=== PATIENT | female | born 1930 | race Caucasian/White ===

== ENCOUNTER → 2016-03-15 | Outpatient (CLI) | payer OTHER, MEDICARE ==
--- NOTE | 2016-03-15 18:06 | DX ---
Abdomen single view 1508 hours Indication: History of right hydronephrosis. Comparison: CT abdomen and pelvis dated September 17, 2015 and fluoroscopy for stent placement dated mb2015 Findings: An internalized double-J right ureteral stent has upstream and downstream pigtails overlyin g the right renal pelvis and urinary bladder respectively. A 1 x 57 mm linear radiodense foreign body overlies the right renal pelvis (new since the CT of the abdomen pelvis and fluoroscopy procedure). Gaseous bowel pattern with mild constipation. No evidence of bowel obstruction. Severe multilevel deg enerative disk and facet arthropathy. Impression: 1. Right ureteral stent remains well positioned. 2. Linear indeterminant foreign body overlies the right renal pelvis and may be within the collecting system. 3. Constipation.
--- NOTE | 2016-03-15 18:38 | DX ---
PA and Lateral Chest March 15, 2016 Indication: Follow up right lower lobe consolidation. Comparison: Two-view chest dated February 12, 2016 and portable chest dated November 16, 2015. Findings: Patchy bibasilar consolidation, worse right than left. The airspace consolidation at the right base has minimally improved since January 2016. Diffuse moderate peribronchial thickening, ky phosis, and demineralization are unchanged. No acute compression fracture. Blunting of bilateral co stophrenic angles posteriorly is unchanged and may represent pleuroparenchymal scarring versus tiny b ilateral pleural effusions. Impression: 1. Chronic bibasilar consolidation has minimally improved at the right base since January 2016. Op acities may represent manifestation of recurrent aspiration, chronic basilar scarring/atelectasis, or less likely manifestation of chronic airspace disease such as cryptogenic organizing pneumonia. 2. Kyphosis and demineralization, unchanged. No new compression fracture.
== END ==
LOC: FIMAGING 14:53
PROVIDERS: ATTEND Internal Medicine Hematology & Oncology
DX: N28.9 Disorder of kidney and ureter, unspecified (principal); J84.10 Pulmonary fibrosis, unspecified

== ENCOUNTER → 2016-03-16 | Outpatient (CLI) | payer OTHER, MEDICARE ==
--- NOTE | 2016-03-16 13:46 | US ---
Renal sonogram History: Pain, stent right side in September, history of lung cancer Comparison: Ultrasound September 03, 2015 Findings: The right kidney is no longer severely hydronephrotic. There is some mild caliectasis of th e lower pole calyces only. I do not identify this stent on this exam. There is no perinephric fluid. The right kidney measures 10 cm in length. The left kidney measures 7.3 cm in length and there is no hydronephrosis or perinephric fluid. The urinary bladder is empty. Impression: 1. Marked improvement since August 2015. I do not identify a ureteral stent on this exam, b ut was clearly present and in good position on a KUB yesterday. 3. A possible right upper quadrant metallic foreign body is not identified on this exam. Consider rep eat KUB to determine if this is inside or outside the patient. It was not present on the ear specialist view o f a CT September 23, 2015 or November 15, 2015.
== END ==
LOC: BRMIMAGING 13:01
PROVIDERS: ATTEND Urology
DX: N28.89 Other specified disorders of kidney and ureter (principal); Z85.118 Personal history of other malignant neoplasm of bronchus and lung
CPT/HCPCS: 76770-PO

== ENCOUNTER → 2016-03-24 | Outpatient (CLI) | payer OTHER, MEDICARE ==
--- NOTE | 2016-03-24 13:49 | CT ---
CT Scan of the Urinary Tract (Abdomen and Pelvis Without Contrast) Indication: Right flank pain. Technique: Multidetector helical CT imaging was performed from the kidneys to the urinary bladder wi thout contrast. Dose reduction techniques were utilized. Comparison: Radiograph of the abdomen dated March 15, 2016, CT angiogram of the chest dated November 15, 2015, CT of the abdomen and pelvis dated September 23, 2015, and CT of the chest dated June 14, 2015 . Findings: A 5-cm in length radiodense foreign body, likely wire, is vertically oriented in the right renal pelvis adjacent to the upstream and of the right ureteral stent. The upper urinary tract is dec ompressed. No evidence of obstruction or ureteral stent dysfunction. Urinary bladder is empty. The do wnstream end of the pigtail is well situated within the bladder lumen. No nephrolithiasis or left-michelle ed hydronephrosis. No intra-abdominal mass, lymphadenopathy, free fluid or mesenteric edema. Constipation and numerous diverticula throughout the colon are unchanged. No acute diverticulitis or bowel obstruction. The noncontrast liver, spleen, pancreas, gallbladder, and right adrenal gland are normal. The 2.4 x 1 .6 cm low attenuation well-circumscribed left adrenal gland nodule, likely adenoma, is unchanged. The abdominal aorta is normal caliber and tortuous with moderate calcified plaque. Right lower lobe airspace consolidation and infiltrative soft tissue along the bronchovascular bundle s have gradually increased since May 2015. Minimal mixed groundglass and central acinar micronodule s in the right lower lobe, right middle lobe, and left lower lobe have developed since November 2015. Right middle lobe atelectasis has significantly improved since November 2015. No pleural effusion. No acute lumbar spine fracture or low rib fracture. Old mild compression fracture L4, bilateral L5 pa rs defect, and severe multilevel degenerative disk disease are unchanged. Impression: 1. Retained foreign body, likely wire, in the right renal pelvis. No evidence of upper urinary tract perforation or urinary leak. 2. Decompressed upper urinary tract with well-positioned right ureteral stent. 3. No acute intra-abdominal process. 4. Diverticulosis and constipation are unchanged. 5. Progressive/chronic right lower lobe airspace consolidation raises the possibility underlying hitesh gnancy, such as lymphoproliferative disorder. Recommend pulmonary consultation. Comment: The case was discussed with Dr. Bear Corona shortly after study completion on February 8, 20 17. Attention: This CT examination is specifically designed to evaluate patients who are clinically susp ected of having acute obstructive uropathy. This examination does not use radiographic contrast, and as such, provides only a limited evaluation of the abdomen, pelvis and retroperitoneum. If there i s further clinical suspicion for pathological conditions other than obstructive uropathy, a complete CT evaluation of the abdomen and pelvis utilizing intravenous, oral, and rectal contrast should be co nsidered.
== END ==
LOC: FIMAGING 11:10
PROVIDERS: ATTEND Urology
DX: Z18.10 Retained metal fragments, unspecified (principal); R10.9 Unspecified abdominal pain
CPT/HCPCS: 74176-PO

== ENCOUNTER 2016-04-02 13:36 | Inpatient (IN) | payer OTHER, MEDICARE ==
--- NOTE | 2016-04-02 14:10 | EDPHY ---
HPI/HX/ROS/PE/MDM Narrative: CHIEF COMPLAINT: Right flank pain HPI: The patient is an 85 y/o female complaining of progressively worsening right lower back pain for the past 3 weeks with low-grade fever last night. She has an extensive medical history that includes lymphocytic leukemia, chronic hypoxemia, atrial fibrillation, and chronic kidney disease. Her daughter, who is her primary childcare administrator, reports the patient had similar pain in September 2015 and ultimately had a uretal stent placed and then revised in January for uretal stricture. She began to develop worsening right flank pain 3 weeks ago and last week was evaluated by Dr. Corona, her urologist. CT imaging at that time showed a small surgical retained foreign body and normal stent, however Dr. Corona did not believe the foreign body was the cause of her pain. Her daughter brought her to the ED today because the patient's pain has not been controllable with home pain medication and she developed a fever with worsening chronic shortness of breath last night. Her pain is aggravated by movement and palpation. She denies any recent fall or other trauma. REVIEW OF SYSTEMS: Aside from elements discussed in the HPI, a comprehensive 10-point review of systems was reviewed and is negative. PMH: atrial fibrillation, subdural hematoma, CVA post DC cardioversion and received tPA, hypertension, hyperlipidemia, lymphocytic leukemia, chronic hypoxemia and respiratory failure, chronic kidney disease, chronic anemia, laminotomy 2012, right uretal stent September and January 2016 Currently on chemotherapy: Leukeran every 30 days at the beginning of the month. Reported 10 admissions over the last 2 years. DNR status SOCIAL HISTORY: Medical power of county attorney is daughter, Lia, who provides majority of patient's history and cares for her at home. Comb Winder: Dr. Dio Martines Oncologist: Dr. Calle Prior medical records reviewed including admission 11/14/15 for acute encephalopathy and abdominal CT from 03/24/16. PHYSICAL EXAM: General:Patient is alert, in no acute distress, appears uncomfortable. ENT:Eyes are normal to inspection. ENT inspection normal. Neck: Normal inspection. Full range of motion. Respiratory: Chronic hypoxemia on 3LPM, SpO2 currently 88%. Mild wheezing bilaterally. Cardiovascular: Regular rate and rhythm. Strong peripheral pulses. Normal cap refill. Abdomen:The abdomen is nontender to palpation. There are no peritoneal signs. There are normal bowel sounds. Back: Normal to inspection. Right flank tenderness to palpation with lidocaine patch present. No midline tenderness. Skin: Normal color. No rash. Warm and dry. Extremities: Normal appearance. Full range of motion. Neuro: Oriented x3. Normal motor function. Normal sensory function. ED Course: IV established. Labs drawn including CBC, CHEM, lipase, and LFTs. UA ordered. Plan for abdominal x-rays and admission for pain management. 4mg IV morphine administered. 1425: Dr. Jessica, hospitalist, accepts admission. Study: Abdominal x-ray Indication: Pain Results: Abdominal x-ray was obtained. The results of the study are 1. Bilateral pneumonia (new since January 2015). 2. Chronic constipation. 3. Right ureteral stent and other metallic object remain in place. The study was read by the radiologist, Dr. La. I viewed the images myself on the PACS system. 1525: Dr. Wright reports patient's chronic right lower lobe infiltrate is worse than previous. UA indicates UTI. 2gm IV Rocephin administered and urine sent for culture. 1652: Spoke with patient's daughter to update evaristo patient's condition. Answered all her questions. MDM: This patient has a complicated past medical history. Her primary complaint is R CVA pain but the etiology is somewhat unclear. Her UA is positive, and this likely represents pyelonephritis given tenderness on exam, but she has previously had a positive urinalysis that was felt to be due to colonization. She also has worsening of chronic RLL consolidation on CXR which could also be contributing to or the etiology of her symptoms. In discussion with the admitting hospitalist, we will start her on ceftriaxone at this time. Her vital signs are baseline - I see no evidence of severe sepsis or septic shock as of 1540pm. - Data Points Laboratory Results: Laboratory Results 04/02/16 14:20 04/02/16 14:20 04/02/16 04/02/16 14:20 14:20 WBC 11.47 10^3/uL H 10^3/uL (3.80-9.50) RBC 2.78 10^6/uL L 10^6/uL (4.18-5.33) Hgb 10.2 g/dL L g/dL (12.6-16.3) Hct 31.4 % L % (38.0-47.0) MCV 112.9 fL H fL (81.5-99.8) MCH 36.7 pg H pg (27.9-34.1) MCHC 32.5 g/dL g/dL (32.4-36.7) RDW 14.8 % % (11.5-15.2) Plt Count 239 10^3/uL 10^3/uL (150-400) MPV 9.9 fL fL (8.7-11.7) Neut % (Auto) Not Reported Lymph % (Auto) Not Reported [place] % (Auto) Not Reported Eos % (Auto) Not Reported Baso % (Auto) Not Reported Nucleat RBC Rel Count 0.0 % % (0.0-0.2) Absolute Neuts (auto) Not Reported Absolute Lymphs (auto) Not Reported Absolute Monos (auto) Not Reported Absolute Eos (auto) Not Reported Absolute Basos (auto) Not Reported Absolute Nucleated RBC 0.00 10^3/uL 10^3/uL (0-0.01) Immature Gran % Not Reported Seg Neutrophils % 59 % % Band Neutrophils % 14 % % Lymphocytes % 2 % % Monocytes % 16 % % Eosinophils % 2 % % Basophils % 1 % % Metamyelocytes % 5 % % Myelocytes % 1 % % Immature Gran # Not Reported Absolute Seg Neuts 6.77 10^/uL H 10^/uL (1.70-6.50) Absolute Band Neuts 1.61 10^3/uL H 10^3/uL (0.00-0.70) Absolute Lymphocytes 0.23 10^3/uL L 10^3/uL (1.00-3.00) Absolute Monocytes 1.84 10^3/uL H 10^3/uL (0.30-0.80) Absolute Eosinophils 0.23 10^3/uL 10^3/uL (0.03-0.40) Absolute Basophils 0.11 10^3/uL H 10^3/uL (0.02-0.10) Absolute Metamyelocyte 0.57 10^3/mL H 10^3/mL (0.00-0.00) Absolute Myelocytes 0.11 10^3/mL H 10^3/mL (0.00-0.00) RBC/WBC/PLT Morphology NORMAL (NORMAL) Platelet Estimate ADEQUATE (ADEQ) Smear Review By Liya REEDER MD Sodium 134 mEq/L mEq/L (134-144) Potassium 4.7 mEq/L mEq/L (3.5-5.2) Chloride 99 mEq/L mEq/L (97-110) Carbon Dioxide 24 mEq/l mEq/l (22-31) Anion Gap 11 mEq/L mEq/L (8-16) BUN 25 mg/dL H mg/dL (7-23) Creatinine 1.2 mg/dL H mg/dL (0.6-1.0) Estimated GFR 42 Glucose 119 mg/dL H mg/dL (70-100) Calcium 9.9 mg/dL mg/dL (8.5-10.4) Total Bilirubin 0.4 mg/dL mg/dL (0.1-1.4) Conjugated Bilirubin 0.2 mg/dL mg/dL (0.0-0.5) Unconjugated Bilirubin 0.2 mg/dL mg/dL (0.0-1.1) AST 23 IU/L IU/L (14-46) ALT 34 IU/L IU/L (9-52) Alkaline Phosphatase 66 IU/L IU/L (38-126) Total Protein 6.0 g/dL L g/dL (6.3-8.2) Albumin 3.5 g/dL g/dL (3.5-5.0) Lipase 52.0 IU/L IU/L (23-300) Medications Given: Discontinued Medications Ceftriaxone Sodium 2 gm/ (Dextrose) 50 mls @ 100 mls/hr IV EDNOW ONE PRN Reason: Protocol Stop: 04/02/16 16:08 Last Admin: 04/02/16 15:59 Dose: 50 mls Morphine Sulfate (Morphine) 4 mg IVP EDNOW ONE Stop: 04/02/16 14:33 Last Admin: 04/02/16 14:37 Dose: 4 mg General Time Seen by Provider: 04/02/16 13:40 Initial Vital Signs: Initial Vital Signs Temperature (C) 36.9 C 04/02/16 13:37 Heart Rate 73 04/02/16 13:37 Respiratory Rate 17 04/02/16 13:37 Blood Pressure 128/67 H 04/02/16 13:37 O2 Sat (%) 88 L 04/02/16 13:37 O2 Delivery Mode Nasal Cannula O2 (L/minute) 3 Allergies/Adverse Reactions: epinephrine Allergy (Severe, Verified 09/17/15 18:01) SEIZURES, SHAKING Home Medications: Medication Instructions Recorded Acetaminophen [Tylenol ES 500 mg 1,000 mg PO BID PRN 04/02/16 (*)] Acyclovir [Zovirax 400 mg (*)] 400 mg PO BID 04/02/16 Albuterol [Proventil Inhaler HFA 2 puffs IH Q4H 04/02/16 (*)] Allopurinol [Allopurinol 300 MG 300 mg PO DAILY 04/02/16 (RX)] Aspirin EC [Aspirin EC 81 mg (*)] 81 mg PO HS 04/02/16 Benzonatate [Tessalon Pearles (RX)] 100 mg PO TID PRN 04/02/16 Budesonide [Budesonide 0.5MG/2Ml 0.5 mg IH BID 04/02/16 Neb (*)] Chlorambucil [Leukeran (RX)] 24 mg PO AD 04/02/16 Cholecalciferol Vit D3 [Vitamin D3 2,000 units PO DAILY 04/02/16 (*)] FLUoxetine [Prozac 20 MG (*)] 20 mg PO DAILY 04/02/16 Guaifenesin/Codeine Phos [Codeine 5 ml PO Q4H PRN 04/02/16 10 mg-Guai 300 mg Liq] Herbals/Supplements -Info Only 1 ea PO DAILY 04/02/16 Ipratropium/Albuterol [Duoneb (*)] 3 ml IH Q6H PRN 04/02/16 Metoprolol Tartrate [Lopressor 25 25 mg PO BID 04/02/16 mg (*)] Multivitamins [Multivitamin (*)] 1 each PO DAILY 04/02/16 Obinutuzumab [Gazyva] 1,000 mg IV Q28D 04/02/16 Omeprazole 20 mg PO DAILY 04/02/16 Sulfamethox/Tmp 800/160 mg 1 tab PO SUSA 04/02/16 [Bactrim Ds] guaiFENesin [Mucinex 600 MG (*)] 1,200 mg PO Q12H 04/02/16 levOFLOXACIN [levAQUIN (*)] 500 mg PO DAILY 04/02/16 oxyCODONE IR [Oxycodone Ir (*)] 10 mg PO Q8H PRN 04/02/16 Departure - Departure Disposition: [facility] Inpatient Acute Clinical Impression: CLL (chronic lymphocytic leukemia), Pyelonephritis Pneumonia Qualifiers: Pneumonia type: due to unspecified organism Laterality: right Lung location: lower lobe of lung Qualified Code(s): J18.1 - Lobar pneumonia, unspecified organism UTI (urinary tract infection) Qualifiers: Urinary tract infection type: site unspecified Hematuria presence: without hematuria Qualified Code(s): N39.0 - Urinary tract infection, site not specified Condition: Fair Report Scribed for: Carlos Plasencia Report Scribed by: Shanda Talbot Date of Report: 04/02/16 Time of Report: 13:42 Physician Review and Approval Statement: Portions of this note were transcribed by an ED scribe. I personally performed the history, physical exam, and medical decision making; and confirm the accuracy of the information in the transcribed note.
[2016-04-02 14:29] LABS: ADD DIFF? YES; ADD MORPH? NO; ADD SCAN? YES; ATYPICAL LYMPHOCYTE FLAG 10 (0-99); FRAGMENT RBC FLAG 0 (0-99); HEMATOCRIT 31.4 % (38.0-47.0); HEMOGLOBIN 10.2 g/dL (12.6-16.3); LIPEMIA HEMOLYSIS FLAG 80 (0-99); MEAN CELL HEMOGLOBIN 36.7 pg (27.9-34.1); MEAN CELL HEMOGLOBIN CONCENTR. 32.5 g/dL (32.4-36.7); MEAN CELL VOLUME 112.9 fL (81.5-99.8); MEAN PLATELET VOLUME 9.9 fL (8.7-11.7); PLATELET CLUMPS FLAG 0 (0-99); PLATELET COUNT 239 10^3/uL (150-400); RED BLOOD CELL COUNT 2.78 10^6/uL (4.18-5.33); RED CELL DISTRIBUTION WIDTH 14.8 % (11.5-15.2)
[2016-04-02 14:30] LABS: LEFT SHIFT FLG 120 (0-99)
[2016-04-02 14:51] LABS: ALANINE AMINOTRANSFERASE 34 IU/L (9-52); ALBUMIN 3.5 g/dL (3.5-5.0); ALKALINE PHOSPHATASE 66 IU/L (38-126); ANION GAP 11 mEq/L (8-16); ASPARTATE AMINOTRANSFERASE 23 IU/L (14-46); BILIRUBIN,TOTAL 0.4 mg/dL (0.1-1.4); BILIRUBIN-CONJUGATED 0.2 mg/dL (0.0-0.5); BILIRUBIN-UNCONJUGATED 0.2 mg/dL (0.0-1.1); CALCIUM 9.9 mg/dL (8.5-10.4); CARBON DIOXIDE 24 mEq/l (22-31); CHLORIDE 99 mEq/L (97-110); CREATININE 1.2 mg/dL (0.6-1.0); GLOMERULAR FILTRATION RATE 42; GLUCOSE 119 mg/dL (70-100); POTASSIUM 4.7 mEq/L (3.5-5.2); SODIUM 134 mEq/L (134-144)
[2016-04-02 14:56] LABS: SCAN NEGATIVE
[2016-04-02 15:16] LABS: PLATELET ESTIMATE ADEQUATE (ADEQ)
[2016-04-02 15:22] LABS: COLOR YELLOW; LEUKOCYTE ESTERASE,URINE 3+ (NEGATIVE); NITRITE,URINE NEGATIVE (NEGATIVE)
[2016-04-02 15:31] LABS: BACTERIA 1+ /hpf (NONE SEEN); MUCUS 1+ /lpf (NONE-1+); RBC,URINE 50-182 /hpf (0-3); WBC,URINE 50-182 /hpf (0-3)
[2016-04-02] MEDS ORDERED: cefTRIAXone 2 GM in D5W 50 ML IV ONE (15:39)
[2016-04-02] MEDS ORDERED: CEFTRIAXONE 1 GM/DEXTROSE/50 ML BAG IV ONE (15:52)
[2016-04-02] MEDS ORDERED: ONDANSETRON 4 MG/2 ML VIAL IVP PRN (18:50)
[2016-04-02] MEDS ORDERED: ONDANSETRON DISINTEGRATING 4 MG TAB PO PRN (18:50)
[2016-04-02] MEDS ORDERED: IPRATROPIUM/ALBUTEROL 3 ML DEYVIAL IH PRN (18:53)
[2016-04-02] MEDS ORDERED: LORazepam 2 MG/ML INJ IVP ONE (19:03)
[2016-04-02] MEDS: BUDESONIDE 0.5 MG/2 ML AMPUL.NEB IH SCH (20:39)
[2016-04-02] MEDS: ALBUTEROL 60 PUFFS/8 GM MDI IH SCH ×2 (20:39→23:57)
[2016-04-02] MEDS: ASPIRIN EC 81 MG TAB PO SCH (20:42)
[2016-04-02] MEDS: ACYCLOVIR 400 MG TAB PO SCH (20:42)
[2016-04-02] MEDS: guaiFENesin 600 MG TAB.ER PO SCH (20:42)
[2016-04-02] MEDS: METOPROLOL TARTRATE 25 MG TAB PO SCH (20:43)
--- NOTE | 2016-04-02 21:58 | GHP ---
[f rep st] HISTORY AND PHYSICAL DATE OF ADMISSION: 04/02/2016 CHIEF COMPLAINT: Right-sided back pain. HISTORY OF PRESENT ILLNESS: This is an 85-year-old female with a complicated past medical history. She has a history of CLL which seems to be progressing, and she also has a chronic right lower lobe infiltrate that is due to the CLL. She has multiple other medical problems which are listed below. The other pertinent problem is that she has had a right ureteral stricture with right hydronephros is. She had an initial stent placed last summer and then change of that stent was done in January of last year. She said has not had any problems with the stent but, within the last 3 weeks, has be en developing increasing right flank pain. She has gone to see who did a CAT scan wh ich showed retained foreign body, likely a wire in the right renal pelvis but without any evidence o f perforation. Urology feels that is not the cause of her pain. The pain has been getting more sev ere. She does report low-grade fevers. She denies any dysuria. During the past several hospitaliz ations, she has had pyuria with positive urine cultures of Pseudomonas and a very resistant Enteroba cter. The most recent culture was not treated as she was not having any symptoms. She is not havin g any lower extremity weakness. The pain is worse with any type of moving, especially with being in the car. REVIEW OF SYSTEMS: 10-point review of systems was obtained and negative. PAST MEDICAL HISTORY: 1. CLL with CLL-induced pneumonitis. She is seeing Dr. Calle. She is currently on a chemotherapy regimen that appears to be working, although it is quite immunosuppressant. 2. History of atrial fibrillation. She was anticoagulated briefly but then developed a subdural he matoma. 3. History of CVA. 4. 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 5. Chronic kidney disease. 6. History of radiation diaz. 7. Hypertension. 8. Hyperlipidemia. MEDICATIONS: Reviewed. SOCIAL HISTORY: No smoking or alcohol. Lives with a daughter. FAMILY HISTORY: Reviewed and noncontributory. PHYSICAL EXAMINATION: VITAL SIGNS: Afebrile. Blood pressure is 116/63, heart rate 65, oxygen satur ation is 95% on room air. GENERAL: The patient is well developed. No apparent distress. HEENT: N onicteric sclerae. Extraocular movements intact. Moist mucous membranes. NECK: Supple. No thyro megaly. LUNGS: Good effort. Clear to auscultation bilaterally. CARDIOVASCULAR: Regular rate and rhythm. No murmurs or gallops. ABDOMEN: Positive bowel sounds. Soft. Nontender. BACK: Some m ild CVA tenderness. No midline tenderness. EXTREMITIES: No clubbing, cyanosis, or edema. SKIN: Without rash. Warm, dry and intact. NEUROLOGIC: Alert and oriented x3. Moving all 4 extremities. PSYCH: Normal mood and affect. LABORATORY DATA: White blood cell count 11, hemoglobin 10, platelets are 239. Sodium 134, potassiu m 4.7, creatinine 1.2. Abdominal x-ray shows no fractures. There is bilateral lung infiltrate, mor e on the right, and the right ureteral stent and additional metallic object. ASSESSMENT AND PLAN: An 85-year-old female with a complicated past medical history including right ureteral stent, presenting with right flank pain. 1. Right flank pain. At this point, the cause is uncertain. I it were to be the retained guidewir e, I am not sure why her pain would start a month and a half after she got the stent placed. I supp ose it could have migrated. She does have significant pyuria which is unchanged from before but she could have a pyelonephritis. Other possibilities would include some type of spinal disorder. Plan will be to treat with IV antibiotics and try to get an MRI done in the morning. 2. Possible urinary tract infection. We will treat with IV ceftriaxone, although I am aware that s he has had cultures in the past with Pseudomonas. It has been sometime since those last cultures an d I am not completely sure that is the cause of her pain. We will await cultures as well. 3. History of CLL. Patient is seeing Dr. Calle and gets chemotherapy, as well as IVIG. 4. History of atrial fibrillation. 5. Chronic kidney disease. Patient is at baseline. 6. Bilateral infiltrates. The patient has known CLL infiltrate on the right. She may have somethin g on the left and is coughing. I believe the ceftriaxone should cover pneumonia, although not mal alexily covering atypicals. We will continue to watch. May consider CT scanning. /[id number]/MODL
[2016-04-02] MEDS: guaiFENesin/CODEINE PHOS 10 ML UDCUP PO PRN (23:35)
[2016-04-03] MEDS: ALBUTEROL 60 PUFFS/8 GM MDI IH SCH ×6 (03:29→21:38)
[2016-04-03] MEDS: guaiFENesin/CODEINE PHOS 10 ML UDCUP PO PRN ×4 (05:12→20:39)
[2016-04-03] MEDS: guaiFENesin 600 MG TAB.ER PO SCH ×2 (05:12→18:38)
[2016-04-03] MEDS: oxyCODONE IR 5 MG TAB PO PRN ×3 (05:21→20:40)
[2016-04-03 06:10] LABS: ADD DIFF? YES; ADD MORPH? NO; ADD SCAN? NO; ATYPICAL LYMPHOCYTE FLAG 0 (0-99); FRAGMENT RBC FLAG 0 (0-99); HEMATOCRIT 32.1 % (38.0-47.0); HEMOGLOBIN 10.1 g/dL (12.6-16.3); LEFT SHIFT FLG 80 (0-99); LIPEMIA HEMOLYSIS FLAG 80 (0-99); MEAN CELL HEMOGLOBIN 35.4 pg (27.9-34.1); MEAN CELL HEMOGLOBIN CONCENTR. 31.5 g/dL (32.4-36.7); MEAN CELL VOLUME 112.6 fL (81.5-99.8); MEAN PLATELET VOLUME 9.8 fL (8.7-11.7); PLATELET CLUMPS FLAG 20 (0-99); PLATELET COUNT 243 10^3/uL (150-400); RED BLOOD CELL COUNT 2.85 10^6/uL (4.18-5.33); RED CELL DISTRIBUTION WIDTH 14.7 % (11.5-15.2)
[2016-04-03 06:13] LABS: ANION GAP 10 mEq/L (8-16); CALCIUM 9.9 mg/dL (8.5-10.4); CARBON DIOXIDE 20 mEq/l (22-31); CHLORIDE 105 mEq/L (97-110); CREATININE 1.2 mg/dL (0.6-1.0); GLOMERULAR FILTRATION RATE 42; GLUCOSE 84 mg/dL (70-100); POTASSIUM 4.6 mEq/L (3.5-5.2); SODIUM 135 mEq/L (134-144)
[2016-04-03 06:45] LABS: PLATELET ESTIMATE ADEQUATE (ADEQ)
[2016-04-03] MEDS: BUDESONIDE 0.5 MG/2 ML AMPUL.NEB IH SCH ×2 (08:59→21:32)
[2016-04-03] MEDS: FLUoxetine 20 MG CAP PO SCH (09:16)
[2016-04-03] MEDS: ALLOPURINOL 300 MG TAB PO SCH (09:16)
[2016-04-03] MEDS: ACYCLOVIR 400 MG TAB PO SCH ×2 (09:17→20:41)
[2016-04-03] MEDS: PANTOPRAZOLE SODIUM 40 MG TAB PO SCH (09:17)
[2016-04-03] MEDS: METOPROLOL TARTRATE 25 MG TAB PO SCH ×2 (09:17→20:44)
[2016-04-03] MEDS: ENOXAPARIN 40 MG/0.4 ML SYR SC SCH (09:21)
[2016-04-03] MEDS: BENZONATATE 100 MG CAP PO PRN ×3 (10:38→20:41)
--- NOTE | 2016-04-03 11:19 | HOSPPROG ---
Hospitalist Progress Note Assessment/Plan: #Progressive right flank: retained guide wire vs pyleonephritis] -I spoke with Dr. Corona with Urology and he does not feel pain is due to retained wire. If stent was issue, then she should have reflux pain with urination. Unable to perform MRI since unclear of foreign body -CT today stable from prior. Culture shows >100K gram neg rods. Change to Cefepime based on review or prior micro sensitivities (personally reviewed) #CLL: on chemo per Dr. Calle #h/o subdural hematoma: no further anticoagulation #Atrial fibrillation: rate-controlled on BB, no anticoagulation with SDH #Skin cancer: recent right forearm excision #Benign HTN: home meds #HLD: statin #Diet: regular #DVT px: SCD #Disp: await culture sensitivities, warrants IV abx and opioids for pain control Subjective: no pain while just sitting in bed Objective: Vital Signs Temp Pulse Resp BP Pulse Ox 36.6 C 67 18 120/68 97 04/03/16 08:25 04/03/16 08:25 04/03/16 08:25 04/03/16 08:25 04/03/16 08:25 Laboratory Results 04/03/16 05:40 04/03/16 05:40 04/02/16 04/03/16 04/04/16 05:59 05:59 05:59 Intake Total 300 Output Total 300 Balance 0 - Physical Exam Constitutional: no apparent distress Eyes: PERRL Ears, Nose, Mouth, Throat: moist mucous membranes, hearing normal Cardiovascular: regular rate and rhythym, no murmur, rub, or gallop Respiratory: no respiratory distress, no rales or rhonchi Gastrointestinal: normoactive bowel sounds, soft, non-tender abdomen Genitourinary: no bladder fullness, other (significant right CVA TTP) Musculoskeletal: full muscle strength, other (right forearm surgical incision dressed, C/D/I ) Neurologic: AAOx3 Psychiatric: interacting appropriately ICD10 Worksheet Patient Problems: Problems Problem Status Onset CLL (chronic lymphocytic leukemia) Acute Pneumonia Acute Pyelonephritis Acute UTI (urinary tract infection) Acute Acute ischemic stroke Acute Bronchitis Acute Chronic Disease Mgmt/Transitional Care Acute Cough Acute Diarrhea Acute Fatigue Acute Hydronephrosis Acute MRSA (methicillin resistant Staphylococcus aureus) Acute 04/22/15 NSTEMI (non-ST elevated myocardial infarction) Acute Pneumonia Acute Pneumonia due to infectious organism Acute Somnolence Acute Subdural bleeding Acute UTI (urinary tract infection) Acute Urinary obstruction Acute Weakness Acute
[2016-04-03] MEDS ORDERED: MAGNESIUM HYDROXIDE 30 ML UDCUP PO PRN (11:23)
[2016-04-03] MEDS ORDERED: BISACODYL 10 MG SUPP PR PRN (11:23)
[2016-04-03] MEDS ORDERED: LACTULOSE 20 GM/30 ML UDCUP PO PRN (11:23)
[2016-04-03] MEDS ORDERED: POLYETHYLENE GLYCOL 3350 17 GM PKT PO PRN (11:23)
[2016-04-03] MEDS: CEFEPIME HCL 1 GM in D5W 50 ML IV SCH ×2 (13:38→20:39)
[2016-04-03] MEDS: ACETAMINOPHEN 325 MG TAB PO PRN (13:38)
[2016-04-03] MEDS: SULFAMETHOX/TMP 800/160 MG 1 TAB PO SCH (18:38)
[2016-04-03] MEDS: SENNOSIDES/DOCUSATE SODIUM TAB PO SCH (20:40)
[2016-04-03] MEDS: ASPIRIN EC 81 MG TAB PO SCH (20:41)
[2016-04-04] MEDS: BENZONATATE 100 MG CAP PO PRN ×2 (06:15→17:39)
[2016-04-04] MEDS: guaiFENesin 600 MG TAB.ER PO SCH ×2 (06:15→18:46)
[2016-04-04 06:21] LABS: ANION GAP 8 mEq/L (8-16); CALCIUM 9.8 mg/dL (8.5-10.4); CARBON DIOXIDE 25 mEq/l (22-31); CHLORIDE 101 mEq/L (97-110); CREATININE 1.2 mg/dL (0.6-1.0); GLOMERULAR FILTRATION RATE 42; GLUCOSE 88 mg/dL (70-100); POTASSIUM 4.5 mEq/L (3.5-5.2); SODIUM 134 mEq/L (134-144)
[2016-04-04] MEDS: ALBUTEROL 60 PUFFS/8 GM MDI IH SCH ×5 (06:33→21:55)
--- NOTE | 2016-04-04 08:36 | HOSPPROG ---
Hospitalist Progress Note Assessment/Plan: #Progressive right flank: retained guide wire vs pyleonephritis. Pain improved. CT stable -culture with Enterobacter. Change to Meropenem based on culture data. Micro re- running sensitivities for ESBL #Pyleonephritis: Culture shows Enterobacter cloacae. Changed to Meropenem. Likely needs prolonged IV abx, d/w ID in morning. PICC tomorrow #Leukocytosis: resolved with abx #Pneumonia: seen by Dio Martines 04/01 and started on LQ for 2 wk course. h/o Pseudomonas with some resistance to both LQ and Meropenem. I reviewed cultures with Dr. Fernandez and he agrees on Meropenem as single agent for both urinary and pulmonary sources #Chronic hypoxemic resp failure: thought due to PNA. Cont abx, budesonide and Duonebs #CLL: on chemo per Dr. Calle #h/o subdural hematoma: no further anticoagulation #Atrial fibrillation: rate-controlled on BB, no anticoagulation with SDH #Skin cancer: recent right forearm excision #Benign HTN: home meds #HLD: statin #Diet: regular #DVT px: SCD #Disp: await culture sensitivities, warrants IV abx and opioids for pain control Subjective: less pain today. Still coughing Objective: Vital Signs Temp Pulse Resp BP Pulse Ox 36.6 C 61 92 H 134/51 H 91 L 04/04/16 08:32 04/04/16 08:32 04/04/16 08:32 04/04/16 08:32 04/04/16 08:32 Laboratory Results 04/03/16 05:40 04/04/16 05:38 04/03/16 04/04/16 04/05/16 05:59 05:59 05:59 Intake Total 300 2175 Output Total 300 550 Balance 0 1625 - Physical Exam Constitutional: no apparent distress Eyes: PERRL Ears, Nose, Mouth, Throat: moist mucous membranes Cardiovascular: regular rate and rhythym Respiratory: no respiratory distress, rhonchi Gastrointestinal: normoactive bowel sounds, soft, non-tender abdomen Genitourinary: other (less right TTP today) Skin: other (right forearm incison dressed, C/D/I) Musculoskeletal: full muscle strength Neurologic: AAOx3 Psychiatric: interacting appropriately ICD10 Worksheet Patient Problems: Problems Problem Status Onset CLL (chronic lymphocytic leukemia) Acute Pneumonia Acute Pyelonephritis Acute UTI (urinary tract infection) Acute Acute ischemic stroke Acute Bronchitis Acute Chronic Disease Mgmt/Transitional Care Acute Cough Acute Diarrhea Acute Fatigue Acute Hydronephrosis Acute MRSA (methicillin resistant Staphylococcus aureus) Acute 04/22/15 NSTEMI (non-ST elevated myocardial infarction) Acute Pneumonia Acute Pneumonia due to infectious organism Acute Somnolence Acute Subdural bleeding Acute UTI (urinary tract infection) Acute Urinary obstruction Acute Weakness Acute
[2016-04-04] MEDS: BUDESONIDE 0.5 MG/2 ML AMPUL.NEB IH SCH ×2 (08:56→20:05)
[2016-04-04] MEDS: SENNOSIDES/DOCUSATE SODIUM TAB PO SCH ×2 (09:06→21:04)
[2016-04-04] MEDS: ACETAMINOPHEN 325 MG TAB PO PRN (09:06)
[2016-04-04] MEDS: FLUoxetine 20 MG CAP PO SCH (09:06)
[2016-04-04] MEDS: oxyCODONE IR 5 MG TAB PO PRN (09:06)
[2016-04-04] MEDS: ACYCLOVIR 400 MG TAB PO SCH ×2 (09:06→20:29)
[2016-04-04] MEDS: ALLOPURINOL 300 MG TAB PO SCH (09:07)
[2016-04-04] MEDS: METOPROLOL TARTRATE 25 MG TAB PO SCH ×2 (09:07→20:29)
[2016-04-04] MEDS: PANTOPRAZOLE SODIUM 40 MG TAB PO SCH (09:07)
[2016-04-04] MEDS: CEFEPIME HCL 1 GM in D5W 50 ML IV SCH (09:08)
[2016-04-04] MEDS: ENOXAPARIN 40 MG/0.4 ML SYR SC SCH (09:08)
[2016-04-04] MEDS: guaiFENesin/CODEINE PHOS 10 ML UDCUP PO PRN ×2 (09:34→17:38)
[2016-04-04] MEDS: MEROPENEM 1 GM in NS 100 ML IV SCH ×2 (10:27→20:30)
[2016-04-04] MEDS: SULFAMETHOX/TMP 800/160 MG 1 TAB PO SCH (18:46)
[2016-04-04] MEDS: ASPIRIN EC 81 MG TAB PO SCH (20:28)
[2016-04-05] MEDS: guaiFENesin/CODEINE PHOS 10 ML UDCUP PO PRN ×2 (01:56→16:47)
[2016-04-05] MEDS: BENZONATATE 100 MG CAP PO PRN ×2 (02:03→16:46)
[2016-04-05] MEDS: oxyCODONE IR 5 MG TAB PO PRN ×2 (02:03→16:46)
[2016-04-05 05:57] LABS: HEMATOCRIT 28.5 % (38.0-47.0); HEMOGLOBIN 9.1 g/dL (12.6-16.3); MEAN CELL HEMOGLOBIN 35.8 pg (27.9-34.1); MEAN CELL HEMOGLOBIN CONCENTR. 31.9 g/dL (32.4-36.7); MEAN CELL VOLUME 112.2 fL (81.5-99.8); RED BLOOD CELL COUNT 2.54 10^6/uL (4.18-5.33); RED CELL DISTRIBUTION WIDTH 14.6 % (11.5-15.2)
[2016-04-05 06:17] LABS: ANION GAP 6 mEq/L (8-16); CARBON DIOXIDE 24 mEq/l (22-31); CHLORIDE 104 mEq/L (97-110); CREATININE 1.2 mg/dL (0.6-1.0); GLOMERULAR FILTRATION RATE 42; GLUCOSE 89 mg/dL (70-100); POTASSIUM 4.2 mEq/L (3.5-5.2); SODIUM 134 mEq/L (134-144)
[2016-04-05] MEDS: ALBUTEROL 60 PUFFS/8 GM MDI IH SCH ×4 (09:05→19:37)
[2016-04-05] MEDS: BUDESONIDE 0.5 MG/2 ML AMPUL.NEB IH SCH ×2 (09:05→19:38)
[2016-04-05] MEDS: MEROPENEM 1 GM in NS 100 ML IV SCH ×2 (09:29→20:21)
[2016-04-05] MEDS: PANTOPRAZOLE SODIUM 40 MG TAB PO SCH (09:30)
[2016-04-05] MEDS: guaiFENesin 600 MG TAB.ER PO SCH ×2 (09:30→20:20)
[2016-04-05] MEDS: METOPROLOL TARTRATE 25 MG TAB PO SCH ×2 (09:30→20:19)
[2016-04-05] MEDS: SENNOSIDES/DOCUSATE SODIUM TAB PO SCH ×2 (09:30→20:19)
[2016-04-05] MEDS: ACYCLOVIR 400 MG TAB PO SCH ×2 (09:30→20:21)
[2016-04-05] MEDS: ENOXAPARIN 40 MG/0.4 ML SYR SC SCH (09:31)
[2016-04-05] MEDS: ALLOPURINOL 300 MG TAB PO SCH (09:31)
[2016-04-05] MEDS: FLUoxetine 20 MG CAP PO SCH (09:31)
[2016-04-05] MEDS ORDERED: ALTEPLASE 2 MG VIAL IVP PRN (09:55)
--- NOTE | 2016-04-05 14:22 | HOSPPROG ---
Hospitalist Progress Note Assessment/Plan: #Progressive right flank: retained guide wire vs pyleonephritis. Pain improved. CT stable from prior. Cont opioids -culture with Enterobacter. #Pyleonephritis: Culture shows Enterobacter cloacae, resistant to all, but Meropenem. Plan for 10 days (Day 210) PICC done. #Leukocytosis: resolved with abx #Pneumonia: seen by Dio Martines 04/01 and started on LQ for 2 wk course. h/o Pseudomonas with some resistance to both LQ and Meropenem. I reviewed cultures with Dr. Fernandez and he agrees on Meropenem as single agent for both urinary and pulmonary sources #Chronic hypoxemic resp failure: thought due to PNA. Cont abx, budesonide and Duonebs #CLL: on chemo per Dr. Calle #h/o subdural hematoma: no further anticoagulation #Atrial fibrillation: rate-controlled on BB, no anticoagulation with SDH #Skin cancer: recent right forearm excision by Dr. Fulton with positive margins. Likely needs further surgery #Benign HTN: home meds #HLD: statin #Diet: regular #DVT px: SCD #Disp: warrant inpt admission with resistant pyleo warrant IV abx. Awaiting home services approval for home abx, cont pain control Subjective: still coughing Objective: Vital Signs Temp Pulse Resp BP Pulse Ox 36.6 C 80 18 120/58 L 88 L 04/05/16 09:17 04/05/16 11:20 04/05/16 11:20 04/05/16 09:30 04/05/16 09:17 Laboratory Results 04/05/16 05:30 04/05/16 05:30 04/04/16 04/05/16 04/06/16 05:59 05:59 05:59 Intake Total 2175 950 Output Total 550 300 Balance 1625 650 - Physical Exam Constitutional: no apparent distress Eyes: PERRL Ears, Nose, Mouth, Throat: moist mucous membranes, hearing normal Cardiovascular: regular rate and rhythym Respiratory: no respiratory distress, rhonchi (right ML and LLL) Gastrointestinal: normoactive bowel sounds, soft, non-tender abdomen Genitourinary: other (less right flank TTP) Skin: warm, normal color, other (exicision site right arm dressed, C/D/I) Musculoskeletal: full muscle strength Neurologic: sensation intact bilaterally Psychiatric: interacting appropriately ICD10 Worksheet Patient Problems: Problems Problem Status Onset CLL (chronic lymphocytic leukemia) Acute Pneumonia Acute Pyelonephritis Acute UTI (urinary tract infection) Acute Acute ischemic stroke Acute Bronchitis Acute Chronic Disease Mgmt/Transitional Care Acute Cough Acute Diarrhea Acute Fatigue Acute Hydronephrosis Acute MRSA (methicillin resistant Staphylococcus aureus) Acute 04/22/15 NSTEMI (non-ST elevated myocardial infarction) Acute Pneumonia Acute Pneumonia due to infectious organism Acute Somnolence Acute Subdural bleeding Acute UTI (urinary tract infection) Acute Urinary obstruction Acute Weakness Acute
[2016-04-05] MEDS: ACETAMINOPHEN 325 MG TAB PO PRN (16:46)
[2016-04-05] MEDS: ASPIRIN EC 81 MG TAB PO SCH (20:19)
[2016-04-06] MEDS: ALBUTEROL 60 PUFFS/8 GM MDI IH SCH ×8 (00:27→20:25)
[2016-04-06] MEDS: guaiFENesin/CODEINE PHOS 10 ML UDCUP PO PRN ×2 (08:25→12:38)
[2016-04-06] MEDS: BENZONATATE 100 MG CAP PO PRN (08:26)
[2016-04-06] MEDS: MEROPENEM 1 GM in NS 100 ML IV SCH ×2 (08:54→21:44)
[2016-04-06] MEDS: METOPROLOL TARTRATE 25 MG TAB PO SCH ×2 (08:54→21:44)
[2016-04-06] MEDS: ACETAMINOPHEN 325 MG TAB PO PRN (08:59)
[2016-04-06] MEDS: PANTOPRAZOLE SODIUM 40 MG TAB PO SCH (08:59)
[2016-04-06] MEDS: guaiFENesin 600 MG TAB.ER PO SCH ×2 (09:00→21:43)
[2016-04-06] MEDS: FLUoxetine 20 MG CAP PO SCH (09:00)
[2016-04-06] MEDS: ALLOPURINOL 300 MG TAB PO SCH (09:01)
[2016-04-06] MEDS: ACYCLOVIR 400 MG TAB PO SCH ×2 (09:01→21:44)
[2016-04-06] MEDS: SENNOSIDES/DOCUSATE SODIUM TAB PO SCH ×2 (09:02→22:01)
[2016-04-06] MEDS: BUDESONIDE 0.5 MG/2 ML AMPUL.NEB IH SCH ×2 (09:19→20:07)
[2016-04-06] MEDS: ENOXAPARIN 40 MG/0.4 ML SYR SC SCH (09:39)
--- NOTE | 2016-04-06 12:44 | SOAPPROG ---
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 Margins positive Will defer further treatment recommendations to Dr. Calle. Discussed with Gina and her daughter Lia. Seen with Dr. Linder Dressed with hydrofera blue O: laying in bed, Lia at bedside Incision dehisced in central portion. Several sutures removed. Otherwise CDI. No evidence of infection Placed hydrofera blue and secondary dressing Objective: Vital Signs Temp Pulse Resp BP Pulse Ox 36.6 C 62 20 130/65 H 98 04/06/16 08:00 04/06/16 08:54 04/06/16 08:00 04/06/16 08:54 04/06/16 08:00 Laboratory Results 04/05/16 05:30 04/05/16 05:30 04/05/16 04/06/16 04/07/16 05:59 05:59 05:59 Intake Total 950 1250 Output Total 300 Balance 650 1250 ICD10 Worksheet Patient Problems: Problems Problem Status Onset CLL (chronic lymphocytic leukemia) Acute Multiple drug resistant organism (MDRO) culture positive Acute ~04/02/16 Pneumonia Acute Pyelonephritis Acute UTI (urinary tract infection) Acute Acute ischemic stroke Acute Bronchitis Acute Chronic Disease Mgmt/Transitional Care Acute Cough Acute Diarrhea Acute Fatigue Acute Hydronephrosis Acute MRSA (methicillin resistant Staphylococcus aureus) Acute 04/22/15 NSTEMI (non-ST elevated myocardial infarction) Acute Pneumonia Acute Pneumonia due to infectious organism Acute Somnolence Acute Subdural bleeding Acute UTI (urinary tract infection) Acute Urinary obstruction Acute Weakness Acute
--- NOTE | 2016-04-06 14:20 | HOSPPROG ---
Hospitalist Progress Note Assessment/Plan: Progressive right flank: retained guide wire vs pyleonephritis. Pain improved. CT stable from prior. Cont opioids culture with Enterobacter, multidrug resistance this is presumably he cuase of her flank pain Pyleonephritis: Culture shows Enterobacter cloacae, resistant to all, but Meropenem. Plan for 10 days (Day 310) PICC done. Leukocytosis: resolved with abx Pneumonia: seen by Dio Martines 04/01 and started on LQ for 2 wk course. h/o Pseudomonas with some resistance to both LQ and Meropenem. I reviewed cultures with Dr. Fernandez and he agrees on Meropenem as single agent for both urinary and pulmonary sources Chronic hypoxemic resp failure: thought due to PNA. Cont abx, budesonide and Duonebs CLL: on chemo per Dr. Calle h/o subdural hematoma: no further anticoagulation hold lovenox Atrial fibrillation: rate-controlled on BB, no anticoagulation with SDH Skin cancer: recent right forearm excision by Dr. Fulton with positive margins. Likely needs further surgery Benign HTN: home meds HLD: statin Diet: regular DVT px: SCD Disp: warrant inpt admission with resistant pyleo warrant IV abx. Awaiting home services approval for home abx, cont pain control Subjective: daughter very anxious about discharge Objective: Vital Signs Temp Pulse Resp BP Pulse Ox 36.6 C 62 20 130/65 H 98 04/06/16 08:00 04/06/16 08:54 04/06/16 08:00 04/06/16 08:54 04/06/16 08:00 Laboratory Results 04/05/16 05:30 04/05/16 05:30 04/05/16 04/06/16 04/07/16 05:59 05:59 05:59 Intake Total 950 1250 Output Total 300 Balance 650 1250 - Physical Exam Constitutional: no apparent distress, appears nourished Eyes: PERRL, anicteric sclera Ears, Nose, Mouth, Throat: moist mucous membranes, hearing normal Cardiovascular: regular rate and rhythym, no murmur, rub, or gallop Respiratory: no respiratory distress, no rales or rhonchi Gastrointestinal: normoactive bowel sounds, soft, non-tender abdomen Genitourinary: no bladder fullness Skin: warm, normal color Musculoskeletal: full muscle strength, no muscle tenderness Neurologic: AAOx3, sensation intact bilaterally Psychiatric: interacting appropriately, not anxious Lymph, Heme, Immunologic: no cervical LAD, no supraclavicular LAD ICD10 Worksheet Patient Problems: Problems Problem Status Onset CLL (chronic lymphocytic leukemia) Acute Multiple drug resistant organism (MDRO) culture positive Acute ~04/02/16 Pneumonia Acute Pyelonephritis Acute UTI (urinary tract infection) Acute Acute ischemic stroke Acute Bronchitis Acute Chronic Disease Mgmt/Transitional Care Acute Cough Acute Diarrhea Acute Fatigue Acute Hydronephrosis Acute MRSA (methicillin resistant Staphylococcus aureus) Acute 04/22/15 NSTEMI (non-ST elevated myocardial infarction) Acute Pneumonia Acute Pneumonia due to infectious organism Acute Somnolence Acute Subdural bleeding Acute UTI (urinary tract infection) Acute Urinary obstruction Acute Weakness Acute
[2016-04-06] MEDS: ASPIRIN EC 81 MG TAB PO SCH (21:44)
[2016-04-07] MEDS: ALBUTEROL 60 PUFFS/8 GM MDI IH SCH ×2 (05:26→08:30)
[2016-04-07 07:51] VITALS: BP 123/71; TEMP 97.8
[2016-04-07] MEDS: ACETAMINOPHEN 325 MG TAB PO PRN (08:15)
[2016-04-07] MEDS: guaiFENesin 600 MG TAB.ER PO SCH (08:15)
[2016-04-07] MEDS: BUDESONIDE 0.5 MG/2 ML AMPUL.NEB IH SCH (08:29)
[2016-04-07 08:40] VITALS: PULSE 77; RESP 18; O2SAT 93
[2016-04-07] MEDS: MEROPENEM 1 GM in NS 100 ML IV SCH (08:44)
[2016-04-07] MEDS: SENNOSIDES/DOCUSATE SODIUM TAB PO SCH (08:45)
[2016-04-07] MEDS: PANTOPRAZOLE SODIUM 40 MG TAB PO SCH (08:46)
[2016-04-07] MEDS: ACYCLOVIR 400 MG TAB PO SCH (08:47)
[2016-04-07] MEDS: METOPROLOL TARTRATE 25 MG TAB PO SCH (08:48)
[2016-04-07] MEDS: ALLOPURINOL 300 MG TAB PO SCH (08:48)
[2016-04-07] MEDS: FLUoxetine 20 MG CAP PO SCH (08:48)
[2016-04-07] MEDS: guaiFENesin/CODEINE PHOS 10 ML UDCUP PO PRN (10:56)
--- NOTE | 2016-04-07 11:15 | PDIAF ---
- Diagnosis Diagnosis: pyelonephritis Code Status: Do Not Resuscitate - Medication Management Discharge Medications: Medications to Continue on Transfer Acetaminophen [Tylenol ES 500 mg (*)] 1,000 mg PO BID PRN 04/02/16 [Last Taken 04/02/16 12:00] Acyclovir [Zovirax 400 mg (*)] 400 mg PO BID 04/02/16 [Last Taken 04/02/16 11:00 ] Albuterol [Proventil Inhaler HFA (*)] 2 puffs IH Q4H 04/02/16 [Last Taken 11:00] Allopurinol [Allopurinol 300 MG (RX)] 300 mg PO DAILY 04/02/16 [Last Taken 04/02 11:00] Aspirin EC [Aspirin EC 81 mg (*)] 81 mg PO HS 04/02/16 [Last Taken 04/01/16 22: 00] Benzonatate [Tessalon Pearles] 100 mg PO TID PRN 04/02/16 [Last Taken 04/02/16 07:00] Budesonide [Budesonide 0.5MG/2Ml Neb (*)] 0.5 mg IH BID 04/02/16 [Last Taken Unknown] Chlorambucil [Leukeran] 24 mg PO AD 04/02/16 [Last Taken 04/02/16 12:00] Cholecalciferol Vit D3 [Vitamin D3 (*)] 2,000 units PO DAILY 04/02/16 [Last Taken Unknown] FLUoxetine [Prozac 20 MG (*)] 20 mg PO DAILY 04/02/16 [Last Taken 04/02/16 11:00 ] Guaifenesin/Codeine Phos [Codeine 10 mg-Guai 300 mg Liq] 5 ml PO Q4H PRN [Last Taken 04/02/16 12:45] Herbals/Supplements -Info Only 1 ea PO DAILY 04/02/16 [Last Taken Unknown] Ipratropium/Albuterol [Duoneb (*)] 3 ml IH Q6H PRN 04/02/16 [Last Taken Unknown] Metoprolol Tartrate [Lopressor 25 mg (*)] 25 mg PO BID 04/02/16 [Last Taken 11:00] Multivitamins [Multivitamin (*)] 1 each PO DAILY 04/02/16 [Last Taken Unknown] Obinutuzumab [Gazyva] 1,000 mg IV Q28D 04/02/16 [Last Taken 03/18/16] Omeprazole 20 mg PO DAILY 04/02/16 [Last Taken 04/02/16 11:00] Sulfamethox/Tmp 800/160 mg [Bactrim DS] 1 tab PO SUSA 04/02/16 [Last Taken 03/27] guaiFENesin [Mucinex 600 MG (*)] 1,200 mg PO Q12H 04/02/16 [Last Taken 04/02/16 11:00] oxyCODONE IR [Oxycodone Ir (*)] 10 mg PO Q8H PRN 04/02/16 [Last Taken 04/02/16 11:30] Meropenem [Merrem Inj 1 gm (*)] 1 gm IV Q12 #0 vial 04/07/16 [Last Taken Unknown ] Packaging Line Attendant Antibiotics: cefepime Packaging Line Attendant Antibiotic Stop Date: 04/13/26 Discharge Medications: Refer to the Discharge Home Medication list for PRN reason. - Orders Services needed: Home Care, Registered Nurse Home Care Face to Face: I certify that this patient was under my care and that I had the required [id number] encounter meeting the encounter requirements on the discharge day. My findings support the fact that the patient is homebound as defined in CMS Chapter 7 Medicare Benefits Manual 30.1.1, The condition of the patient is such that there exists a normal inability to leave home and consequently, leaving home would require a considerable and taxing effort. - Follow Up Care Current Providers and Referrals: Patient,NotPresent [Unknown] - As per Instructions
--- NOTE | 2016-04-07 11:18 | HOSPPROG ---
Hospitalist Progress Note Assessment/Plan: Progressive right flank: retained guide wire vs pyleonephritis. Pain improved. CT stable from prior. Cont opioids culture with Enterobacter, multidrug resistance this is presumably he cuase of her flank pain Pyleonephritis: Culture shows Enterobacter cloacae, resistant to all, but Meropenem. Plan for 10 days (Day 310) PICC done. Leukocytosis: resolved with abx Pneumonia: seen by Dio Martines 04/01 and started on LQ for 2 wk course. h/o Pseudomonas with some resistance to both LQ and Meropenem. I reviewed cultures with Dr. Fernandez and he agrees on Meropenem as single agent for both urinary and pulmonary sources Chronic hypoxemic resp failure: thought due to PNA. Cont abx, budesonide and Duonebs CLL: on chemo per Dr. Calle h/o subdural hematoma: no further anticoagulation hold lovenox Atrial fibrillation: rate-controlled on BB, no anticoagulation with SDH Skin cancer: recent right forearm excision by Dr. Fulton with positive margins. Likely needs further surgery Benign HTN: home meds HLD: statin Diet: regular DVT px: SCD Disp: home today > 30 minutes Subjective: ready for dc Objective: Vital Signs Temp Pulse Resp BP Pulse Ox 36.6 C 77 18 123/71 H 93 04/07/16 07:46 04/07/16 08:32 04/07/16 08:32 04/07/16 07:46 04/07/16 08:32 Laboratory Results 04/05/16 05:30 04/05/16 05:30 04/06/16 04/07/16 04/08/16 05:59 05:59 05:59 Intake Total 1250 300 Balance 1250 300 - Physical Exam Constitutional: no apparent distress, appears nourished Eyes: PERRL, anicteric sclera Ears, Nose, Mouth, Throat: moist mucous membranes, hearing normal Cardiovascular: regular rate and rhythym, no murmur, rub, or gallop Respiratory: no respiratory distress, no rales or rhonchi Gastrointestinal: normoactive bowel sounds, soft, non-tender abdomen Genitourinary: No chi in urethra Skin: warm, normal color Musculoskeletal: full muscle strength, no muscle tenderness Neurologic: AAOx3, sensation intact bilaterally Psychiatric: interacting appropriately, not anxious Lymph, Heme, Immunologic: no cervical LAD ICD10 Worksheet Patient Problems: Problems Problem Status Onset CLL (chronic lymphocytic leukemia) Acute Multiple drug resistant organism (MDRO) culture positive Acute ~04/02/16 Pneumonia Acute Pyelonephritis Acute UTI (urinary tract infection) Acute Acute ischemic stroke Acute Bronchitis Acute Chronic Disease Mgmt/Transitional Care Acute Cough Acute Diarrhea Acute Fatigue Acute Hydronephrosis Acute MRSA (methicillin resistant Staphylococcus aureus) Acute 04/22/15 NSTEMI (non-ST elevated myocardial infarction) Acute Pneumonia Acute Pneumonia due to infectious organism Acute Somnolence Acute Subdural bleeding Acute UTI (urinary tract infection) Acute Urinary obstruction Acute Weakness Acute
--- NOTE | 2016-04-07 13:55 | PDIAF ---
- Diagnosis Diagnosis: pyelonephritis Code Status: Do Not Resuscitate - Medication Management Discharge Medications: Medications to Continue on Transfer Acetaminophen [Tylenol ES 500 mg (*)] 1,000 mg PO BID PRN 04/02/16 [Last Taken 04/02/16 12:00] Acyclovir [Zovirax 400 mg (*)] 400 mg PO BID 04/02/16 [Last Taken 04/02/16 11:00 ] Albuterol [Proventil Inhaler HFA (*)] 2 puffs IH Q4H 04/02/16 [Last Taken 11:00] Allopurinol [Allopurinol 300 MG (RX)] 300 mg PO DAILY 04/02/16 [Last Taken 04/02 11:00] Aspirin EC [Aspirin EC 81 mg (*)] 81 mg PO HS 04/02/16 [Last Taken 04/01/16 22: 00] Benzonatate [Tessalon Pearles] 100 mg PO TID PRN 04/02/16 [Last Taken 04/02/16 07:00] Budesonide [Budesonide 0.5MG/2Ml Neb (*)] 0.5 mg IH BID 04/02/16 [Last Taken Unknown] Chlorambucil [Leukeran] 24 mg PO AD 04/02/16 [Last Taken 04/02/16 12:00] Cholecalciferol Vit D3 [Vitamin D3 (*)] 2,000 units PO DAILY 04/02/16 [Last Taken Unknown] FLUoxetine [Prozac 20 MG (*)] 20 mg PO DAILY 04/02/16 [Last Taken 04/02/16 11:00 ] Guaifenesin/Codeine Phos [Codeine 10 mg-Guai 300 mg Liq] 5 ml PO Q4H PRN [Last Taken 04/02/16 12:45] Herbals/Supplements -Info Only 1 ea PO DAILY 04/02/16 [Last Taken Unknown] Ipratropium/Albuterol [Duoneb (*)] 3 ml IH Q6H PRN 04/02/16 [Last Taken Unknown] Metoprolol Tartrate [Lopressor 25 mg (*)] 25 mg PO BID 04/02/16 [Last Taken 11:00] Multivitamins [Multivitamin (*)] 1 each PO DAILY 04/02/16 [Last Taken Unknown] Obinutuzumab [Gazyva] 1,000 mg IV Q28D 04/02/16 [Last Taken 03/18/16] Omeprazole 20 mg PO DAILY 04/02/16 [Last Taken 04/02/16 11:00] Sulfamethox/Tmp 800/160 mg [Bactrim DS] 1 tab PO SUSA 04/02/16 [Last Taken 03/27] guaiFENesin [Mucinex 600 MG (*)] 1,200 mg PO Q12H 04/02/16 [Last Taken 04/02/16 11:00] oxyCODONE IR [Oxycodone Ir (*)] 10 mg PO Q8H PRN 04/02/16 [Last Taken 04/02/16 11:30] Meropenem [Merrem Inj 1 gm (*)] 1 gm IV Q12 #0 vial 04/07/16 [Last Taken Unknown ] Retail Coordinator Antibiotics: meropenem Detention Antibiotic Stop Date: 04/13/26 Discharge Medications: Refer to the Discharge Home Medication list for PRN reason. - Orders Services needed: Home Care, Registered Nurse Home Care Face to Face: I certify that this patient was under my care and that I had the required [id number] encounter meeting the encounter requirements on the discharge day. My findings support the fact that the patient is homebound as defined in CMS Chapter 7 Medicare Benefits Manual 30.1.1, The condition of the patient is such that there exists a normal inability to leave home and consequently, leaving home would require a considerable and taxing effort. - Follow Up Care Current Providers and Referrals: Patient,NotPresent [Unknown] - As per Instructions
--- NOTE | 2016-04-07 17:58 | GDS ---
DISCHARGE DIAGNOSES: 1. Left flank pain, thought possibly secondary to pyelonephritis. 2. CLL with CLL-induced pneumonitis. 3. Possible healthcare-associated pneumonia. 4. History of atrial fibrillation, now on metoprolol. 5. History of cerebrovascular accident. 6. Subdural hematoma. 7. History of radiation diaz. Please see admission history and physical by Dr. Anabelle Jessica. The patient presented with flank pain. She had a urinalysis that was positive. She has an positive urinalysis given indwellin g ureteral stent. She had a CT showing a foreign body in the renal pelvis, and this was known previ ously. She was treated with meropenem for multidrug resistant Enterobacter in her urine. She was a febrile here. She did not have sepsis. /[id number]/MODL
[2016-04-15] MEDS ORDERED: CHLORAMBUCIL 2 MG PO SCH (09:00)
== END 2016-04-07 14:49 | disposition home health service (06) | DRG 689 ==
LOC: F1N 17:12 → OBSVTOIN 18:51 → F1N 04-05 21:53
PROVIDERS: ADMIT Internal Medicine; ATTEND Internal Medicine
PROC: 02HV33Z Insertion of Infusion Device into Superior Vena Cava, Percutaneous Approach (ICD-10-PCS; principal; 2016-04-05)
DX: N10 Acute pyelonephritis (principal); B96.89 Other specified bacterial agents as the cause of diseases classified elsewhere; J18.9 Pneumonia, unspecified organism; C91.10 Chronic lymphocytic leukemia of B-cell type not having achieved remission; J96.11 Chronic respiratory failure with hypoxia; I48.91 Unspecified atrial fibrillation; I12.9 Hypertensive chronic kidney disease with stage 1 through stage 4 chronic kidney disease, or unspecified chronic kidney disease; N18.9 Chronic kidney disease, unspecified; E78.5 Hyperlipidemia, unspecified; Z86.73 Personal history of transient ischemic attack (TIA), and cerebral infarction without residual deficits
CPT/HCPCS: 96365; 97116-GP; 97161-GP; 97165-GO; 97530-GO; 97530-GP; C1751; G8978-GP-CI; G8979-GP-CI; G8980-GP-CI; G8984-GO-CJ; G8985-GO-CI; J0692; J0696; J1650; J2185; J7626

== ENCOUNTER 2016-04-16 12:48 | Inpatient (IN) | payer OTHER, MEDICARE ==
--- NOTE | 2016-04-16 13:08 | EDPHY ---
H & P Time Seen by Provider: 04/16/16 13:06 - Personal History Tetanus Vaccine Date: 2003 - Medical/Surgical History Hx Asthma: No Hx Chronic Respiratory Disease: No Hx Diabetes: No Hx Cardiac Disease: Yes Hx Renal Disease: Yes Hx Cirrhosis: No Hx Alcoholism: No Hx HIV/AIDS: No Hx Splenectomy or Spleen Trauma: No Other PMH: HTN, High cholesterol, R rotator cuff tear, skin ca being treated with radiation (10/29); skin diaz from radiation, Chronic lymphocytic leukemia, osteoarthritis, a fib dx 07/2015, - Social History Smoking Status: Former smoker Constitutional: Initial Vital Signs O2 Sat (%) 97 04/16/16 13:00 O2 Delivery Mode Room Air O2 (L/minute) 4 Allergies/Adverse Reactions: epinephrine Allergy (Severe, Verified 04/16/16 13:02) SEIZURES, SHAKING Home Medications: Medication Instructions Recorded Acetaminophen [Tylenol ES 500 mg 1,000 mg PO BID PRN 04/02/16 (*)] Acyclovir [Zovirax 400 mg (*)] 400 mg PO BID 04/02/16 Albuterol [Proventil Inhaler HFA 2 puffs IH Q4H 04/02/16 (*)] Allopurinol [Allopurinol 300 MG 300 mg PO DAILY 04/02/16 (RX)] Aspirin EC [Aspirin EC 81 mg (*)] 81 mg PO HS 04/02/16 Benzonatate [Tessalon Pearles] 100 mg PO TID PRN 04/02/16 Budesonide [Budesonide 0.5MG/2Ml 0.5 mg IH BID 04/02/16 Neb (*)] Chlorambucil [Leukeran] 24 mg PO AD 04/02/16 Cholecalciferol Vit D3 [Vitamin D3 2,000 units PO DAILY 04/02/16 (*)] FLUoxetine [Prozac 20 MG (*)] 20 mg PO DAILY 04/02/16 Guaifenesin/Codeine Phos [Codeine 5 ml PO Q4H PRN 04/02/16 10 mg-Guai 300 mg Liq] Herbals/Supplements -Info Only 1 ea PO DAILY 04/02/16 Ipratropium/Albuterol [Duoneb (*)] 3 ml IH Q6H PRN 04/02/16 Metoprolol Tartrate [Lopressor 25 25 mg PO BID 04/02/16 mg (*)] Multivitamins [Multivitamin (*)] 1 each PO DAILY 04/02/16 Obinutuzumab [Gazyva] 1,000 mg IV Q28D 04/02/16 Omeprazole 20 mg PO DAILY 04/02/16 Sulfamethox/Tmp 800/160 mg 1 tab PO SUSA 04/02/16 [Bactrim DS] guaiFENesin [Mucinex 600 MG (*)] 1,200 mg PO Q12H 04/02/16 oxyCODONE IR [Oxycodone Ir (*)] 10 mg PO Q8H PRN 04/02/16 Meropenem [Merrem Inj 1 gm (*)] 1 gm IV Q12 #0 vial 04/07/16 Medical Decision Making ED Course/Re-evaluation: CHIEF COMPLAINT: Progressing weakness, CLL history HISTORY OF PRESENT ILLNESS: The patient is an 85 y/o female arriving with her daughter, who is her primary recruiter account manager, complaining of progressing weakness over the last week. She has a history of CLL with lung infiltrate, chronic kidney disease, and atrial fibrillation. She was admitted on 04/02/16 with weakness and flank pain and discharged 04/07/16, 11 days ago, after treatment with meropenem for pyelonephritis. Per her daughter, who provides all of the patient's history, the patient has become progressively weaker in the last week. Her cough has improved over the last 3 days, but is causing frequent discomfort. Dr. Calle, patient's oncologist, evaluated her yesterday and noted her calcium was high. This morning the patient complained of chronic back pain and new arm aching. Her oxycodone is not alleviating her pain. REVIEW OF SYSTEMS: A 10 point review of systems was performed and is negative with the exception of the elements mentioned in the history of present illness. PHYSICAL EXAM: HR, BP, O2 Sat, RR. Temp noted General Appearance: Alert, dehydrated, appropriate, and chronically ill- appearing. Head: Atraumatic without scalp tenderness or obvious injury Eyes: Pupils equal, round, reactive to light and accommodation, EOMI, no trauma , no injection. Ears: Clear bilaterally, no perforation, normal landmarks Nose: Atraumatic, no rhinorrhea, clear. Throat: There is no erythema or exudates, no lesions, normal tonsils, mucus membranes dry. Neck: Supple, 2+ carotid upstroke, nontender, no lymphadenopathy. Respiratory: No retractions, no distress, no wheezes, and no accessory muscle use. Lungs are have coarse rhonchi throughout. Patient is actively coughing for extended periods. Cardiovascular: Regular rate and rhythm, no murmurs, rubs, or gallops. Good capillary refill all extremities. Gastrointestinal: Abdomen is soft, nontender, non-distended, no masses, no rebound, no guarding, no peritoneal signs. Musculoskeletal: Normal active ROM of all extremities, atraumatic. Neurological: Alert, appropriate, and interactive. Moves all 4 extremities. Too weak to sit up unassisted. Skin: No rashes, good turgor, diffuse skin lesions reported to be cancerous with nothing requiring acute care. Sensitivity to light touch everywhere. Past medical history: Atrial fibrillation not on anticoagulant, torn right rotator cuff, skin cancer, CLL and CLL-induced pneumonitis, CVA following cardioversion, subdural hematoma, radiation diaz, hypertension, hyperlipidemia Past surgical history: Skin cancer lesions removed by Dr. Linder, but without clean margins - followed by wound care clinic Family history: Noncontributory Social history: Daughter at bedside is primary caregiver. Oncologist: Dr. Calle, Asbestos Microscopist: Dr. Holliday DIAGNOSTICS/PROCEDURES/CRITICAL CARE TIME: Study: Chest x-ray Indication: Cough, weakness, CLL Results: Chest x-ray was obtained. The results of the study are possible right infiltrate, may be chronic in absence of infectious symptoms. The study was read by the radiologist, Dr. Fernandez. I viewed the images myself on the PACS system. DIFFERENTIAL DIAGNOSIS: The differential diagnosis for the patient's cough and weakness included but was not limited to progressing CLL, worsening chronic pulmonary infiltrate vs infectious infiltrate, pneumonia, UTI, URI, electrolyte abnormalities and dehydration, and cardiogenic causes. MEDICAL DECISION MAKING: This is a chronically ill 85 y/o female with active progressive CLL presenting today with worsening weakness per her daughter. She was discharged 11 days ago with similar symptoms and discharged on antibiotics for pyelonephritis. She has an active cough that has reportedly improved over the last 3 days, but has diffuse coarse rhonchi on exam. She was evaluated by her oncologist yesterday, who informed the family she was hyperkalemic. She is too weak to sit up and unable to significantly contribute to assessment. 1325: Consulted with Dr. Orozco, oncology. He agrees with plan for admission and reports Dr. Calle's last report indicated an end-of-life/hospice discussion with the daughter was unproductive. They will follow patient during admission. Plan for PICC line as peripheral IV is unobtainable, basic and sepsis labs, IV fluids, and pain management. Chest x-ray ordered. 2 tabs PO Percocet administered. 1435: Spoke with Dr. Chacon, hospitalist. She accepts admission. Chest x-ray shows possible chronic infiltrate vs. infectious infiltrate. Patient is afebrile and has no obvious infectious symptoms. She also has a history of chronic infiltrate on prior films. - Data Points Medications Given: Discontinued Medications Oxycodone/Acetaminophen (Percocet 5/325) 2 tab PO EDNOW ONE Stop: 04/16/16 14:30 Last Admin: 04/16/16 14:29 Dose: 2 tab Departure - Departure Disposition: [facility] Inpatient Acute Clinical Impression: Weakness, Cough, CLL (chronic lymphocytic leukemia), Hyperkalemia Condition: Fair Referrals: Patient,NotPresent [Primary Care Provider] - As per Instructions Report Scribed for: Beau Mccarthy Report Scribed by: Shanda Talbot Date of Report: 04/16/16 Time of Report: 13:11
[2016-04-16] MEDS ORDERED: ALTEPLASE 2 MG VIAL IVP PRN (13:20)
[2016-04-16] MEDS ORDERED: OXYCODONE/APAP 5/325 TAB ONE (14:25)
[2016-04-16] MEDS ORDERED: OXYCODONE/APAP 5/325 TAB PO ONE (14:29)
[2016-04-16] MEDS ORDERED: LORazepam 1 MG TAB ONE (14:35)
[2016-04-16] MEDS ORDERED: LORazepam 1 MG TAB PO ONE (14:58)
--- NOTE | 2016-04-16 16:37 | GHP ---
DATE OF ADMISSION: 04/16/2016 REQUESTING PHYSICIAN: Grace Chacon MD. OUTPATIENT ONCOLOGIST: Allen Calle MD REASON FOR CONSULTATION: Hyperglycemia and pain in a patient with chronic lymphocytic leukemia. HISTORY OF PRESENT ILLNESS: The patient is an 85-year-old woman with a history of chronic lymphocyt ic leukemia. She was treated last summer with ibrutinib but this caused atrial fibrillation and was stopped. She received obinutuzumab starting in November and had a very good response judging by her peripheral lymphocyte count which normalized. She is feeling well but in mid March was admitted to the hospital with some back pain. This was ultimately attributed to the indwelling ureteral ava nt on that side and a urinary tract infection. She was treated and discharged to home. Since that time, she has had a progressive decline, reporting pain that started in her back but now has general ized through her whole body. She has become more tired and lethargic and also confused. Yesterday in clinic she saw Dr. Calle who noted that she has an elevated calcium of 12 which is a new findin g for her. She had some mild renal impairment and an elevated BUN. She was instructed to come to [facility] emergency department for further evaluation and treatment. PAST MEDICAL HISTORY: 1. Chronic lymphocytic leukemia as described above. 2. History of atrial fibrillation. 3. History of CVA. 4. 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 5. Chronic kidney disease. 6. Hypertension. 7. Lipidemia. HOME MEDICATIONS: Include Tessalon Perles, aspirin, allopurinol, acyclovir, fluoxetine, budesonide, Lopressor, Bactrim and oxycodone. ALLERGIES: She is allergic to epinephrine. FAMILY HISTORY: Noncontributory. SOCIAL HISTORY: She is a nonsmoker and nondrinker. Lives with her daughter. REVIEW OF SYSTEMS: Other than pertinent positives noted in HPI, 14-point review of systems is negat bashir. PHYSICAL EXAMINATION: VITAL SIGNS: Temperature is 36.9, blood pressure 112/38, heart rate 66, oxyg en saturation 94% on 2 L. In general, she is a frail elderly appearing woman. She was somnolent an d was confused. Her oropharynx was dry. LUNGS: Clear to auscultation bilaterally. CARDIAC: Regular rate and rhythm. No murmurs, gallops, rubs. ABDOMEN: Normal bowel sounds. Nontender. Nondistended. EXTREMITIES: Without edema. SKIN: She has multiple squamous cell carcinomas covering the entire surface of her body. NEUROLOGICALLY: She was somnolent and confused. LABORATORY DATA: From yesterday white count 3.7, hemoglobin 10.6, platelets of 265. Sodium 137, po tassium 4.4, chloride 102, bicarb 26, BUN 26, creatinine 1.3, calcium 12, ionized calcium 1.55, live r function tests were normal. IMPRESSION: This is an 85-year-old woman with chronic lymphocytic leukemia, now presenting with bon e pain, hypercalcemia and confusion. This is highly suspicious for hypercalcemia related to her und erlying lymphoproliferative disorder. Although her peripheral counts appear normal, it is possible that she has progressive disease in the bone marrow. I am also concerned about the possibility of t ransformed CLL that is behaving much more aggressively, as bone pain and hypercalcemia are rarely se en with run of the mill chronic lymphocytic leukemia. RECOMMENDATIONS: 1. Treat hypercalcemia with copious IV hydration as she is dehydrated. If that fails to correct it we can also give a dose of Zometa. 2. I will check sensory laboratory studies including uric acid, phosphorus and LDH to try to ascert ain whether this may be transformed disease. 3. Explained to her daughter that she may require a bone marrow biopsy to establish the nature of t he underlying problem. Transformed CLL is very difficult to treat and her age and other comorbiditi es may preclude that. I am concerned that she has these progressive symptoms, really only a month a fter receiving her last dose of the Gazyva, which suggests that the disease is getting worse despite that therapy. 4. She is a DNR/DNI and I reviewed the MOLST form that she had already completed, with the patient. We will continue to follow the patient with you closely while she is in the hospital. Thank you for this consultation. /[id number]/MODL
[2016-04-16] MEDS: NS 1,000 ML IV SCH ×2 (17:30→23:05)
[2016-04-16 17:43] LABS: ADD DIFF? YES; ADD MORPH? NO; ADD SCAN? NO; ATYPICAL LYMPHOCYTE FLAG 0 (0-99); FRAGMENT RBC FLAG 0 (0-99); HEMATOCRIT 27.3 % (38.0-47.0); LEFT SHIFT FLG 70 (0-99); LIPEMIA HEMOLYSIS FLAG 80 (0-99); MEAN CELL HEMOGLOBIN 35.7 pg (27.9-34.1); MEAN CELL VOLUME 108.3 fL (81.5-99.8); MEAN PLATELET VOLUME 9.6 fL (8.7-11.7); PLATELET CLUMPS FLAG 10 (0-99); PLATELET COUNT 198 10^3/uL (150-400); RED BLOOD CELL COUNT 2.52 10^6/uL (4.18-5.33); RED CELL DISTRIBUTION WIDTH 14.1 % (11.5-15.2)
[2016-04-16 17:50] LABS: INR 1.04 (0.83-1.16); PROTIME(PATIENT) 13.5 SEC (12.0-15.0)
[2016-04-16 18:00] LABS: ANION GAP 6 mEq/L (8-16); BILIRUBIN,TOTAL 0.5 mg/dL (0.1-1.4); CALCIUM 10.8 mg/dL (8.5-10.4); CARBON DIOXIDE 27 mEq/l (22-31); CHLORIDE 100 mEq/L (97-110); CREATININE 1.2 mg/dL (0.6-1.0); GLOMERULAR FILTRATION RATE 42; GLUCOSE 88 mg/dL (70-100); POTASSIUM 4.6 mEq/L (3.5-5.2); SODIUM 133 mEq/L (134-144)
[2016-04-16 18:13] LABS: PTH INTACT NO MINERALS < 3.4 pg/ml (10.8-79.4)
[2016-04-16 18:22] LABS: MACROCYTES 1+; PLATELET ESTIMATE ADEQUATE (ADEQ)
[2016-04-16] MEDS ORDERED: IPRATROPIUM/ALBUTEROL 3 ML DEYVIAL IH PRN (18:23)
[2016-04-16] MEDS ORDERED: [UNRECOGNIZED DRUG - OTHER] IV SCH (18:30)
[2016-04-16] MEDS ORDERED: ONDANSETRON 4 MG/2 ML VIAL IVP PRN (19:17)
[2016-04-16] MEDS: ALBUTEROL 60 PUFFS/8 GM MDI IH SCH ×2 (19:46→23:05)
[2016-04-16] MEDS: BUDESONIDE 0.5 MG/2 ML AMPUL.NEB IH SCH (19:46)
--- NOTE | 2016-04-16 20:15 | GHP ---
DATE OF ADMISSION: 04/16/2016 CHIEF COMPLAINT: Diffuse pain and weakness. HISTORY OF PRESENT ILLNESS: The patient is an 85-year-old female who has had increased weakness for 5 days. She just left the hospital 11 days ago on IV meropenem for possible pyelonephritis. She c ompleted the meropenem a few days ago. She saw Dr. Calle in followup yesterday. Laboratory studi es revealed a rising calcium. Dr. Calle approached the subject of hospice with them for her advan cing CLL and daughter was not receptive. Dr. Calle gave a gammaglobulin infusion for her hypogamm aglobulinemia. She woke up this morning and was far more confused. She was screaming with whole perry dy pain. She was very confused. She has had decreased p.o. intake. This morning, however, she was very thirsty and drank massive amounts of water. PAST MEDICAL HISTORY: 1. CLL with CLL-induced pneumonitis. 2. Atrial fibrillation. 3. Stroke postcardioversion. 4. Subdural hematoma secondary to anticoagulation. 5. Radiation diaz with now healed wounds. 6. Chronic kidney disease. 7. Chronic hydronephrosis status post stent. 8. Squamous cell skin cancer status post right upper extremity removal, now with a chronic wound. 9. Hypertension. 10. 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 MEDICATIONS: Please see computer record for full detailed list. ALLERGIES: Epinephrine. SOCIAL HISTORY: No smoking. No alcohol. Lives with her daughter. REVIEW OF SYSTEMS: A complete review of systems obtained. Review of systems is negative regarding constitutional, HEENT, GI, pulmonary, cardiovascular, , hematology, skin, musculoskeletal, endocri ne, psychiatric, except for positives and negatives as in HPI. FAMILY HISTORY: Reviewed, noncontributory to presenting complaint. PHYSICAL EXAMINATION: GENERAL: A well-developed, well-nourished female, in no acute distress. VIT AL SIGNS: Temperature 37.4, pulse 78, blood pressure 148/75, saturating 97% on room. EYES: Normal conjunctivae, pupils equal, round, reactive to light. ENT: Normal ears and nose. Hearing intact. Normal teeth. Oropharynx moist. NECK: Trachea midline. No thyromegaly. CHEST: Normal respira tory effort. LUNGS: Bilateral rales. CARDIOVASCULAR SYSTEM: Regular rhythm. No murmur. No lowe r extremity edema. ABDOMEN: Soft, nontender. No hepatosplenomegaly. SKIN: She has diffuse, punc mejia, erythematous papules which daughter states are her diffuse skin infiltration with leukemia. S he has a right upper extremity wound which is dressed, but leaking outside of the dressing somewhat. MUSCULOSKELETAL: No cyanosis or clubbing. Strength 5/5 upper and lower extremities. NEUROLOGIC: Cranial nerves intact. Normal sensation to light touch. PSYCHIATRIC: She is awake and alert. S he is following commands. She does not realize she is in the hospital, however. She is confused. Poor judgment and insight. Poor memory. Daughter is at bedside and offers most of the information. Patient is slow to respond and spacey. LABORATORIES: White count 3.07, hematocrit 32.2, platelets 265. Sodium 137, potassium 4.4, chloride 107, bicarb 26, BUN 26, creatinine 1.3, glucose 100. Calcium is 12, ionized calcium is 1.55, calcium today is little better at 10.8, PTH is less than 3.4 , lactate 0.6. Chest x-ray reviewed by me: My personal interpretation is possible increasing right infiltrate. The case was discussed with Dr. Mccarthy, emergency room physician. He consulted Dr. Orozco. [facility] have been reviewed. She has had extensive multiple hospitalizations for multiple differ ent complications. She just left us 11 days ago on IV meropenem. ASSESSMENT AND PLAN: 1. Hypercalcemia. Oncology suspects chronic lymphocytic leukemia now invading into the bone marrow with diffuse bone pain. We will hydrate with IV fluid and can consider Zometa. They are consideri ng a bone marrow biopsy to rule out transformation of her chronic lymphocytic leukemia. Overall, he r prognosis is likely poor. Will ask for Palliative Care to assist with family discussions. 2. Confusion. Suspect this is secondary to her hypercalcemia. This is resulting in metabolic ence phalopathy. 3. Chronic lymphocytic leukemia with chronic lymphocytic leukemia pneumonitis. I doubt she has an infectious pneumonia at this point, so hold off on any antibiotics. She recently completed a course of IV meropenem. She does not have any new or worsening symptoms to suggest that these current inf iltrates are infectious in nature. 4. Right upper extremity wound. Will consult Wound Care. 5. Hypogammaglobulinemia. Just received a gammaglobulin infusion yesterday with Dr. Calle. CODE STATUS: DNR. ADMISSION STATUS: Will admit to inpatient as she is medically complex. Anticipate greater than 2 m idnights required for stabilization. DVT PROPHYLAXIS: She is high risk. She will be placed on subcu Lovenox. /[id number]/MODL
[2016-04-16 21:09] LABS: LACTATE DEHYDROGENASE 410 IU/L (313-618); MAGNESIUM 1.7 mg/dL (1.6-2.3); URIC ACID 3.3 mg/dL (2.5-6.8)
[2016-04-16] MEDS: ASPIRIN EC 81 MG TAB PO SCH (21:11)
[2016-04-16] MEDS: METOPROLOL TARTRATE 25 MG TAB PO SCH (21:11)
[2016-04-16] MEDS: ACYCLOVIR 400 MG TAB PO SCH (21:11)
[2016-04-16] MEDS: guaiFENesin 600 MG TAB.ER PO SCH (21:11)
[2016-04-16] MEDS: guaiFENesin/CODEINE PHOS 10 ML UDCUP PO PRN (23:04)
[2016-04-16] MEDS: ACETAMINOPHEN 500 MG TAB PO PRN (23:04)
[2016-04-17] MEDS: ALBUTEROL 60 PUFFS/8 GM MDI IH SCH ×6 (04:32→21:28)
[2016-04-17] MEDS: guaiFENesin 600 MG TAB.ER PO SCH ×2 (08:56→21:19)
[2016-04-17] MEDS: ACYCLOVIR 400 MG TAB PO SCH ×2 (08:56→21:19)
[2016-04-17] MEDS: ALLOPURINOL 300 MG TAB PO SCH (08:57)
[2016-04-17] MEDS: PANTOPRAZOLE SODIUM 40 MG TAB PO SCH (08:57)
[2016-04-17] MEDS: FLUoxetine 20 MG CAP PO SCH (08:57)
[2016-04-17] MEDS: METOPROLOL TARTRATE 25 MG TAB PO SCH ×2 (08:59→21:20)
[2016-04-17] MEDS: ENOXAPARIN 40 MG/0.4 ML SYR SC SCH (09:00)
[2016-04-17] MEDS: BUDESONIDE 0.5 MG/2 ML AMPUL.NEB IH SCH ×2 (09:48→21:28)
[2016-04-17 09:59] LABS: IONIZED CALCIUM 1.34 MMOL/L (1.12-1.30)
[2016-04-17 10:00] LABS: ADD DIFF? YES; ADD MORPH? NO; ADD SCAN? NO; ATYPICAL LYMPHOCYTE FLAG 30 (0-99); FRAGMENT RBC FLAG 0 (0-99); HEMATOCRIT 27.1 % (38.0-47.0); HEMOGLOBIN 8.7 g/dL (12.6-16.3); LEFT SHIFT FLG 60 (0-99); LIPEMIA HEMOLYSIS FLAG 80 (0-99); MEAN CELL HEMOGLOBIN 35.8 pg (27.9-34.1); MEAN CELL HEMOGLOBIN CONCENTR. 32.1 g/dL (32.4-36.7); MEAN CELL VOLUME 111.5 fL (81.5-99.8); MEAN PLATELET VOLUME 9.7 fL (8.7-11.7); PLATELET CLUMPS FLAG 0 (0-99); PLATELET COUNT 185 10^3/uL (150-400); RED BLOOD CELL COUNT 2.43 10^6/uL (4.18-5.33)
[2016-04-17 10:36] LABS: ALANINE AMINOTRANSFERASE 29 IU/L (9-52); ALBUMIN 2.6 g/dL (3.5-5.0); ALKALINE PHOSPHATASE 51 IU/L (38-126); ANION GAP 5 mEq/L (8-16); ASPARTATE AMINOTRANSFERASE 16 IU/L (14-46); BILIRUBIN,TOTAL 0.6 mg/dL (0.1-1.4); CALCIUM 9.8 mg/dL (8.5-10.4); CARBON DIOXIDE 25 mEq/l (22-31); CHLORIDE 105 mEq/L (97-110); GLOMERULAR FILTRATION RATE 52; GLUCOSE 97 mg/dL (70-100); POTASSIUM 3.8 mEq/L (3.5-5.2); SODIUM 135 mEq/L (134-144); TOTAL PROTEIN 5.2 g/dL (6.3-8.2)
[2016-04-17 11:29] LABS: PLATELET ESTIMATE ADEQUATE (ADEQ); POLYCHROMASIA 1+
[2016-04-17] MEDS ORDERED: ZOLEDRONIC ACID 3 MG in D5W 100 ML IV ONE (14:42)
--- NOTE | 2016-04-17 14:49 | SOAPPROG ---
SOAP Progress Note Assessment/Plan: E&M CLL * Hypercalcemia: etiology unclear; recommend bringing it down to normal with zometa since she is getting fluid overloaded. Will send multiple labs to try to get better idea of etiology. Cannot r/o malignancy especially with chronic right lung lesion. * CLL: seems under control with obinituzumab + chlorambucil; normal LDH makes transformation less likely * Hypogammaglobulinemia: on IVIg replacement and last was 04/15 * Right lower lob consolidation: bronch 11/29 unremarkable; may need to reassess with CT Subjective: Still very weak although a little better today than yesterday. Daughter with patient and wants wound care for arm lesion (SqCell CA removed). Has chronic flank pain unchanged. Objective: Vital Signs Temp Pulse Resp BP Pulse Ox 36.8 C 71 20 123/55 H 86 L 04/17/16 11:00 04/17/16 11:00 04/17/16 11:00 04/17/16 11:00 04/17/16 14:05 Laboratory Results 04/17/16 09:45 04/17/16 09:45 04/16/16 04/17/16 04/18/16 05:59 05:59 05:59 Intake Total 1800 Balance 1800 PT 13.5 SEC (12.0-15.0) 04/16/16 17:20 INR 1.04 (0.83-1.16) 04/16/16 17:20 Laboratory Tests 04/16/16 04/16/16 04/16/16 17:20 17:20 17:20 WBC 3.13 L Hgb 9.0 L Plt Count 198 Absolute Seg Neuts 1.41 L Calcium Phosphorus 3.4 Lactate Dehydrogenase 410 Albumin PTH Intact < 3.4 L 04/17/16 04/17/16 09:45 09:45 WBC 2.30 L Hgb 8.7 L Plt Count 185 Absolute Seg Neuts 1.24 L Calcium 9.8 Phosphorus Lactate Dehydrogenase Albumin 2.6 L PTH Intact - Time Spent With Patient Time Spent With Patient: >35 min Physical Exam - Physical Exam General Appearance: no apparent distress EENT: No pharynx normal (dry) Respiratory: decreased breath sounds (right base) Cardiac/Chest: regular rate, rhythm Abdomen: non-tender, soft Neuro/Psych: motor weakness (generalized) ICD10 Worksheet Patient Problems: Problems Problem Status Onset Weakness Acute Cough Acute Hyperkalemia Acute Multiple drug resistant organism (MDRO) culture positive Acute ~04/02/16 Fatigue Acute MRSA (methicillin resistant Staphylococcus aureus) Acute 04/22/15 Pneumonia Acute Chronic Disease Mgmt/Transitional Care Acute Diarrhea Acute CLL (chronic lymphocytic leukemia) Acute Cough Acute Weakness Acute Bronchitis Acute Acute ischemic stroke Acute Subdural bleeding Acute Hydronephrosis Acute Pneumonia due to infectious organism Acute Urinary obstruction Acute UTI (urinary tract infection) Acute NSTEMI (non-ST elevated myocardial infarction) Acute Somnolence Acute Pneumonia Acute Pyelonephritis Acute UTI (urinary tract infection) Acute
--- NOTE | 2016-04-17 15:04 | HOSPPROG ---
Hospitalist Progress Note Assessment/Plan: Hypercalcemia - improving with IVF's, started Zometa today per onc. Decrease IVF's, getting volume overloaded. Acute encephalopathy - improving, likely secondary to above CLL - Oncology following, evaluating for transformed disease. Chronic hypoxemic respiratory failure - on 3 LPM at baseline, 4 LPM here. Reviewed prior imaging, including CTA from 11/2015, at which time she had a RLL opacity, and this has progressed. Unclear if this is infectious or related to neoplasm vs atelectatic in origin. -repeat CT chest A fib - Rate controlled on metoprolol, had subdural hematoma with anti- coagulation in the past. Cont ASA for stroke prevention. Hypogammaglobulinemia - receives monthly IVIG Pancytopenia - stable, follow. CKD - Cr normal today after IVF's (1.2 to 1.0) Hypertension - fair control DVT PPLX - Lovenox DNR/DNI Dispo - cont inpt Subjective: Pt feels achey all over. No fevers/chills. Breathing about at baseline, but some coughing. Denies CP. She is quite weak. Objective: Vital Signs Temp Pulse Resp BP Pulse Ox 36.8 C 94 16 123/55 H 94 04/17/16 11:00 04/17/16 14:48 04/17/16 14:48 04/17/16 11:00 04/17/16 14:48 Laboratory Results 04/17/16 09:45 04/17/16 09:45 04/16/16 04/17/16 04/18/16 05:59 05:59 05:59 Intake Total 1800 Balance 1800 PT 13.5 SEC (12.0-15.0) 04/16/16 17:20 INR 1.04 (0.83-1.16) 04/16/16 17:20 - Physical Exam Constitutional: no apparent distress Eyes: PERRL Ears, Nose, Mouth, Throat: moist mucous membranes Cardiovascular: regular rate and rhythym Respiratory: no respiratory distress, inspiratory crackles Gastrointestinal: normoactive bowel sounds, soft, non-tender abdomen Skin: warm Neurologic: AAOx3 Psychiatric: interacting appropriately ICD10 Worksheet Patient Problems: Problems Problem Status Onset CLL (chronic lymphocytic leukemia) Acute Cough Acute Hyperkalemia Acute Weakness Acute Acute ischemic stroke Acute Bronchitis Acute Chronic Disease Mgmt/Transitional Care Acute Cough Acute Diarrhea Acute Fatigue Acute Hydronephrosis Acute MRSA (methicillin resistant Staphylococcus aureus) Acute 04/22/15 Multiple drug resistant organism (MDRO) culture positive Acute ~04/02/16 NSTEMI (non-ST elevated myocardial infarction) Acute Pneumonia Acute Pneumonia Acute Pneumonia due to infectious organism Acute Pyelonephritis Acute Somnolence Acute Subdural bleeding Acute UTI (urinary tract infection) Acute UTI (urinary tract infection) Acute Urinary obstruction Acute Weakness Acute
[2016-04-17 17:37] LABS: COLOR YELLOW; LEUKOCYTE ESTERASE,URINE 2+ (NEGATIVE); NITRITE,URINE NEGATIVE (NEGATIVE)
[2016-04-17 17:43] LABS: BACTERIA 2+ /hpf (NONE SEEN); RBC,URINE 50-182 /hpf (0-3); WBC,URINE 50-182 /hpf (0-3)
[2016-04-17] MEDS ORDERED: IOPAMIDOL (ISOVUE-300) 100 ML BTL IV ONE (18:48)
[2016-04-17] MEDS: NS 1,000 ML IV SCH (21:14)
[2016-04-17] MEDS: ASPIRIN EC 81 MG TAB PO SCH (21:19)
[2016-04-17] MEDS: SULFAMETHOX/TMP 800/160 MG 1 TAB PO SCH (21:23)
[2016-04-18] MEDS: ALBUTEROL 60 PUFFS/8 GM MDI IH SCH ×3 (01:59→10:05)
[2016-04-18 05:35] LABS: IONIZED CALCIUM 1.38 MMOL/L (1.12-1.30)
[2016-04-18 05:44] LABS: ADD DIFF? YES; ADD SCAN? NO; ATYPICAL LYMPHOCYTE FLAG 0 (0-99); FRAGMENT RBC FLAG 0 (0-99); LEFT SHIFT FLG 40 (0-99); LIPEMIA HEMOLYSIS FLAG 80 (0-99); MEAN CELL HEMOGLOBIN 36.5 pg (27.9-34.1); MEAN CELL HEMOGLOBIN CONCENTR. 32.5 g/dL (32.4-36.7); MEAN CELL VOLUME 112.4 fL (81.5-99.8); MEAN PLATELET VOLUME 9.6 fL (8.7-11.7); PLATELET CLUMPS FLAG 0 (0-99); PLATELET COUNT 250 10^3/uL (150-400); RED BLOOD CELL COUNT 1.78 10^6/uL (4.18-5.33)
[2016-04-18 06:01] LABS: ADD MORPH? NO; HEMOGLOBIN 6.5 g/dL (12.6-16.3)
[2016-04-18 07:41] LABS: MACROCYTES 1+; PLATELET ESTIMATE ADEQUATE (ADEQ)
[2016-04-18 07:42] LABS: POLYCHROMASIA 1+
[2016-04-18] MEDS: ENOXAPARIN 40 MG/0.4 ML SYR SC SCH (09:50)
[2016-04-18] MEDS: guaiFENesin 600 MG TAB.ER PO SCH ×2 (09:51→20:09)
[2016-04-18] MEDS: ALLOPURINOL 300 MG TAB PO SCH (09:51)
[2016-04-18] MEDS: ACYCLOVIR 400 MG TAB PO SCH ×2 (09:51→20:10)
[2016-04-18] MEDS: PANTOPRAZOLE SODIUM 40 MG TAB PO SCH (09:51)
[2016-04-18] MEDS: oxyCODONE IR 5 MG TAB PO PRN ×2 (09:51→16:51)
[2016-04-18] MEDS: FLUoxetine 20 MG CAP PO SCH (09:51)
[2016-04-18] MEDS: METOPROLOL TARTRATE 25 MG TAB PO SCH ×2 (09:51→20:09)
[2016-04-18] MEDS: BUDESONIDE 0.5 MG/2 ML AMPUL.NEB IH SCH ×2 (10:05→21:34)
--- NOTE | 2016-04-18 12:15 | WOCRNPDOC ---
WOCRN Advanced Assessment Note - Skin Integrity Problem, Advanced Assess Right Lower Arm Dressing Type: Allevyn Life, Hydrofera Blue Ready, Non-Bordered Foam Dressing Description: Clean/Dry, Intact Exudate Amount: Minimal Exudate Color: Reddish/Yellow Exudate Characteristic(s): Serosanguinous Integumentary Issue Intervention: Visualized Under Dressing Nathalie Wound Tissue: Scaly, Thin, Xerotic Nathalie Wound Swelling: None Wound Bed Color: Red, Yellow Wound Bed Constitution: Granulation Tissue (50%), Adhered Slough (50%) Wound Edges: Well Defined Site Odor: None Site Measurement - Head-to-Toe Length X Width X Depth (cm): 2cmx1.5cmx0.3cm Skin Integrity Problem Comment: Visualized wound under existing dressing on LFA. Patient reports this wound is the result of removal of a skin cancer. She is currently being [facility] Presently, this wound is 50% granulation tissue, 50% slough, w/ well- defined, attached margins. Nathalie-wound skin is thin, dry, and fragile w/ no associated swelling or erythema. Existing Hydrofera Blue Ready dressing has not turned white (the indicator that it requires changing), so I placed it back into wound bed and recovered wound w/ existing foam and Allevyn. Orders written to change dressing tomorrow and every 3 days after that for duration of patient' s stay.
[2016-04-18] MEDS ORDERED: diphenhydrAMINE 25 MG CAP PO ONE (12:46)
--- NOTE | 2016-04-18 13:09 | SOAPPROG ---
SOAP Progress Note Assessment/Plan: E&M CLL * Hypercalcemia: etiology unclear; zometa given and will monitor. Cannot r/o malignancy especially with chronic right lung lesion. 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 is worse and may need to consider another bronch. She is not a candidate for open lung biopsy and daughter not in favor of this anyway. * Right Hydronephrosis: worse since ct 04/02. Stent probably not functioning properly. Recommend having Dr. Corona evaluate. * Anemia, multifactorial including chronic disease, chemo, ckd: agree with transfusion Subjective: Sitting up in chair. Daughter with patient and I spoke at length with her. Pt still has pain in right flank. Having trouble with dry cough. Objective: Vital Signs Temp Pulse Resp BP Pulse Ox 36.3 C 66 17 124/63 H 93 04/18/16 11:37 04/18/16 11:37 04/18/16 11:37 04/18/16 11:37 04/18/16 11:37 Laboratory Results 04/18/16 05:00 04/17/16 09:45 04/17/16 04/18/16 04/19/16 05:59 05:59 05:59 Intake Total 3514 Output Total 300 150 Balance 3214 -150 PT 13.5 SEC (12.0-15.0) 04/16/16 17:20 INR 1.04 (0.83-1.16) 04/16/16 17:20 Laboratory Tests 04/17/16 04/17/16 04/18/16 09:45 21:25 05:00 Uric Acid 3.1 Ionized Calcium 1.34 H 25-OH Vitamin D Total 25.0 L TSH 2.670 Free T4 1.56 04/18/16 05:00 Uric Acid Ionized Calcium 1.38 H 25-OH Vitamin D Total TSH Free T4 CT Chest W IV Contrast ___ Contrast-Enhanced CT Scan of the Chest Impression: 1. Chronic atelectasis and increasing right lower lobe consolidation raises the possibility of an endobronchial stricture, chronic mucous plug, or neoplasm. Bronchoscopy could be considered for further evaluation, as clinically directed. 2. Right middle lobe and left lower lobe atelectasis and/or infiltrates. 3. Mild groundglass attenuation infiltrates in the upper lobes bilaterally. 4. Suboptimal positioning of the PICC line, which terminates in the azygos vein. 5. Interim development of severe right hydronephrosis since a previous CT scan of April 03, 2016. 6. Stable left adrenal gland nodule. Dictated By: Brian Lara MD Physical Exam - Physical Exam Respiratory: decreased breath sounds (right) Cardiac/Chest: regular rate, rhythm ICD10 Worksheet Patient Problems: Problems Problem Status Onset CLL (chronic lymphocytic leukemia) Acute Cough Acute Hyperkalemia Acute Weakness Acute Acute ischemic stroke Acute Bronchitis Acute Chronic Disease Mgmt/Transitional Care Acute Cough Acute Diarrhea Acute Fatigue Acute Hydronephrosis Acute MRSA (methicillin resistant Staphylococcus aureus) Acute 04/22/15 Multiple drug resistant organism (MDRO) culture positive Acute ~04/02/16 NSTEMI (non-ST elevated myocardial infarction) Acute Pneumonia Acute Pneumonia Acute Pneumonia due to infectious organism Acute Pyelonephritis Acute Somnolence Acute Subdural bleeding Acute UTI (urinary tract infection) Acute UTI (urinary tract infection) Acute Urinary obstruction Acute Weakness Acute
[2016-04-18] MEDS ORDERED: IPRATROPIUM/ALBUTEROL 3 ML DEYVIAL NEB SCH (13:30)
[2016-04-18] MEDS: IPRATROPIUM/ALBUTEROL 3 ML DEYVIAL NEB SCH ×2 (16:40→21:34)
[2016-04-18] MEDS: ACETAMINOPHEN 500 MG TAB PO PRN (16:51)
[2016-04-18] MEDS ORDERED: HALOPERIDOL 0.5 MG TAB PO PRN (17:54)
[2016-04-18] MEDS: SULFAMETHOX/TMP 800/160 MG 1 TAB PO SCH (18:45)
--- NOTE | 2016-04-18 19:23 | HOSPPROG ---
Hospitalist Progress Note Assessment/Plan: Hypercalcemia - improving, cont IVF's at lower rate, zometa. Acute encephalopathy - improving, likely secondary to above CLL - Oncology following, less concerned about transformation. Chronic hypoxemic respiratory failure - on 3 LPM at baseline, 4-5 LPM here. Reviewed prior imaging, including CTA from 11/2015, at which time she had a RLL opacity. Repeat chest CT suggests enlarging RLL consolidation. Prior bronch confirmed CLL related infiltrate. -consider pulmonary consult tomorrow regarding possible repeat bronch ?UTI - UCx growing Enterococcus. Just finished tx for Enterobacter UTI with Meropenem. No fevers here, but c/o right flank pain. Has stent in place. Will discuss with ID, await sensitivities. Will need Urology f/u at some point. A fib - Rate controlled on metoprolol, had subdural hematoma with anti- coagulation in the past. Cont ASA for stroke prevention. Hypogammaglobulinemia - receives monthly IVIG, last dose 04/15. Pancytopenia - likely secondary to chemo, stable, follow. CKD - Cr normal today after IVF's (1.2 to 1.0) Hypertension - fair control Weakness / deconditioning - likely needs SNF, but daughter feels it would kill her to go to SNF and really wants to bring her home. DVT PPLX - Lovenox DNR/DNI Dispo - cont inpt. Palliative care consult planned for tomorrow. She is likely a candidate for hospice. Subjective: Weak, tired, achey all over, right flank pain. No fevers/chills. She is reportedly combative/agitated at night. Objective: Vital Signs Temp Pulse Resp BP Pulse Ox 37.1 C 73 22 H 127/65 H 94 04/18/16 15:48 04/18/16 16:40 04/18/16 16:40 04/18/16 15:48 04/18/16 16:40 Laboratory Results 04/18/16 05:00 04/17/16 09:45 04/17/16 04/18/16 04/19/16 05:59 05:59 05:59 Intake Total 3514 200 Output Total 300 250 Balance 3214 -50 PT 13.5 SEC (12.0-15.0) 04/16/16 17:20 INR 1.04 (0.83-1.16) 04/16/16 17:20 - Physical Exam Constitutional: no apparent distress Eyes: PERRL Ears, Nose, Mouth, Throat: moist mucous membranes Cardiovascular: regular rate and rhythym Respiratory: no respiratory distress, inspiratory crackles Gastrointestinal: normoactive bowel sounds, soft, non-tender abdomen Skin: warm Neurologic: other (non-focal) Psychiatric: poor insight ICD10 Worksheet Patient Problems: Problems Problem Status Onset CLL (chronic lymphocytic leukemia) Acute Cough Acute Hyperkalemia Acute Weakness Acute Acute ischemic stroke Acute Bronchitis Acute Chronic Disease Mgmt/Transitional Care Acute Cough Acute Diarrhea Acute Fatigue Acute Hydronephrosis Acute MRSA (methicillin resistant Staphylococcus aureus) Acute 04/22/15 Multiple drug resistant organism (MDRO) culture positive Acute ~04/02/16 NSTEMI (non-ST elevated myocardial infarction) Acute Pneumonia Acute Pneumonia Acute Pneumonia due to infectious organism Acute Pyelonephritis Acute Somnolence Acute Subdural bleeding Acute UTI (urinary tract infection) Acute UTI (urinary tract infection) Acute Urinary obstruction Acute Weakness Acute
[2016-04-18] MEDS: ASPIRIN EC 81 MG TAB PO SCH (20:09)
[2016-04-19 05:16] LABS: ADD DIFF? YES; ADD MORPH? NO; ADD SCAN? NO; ATYPICAL LYMPHOCYTE FLAG 20 (0-99); FRAGMENT RBC FLAG 0 (0-99); HEMATOCRIT 30.6 % (38.0-47.0); HEMOGLOBIN 10.2 g/dL (12.6-16.3); LEFT SHIFT FLG 20 (0-99); LIPEMIA HEMOLYSIS FLAG 80 (0-99); MEAN CELL HEMOGLOBIN 35.8 pg (27.9-34.1); MEAN CELL HEMOGLOBIN CONCENTR. 33.3 g/dL (32.4-36.7); MEAN CELL VOLUME 107.4 fL (81.5-99.8); MEAN PLATELET VOLUME 9.6 fL (8.7-11.7); PLATELET CLUMPS FLAG 0 (0-99); PLATELET COUNT 179 10^3/uL (150-400); RED BLOOD CELL COUNT 2.85 10^6/uL (4.18-5.33); RED CELL DISTRIBUTION WIDTH 16.4 % (11.5-15.2)
[2016-04-19 05:28] LABS: ANION GAP 6 mEq/L (8-16); CALCIUM 9.6 mg/dL (8.5-10.4); CARBON DIOXIDE 26 mEq/l (22-31); CHLORIDE 104 mEq/L (97-110); CREATININE 1.1 mg/dL (0.6-1.0); GLOMERULAR FILTRATION RATE 47; GLUCOSE 76 mg/dL (70-100); POTASSIUM 4.5 mEq/L (3.5-5.2); SODIUM 136 mEq/L (134-144); URIC ACID 3.3 mg/dL (2.5-6.8)
[2016-04-19] MEDS: IPRATROPIUM/ALBUTEROL 3 ML DEYVIAL NEB SCH ×4 (05:34→21:04)
[2016-04-19 05:54] LABS: PLATELET ESTIMATE ADEQUATE (ADEQ)
[2016-04-19] MEDS: oxyCODONE IR 5 MG TAB PO PRN ×2 (06:06→20:51)
[2016-04-19] MEDS: BUDESONIDE 0.5 MG/2 ML AMPUL.NEB IH SCH ×2 (08:19→21:04)
[2016-04-19] MEDS: FLUoxetine 20 MG CAP PO SCH (09:03)
[2016-04-19] MEDS: ENOXAPARIN 40 MG/0.4 ML SYR SC SCH (09:03)
[2016-04-19] MEDS: METOPROLOL TARTRATE 25 MG TAB PO SCH ×2 (09:03→20:51)
[2016-04-19] MEDS: PANTOPRAZOLE SODIUM 40 MG TAB PO SCH (09:03)
[2016-04-19] MEDS: ACYCLOVIR 400 MG TAB PO SCH ×2 (09:03→20:51)
[2016-04-19] MEDS: guaiFENesin 600 MG TAB.ER PO SCH ×2 (09:03→20:53)
[2016-04-19] MEDS: ALLOPURINOL 300 MG TAB PO SCH (09:03)
[2016-04-19] MEDS: ACETAMINOPHEN 500 MG TAB PO PRN (11:01)
--- NOTE | 2016-04-19 13:49 | HOSPPROG ---
Hospitalist Progress Note Assessment/Plan: Hypercalcemia - improving, cont IVF's at lower rate, zometa. Acute encephalopathy - improving, likely secondary to above, possibly hastened by infection CLL - Oncology following, less concerned about transformation. Chronic hypoxemic respiratory failure - h/o COPD on 3 LPM at baseline, 4-5 LPM here. Reviewed prior imaging, including CTA from 11/2015, at which time she had a RLL opacity. Repeat chest CT suggests enlarging RLL consolidation. Prior bronch confirmed CLL related infiltrate. -pulmonary consult today UTI with prior stent and worsening hydro suggesting obstruction - UCx growing Enterococcus, sensitive to Ampicillin. Just finished tx for Enterobacter UTI with Meropenem. No fevers here, but c/o right flank pain. CT showed worsening hydro, stent in place, followed by Dr. Corona. Discussed case with him. He can do stent exchange, but she certainly has anesthesia risk. Pt's daughter absolutely against perc nephrostomy tube. -start IV Ampicillin -ID consult to review options regarding UTI duration of therapy and approach to relieving obstruction A fib - Rate controlled on metoprolol, had subdural hematoma with anti- coagulation in the past. Cont ASA for stroke prevention. Hypogammaglobulinemia - receives monthly IVIG, last dose 04/15. Pancytopenia - likely secondary to chemo, stable, follow. CKD - Cr normal today after IVF's (1.2 to 1.0) Hypertension - fair control Weakness / deconditioning - likely needs SNF, but daughter feels it would kill her to go to SNF and really wants to bring her home. DVT PPLX - Lovenox DNR/DNI Dispo - cont inpt. Palliative care following. She is likely a candidate for hospice. Subjective: Pt up with PT. She had a fall a couple nights ago and c/o right knee pain. Also has ongoing right flank pain. No changes in respiratory status , denies CP or SOB. Cough is chronic. No fevers. No other urinary symptoms. Objective: Vital Signs Temp Pulse Resp BP Pulse Ox 36.8 C 69 22 H 109/53 L 95 04/19/16 08:13 04/19/16 11:38 04/19/16 11:38 04/19/16 08:13 04/19/16 11:38 Microbiology 04/17/16 17:40 Urine Culture - Final Urine,Clean Catch Enterococcus Faecalis Laboratory Results 04/19/16 05:00 04/19/16 05:00 04/18/16 04/19/16 04/20/16 05:59 05:59 05:59 Intake Total 3514 1000 Output Total 300 250 Balance 3214 750 PT 13.5 SEC (12.0-15.0) 04/16/16 17:20 INR 1.04 (0.83-1.16) 04/16/16 17:20 - Physical Exam Constitutional: no apparent distress Eyes: PERRL Ears, Nose, Mouth, Throat: moist mucous membranes Cardiovascular: regular rate and rhythym Respiratory: no respiratory distress, other (diminished left base with faint crackles) Skin: warm Musculoskeletal: generalized weakness Psychiatric: interacting appropriately, poor insight ICD10 Worksheet Patient Problems: Problems Problem Status Onset CLL (chronic lymphocytic leukemia) Acute Cough Acute Hyperkalemia Acute Palliative care encounter Acute Weakness Acute Acute ischemic stroke Acute Bronchitis Acute Chronic Disease Mgmt/Transitional Care Acute Cough Acute Diarrhea Acute Fatigue Acute Hydronephrosis Acute MRSA (methicillin resistant Staphylococcus aureus) Acute 04/22/15 Multiple drug resistant organism (MDRO) culture positive Acute ~04/02/16 NSTEMI (non-ST elevated myocardial infarction) Acute Pneumonia Acute Pneumonia Acute Pneumonia due to infectious organism Acute Pyelonephritis Acute Somnolence Acute Subdural bleeding Acute UTI (urinary tract infection) Acute UTI (urinary tract infection) Acute Urinary obstruction Acute Weakness Acute
[2016-04-19] MEDS: AMPICILLIN SODIUM 1 GM in NS 100 ML IV SCH ×2 (16:02→20:51)
--- NOTE | 2016-04-19 16:22 | PCMIDPN ---
Assessment/Plan: Assessment/Plan: * Enterococcus faecalis UTI with obstructive uropathy: CT scan shows new onset hydronephrosis versus CT scan in March suggestive of probable stent dysfunction. Relief of obstruction will be critical for resolution. Limited symptoms referable to urinary system but based on obstructive uropathy do think this should be treated with antibiotics. Plan IV ampicillin pending Urology assessment/stent change possibly with ultimate plans to complete therapy with oral antibiotics if obstruction successfully relieved. * Recent UTI due to multidrug resistant enterobacter: Continue contact precautions. Findings and plan reviewed with patient and daughter. 04/19/16 16:18 Subjective: Patient known to me from prior episodic infectious disease care. Asked to evaluate by Dr. Hernandez for growth of enterococcus faecalis with urinary obstruction present after recent treatment for multidrug resistant Enterobacter UTI with meropenem. Patient was admitted on this hospitalization for confusion and bone pain related to hypercalcemia. Chest CT revealed the presence of severe right-sided hydronephrosis which is new versus CT scan of March. Urinalysis showed pyuria and urine cultures growing greater than 100,000 enterococcus faecalis which is susceptible to ampicillin. Patient is without abdominal or flank pain currently. Denies painful urination. Patient and daughter are post to percutaneous nephrostomy for relief of obstruction. Last ureteral stent change was in January. Stent in place for ureteral stricture. Objective: Vital Signs Temp Pulse Resp BP Pulse Ox 36.3 C 70 18 110/57 L 91 L 04/19/16 15:51 04/19/16 15:51 04/19/16 15:51 04/19/16 15:51 04/19/16 15:51 Microbiology 04/17/16 17:40 Urine Culture - Final Urine,Clean Catch Enterococcus Faecalis Laboratory Results 04/19/16 05:00 04/19/16 05:00 04/18/16 04/19/16 04/20/16 05:59 05:59 05:59 Intake Total 3514 1000 Output Total 300 250 Balance 3214 750 Urinalysis with 50-182 white blood cells Urine culture with greater than 100,[address] showing new severe right-sided hydronephrosis when compared to CT scan in mid March - Physical Exam General Appearance: alert, no apparent distress Abdomen: non-tender, No distended Back: No CVA tenderness ICD10 Worksheet Patient Problems: Problems Problem Status Onset CLL (chronic lymphocytic leukemia) Acute Cough Acute Hyperkalemia Acute Weakness Acute Acute ischemic stroke Acute Bronchitis Acute Chronic Disease Mgmt/Transitional Care Acute Cough Acute Diarrhea Acute Fatigue Acute Hydronephrosis Acute MRSA (methicillin resistant Staphylococcus aureus) Acute 04/22/15 Multiple drug resistant organism (MDRO) culture positive Acute ~04/02/16 NSTEMI (non-ST elevated myocardial infarction) Acute Pneumonia Acute Pneumonia Acute Pneumonia due to infectious organism Acute Pyelonephritis Acute Somnolence Acute Subdural bleeding Acute UTI (urinary tract infection) Acute UTI (urinary tract infection) Acute Urinary obstruction Acute Weakness Acute
--- NOTE | 2016-04-19 17:21 | SOAPPROG ---
SOAP Progress Note Assessment/Plan: Assessment: * Hypercalcemia: etiology unclear. Suppressed PTH. Has corrected with IVF and Zometa (04/17). * CLL: seems under control with obinituzumab + chlorambucil; normal LDH makes transformation less likely. Lymphocyte count remains controlled. * Hypogammaglobulinemia: monthly IVIG (04/15/16). * Right lower lob consolidation: bronch 11/29 unremarkable; biopsy 04/[address] with worsening RLL consolidation. Unclear that another bronch would be helpful. They do not want to pursue open lung bx. Dr. Martines will see. * Hydronephrosis and complicated UTI: hospitalist has discussed with urology. She needs stent change if she can tolerate anesthesia. Abx. * Advanced care planning: DNR. Palliative care consult tomorrow. Given all of her issues, palliative care with hospice would be appropriate. Depending on reversibility of the above issues, will need to make decisions regarding how aggressive they want to be. 04/19/16 17:15 Subjective: S: Longstanding flank pain unchanged. Memory improving but not back to baseline per patient and daughter. O: VS reviewed. Gen: elderly, chronically ill appearing, NAD. Lungs: reduced BS bilat, R>L. Abd: nontender. Selected Entries 04/19/16 15:51 Heart Rate 70 Respiratory 18 Rate O2 Sat (%) 91 L Temperature (C) 36.3 C Blood Pressure 110/57 L O2 (L/minute) 5 Laboratory Tests 04/16/16 04/17/16 04/17/16 17:20 09:45 09:45 WBC Hgb Plt Count Lymphocytes % Absolute Seg Neuts Absolute Lymphocytes Sodium Potassium Chloride Carbon Dioxide Anion Gap BUN Creatinine Estimated GFR Glucose Uric Acid Calcium 9.8 Ionized Calcium 1.34 H Lactate Dehydrogenase 410 04/18/16 04/18/16 04/19/16 05:00 05:00 05:00 WBC 3.44 L Hgb 10.2 L Plt Count 179 D Lymphocytes % 12 Absolute Seg Neuts 1.96 Absolute Lymphocytes 0.41 L Sodium Potassium Chloride Carbon Dioxide Anion Gap BUN Creatinine Estimated GFR Glucose Uric Acid 3.1 Calcium Ionized Calcium 1.38 H Lactate Dehydrogenase 04/19/16 05:00 WBC Hgb Plt Count Lymphocytes % Absolute Seg Neuts Absolute Lymphocytes Sodium 136 Potassium 4.5 Chloride 104 Carbon Dioxide 26 Anion Gap 6 L BUN 15 Creatinine 1.1 H Estimated GFR 47 Glucose 76 Uric Acid 3.3 Calcium 9.6 Ionized Calcium Lactate Dehydrogenase Objective: Vital Signs Temp Pulse Resp BP Pulse Ox 36.3 C 70 18 110/57 L 91 L 04/19/16 15:51 04/19/16 15:51 04/19/16 15:51 04/19/16 15:51 04/19/16 15:51 Microbiology 04/17/16 17:40 Urine Culture - Final Urine,Clean Catch Enterococcus Faecalis Laboratory Results 04/19/16 05:00 04/19/16 05:00 04/18/16 04/19/16 04/20/16 05:59 05:59 05:59 Intake Total 3514 1000 Output Total 300 250 Balance 3214 750 PT 13.5 SEC (12.0-15.0) 04/16/16 17:20 INR 1.04 (0.83-1.16) 04/16/16 17:20 ICD10 Worksheet Patient Problems: Problems Problem Status Onset CLL (chronic lymphocytic leukemia) Acute Cough Acute Hyperkalemia Acute Weakness Acute Acute ischemic stroke Acute Bronchitis Acute Chronic Disease Mgmt/Transitional Care Acute Cough Acute Diarrhea Acute Fatigue Acute Hydronephrosis Acute MRSA (methicillin resistant Staphylococcus aureus) Acute 04/22/15 Multiple drug resistant organism (MDRO) culture positive Acute ~04/02/16 NSTEMI (non-ST elevated myocardial infarction) Acute Pneumonia Acute Pneumonia Acute Pneumonia due to infectious organism Acute Pyelonephritis Acute Somnolence Acute Subdural bleeding Acute UTI (urinary tract infection) Acute UTI (urinary tract infection) Acute Urinary obstruction Acute Weakness Acute
--- NOTE | 2016-04-19 18:11 | PDPCPN ---
Palliative Care Progress Note Assessment/Plan: Referring provider: Dr Hernandez Reason for consult: Complex medical decision making Symptom control HPI: Ronna Warren (Babs) is a 85 yo female with PMH CLL, UTI, A fib, CVA, SCC of skin, HTN, and CKD admitted to the hospital for hypercalcemia, weakness, and JENNIFER. Recent discharge from the hospital after being treated for pyelonephritis with IV antibiotics continued at home. ON admission with confusion given IV fluids and zometa with decrease in calcium. Continues to be weaker than baseline thought possibly due to clinical progression of CLL in RLL vs another process. Palliative care consulted for complex medical decision making. Met with daughter and friend at the bedside today. Daughter shared that she understands there is a lot more going on medically then she has had in the past and is worried about her continued weakness. She spoke about rehab as being "devastating" if Gina had to go there because it would be too depressing for her. She hopes to take her home with care but is unsure what care she will need. She stated she feels she is much weaker now with still some confusion. She is hoping she will be able to get back to where she was prior to hospitalization. We discussed options including hospice vs HHC vs rehab. Gina stated she doesn't feel much has changed with her medically but has not really thought about her wishes if she did not improve. Her daughter stated understanding Gina could be nearing end of life but also hoped she could improve from current functional status. She had many questions about the medical conditions which were discussed with Dr Hernandez. Assessment: Physical: - Pain: right knee pain - ice to knee - tylenol PRN - try lidocaine patch or voltaren gel if needed - Dyspnea: - oxygen as needed - Weakness - PT/OT for support - nursing assistance Emotional/psychological: some confusion still but improving Advanced Care Planning: Is patient decisional?: Yes with help Code Status: DNR POA: Daughter Lia is MDPOA. Plan: will continue goals of care discussions as well as discharging planning with case management Subjective: I'm still weak Objective: Social History: . Lives with daughter at home. Medication list reviewed ROS: General: fatigue, weakness ENT: negative Resp: dyspnea GI: poor appetite : negative MS: right knee pain Skin: painful skin lesions Neuro: negative Psych: confusion Functional assessment: PPS: 40% Functional status: dependent on ADLs, IADLs Vital Signs Temp Pulse Resp BP Pulse Ox 36.3 C 68 22 H 110/57 L 95 04/19/16 15:51 04/19/16 17:28 04/19/16 17:28 04/19/16 15:51 04/19/16 17:28 Microbiology 04/17/16 17:40 Urine Culture - Final Urine,Clean Catch Enterococcus Faecalis Laboratory Results 04/19/16 05:00 04/19/16 05:00 04/18/16 04/19/16 04/20/16 05:59 05:59 05:59 Intake Total 3514 1000 Output Total 300 250 Balance 3214 750 PT 13.5 SEC (12.0-15.0) 04/16/16 17:20 INR 1.04 (0.83-1.16) 04/16/16 17:20 Physical Exam - Physical Exam General Appearance: alert, no apparent distress Respiratory: No respiratory distress, No accessory muscle use Skin: normal color, warm/dry Extremities: No pedal edema Neuro/Psych: alert, oriented x 3 ICD10 Worksheet Patient Problems: Problems Problem Status Onset CLL (chronic lymphocytic leukemia) Acute Cough Acute Hyperkalemia Acute Palliative care encounter Acute Weakness Acute Acute ischemic stroke Acute Bronchitis Acute Chronic Disease Mgmt/Transitional Care Acute Cough Acute Diarrhea Acute Fatigue Acute Hydronephrosis Acute MRSA (methicillin resistant Staphylococcus aureus) Acute 04/22/15 Multiple drug resistant organism (MDRO) culture positive Acute ~04/02/16 NSTEMI (non-ST elevated myocardial infarction) Acute Pneumonia Acute Pneumonia Acute Pneumonia due to infectious organism Acute Pyelonephritis Acute Somnolence Acute Subdural bleeding Acute UTI (urinary tract infection) Acute UTI (urinary tract infection) Acute Urinary obstruction Acute Weakness Acute - ICD10 Problem Qualifiers (1) Palliative care encounter
--- NOTE | 2016-04-19 19:32 | GCON ---
PULMONARY CONSULTATION DATE OF CONSULTATION: 04/19/2016 REASON FOR CONSULTATION: Pulmonary infiltrates, CLL, cough. HISTORY: The patient is a very pleasant, 85-year-old, whom I have followed intermittently for pulmo nary issues since 2013. She presented at that time with chronic cough. She was found to have signi ficant presbyesophagus and some of her cough was felt to be related to reflux and aspiration at [facility]. Treatment for this and habitual issues essentially resolved her cough for a time. She presented back with increased cough and was found to have right lower lobe infiltrate. 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 Since then, she has had gradually progre ssive disease in her lower right lung. She also has had waxing and waning right middle lobe atelect asis secondary to presumed mucus and mucus plugging. She was seen in the office several weeks ago a nd was placed on a nebulizer which significantly increased her cough. She is using oxygen now throu ghout the day, most recently at 2-3 L. She was admitted on 04/16 with increasing weakness, confusio n, and hypercalcemia. She has subsequently been found to have an obstructed ureteral stent with pro gressive hydronephrosis of the right kidney over the last 2 weeks. She is being treated for Enteroc occus in the obstructed kidney. She is being seen by Urology and by Infectious Disease, as well as Oncology. She does have persistent intermittent cough, which is better than when I saw her several days ago. The nebulized treatments seem to be of benefit. The patient continues to be cared for by her very devoted daughter. PAST MEDICAL HISTORY: Remarkable for a number of issues including the CLL with pulmonary involvemen t, history of paroxysmal atrial fibrillation, anticoagulation, skin cancer, chronic renal disease wi th obstruction in previous stenting, systemic hypertension, hypogammaglobulinemia requiring intermit tent replacement, history of subdural hematoma, etc. MEDICATIONS: Medications on admission were numerous and included guaifenesin, oxycodone, and obinut uzumab monthly, prophylactic Bactrim, omeprazole, metoprolol, nebulized budesonide, nebulized DuoNeb which had not been started, chlorambucil, Prozac, Zovirax, p.r.n. albuterol by metered-dose inhaler , allopurinol, aspirin, p.r.n. Tessalon Perles and Tylenol. SOCIAL HISTORY: The patient is a previous smoker. Significant alcohol is denied. She lives and is cared for by her daughter. She has been gradually going downhill for the last year or so, but when doing well is quite alert and vibrant. FAMILY HISTORY: Noncontributory. REVIEW OF SYSTEMS: Negative except as mentioned above. PHYSICAL EXAMINATION: GENERAL: Reveals an elderly woman who is in no acute distress. She has inte rmittent cough. VITAL SIGNS: Blood pressure is 110/57, heart rate 70, and regular. She is current ly on 5 L, saturations are 95%. Respiratory rate is 20. She is afebrile. HEENT: Unremarkable for lymphadenopathy or thyromegaly. Mucous membranes are moist. There is no obvious jugular venous di stention. CHEST: Reveals decreased breath sounds at the bases with a few rales. There are some br onchial changes at the right base. There are no rhonchi. There is minimal central congestion with cough. HEART: Regular in rate and rhythm. A systolic murmur is present. ABDOMEN: Soft, nontende r. Bowel sounds are present. There is no obvious CVA tenderness. EXTREMITIES: Remarkable for tra ce edema. NEUROLOGIC: Nonfocal. Cognition is intact. DATABASE: CT scans are as outlined above. LABORATORY DATA: White blood cell count is 3400, hematocrit 30, platelets 179,000. PT and PTT were normal on admission, as well as serum lactate. Basic metabolic panel is within normal limits. Ion ized calcium is 1.38, still elevated. Urinalysis showed red cells and white cells. UA and cultures have grown enterococcus. ASSESSMENT: 1. Pulmonary disease. The patient has multiple issues. She has underlying chronic obstructive pul monary disease secondary to previous tobacco abuse. In addition, she has chronic cough in part rela mati to esophageal dysmotility, reflux and aspiration. This has been an ongoing and varying problem. Various therapies in the past have improved it with temporary resolution, then re-occurrence. 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 This is likely also playing a role in her cough. There is no evidence of active pneumonia but s he does have increased secretions related to chronic intermittent aspiration, waxing and waning atel ectasis, etc. Over time she has required increased oxygen. I think it is very unlikely that she singh s a secondary lung cancer or other issues. I do not feel repeat bronchoscopy with biopsies is indic ated; however, I would be happy to do this if others feel strongly that samples need to be re-obtain ed. 2. Obstructive uropathy with enterococcus. Replacement of ureteral stent is being considered. The re are no absolute pulmonary contraindications to this. I think that she would tolerate general ane sthesia well as she has in the past. 3. Chronic lymphocytic leukemia. 4. History of other medical problems including skin cancer, hypertension, subdural hematoma, etc. PLAN/RECOMMENDATIONS: I will plan on following the patient with you. DuoNeb and budesonide should be continued by nebulizer. Oxygen should be continued to keep saturations at 88% or above. Current medications will be continued. Precautions regarding esophageal reflux need to be maintained. Ant ibiotic should be continued per Infectious Disease. She is currently on ampicillin. Replacement of her obstructed ureteral stent is being discussed but alleviation of her obstruction by some procedu re needs to be done. All the above was discussed with the patient and her daughter, Oncology, and the hospitalist. /[id number]/MODL
[2016-04-19] MEDS: ASPIRIN EC 81 MG TAB PO SCH (20:51)
[2016-04-20] MEDS: AMPICILLIN SODIUM 1 GM in NS 100 ML IV SCH ×4 (03:25→22:09)
[2016-04-20 03:54] LABS: ADD DIFF? YES; ADD MORPH? NO; ADD SCAN? NO; ATYPICAL LYMPHOCYTE FLAG 0 (0-99); FRAGMENT RBC FLAG 0 (0-99); HEMATOCRIT 27.7 % (38.0-47.0); LEFT SHIFT FLG 40 (0-99); LIPEMIA HEMOLYSIS FLAG 80 (0-99); MEAN CELL HEMOGLOBIN 34.9 pg (27.9-34.1); MEAN CELL HEMOGLOBIN CONCENTR. 32.5 g/dL (32.4-36.7); MEAN CELL VOLUME 107.4 fL (81.5-99.8); MEAN PLATELET VOLUME 9.6 fL (8.7-11.7); PLATELET CLUMPS FLAG 0 (0-99); PLATELET COUNT 159 10^3/uL (150-400); RED BLOOD CELL COUNT 2.58 10^6/uL (4.18-5.33); RED CELL DISTRIBUTION WIDTH 16.4 % (11.5-15.2)
[2016-04-20 04:24] LABS: PLATELET ESTIMATE ADEQUATE (ADEQ)
[2016-04-20 04:26] LABS: HYPOCHROMIA 1+
[2016-04-20 04:27] LABS: MACROCYTES 1+
[2016-04-20] MEDS: IPRATROPIUM/ALBUTEROL 3 ML DEYVIAL NEB SCH ×4 (06:09→20:12)
[2016-04-20] MEDS: guaiFENesin/CODEINE PHOS 10 ML UDCUP PO PRN ×3 (09:38→23:29)
[2016-04-20] MEDS: METOPROLOL TARTRATE 25 MG TAB PO SCH ×2 (09:38→22:09)
[2016-04-20] MEDS: BENZONATATE 100 MG CAP PO PRN ×3 (09:38→23:29)
[2016-04-20] MEDS: PANTOPRAZOLE SODIUM 40 MG TAB PO SCH (09:38)
[2016-04-20] MEDS: ALLOPURINOL 300 MG TAB PO SCH (09:38)
[2016-04-20] MEDS: FLUoxetine 20 MG CAP PO SCH (09:38)
[2016-04-20] MEDS: ACYCLOVIR 400 MG TAB PO SCH ×2 (09:38→22:10)
[2016-04-20] MEDS: guaiFENesin 600 MG TAB.ER PO SCH ×2 (09:38→22:09)
[2016-04-20] MEDS: ENOXAPARIN 40 MG/0.4 ML SYR SC SCH (09:51)
[2016-04-20] MEDS: BUDESONIDE 0.5 MG/2 ML AMPUL.NEB IH SCH ×2 (10:08→20:11)
--- NOTE | 2016-04-20 10:27 | HOSPPROG ---
Hospitalist Progress Note Assessment/Plan: Hypercalcemia - admitting diagnosis. improved with IVF's, possibly related to malignancy, s/p zometa. Acute encephalopathy - improved. likely secondary to above and possibly hastened by infection CLL - Oncology following, initially concerned about transformation, but this seems less likely now. Chronic hypoxemic respiratory failure - h/o COPD on 3 LPM at baseline, 4-5 LPM here. Reviewed prior imaging, including CTA from 11/2015, at which time she had a RLL opacity. Repeat chest CT suggests enlarging RLL consolidation. Prior bronch confirmed CLL related infiltrate. -appreciate pulm consult -cont current therapies UTI with prior stent and worsening hydro suggesting obstructive uropathy - UCx growing Enterococcus, sensitive to Ampicillin. Just finished tx for Enterobacter UTI with Meropenem. No fevers here, but c/o right flank pain. CT showed worsening hydro, stent in place, followed by Dr. Corona. -cont IV ampicillin -stent exchange planned for tomorrow per Dr. Corona -NPO after midnight -per ID, will give one dose of Meropenem prior to stent exchange in AM given h/o MDR Enterobacter Fall in setting of agitation during the night - xray neg for fracture, prn haldol for agitation. A fib - Rate controlled on metoprolol, had subdural hematoma with anti- coagulation in the past. Cont ASA for stroke prevention. Hypogammaglobulinemia - receives monthly IVIG, last dose 3/. Pancytopenia - likely secondary to chemo, stable, follow. CKD - Cr normal today after IVF's (1.2 to 1.0) Hypertension - fair control Weakness / deconditioning - likely needs SNF, but daughter feels it would kill her to go to SNF and really wants to bring her home. DVT PPLX - Lovenox DNR/DNI Dispo - cont inpt. Palliative care following. She is likely a candidate for hospice. CM involved with dispo planning. Subjective: Pt doing a bit better today, ambulated further in the room. Still coughing, at baseline. No fevers. +right flank pain. No N/V. No CP or SOB at rest. Objective: Vital Signs Temp Pulse Resp BP Pulse Ox 36.6 C 68 20 145/75 H 88 L 04/20/16 09:19 04/20/16 09:19 04/20/16 09:19 04/20/16 09:19 04/20/16 09:19 Microbiology 04/17/16 17:40 Urine Culture - Final Urine,Clean Catch Enterococcus Faecalis Laboratory Results 04/20/16 03:15 04/19/16 05:00 04/19/16 04/20/16 04/21/16 05:59 05:59 05:59 Intake Total 1000 783 Output Total 250 600 150 Balance 750 183 -150 PT 13.5 SEC (12.0-15.0) 04/16/16 17:20 INR 1.04 (0.83-1.16) 04/16/16 17:20 - Physical Exam Constitutional: no apparent distress Eyes: PERRL Ears, Nose, Mouth, Throat: moist mucous membranes Cardiovascular: regular rate and rhythym Respiratory: no respiratory distress, clear to auscultation Gastrointestinal: normoactive bowel sounds, soft, non-tender abdomen Skin: warm Musculoskeletal: generalized weakness Neurologic: AAOx3 Psychiatric: poor judgement ICD10 Worksheet Patient Problems: Problems Problem Status Onset CLL (chronic lymphocytic leukemia) Acute Cough Acute Hyperkalemia Acute Palliative care encounter Acute Weakness Acute Acute ischemic stroke Acute Bronchitis Acute Chronic Disease Mgmt/Transitional Care Acute Cough Acute Diarrhea Acute Fatigue Acute Hydronephrosis Acute MRSA (methicillin resistant Staphylococcus aureus) Acute 04/22/15 Multiple drug resistant organism (MDRO) culture positive Acute ~04/02/16 NSTEMI (non-ST elevated myocardial infarction) Acute Pneumonia Acute Pneumonia Acute Pneumonia due to infectious organism Acute Pyelonephritis Acute Somnolence Acute Subdural bleeding Acute UTI (urinary tract infection) Acute UTI (urinary tract infection) Acute Urinary obstruction Acute Weakness Acute
[2016-04-20] MEDS: ACETAMINOPHEN 500 MG TAB PO PRN ×2 (11:25→18:00)
[2016-04-20] MEDS: FLUTICASONE NASAL 120 SPRAYS/16 GM MDI EACHNARE SCH (16:41)
[2016-04-20] MEDS: SODIUM CL NASAL 45 ML BTL EACHNARE PRN (16:41)
--- NOTE | 2016-04-20 21:35 | SOAPPROG ---
SOAP Progress Note Assessment/Plan: Assessment: CLL with pulmonary involvement. Cough, chronic. In part related to 1., in part secondary to intermittent aspiration Hypoxemia. Oxygen needs have gradually increased. Secondary to progressive CLL in her lungs, chronic bronchitis and congestion secondary to aspiration, and possibly other factors. Urinary tract infection with obstructed ureteral stent. To be replaced tomorrow. Hypercalcemia. Likely related to malignancy, possibly volume status. Plan: Continue present care. Await ureteral replacement stent. Continue nebulized therapies and antibiotics, O2. I will continued to discuss her issues with Oncology and her daughter. I can consider repeat bronchoscopy with biopsies however the patient is not in favor of this and likely we will not have an alternative diagnosis. Subjective: Doing okay. Intermittent cough persists. Awaiting decisions regarding her ureteral stent Objective: Vital Signs Temp Pulse Resp BP Pulse Ox 36.6 C 72 16 145/75 H 92 04/20/16 09:19 04/20/16 15:56 04/20/16 20:12 04/20/16 09:19 04/20/16 20:12 Laboratory Results 04/20/16 03:15 04/19/16 05:00 04/19/16 04/20/16 04/21/16 05:59 05:59 05:59 Intake Total 2215 234 5882 Output Total 250 600 250 Balance 723 322 8656 PT 13.5 SEC (12.0-15.0) 04/16/16 17:20 INR 1.04 (0.83-1.16) 04/16/16 17:20 Physical Exam - Physical Exam General Appearance: alert, no apparent distress, other (Up in chair. Reading the paper.) EENT: PERRL/EOMI, other (Nasal cannula at 6 L) Neck: normal inspection (No JVD) Respiratory: decreased breath sounds, rales (Scattered at bases), rhonchi (Some central rhonchi/congestion with cough) Cardiac/Chest: regular rate, rhythm Abdomen: normal bowel sounds, non-tender, soft Skin: warm/dry, pallor Extremities: pedal edema Neuro/Psych: no motor/sensory deficits (Moves all extremities equally), No cognition abnormalities ICD10 Worksheet Patient Problems: Problems Problem Status Onset Weakness Acute Cough Acute Hyperkalemia Acute Palliative care encounter Acute Multiple drug resistant organism (MDRO) culture positive Acute ~04/02/16 Fatigue Acute MRSA (methicillin resistant Staphylococcus aureus) Acute 04/22/15 Pneumonia Acute Chronic Disease Mgmt/Transitional Care Acute Diarrhea Acute CLL (chronic lymphocytic leukemia) Acute Cough Acute Weakness Acute Bronchitis Acute Acute ischemic stroke Acute Subdural bleeding Acute Hydronephrosis Acute Pneumonia due to infectious organism Acute Urinary obstruction Acute UTI (urinary tract infection) Acute NSTEMI (non-ST elevated myocardial infarction) Acute Somnolence Acute Pneumonia Acute Pyelonephritis Acute UTI (urinary tract infection) Acute
[2016-04-20] MEDS: ASPIRIN EC 81 MG TAB PO SCH (22:09)
[2016-04-21] MEDS: NS 1,000 ML IV SCH (00:55)
[2016-04-21] MEDS: AMPICILLIN SODIUM 1 GM in NS 100 ML IV SCH ×5 (03:40→21:22)
[2016-04-21] MEDS: ACETAMINOPHEN 500 MG TAB PO PRN (03:49)
[2016-04-21] MEDS: guaiFENesin/CODEINE PHOS 10 ML UDCUP PO PRN (04:08)
[2016-04-21 04:31] LABS: ADD DIFF? YES; ADD MORPH? NO; ADD SCAN? NO; ATYPICAL LYMPHOCYTE FLAG 0 (0-99); FRAGMENT RBC FLAG 0 (0-99); HEMATOCRIT 31.8 % (38.0-47.0); HEMOGLOBIN 10.4 g/dL (12.6-16.3); LEFT SHIFT FLG 30 (0-99); LIPEMIA HEMOLYSIS FLAG 80 (0-99); MEAN CELL HEMOGLOBIN 35.3 pg (27.9-34.1); MEAN CELL HEMOGLOBIN CONCENTR. 32.7 g/dL (32.4-36.7); MEAN CELL VOLUME 107.8 fL (81.5-99.8); MEAN PLATELET VOLUME 9.8 fL (8.7-11.7); PLATELET CLUMPS FLAG 0 (0-99); PLATELET COUNT 170 10^3/uL (150-400); RED BLOOD CELL COUNT 2.95 10^6/uL (4.18-5.33); RED CELL DISTRIBUTION WIDTH 15.9 % (11.5-15.2)
[2016-04-21 04:48] LABS: ANION GAP 6 mEq/L (8-16); CALCIUM 9.6 mg/dL (8.5-10.4); CARBON DIOXIDE 24 mEq/l (22-31); CHLORIDE 108 mEq/L (97-110); CREATININE 1.2 mg/dL (0.6-1.0); GLOMERULAR FILTRATION RATE 42; GLUCOSE 82 mg/dL (70-100); POTASSIUM 4.6 mEq/L (3.5-5.2); SODIUM 138 mEq/L (134-144); URIC ACID 3.1 mg/dL (2.5-6.8)
[2016-04-21 05:20] LABS: MACROCYTES 1+; PLATELET ESTIMATE ADEQUATE (ADEQ)
[2016-04-21] MEDS: IPRATROPIUM/ALBUTEROL 3 ML DEYVIAL NEB SCH ×4 (06:07→20:48)
[2016-04-21] MEDS ORDERED: IOPAMIDOL (ISOVUE-300) 200 ML BTL IV ONE (06:50)
[2016-04-21] MEDS: METOPROLOL TARTRATE 25 MG TAB PO SCH ×2 (08:43→21:26)
[2016-04-21] MEDS: FLUTICASONE NASAL 120 SPRAYS/16 GM MDI EACHNARE SCH (08:47)
[2016-04-21] MEDS: SODIUM CL NASAL 45 ML BTL EACHNARE PRN (08:47)
[2016-04-21] MEDS ORDERED: MEROPENEM 1 GM in NS 100 ML IV ONE (09:00)
[2016-04-21] MEDS: BUDESONIDE 0.5 MG/2 ML AMPUL.NEB IH SCH ×2 (10:03→20:47)
--- NOTE | 2016-04-21 10:19 | PCMIDPN ---
Assessment/Plan: Assessment: complicated enterococcus faecalis UTI in setting of stent obstruction and retained fragment of guidewire in the renal pelvis. Patient is tolerating ampicillin and looking clinically well. Will await the procedure this afternoon with stent exchange and wire fragment removal. Infection treatment success likely predicated upon successful stent exchange. Plan: 1) Conitnue IV ampicillin. 2) Follow up on today's urology procedure. Subjective: Patient is resting in her hospital bed. No significant overnight events. Tolerating ampicillin without rash or diarrhea. Able to ambulate to the bathroom. Objective: ampicillin #2 Vital Signs Temp Pulse Resp BP Pulse Ox 36.6 C 69 12 153/80 H 93 04/21/16 08:10 04/21/16 08:10 04/21/16 08:10 04/21/16 08:10 04/21/16 08:10 Laboratory Results 04/21/16 04:20 04/21/16 04:20 04/20/16 04/21/16 04/22/16 05:59 05:59 05:59 Intake Total 783 1895 Output Total 600 700 Balance 183 1195 - Physical Exam General Appearance: WD/WN, alert, no apparent distress, non-toxic Respiratory: lungs clear, normal breath sounds, No respiratory distress Cardiac/Chest: regular rate, rhythm, No tachycardia Skin: normal color, warm/dry, No rash Neuro/Psych: alert, normal mood/affect, oriented x 3 ICD10 Worksheet Patient Problems: Problems Problem Status Onset CLL (chronic lymphocytic leukemia) Acute Cough Acute Hyperkalemia Acute Palliative care encounter Acute Weakness Acute Acute ischemic stroke Acute Bronchitis Acute Chronic Disease Mgmt/Transitional Care Acute Cough Acute Diarrhea Acute Fatigue Acute Hydronephrosis Acute MRSA (methicillin resistant Staphylococcus aureus) Acute 04/22/15 Multiple drug resistant organism (MDRO) culture positive Acute ~04/02/16 NSTEMI (non-ST elevated myocardial infarction) Acute Pneumonia Acute Pneumonia Acute Pneumonia due to infectious organism Acute Pyelonephritis Acute Somnolence Acute Subdural bleeding Acute UTI (urinary tract infection) Acute UTI (urinary tract infection) Acute Urinary obstruction Acute Weakness Acute
[2016-04-21] MEDS ORDERED: ONDANSETRON 4 MG/2 ML VIAL ONE (10:49)
[2016-04-21] MEDS ORDERED: PROPOFOL/EMULSION 500 MG/50 ML BOTTLE IV ONE (10:49)
[2016-04-21] MEDS ORDERED: LIDOCAINE 2% 5 ML SDV ONE (10:49)
[2016-04-21] MEDS ORDERED: fentaNYL 100 MCG/2 ML INJ ONE ×3 (10:49→12:54)
[2016-04-21] MEDS ORDERED: MIDAZOLAM 2 MG/2 ML VIAL ONE ×2 (10:49→10:50)
--- NOTE | 2016-04-21 12:41 | HOSPPROG ---
Hospitalist Progress Note Assessment/Plan: Hypercalcemia - admitting diagnosis. improved with IVF's, possibly related to malignancy, s/p zometa. Acute encephalopathy - improved. likely secondary to above and possibly hastened by infection CLL - Oncology following, initially concerned about transformation, but this seems less likely now. Chronic hypoxemic respiratory failure - h/o COPD on 3 LPM at baseline, 4-5 LPM here. Reviewed prior imaging, including CTA from 11/2015, at which time she had a RLL opacity. Repeat chest CT suggests enlarging RLL consolidation. Prior bronch confirmed CLL related infiltrate. -appreciate pulm consult -cont current therapies UTI with prior stent and worsening hydro suggesting obstructive uropathy - UCx growing Enterococcus, sensitive to Ampicillin. Just finished tx for Enterobacter UTI with Meropenem. No fevers here, but c/o right flank pain. CT showed worsening hydro, stent in place, followed by Dr. Corona. -cont IV ampicillin -stent exchange planned for today per Dr. Corona Fall in setting of agitation during the night - xray neg for fracture, prn haldol for agitation. A fib - Rate controlled on metoprolol, had subdural hematoma with anti- coagulation in the past. Cont ASA for stroke prevention. Hypogammaglobulinemia - receives monthly IVIG, last dose /. Pancytopenia - likely secondary to chemo, stable, follow. CKD - Cr normal today after IVF's (1.2 to 1.0) Hypertension - fair control Weakness / deconditioning - likely needs SNF, but daughter feels it would kill her to go to SNF and really wants to bring her home. DVT PPLX - Lovenox DNR/DNI Dispo - cont inpt. Palliative care following.CM involved with dispo planning. Subjective: patient seen prior to going to the operating room for stent placement. she denies any fevers or chills. overall she tells me she is feeling better today without any worsening shortness of breath Objective: Vital Signs Temp Pulse Resp BP Pulse Ox 36.6 C 69 12 153/80 H 86 L 04/21/16 08:10 04/21/16 08:10 04/21/16 08:10 04/21/16 08:10 04/21/16 09:37 Laboratory Results 04/21/16 04:20 04/21/16 04:20 04/20/16 04/21/16 04/22/16 05:59 05:59 05:59 Intake Total 783 1895 Output Total 600 700 Balance 183 1195 PT 13.5 SEC (12.0-15.0) 04/16/16 17:20 INR 1.04 (0.83-1.16) 04/16/16 17:20 - Physical Exam Constitutional: no apparent distress, appears nourished, not in pain Cardiovascular: regular rate and rhythym, no murmur, rub, or gallop Respiratory: no respiratory distress, no rales or rhonchi, clear to auscultation Gastrointestinal: normoactive bowel sounds, soft, non-tender abdomen, no palpable masses ICD10 Worksheet Patient Problems: Problems Problem Status Onset Weakness Acute Cough Acute Hyperkalemia Acute Palliative care encounter Acute Multiple drug resistant organism (MDRO) culture positive Acute ~04/02/16 Fatigue Acute MRSA (methicillin resistant Staphylococcus aureus) Acute 04/22/15 Pneumonia Acute Chronic Disease Mgmt/Transitional Care Acute Diarrhea Acute CLL (chronic lymphocytic leukemia) Acute Cough Acute Weakness Acute Bronchitis Acute Acute ischemic stroke Acute Subdural bleeding Acute Hydronephrosis Acute Pneumonia due to infectious organism Acute Urinary obstruction Acute UTI (urinary tract infection) Acute NSTEMI (non-ST elevated myocardial infarction) Acute Somnolence Acute Pneumonia Acute Pyelonephritis Acute UTI (urinary tract infection) Acute
[2016-04-21] MEDS ORDERED: HYDROmorphONE/DILAUDID 1 MG/ML SYR ONE (12:54)
--- NOTE | 2016-04-21 14:05 | SOAPPROG ---
SOAP Progress Note Assessment/Plan: Assessment: * Hypercalcemia: etiology unclear. Suppressed PTH. Has corrected with IVF and Zometa (04/17). Discussed weekly labs with home care to be sent to Dr. Calle. * CLL: seems under control with obinituzumab + chlorambucil; normal LDH makes transformation less likely. Lymphocyte count remains controlled. * Hypogammaglobulinemia: monthly IVIG (04/15/16). * Right lower lob consolidation: bronch 11/29 unremarkable; biopsy 04/[address] with worsening RLL consolidation. Unclear that another bronch would be helpful. They do not want to pursue open lung bx. Symptomatic mgmt. * Hydronephrosis and complicated UTI: stent change today. Abx. * Advanced care planning: DNR. Given all of her issues, palliative care with hospice would be appropriate. They are intent on her remaining at home. 04/21/16 14:03 Subjective: Patient off floor for stent change. Discussed with daughter. Improving, walking around unit. VS: AF. Objective: Vital Signs Temp Pulse Resp BP Pulse Ox 36.6 C 60 15 148/67 H 90 L 04/21/16 08:10 04/21/16 12:59 04/21/16 13:30 04/21/16 13:37 04/21/16 13:40 Laboratory Results 04/21/16 04:20 04/21/16 04:20 04/20/16 04/21/16 04/22/16 05:59 05:59 05:59 Intake Total 783 1895 300 Output Total 600 700 10 Balance 183 1195 290 PT 13.5 SEC (12.0-15.0) 04/16/16 17:20 INR 1.04 (0.83-1.16) 04/16/16 17:20 ICD10 Worksheet Patient Problems: Problems Problem Status Onset CLL (chronic lymphocytic leukemia) Acute Cough Acute Hyperkalemia Acute Palliative care encounter Acute Weakness Acute Acute ischemic stroke Acute Bronchitis Acute Chronic Disease Mgmt/Transitional Care Acute Cough Acute Diarrhea Acute Fatigue Acute Hydronephrosis Acute MRSA (methicillin resistant Staphylococcus aureus) Acute 04/22/15 Multiple drug resistant organism (MDRO) culture positive Acute ~04/02/16 NSTEMI (non-ST elevated myocardial infarction) Acute Pneumonia Acute Pneumonia Acute Pneumonia due to infectious organism Acute Pyelonephritis Acute Somnolence Acute Subdural bleeding Acute UTI (urinary tract infection) Acute UTI (urinary tract infection) Acute Urinary obstruction Acute Weakness Acute
[2016-04-21] MEDS: oxyCODONE IR 5 MG TAB PO PRN (14:42)
[2016-04-21] MEDS: PANTOPRAZOLE SODIUM 40 MG TAB PO SCH (14:42)
[2016-04-21] MEDS: BENZONATATE 100 MG CAP PO PRN ×2 (14:42→21:59)
[2016-04-21] MEDS: ASPIRIN EC 81 MG TAB PO SCH (14:42)
[2016-04-21] MEDS: ALLOPURINOL 300 MG TAB PO SCH (14:42)
[2016-04-21] MEDS: FLUoxetine 20 MG CAP PO SCH (14:42)
[2016-04-21] MEDS: ACYCLOVIR 400 MG TAB PO SCH ×2 (14:42→21:23)
[2016-04-21] MEDS: guaiFENesin 600 MG TAB.ER PO SCH ×2 (14:43→21:23)
[2016-04-21] MEDS: ENOXAPARIN 40 MG/0.4 ML SYR SC SCH (14:48)
--- NOTE | 2016-04-21 16:30 | GOP ---
[f rep st] OPERATIVE REPORT DATE OF OPERATION: 04/21/2016 SURGEON: Bear Corona MD PREOPERATIVE DIAGNOSIS: Right ureteral obstruction with a retained renal pelvis foreign body. POSTOPERATIVE DIAGNOSIS: Right ureteral obstruction with a retained renal pelvis foreign body. PROCEDURE PERFORMED: Right ureteroscopy with removal of a renal pelvic foreign body and replacement of indwelling right ureteral stent. FINDINGS: INDICATIONS: The patient is an 85-year-old female who has history of lymphoma and right ureteral ob struction. She has been undergoing periodic right ureteral stent changes. She was recently hospita lized and was noted to have significant hydronephrosis, new since 2 weeks earlier. She also has wha t appears to be a retained fragment of guidewire in the right renal pelvis which has been present si nce the original procedure. DESCRIPTION OF PROCEDURE: After informed consent and with general LMA anesthesia, the patient was p laced in the lithotomy position with her genitalia sterilely prepped and draped. Cystoscopy was car ried out. Attempts to pass a guidewire through the existing stent were unsuccessful due to occlusio n. Therefore the stent was removed. A guidewire was then passed into the right renal pelvis, and t he flexible ureteral scope advanced into the pelvis. The guidewire fragment was identified, grasped with a Nitinol basket and removed. A new 7-[place] Multi-Link ureteral stent was then positioned. The patient was awakened and transferred to the recovery room in stable condition. There were no in traoperative complications, specimens or blood loss. /[id number]/MODL
--- NOTE | 2016-04-21 20:22 | SOAPPROG ---
SOAP Progress Note Assessment/Plan: Assessment: CLL with pulmonary involvement. Cough, chronic. In part related to 1., in part secondary to intermittent aspiration, habitual. Hypoxemia. Oxygen needs have gradually increased. Secondary to progressive CLL in her lungs, chronic bronchitis and congestion secondary to aspiration, and possibly other factors. Urinary tract infection. Ureteral stent replaced today. No complications. Hypercalcemia. Likely related to malignancy, possibly volume status. Normalizing. Plan: Continue present care. Will discuss further outpatient follow-up with the patient and her daughter tomorrow prior to anticipated discharge to home. Subjective: Doing well. In good spirits. He status post ureteral stent replacement. Still with intermittent coughing. Wants to go home. Objective: Vital Signs Temp Pulse Resp BP Pulse Ox 36.7 C 65 16 122/54 H 1 L 04/21/16 17:18 04/21/16 17:18 04/21/16 17:18 04/21/16 17:18 04/21/16 17:18 Laboratory Results 04/21/16 04:20 04/21/16 04:20 04/20/16 04/21/16 04/22/16 05:59 05:59 05:59 Intake Total 783 1895 1200 Output Total 600 700 210 Balance 183 1195 990 PT 13.5 SEC (12.0-15.0) 04/16/16 17:20 INR 1.04 (0.83-1.16) 04/16/16 17:20 Physical Exam - Physical Exam General Appearance: alert, no apparent distress EENT: other (Nasal cannula in place at 4 L) Neck: normal inspection (No JVD) Respiratory: decreased breath sounds, rales (At right base), other (Some congestion with cough), No rhonchi Cardiac/Chest: regular rate, rhythm Abdomen: normal bowel sounds, non-tender, soft Skin: warm/dry, pallor, rash Extremities: pedal edema Neuro/Psych: no motor/sensory deficits, No cognition abnormalities ICD10 Worksheet Patient Problems: Problems Problem Status Onset Weakness Acute Cough Acute Hyperkalemia Acute Palliative care encounter Acute Multiple drug resistant organism (MDRO) culture positive Acute ~04/02/16 Fatigue Acute MRSA (methicillin resistant Staphylococcus aureus) Acute 04/22/15 Pneumonia Acute Chronic Disease Mgmt/Transitional Care Acute Diarrhea Acute CLL (chronic lymphocytic leukemia) Acute Cough Acute Weakness Acute Bronchitis Acute Acute ischemic stroke Acute Subdural bleeding Acute Hydronephrosis Acute Pneumonia due to infectious organism Acute Urinary obstruction Acute UTI (urinary tract infection) Acute NSTEMI (non-ST elevated myocardial infarction) Acute Somnolence Acute Pneumonia Acute Pyelonephritis Acute UTI (urinary tract infection) Acute
[2016-04-22] MEDS: AMPICILLIN SODIUM 1 GM in NS 100 ML IV SCH ×4 (03:09→22:48)
[2016-04-22] MEDS: NS 1,000 ML IV SCH (03:09)
[2016-04-22] MEDS: oxyCODONE IR 5 MG TAB PO PRN (03:14)
[2016-04-22] MEDS: IPRATROPIUM/ALBUTEROL 3 ML DEYVIAL NEB SCH ×4 (05:40→20:32)
[2016-04-22 05:53] LABS: ADD DIFF? YES; ADD MORPH? NO; ADD SCAN? NO; ATYPICAL LYMPHOCYTE FLAG 40 (0-99); FRAGMENT RBC FLAG 0 (0-99); HEMATOCRIT 28.8 % (38.0-47.0); LEFT SHIFT FLG 20 (0-99); LIPEMIA HEMOLYSIS FLAG 80 (0-99); MEAN CELL HEMOGLOBIN 34.7 pg (27.9-34.1); MEAN CELL HEMOGLOBIN CONCENTR. 31.3 g/dL (32.4-36.7); MEAN CELL VOLUME 111.2 fL (81.5-99.8); MEAN PLATELET VOLUME 9.7 fL (8.7-11.7); PLATELET CLUMPS FLAG 20 (0-99); PLATELET COUNT 136 10^3/uL (150-400); RED BLOOD CELL COUNT 2.59 10^6/uL (4.18-5.33); RED CELL DISTRIBUTION WIDTH 15.7 % (11.5-15.2)
[2016-04-22 06:38] LABS: PLATELET ESTIMATE ADEQUATE (ADEQ)
[2016-04-22 06:41] LABS: MACROCYTES 1+
[2016-04-22] MEDS: guaiFENesin 600 MG TAB.ER PO SCH ×2 (08:30→21:01)
[2016-04-22] MEDS: ACYCLOVIR 400 MG TAB PO SCH ×2 (08:31→21:01)
[2016-04-22] MEDS: PANTOPRAZOLE SODIUM 40 MG TAB PO SCH (08:31)
[2016-04-22] MEDS: FLUoxetine 20 MG CAP PO SCH (08:31)
[2016-04-22] MEDS: ALLOPURINOL 300 MG TAB PO SCH (08:31)
[2016-04-22] MEDS: METOPROLOL TARTRATE 25 MG TAB PO SCH ×2 (08:38→21:01)
[2016-04-22] MEDS: ENOXAPARIN 30 MG/0.3 ML SYR SC SCH (08:40)
[2016-04-22] MEDS: FLUTICASONE NASAL 120 SPRAYS/16 GM MDI EACHNARE SCH (08:41)
[2016-04-22] MEDS: BUDESONIDE 0.5 MG/2 ML AMPUL.NEB IH SCH ×2 (10:42→20:31)
[2016-04-22] MEDS: guaiFENesin/CODEINE PHOS 10 ML UDCUP PO PRN (10:46)
[2016-04-22] MEDS: BENZONATATE 100 MG CAP PO PRN (10:46)
[2016-04-22 12:50] LABS: PTH-RELATED PEPTIDE 0.5 pmol/L (<2.0)
[2016-04-22] MEDS: ACETAMINOPHEN 500 MG TAB PO PRN (12:56)
--- NOTE | 2016-04-22 15:28 | PDPCPN ---
Palliative Care Progress Note Assessment/Plan: HPI: Ronna Warren (Babs) is a 85 yo female with PMH CLL, UTI, A fib, CVA, SCC of skin, HTN, and CKD admitted to the hospital for hypercalcemia, weakness, and JENNIFER. Recent discharge from the hospital after being treated for pyelonephritis with IV antibiotics continued at home. ON admission with confusion given IV fluids and zometa with decrease in calcium. Continues to be weaker than baseline thought possibly due to clinical progression of CLL in RLL vs another process. Palliative care consulted for complex medical decision making. Gina seen this afternoon with daughter at the bedside. She stated she was walking around a lot yesterday but a little weaker today. Overall feeling better but hopes to get home soon. Her daughter feels the procedure yesterday made her a little weaker today but is encouraged she has improved from earlier in the week and hopes she will continue to improve as her medical issues resolve. Lia stated their goal is for HHC at home mostly PT and RN and they feel like they have everything they need with equipment at home. Assessment: Physical: - Pain: right knee pain - ice to knee - tylenol PRN - try lidocaine patch or voltaren gel if needed - Dyspnea: - oxygen as needed - Weakness - PT/OT for support - nursing assistance Emotional/psychological: some confusion still but improving Advanced Care Planning: Is patient decisional?: Yes Code Status: DNR MD MAYO: Daughter Lia is MDPOA. Plan: Home with HHC (PT, RN and OT). Patient and family are not ready for hospice care, the goal is for improved strength. Subjective: I am feeling ok Objective: Vital Signs Temp Pulse Resp BP Pulse Ox 36.7 C 66 18 135/70 H 92 04/22/16 08:34 04/22/16 14:29 04/22/16 14:29 04/22/16 12:00 04/22/16 14:29 Laboratory Results 04/22/16 05:44 04/21/16 04:20 04/21/16 04/22/16 04/23/16 05:59 05:59 05:59 Intake Total 1895 1958 Output Total 700 310 400 Balance 1195 1648 -400 PT 13.5 SEC (12.0-15.0) 04/16/16 17:20 INR 1.04 (0.83-1.16) 04/16/16 17:20 Physical Exam - Physical Exam General Appearance: alert, no apparent distress Respiratory: No respiratory distress, No accessory muscle use Skin: normal color, warm/dry Extremities: No pedal edema Neuro/Psych: alert, oriented x 3 ICD10 Worksheet Patient Problems: Problems Problem Status Onset CLL (chronic lymphocytic leukemia) Acute Cough Acute Hyperkalemia Acute Palliative care encounter Acute Weakness Acute Acute ischemic stroke Acute Bronchitis Acute Chronic Disease Mgmt/Transitional Care Acute Cough Acute Diarrhea Acute Fatigue Acute Hydronephrosis Acute MRSA (methicillin resistant Staphylococcus aureus) Acute 04/22/15 Multiple drug resistant organism (MDRO) culture positive Acute ~04/02/16 NSTEMI (non-ST elevated myocardial infarction) Acute Pneumonia Acute Pneumonia Acute Pneumonia due to infectious organism Acute Pyelonephritis Acute Somnolence Acute Subdural bleeding Acute UTI (urinary tract infection) Acute UTI (urinary tract infection) Acute Urinary obstruction Acute Weakness Acute - ICD10 Problem Qualifiers (1) Palliative care encounter
--- NOTE | 2016-04-22 16:18 | HOSPPROG ---
Hospitalist Progress Note Assessment/Plan: Hypercalcemia - admitting diagnosis. improved with IVF's, possibly related to malignancy, s/p zometa. Acute encephalopathy - improved. likely secondary to above and possibly hastened by infection CLL - Oncology following, initially concerned about transformation, but this seems less likely now. Chronic hypoxemic respiratory failure - h/o COPD on 3 LPM at baseline, 4-5 LPM here. Reviewed prior imaging, including CTA from 11/2015, at which time she had a RLL opacity. Repeat chest CT suggests enlarging RLL consolidation. Prior bronch confirmed CLL related infiltrate. -appreciate pulm consult -cont current therapies UTI with prior stent and worsening hydro suggesting obstructive uropathy - UCx growing Enterococcus, sensitive to Ampicillin. Just finished tx for Enterobacter s/p stent placement 04/21/16 Fall in setting of agitation during the night - xray neg for fracture, prn haldol for agitation. A fib - Rate controlled on metoprolol, had subdural hematoma with anti- coagulation in the past. Cont ASA for stroke prevention. Hypogammaglobulinemia - receives monthly IVIG, last dose 04/15. Pancytopenia - likely secondary to chemo, stable, follow. CKD - Cr normal today after IVF's (1.2 to 1.0) Hypertension - fair control Weakness / deconditioning - likely needs SNF, but daughter feels it would kill her to go to SNF and really wants to bring her home. DVT PPLX - Lovenox DNR/DNI Dispo -plan to dc 04/23 on oral antibiotics if she continues to improve Subjective: feels weak today after stent change yesterday. no fevers or chills. not feeling ready to go home Objective: Vital Signs Temp Pulse Resp BP Pulse Ox 36.7 C 66 18 135/70 H 92 04/22/16 08:34 04/22/16 14:29 04/22/16 14:29 04/22/16 12:00 04/22/16 14:29 Laboratory Results 04/22/16 05:44 04/21/16 04:20 04/21/16 04/22/16 04/23/16 05:59 05:59 05:59 Intake Total 1895 1958 Output Total 700 310 400 Balance 1195 1648 -400 PT 13.5 SEC (12.0-15.0) 04/16/16 17:20 INR 1.04 (0.83-1.16) 04/16/16 17:20 - Physical Exam Constitutional: no apparent distress, appears nourished, not in pain Ears, Nose, Mouth, Throat: moist mucous membranes, hearing normal, ears appear normal, no oral mucosal ulcers Cardiovascular: regular rate and rhythym, no murmur, rub, or gallop Respiratory: no respiratory distress, no rales or rhonchi, clear to auscultation Gastrointestinal: normoactive bowel sounds, soft, non-tender abdomen, no palpable masses ICD10 Worksheet Patient Problems: Problems Problem Status Onset Weakness Acute Cough Acute Hyperkalemia Acute Palliative care encounter Acute Multiple drug resistant organism (MDRO) culture positive Acute ~04/02/16 Fatigue Acute MRSA (methicillin resistant Staphylococcus aureus) Acute 04/22/15 Pneumonia Acute Chronic Disease Mgmt/Transitional Care Acute Diarrhea Acute CLL (chronic lymphocytic leukemia) Acute Cough Acute Weakness Acute Bronchitis Acute Acute ischemic stroke Acute Subdural bleeding Acute Hydronephrosis Acute Pneumonia due to infectious organism Acute Urinary obstruction Acute UTI (urinary tract infection) Acute NSTEMI (non-ST elevated myocardial infarction) Acute Somnolence Acute Pneumonia Acute Pyelonephritis Acute UTI (urinary tract infection) Acute
--- NOTE | 2016-04-22 17:15 | PCMIDPN ---
Assessment/Plan: Assessment/Plan: * Enterococcus faecalis UTI with obstructive uropathy: Status post stent removal and replacement yesterday. Plan to continue IV ampicillin through today and then additional 7 days of oral ampicillin 500 mg twice daily. * Recent UTI due to multidrug resistant enterobacter: Continue contact precautions. Findings and plan reviewed with patient and daughter. 04/22/16 17:13 Subjective: Stent removal and replacement yesterday as well as removal of wire fragment. Intermittent dysuria but not consistently present. Objective: Vital Signs Temp Pulse Resp BP Pulse Ox 36.6 C 72 18 141/56 H 95 04/22/16 16:11 04/22/16 16:11 04/22/16 16:11 04/22/16 16:11 04/22/16 16:11 Laboratory Results 04/22/16 05:44 04/21/16 04:20 04/21/16 04/22/16 04/23/16 05:59 05:59 05:59 Intake Total 1895 1958 Output Total 700 310 400 Balance 1195 1648 -400 Ampicillin # 3 - Physical Exam General Appearance: alert, no apparent distress EENT: pharynx normal, No thrush Abdomen: other (Mild suprapubic tenderness) Back: No CVA tenderness Skin: other (Mild contact dermatitis lateral to PICC dressing) ICD10 Worksheet Patient Problems: Problems Problem Status Onset CLL (chronic lymphocytic leukemia) Acute Cough Acute Hyperkalemia Acute Palliative care encounter Acute Weakness Acute Acute ischemic stroke Acute Bronchitis Acute Chronic Disease Mgmt/Transitional Care Acute Cough Acute Diarrhea Acute Fatigue Acute Hydronephrosis Acute MRSA (methicillin resistant Staphylococcus aureus) Acute 04/22/15 Multiple drug resistant organism (MDRO) culture positive Acute ~04/02/16 NSTEMI (non-ST elevated myocardial infarction) Acute Pneumonia Acute Pneumonia Acute Pneumonia due to infectious organism Acute Pyelonephritis Acute Somnolence Acute Subdural bleeding Acute UTI (urinary tract infection) Acute UTI (urinary tract infection) Acute Urinary obstruction Acute Weakness Acute
[2016-04-22] MEDS: ASPIRIN EC 81 MG TAB PO SCH (21:01)
[2016-04-22] MEDS: ACETAMINOPHEN 500 MG TAB PO SCH (22:44)
[2016-04-23] MEDS: IPRATROPIUM/ALBUTEROL 3 ML DEYVIAL NEB SCH ×2 (02:16→10:03)
[2016-04-23] MEDS: AMPICILLIN SODIUM 1 GM in NS 100 ML IV SCH ×2 (04:48→08:20)
[2016-04-23 06:07] LABS: ADD DIFF? YES; ADD MORPH? NO; ADD SCAN? NO; ATYPICAL LYMPHOCYTE FLAG 30 (0-99); FRAGMENT RBC FLAG 0 (0-99); HEMATOCRIT 30.6 % (38.0-47.0); LEFT SHIFT FLG 10 (0-99); LIPEMIA HEMOLYSIS FLAG 80 (0-99); MEAN CELL HEMOGLOBIN 35.6 pg (27.9-34.1); MEAN CELL HEMOGLOBIN CONCENTR. 32.7 g/dL (32.4-36.7); MEAN CELL VOLUME 108.9 fL (81.5-99.8); MEAN PLATELET VOLUME 9.8 fL (8.7-11.7); PLATELET CLUMPS FLAG 20 (0-99); PLATELET COUNT 157 10^3/uL (150-400); RED BLOOD CELL COUNT 2.81 10^6/uL (4.18-5.33); RED CELL DISTRIBUTION WIDTH 15.4 % (11.5-15.2)
[2016-04-23 06:43] LABS: MACROCYTES 1+; PLATELET ESTIMATE ADEQUATE (ADEQ)
[2016-04-23] MEDS: ACETAMINOPHEN 500 MG TAB PO SCH (08:19)
[2016-04-23] MEDS: FLUoxetine 20 MG CAP PO SCH (08:20)
[2016-04-23] MEDS: ENOXAPARIN 30 MG/0.3 ML SYR SC SCH (08:20)
[2016-04-23] MEDS: PANTOPRAZOLE SODIUM 40 MG TAB PO SCH (08:20)
[2016-04-23] MEDS: ACYCLOVIR 400 MG TAB PO SCH (08:20)
[2016-04-23] MEDS: guaiFENesin 600 MG TAB.ER PO SCH (08:20)
[2016-04-23] MEDS: ALLOPURINOL 300 MG TAB PO SCH (08:20)
[2016-04-23 08:26] VITALS: BP 129/68; PULSE 71
[2016-04-23] MEDS: METOPROLOL TARTRATE 25 MG TAB PO SCH (08:26)
[2016-04-23 08:29] VITALS: TEMP 97.3
[2016-04-23] MEDS: FLUTICASONE NASAL 120 SPRAYS/16 GM MDI EACHNARE SCH (08:33)
--- NOTE | 2016-04-23 08:41 | WOCRNPDOC ---
WOCRN Advanced Assessment Note - Skin Integrity Problem, Advanced Assess Right Lower Arm Dressing Type: Allevyn Life, Hydrofera Blue Ready Dressing Description: Clean/Dry, Intact Exudate Amount: Scant Exudate Color: Reddish/Yellow Exudate Characteristic(s): Serosanguinous Integumentary Issue Intervention: Visualized Under Dressing Nathalie Wound Tissue: Thin, Xerotic Nathalie Wound Swelling: None Wound Bed Color: Red, Yellow Wound Bed Constitution: Granulation Tissue (90%), Adhered Slough (10%) Wound Edges: Epithelizing Site Odor: None Site Measurement - Head-to-Toe Length X Width X Depth (cm): [id number] Skin Integrity Problem Comment: Wound improved since previous assessment on 04/18 , with smaller dimensions, decreased slough, and well-epithelialized margins. Nathalie-wound skin is very xerotic, but presently intact. Discussed w/ patient her plans to [facility] of this wound. Patient has ample supplies at home to continue w/ wound care until her next appointment. Continue w/ existing orders of Arelis Promogran, Hydrofera Blue Ready, and Allevyn Life.
[2016-04-23] MEDS: BUDESONIDE 0.5 MG/2 ML AMPUL.NEB IH SCH (10:03)
[2016-04-23 10:17] VITALS: RESP 14; O2SAT 94
--- NOTE | 2016-04-23 12:14 | PDIAF ---
- Diagnosis Diagnosis: hypercalcemia Code Status: Do Not Resuscitate - Medication Management Discharge Medications: Medications to Continue on Transfer Acetaminophen [Tylenol ES 500 mg (*)] 1,000 mg PO TID PRN 04/02/16 [Last Taken 04/16/16 08:30] Acyclovir [Zovirax 400 mg (*)] 400 mg PO BID 04/02/16 [Last Taken 04/16/16 11:15 ] Albuterol [Proventil Inhaler HFA (*)] 2 puffs IH Q4H 04/02/16 [Last Taken 08:30] Allopurinol [Allopurinol 300 MG (RX)] 300 mg PO DAILY 04/02/16 [Last Taken 04/16 11:15] Aspirin EC [Aspirin EC 81 mg (*)] 81 mg PO HS 04/02/16 [Last Taken 04/15/16 22: 00] Benzonatate [Tessalon Pearles] 100 mg PO TID PRN 04/02/16 [Last Taken 04/02/16 07:00] Budesonide [Budesonide 0.5MG/2Ml Neb (*)] 0.5 mg IH BID 04/02/16 [Last Taken 04/30 08:30] Chlorambucil [Leukeran] 24 mg PO AD 04/02/16 [Last Taken 04/02/16 12:00] FLUoxetine [Prozac 20 MG (*)] 20 mg PO DAILY 04/02/16 [Last Taken 04/16/16 11:15 ] Guaifenesin/Codeine Phos [Codeine 10 mg-Guai 300 mg Liq] 5 ml PO Q4H PRN [Last Taken 04/16/16 08:30] Herbals/Supplements -Info Only 1 ea PO DAILY 04/02/16 [Last Taken Unknown] Ipratropium/Albuterol [Duoneb (*)] 3 ml IH Q6H PRN 04/02/16 [Last Taken Unknown] Metoprolol Tartrate [Lopressor 25 mg (*)] 25 mg PO BID 04/02/16 [Last Taken 04/30 11:15] Obinutuzumab [Gazyva] 1,000 mg IV Q28D 04/02/16 [Last Taken 03/18/16] Omeprazole 20 mg PO DAILY 04/02/16 [Last Taken 04/16/16 11:15] Sulfamethox/Tmp 800/160 mg [Bactrim DS] 1 tab PO SUSA 04/02/16 [Last Taken 04/11] guaiFENesin [Mucinex 600 MG (*)] 1,200 mg PO BID 04/02/16 [Last Taken 04/15/16 22:00] oxyCODONE IR [Oxycodone Ir (*)] 15 - 20 mg PO Q8H PRN 04/02/16 [Last Taken 04/16 08:30] Ampicillin Trihydrate [Ampicillin 500 mg cap (*)] 500 mg PO BID #14 cap [Last Taken Unknown] Discharge Medications: Refer to the Discharge Home Medication list for PRN reason. - Orders Services needed: Home Care, Registered Nurse, Certified Edge Drummer, Physical Therapy, Occupational Therapy Home Care Face to Face: I certify that this patient was under my care and that I had the required [id number] encounter meeting the encounter requirements on the discharge day. My findings support the fact that the patient is homebound as defined in CMS Chapter 7 Medicare Benefits Manual 30.1.1, The condition of the patient is such that there exists a normal inability to leave home and consequently, leaving home would require a considerable and taxing effort. Diet Texture: Regular Texture Diet, Thin Liquids, Meds Whole in Puree - Follow Up Care Current Providers and Referrals: Patient,NotPresent [Unknown] - As per Instructions
--- NOTE | 2016-04-23 13:07 | PCMIDPN ---
Assessment/Plan: Assessment: complicated enterococcus faecalis UTI in setting of stent obstruction and retained fragment of guidewire in the renal pelvis. Stent exchanged and guidewire fragment removed. Patient is stable clinically. She is going to change from the IV ampicillin to oral ampicillin and complete the outlined course. Plan: 1) discontinue IV ampicillin. Start oral ampicillin 500 mg p.o. twice daily. 2) duration of treatment another 6 days. Subjective: Patient is feeling better. Wants to go home. No complaints. Right-sided pain is significantly improved. Objective: Ampicillin #4 Vital Signs Temp Pulse Resp BP Pulse Ox 36.3 C 71 14 129/68 H 94 04/23/16 08:24 04/23/16 10:07 04/23/16 10:07 04/23/16 08:26 04/23/16 10:07 Laboratory Results 04/23/16 05:51 04/21/16 04:20 04/22/16 04/23/16 04/24/16 05:59 05:59 05:59 Intake Total 1958 1350 300 Output Total 310 500 Balance 1648 850 300 - Physical Exam General Appearance: WD/WN, alert, no apparent distress, non-toxic Respiratory: lungs clear, normal breath sounds, No respiratory distress Cardiac/Chest: regular rate, rhythm, No tachycardia Neuro/Psych: alert, normal mood/affect, oriented x 3 ICD10 Worksheet Patient Problems: Problems Problem Status Onset Acute ischemic stroke Acute Bronchitis Acute CLL (chronic lymphocytic leukemia) Acute Chronic Disease [facility]/Transitional Care Acute Cough Acute Cough Acute Diarrhea Acute Fatigue Acute Hydronephrosis Acute Hyperkalemia Acute MRSA (methicillin resistant Staphylococcus aureus) Acute 04/22/15 Multiple drug resistant organism (MDRO) culture positive Acute ~04/02/16 NSTEMI (non-ST elevated myocardial infarction) Acute Palliative care encounter Acute Pneumonia Acute Pneumonia Acute Pneumonia due to infectious organism Acute Pyelonephritis Acute Somnolence Acute Subdural bleeding Acute UTI (urinary tract infection) Acute UTI (urinary tract infection) Acute Urinary obstruction Acute Weakness Acute Weakness Acute
--- NOTE | 2016-04-23 16:07 | GDS ---
[f rep st] DISCHARGE SUMMARY DISCHARGE DIAGNOSES: 1. Resolved hypercalcemia of unclear etiology. 2. Resolved acute encephalopathy, most likely due to metabolic encephalopathy in the setting of hyp ercalcemia. 3. CLL with chronic hypoxemic respiratory failure due to CLL-related lung involvement. 4. Complicated urinary tract infection with Enterococcus. 5. Rate controlled atrial fibrillation. 6. Hypogammaglobinemia. 7. Pancytopenia. 8. Chronic kidney disease. 9. Hypertension. 10. Weakness and deconditioning. CONSULTANTS: 1. Dr. Bear Corona, urology. 2. [facility]. 3. [facility]. HOSPITAL COURSE AND STAY BY PROBLEM: 1. Hypercalcemia: The patient presented to the hospital, where she was found to be hypercalcemic w ith a calcium of 12. She was given Zometa. Her calcium has since trended down and her mentation singh s improved. She plans to follow up her calcium levels with her oncologist, Dr. Calle. 2. Complicated urinary tract infection: The patient was found to have an Enterococcus faecalis uri nary tract infection. A CT of the chest done on 04/17/2016 showed interim development of severe rig ht hydronephrosis. Dr. Bear Corona from urology was consulted and took the patient to the operating room on 04/21/2016, where she had replacement of an indwelling right ureteral stent as well as karen kimani of a guidewire that was apparently left in her renal pelvis. The patient received IV ampicillin 24 hours after procedure and has since been switched over to oral ampicillin, which she should take for a week. PHYSICAL EXAM: VITAL SIGNS: On the day of discharge, blood pressure 129/68, pulse of 71, respirato ry rate 14, O2 sat 94% on 5 L, temperature afebrile. GENERAL: No acute distress. HEART: S1, S2. LUNGS: Clear with diminished breath sounds in the bases. ABDOMEN: Soft. EXTREMITIES: No edema. PROCEDURES DONE THIS HOSPITAL STAY: Ureteroscopy with replacement of indwelling right ureteral sten t, done by Dr. Corona on 04/21/2016. DISCHARGE MEDICATIONS: Please refer to discharge medication reconciliation in [facility]. DISCHARGE INSTRUCTIONS: The patient will be discharged from the hospital, where she should follow u p with her oncologist next week as scheduled to have her calcium checked. She should also follow up with Dr. Corona as directed. /[id number]/MODL
[2016-04-23] MEDS ORDERED: AMPICILLIN TRIHYDRATE 500 MG CAP PO SCH (21:00)
[2016-05-01] MEDS ORDERED: CHLORAMBUCIL 2 MG PO SCH (09:00)
== END 2016-04-23 14:05 | disposition home health service (06) | DRG 987 ==
LOC: EDUNIT# → F1N 15:33 → OBSVTOIN 15:56
PROVIDERS: ADMIT Internal Medicine; ATTEND Internal Medicine Hematology & Oncology
PROC: 02HV33Z Insertion of Infusion Device into Superior Vena Cava, Percutaneous Approach (ICD-10-PCS; 2016-04-16)
PROC: 30233N1 Transfusion of Nonautologous Red Blood Cells into Peripheral Vein, Percutaneous Approach (ICD-10-PCS; 2016-04-18)
PROC: 0T768DZ Dilation of Right Ureter with Intraluminal Device, Via Natural or Artificial Opening Endoscopic (ICD-10-PCS; principal; 2016-04-21 11:00)
PROC: 0TP Urinary System, Removal (ICD-10-PCS; principal; 2016-04-21 11:00)
DX: E83.52 Hypercalcemia (principal); G93.41 Metabolic encephalopathy; D61.810 Antineoplastic chemotherapy induced pancytopenia; J96.11 Chronic respiratory failure with hypoxia; N39.0 Urinary tract infection, site not specified; N13.6 Pyonephrosis; D80.1 Nonfamilial hypogammaglobulinemia; C91.10 Chronic lymphocytic leukemia of B-cell type not having achieved remission; T81.52 Obstruction due to foreign body accidentally left in body following procedure; I48.91 Unspecified atrial fibrillation; N18.9 Chronic kidney disease, unspecified; B95.2 Enterococcus as the cause of diseases classified elsewhere; I12.9 Hypertensive chronic kidney disease with stage 1 through stage 4 chronic kidney disease, or unspecified chronic kidney disease; J44.9 Chronic obstructive pulmonary disease, unspecified; E78.00 Pure hypercholesterolemia, unspecified; Z85.820 Personal history of malignant melanoma of skin; Z87.891 Personal history of nicotine dependence; Z66 Do not resuscitate
CPT/HCPCS: 82164-90; 82397-90; 82652-90; 82784-90; 84590-90; 86334-90; 92610-GN; 96374; 97110-GP; 97116-GP; 97162-GP; 97166-GO; 97530-GO; 97530-GP; 97535-GO; C1751; C1769; C2625; G8978-GP-CK; G8979-GP-CJ; G8987-GO-CI; G8988-GO-CK; G8996-GN-CH; G8997-GN-CH; G8998-GN-CH; J0290; J1170; J1650; J2185; J2250; J2405; J2704; J3010; J3489; J7626; P9040; Q9967

== ENCOUNTER 2016-05-27 01:58 | Inpatient (IN) | payer OTHER, MEDICARE ==
--- NOTE | 2016-05-27 02:20 | EDPHY ---
H & P Stated Complaint: back pain, abd pain, recent dx with UTI Time Seen by Provider: 05/27/16 02:04 HPI/ROS: Chief Complaint: Cough, back pain HPI: 85-year-old woman with a history of CLL, recent diagnosis of urinary tract infection by her doctor at the [facility] and was started on Levaquin. Patient also has a history of chronic kidney disease and ureteral obstruction with ureteral stent in place. She also has chronic back pain from her CLL. This morning patient was complaining of increasing low back pain and cough. Per EMS the patient did not get significant relief with 10 mg of morphine. Here she denies being in any pain at this time. Denies any fevers or chills. No nausea or vomiting. She does state that she was discussing with her cancer doctor to doctor possibility of discontinue the cancer medications. Currently she is without complaint. She is awake and alert x3 at this time. ROS: 10 point Review of Systems is negative except as noted in the HPI. PMH: CLL, urinary tract infection, atrial fibrillation, pancytopenia, chronic kidney disease, hypertension, hypercalcemia Social History: No smoking, no alcohol, no recreational drug use Family History: non-contributory Physical Exam: Gen: Awake, Alert, No Distress HEENT: Nose: no rhinorrhea Eyes: PERRLA, EOMI Mouth: Dry oral mucosa Neck: Supple, no JVD Chest: nontender, lungs clear to auscultation Heart: S1, S2 normal, no murmur Abd: Soft, mild generalized lower abdominal tenderness without guarding Back: no CVA tenderness, no midline tenderness Ext: no edema, non-tender Neuro: CN II-XII intact, Sensation grossly intact, Strength 5/5 in bilateral upper and lower extremities - Personal History Current Tetanus/Diphtheria Vaccine: Unsure Current Tetanus Diphtheria and Acellular Pertussis (TDAP): Unsure Tetanus Vaccine Date: 2003 - Medical/Surgical History Hx Asthma: No Hx Chronic Respiratory Disease: No Hx Diabetes: No Hx Cardiac Disease: Yes Hx Renal Disease: Yes Hx Cirrhosis: No Hx Alcoholism: No Hx HIV/AIDS: No Hx Splenectomy or Spleen Trauma: No Other PMH: HTN, High cholesterol, R rotator cuff tear, skin ca being treated with radiation (10/29); skin diaz from radiation, Chronic lymphocytic leukemia, osteoarthritis, a fib dx 07/2015, - Social History Smoking Status: Former smoker Constitutional: Initial Vital Signs Temperature (C) 37.5 C 05/27/16 02:08 Heart Rate 94 05/27/16 02:08 Respiratory Rate 20 05/27/16 02:08 Blood Pressure 175/84 H 05/27/16 02:08 O2 Sat (%) 88 L 05/27/16 02:08 O2 Delivery Mode Room Air O2 (L/minute) 2 Allergies/Adverse Reactions: epinephrine Allergy (Severe, Verified 05/27/16 02:12) SEIZURES, SHAKING Home Medications: Medication Instructions Recorded Acetaminophen [Tylenol ES 500 mg 1,000 mg PO TID PRN 04/02/16 (*)] Acyclovir [Zovirax 400 mg (*)] 400 mg PO BID 04/02/16 Albuterol [Proventil Inhaler HFA 2 puffs IH Q4H 04/02/16 (*)] Allopurinol [Allopurinol 300 MG 300 mg PO DAILY 04/02/16 (RX)] Aspirin EC [Aspirin EC 81 mg (*)] 81 mg PO HS 04/02/16 Benzonatate [Tessalon Pearles] 100 mg PO TID PRN 04/02/16 Budesonide [Budesonide 0.5MG/2Ml 0.5 mg IH BID 04/02/16 Neb (*)] Chlorambucil [Leukeran] 24 mg PO AD 04/02/16 FLUoxetine [Prozac 20 MG (*)] 20 mg PO DAILY 04/02/16 Guaifenesin/Codeine Phos [Codeine 5 ml PO Q4H PRN 04/02/16 10 mg-Guai 300 mg Liq] Herbals/Supplements -Info Only 1 ea PO DAILY 04/02/16 Ipratropium/Albuterol [Duoneb (*)] 3 ml IH Q6H PRN 04/02/16 Obinutuzumab [Gazyva] 1,000 mg IV Q28D 04/02/16 Omeprazole 20 mg PO DAILY 04/02/16 Sulfamethox/Tmp 800/160 mg 1 tab PO SUSA 04/02/16 [Bactrim DS] guaiFENesin [Mucinex 600 MG (*)] 1,200 mg PO BID 04/02/16 oxyCODONE IR [Oxycodone Ir (*)] 15 - 20 mg PO Q8H PRN 04/02/16 Ampicillin Trihydrate [Ampicillin 500 mg PO BID #14 cap 04/23/16 500 mg cap (*)] Leukeran 05/27/16 Prozac 20 MG (*) 05/27/16 Medical Decision Making - Diagnostics Imaging: Renal ultrasound shows a right ureteral stent in place with moderate amount of hydro. There is no ureteral jet from the stent suggesting a stent occlusion. This was interpreted by Dr. Lara. ED Course/Re-evaluation: Patient's daughters presented to bedside is able to provide further history. She states the patient has been complaining of worsening back pain for the last several weeks. This is attributed to her spreading cancer by her oncologist who started her on prednisone with great success. She has been off the prednisone the pain has been worsening for the last few days. She is also confused yesterday was seen [facility] have urinalysis which showed UTI she also got IV hydration started on levofloxacin at that time. Patient's daughter states that this morning she awoke complaining of severe pain which prompted her daughter to call 911. She states that the patient was also increasingly confused this morning. She does have a history of ureteral obstruction with her last urinary tract infection and there is some question as to whether this might be contributing to her pain. I have reviewed her blood work from the [facility] center for the last 2 days. Urinalysis is consistent with UTI. Cultures are not back yet. She does have a leukocytosis which is consistent with her CLL so this is difficult to interpret at this time. Her renal function is at its baseline. Patient is mildly confused certainly cannot go home at 2 o'clock in the morning right now. She also needs to be further evaluated for the possibility of ureteral obstruction as contributing to her pain at this time. I have ordered a renal ultrasound. I have discussed with Dr. Jessica hospitalist. Will admit the patient to the hospitalist service for further evaluation and possible consultation with Oncology and perhaps renal and Infectious Disease if warranted. Renal ultrasound results noted and I have informed . He will contact Dr. Corona, urology, later this morning. Departure - Departure Disposition: [facility] Acute Clinical Impression: UTI (urinary tract infection), Back pain, Confusion Condition: Fair
[2016-05-27 07:20] LABS: ADD DIFF? YES; ADD MORPH? NO; ATYPICAL LYMPHOCYTE FLAG 0 (0-99); FRAGMENT RBC FLAG 0 (0-99); HEMOGLOBIN 8.6 g/dL (12.6-16.3); LIPEMIA HEMOLYSIS FLAG 80 (0-99); MEAN CELL HEMOGLOBIN 34.1 pg (27.9-34.1); MEAN CELL HEMOGLOBIN CONCENTR. 31.9 g/dL (32.4-36.7); MEAN CELL VOLUME 107.1 fL (81.5-99.8); MEAN PLATELET VOLUME 9.8 fL (8.7-11.7); PLATELET CLUMPS FLAG 20 (0-99); PLATELET COUNT 199 10^3/uL (150-400); RED BLOOD CELL COUNT 2.52 10^6/uL (4.18-5.33)
[2016-05-27 07:25] LABS: ADD SCAN? NO; LEFT SHIFT FLG 180 (0-99)
[2016-05-27] MEDS ORDERED: HYDROmorphONE/DILAUDID 1 MG/ML SYR IVP PRN (07:41)
[2016-05-27] MEDS ORDERED: oxyCODONE IR 5 MG TAB PO PRN ×2 (07:41→12:31)
[2016-05-27] MEDS ORDERED: ONDANSETRON 4 MG/2 ML VIAL IVP PRN (07:41)
[2016-05-27] MEDS ORDERED: ONDANSETRON DISINTEGRATING 4 MG TAB PO PRN (07:41)
[2016-05-27] MEDS ORDERED: ACETAMINOPHEN 325 MG TAB PO PRN (07:41)
[2016-05-27 08:00] LABS: ALANINE AMINOTRANSFERASE 52 IU/L (9-52); ALBUMIN 2.8 g/dL (3.5-5.0); ALKALINE PHOSPHATASE 90 IU/L (38-126); ANION GAP 6 mEq/L (8-16); ASPARTATE AMINOTRANSFERASE 29 IU/L (14-46); BILIRUBIN,TOTAL 0.6 mg/dL (0.1-1.4); CALCIUM 8.3 mg/dL (8.5-10.4); CARBON DIOXIDE 24 mEq/l (22-31); CHLORIDE 105 mEq/L (97-110); CREATININE 1.1 mg/dL (0.6-1.0); GLOMERULAR FILTRATION RATE 47; GLUCOSE 90 mg/dL (70-100); POTASSIUM 5.2 mEq/L (3.5-5.2); SODIUM 135 mEq/L (134-144); TOTAL PROTEIN 5.1 g/dL (6.3-8.2)
[2016-05-27 08:08] LABS: PLATELET ESTIMATE ADEQUATE (ADEQ)
[2016-05-27 08:14] LABS: ELLIPTOCYTES 1+
--- NOTE | 2016-05-27 08:39 | GHP ---
[f rep st] HISTORY AND PHYSICAL DATE OF ADMISSION: 05/27/2016 CHIEF COMPLAINT: Right flank pain. HISTORY OF PRESENT ILLNESS: This is an 85-year-old female who is well known to us. She has a histo ry of CLL among other multiple medical problems. She was recently admitted to the hospital in the eginning of April and was diagnosed with a ureteral stent obstruction on the right. She underwent r eplacement of that stent. She also had an enterococcus urinary tract infection and had been treated with ampicillin and then amoxicillin on discharge. Apparently she had been doing okay and followin g up with the [facility]. She was diagnosed with a urinary tract infection a few days ago and started on Levaquin. Over the last several days, it appears she has been having increa sing back pain and flank pain similar to her previous presentation. She denies any fevers or chills . She is eating okay. The pain is intermittent and is now completely resolved. REVIEW OF SYSTEMS: A 10-point review of systems was obtained and was otherwise negative. PAST MEDICAL HISTORY: 1. 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 2. Atrial fibrillation status post cardioversion. 3. History of subdural hematoma secondary to anticoagulation. 4. History of radiation diaz. 5. Chronic kidney disease. 6. Chronic hydronephrosis on the right status post stenting. 7. History of squamous cell skin cancer. 8. Hypertension. 9. Hypogammaglobulinemia, on monthly gammaglobulin infusions. MEDICATIONS: Reviewed. SOCIAL HISTORY: No smoking or alcohol. Lives with her daughter. FAMILY HISTORY: Both parents are . PHYSICAL EXAMINATION: VITAL SIGNS: Afebrile, blood pressure is 136/67, heart rate 77, oxygen satur ation 94% on 2 L. GENERAL: The patient is well developed, in no apparent distress. HEENT: Nonict yaritza sclerae. Extraocular movements intact. Moist mucous membranes. NECK: Supple. No thyromegal y. LUNGS: Good effort. Clear to auscultation bilaterally. CARDIOVASCULAR: Regular rate and rhyt hm. No murmurs or gallops. ABDOMEN: Positive bowel sounds. Soft, nontender, nondistended. No he patosplenomegaly. Some mild right lower quadrant tenderness. EXTREMITIES: No clubbing, cyanosis, or edema. SKIN: Without rash, dry, intact. NEUROLOGIC: Alert and oriented x3. Moving all 4 extr emities equally. PSYCH: Normal affect. LABS: White blood cell count 21 and had been in the 4 range at the end of April, hemoglobin is 8, p latelets are 199. Creatinine yesterday was 1.2, with potassium 5.3. Repeat chemistry is pending at this time. UA done yesterday showed 3+ blood, 1+ leukocyte esterase. Abdominal ultrasound does show right hydronephrosis and no ureteral jet consistent with possible ure teral stent obstruction. ASSESSMENT: This is an 85-year-old female with a history of chronic lymphocytic leukemia and other multiple medical problems with recent right ureteral stent obstruction presenting with possibly the same and also possible urinary tract infection. PLAN: 1. Possible ureteral stent obstruction. I have a call out to Dr. Corona, her urologist, and hopeful ly he can evaluate the patient. I am going to keep her n.p.o. for now in case any procedures will b e done. 2. Probable urinary tract infection. The patient did have enterococcus in her urine during last ad mission. Cultures from yesterday are still pending at this time. She definitely does not appear se ptic and her UA shows some mild leukocyte esterase. I think we will initially treat with Zosyn to c over enterococcus as well as other organisms that might be present. This could definitely be tailor ed down once the cultures have been reviewed. 3. History of CLL. Will get Oncology to see the patient. They are thinking about more chemotherap y. 4. History of atrial fibrillation. Patient sounds to be in sinus rhythm. 5. The patient is a DNR. 6. Admission. Patient will be admitted under full admission status. Case discussed with ER peña foreman. Old records reviewed and summarized. /[id number]/MODL
[2016-05-27 10:52] LABS: COLOR YELLOW; LEUKOCYTE ESTERASE,URINE 1+ (NEGATIVE); NITRITE,URINE NEGATIVE (NEGATIVE)
[2016-05-27 11:13] LABS: BACTERIA TRACE /hpf (NONE SEEN); MUCUS TRACE /lpf (NONE-1+); RBC,URINE 50-182 /hpf (0-3); WBC,URINE 25-50 /hpf (0-3); YEAST PRESENT /hpf (NONE SEEN)
[2016-05-27] MEDS: NS 1,000 ML IV SCH ×2 (11:14→20:08)
[2016-05-27] MEDS ORDERED: IPRATROPIUM/ALBUTEROL 3 ML DEYVIAL IH PRN (12:31)
[2016-05-27] MEDS ORDERED: ALBUTEROL 60 PUFFS/8 GM MDI IH PRN (12:45)
[2016-05-27] MEDS: guaiFENesin/CODEINE PHOS 10 ML UDCUP PO PRN (13:32)
[2016-05-27] MEDS: BENZONATATE 100 MG CAP PO PRN (13:32)
[2016-05-27] MEDS: FLUoxetine 20 MG CAP PO SCH (13:34)
[2016-05-27] MEDS: PANTOPRAZOLE SODIUM 40 MG TAB PO SCH (13:35)
[2016-05-27] MEDS: ALLOPURINOL 300 MG TAB PO SCH (13:36)
[2016-05-27] MEDS: MULTIVITAMINS 1 EACH TAB PO SCH (13:37)
[2016-05-27] MEDS: BUDESONIDE 0.5 MG/2 ML AMPUL.NEB IH SCH ×2 (13:45→21:50)
[2016-05-27] MEDS ORDERED: predniSONE 10 MG TAB PO ONE (14:00)
[2016-05-27] MEDS: ACYCLOVIR 400 MG TAB PO SCH ×2 (14:53→20:07)
[2016-05-27] MEDS: guaiFENesin 600 MG TAB.ER PO SCH ×2 (15:00→20:07)
--- NOTE | 2016-05-27 19:06 | GCON ---
[f rep st] CONSULTATION ONCOLOGY INITIAL VISIT PRIMARY ONCOLOGIST: Allen Calle MD REASON FOR REQUEST: Evaluation and management of CLL. HISTORY OF PRESENT ILLNESS: Ronna is an 85-year-old woman who lives with her daughter in [facility]. She has had CLL since 2007. She has had previous treatment with fludarabine, cyclophosphamide, and rituximab, but not tolerated due to pancytopenia. She more recently has been on ibrutinib, but had complications with atrial fibrillation. More recently, she has been on brentuximab plus chloram bucil with good response; although, there is concern that she may be starting to lose some of the re sponse, as she was having some increased cough and abdominal discomfort. Dr. Calle put her on a s teroid course, and she is slowly tapering it. It made the cough and pain go away entirely, but as s he has been tapering down from [address] down to 10 mg, the cough has started up again. She has had problems with recurrent UTIs and is undergoing monthly IV IG; her last was given on May 18. As stated before, she is also on brentuximab and chlorambucil. She was admitted to the hospital this morning. She had been a little more confused yesterday with l ow-grade temperature 99.6. [facility] and had fluids and believe started on anti biotic. In the middle of the night, she had severe right flank pain that radiated around her middle , and she was brought into the emergency room via ambulance. She has right hydronephrosis with sten t placement that is managed by Dr. Corona. In the emergency room, she had an ultrasound that showed a right hydronephrosis, and it appeared that the stent was blocked. Dr. Corona has been consulted, b ut he has not had a chance to see her yet today. Her pain is under better control, and her daughter is with her right now. PAST MEDICAL HISTORY: ALLERGIES: No known drug allergies. HOME MEDICATIONS: Include budesonide, acyclovir, multivitamin, cholecalciferol, allopurinol, acetam inophen, levofloxacin, Celebrex, Bactrim twice weekly, Tessalon Perles, baby aspirin, albuterol inha ler, guaifenesin with codeine, chlorambucil 24 mg day 1 and 15 every month, monthly IV IG, brentuxim ab, herbs, Mucinex, omeprazole, oxycodone, and Prozac. CHRONIC ILLNESSES: Include: 1. CLL as described above. 2. History of atrial fibrillation. 3. History of stroke. 4. Chronic hypoxia probably due to pulmonary infiltrates from CLL. 5. Chronic right-sided hydronephrosis, status post stent and CKD. 6. Hypertension. 7. Dyslipidemia. SOCIAL HISTORY: Nonsmoker, nondrinker. Lives with a daughter. FAMILY HISTORY: Noncontributory. REVIEW OF SYSTEMS: 10-point review of systems performed. Pertinent positives as in HPI; otherwise negative. PHYSICAL EXAMINATION: VITAL SIGNS: Temperature is 36.5, pulse 71, blood pressure 122/60. GENERAL: She is an elderly woman. She is in no distress. Her daughter is with her. HEENT: Unremarkable. LUNGS: Clear. CARDIAC: Regular. ABDOMEN: Soft. She is tender in the right flank. EXTREMITIE S: No edema. SKIN: Unremarkable. NEUROLOGIC: Grossly intact. LABORATORY DATA: White count is 21,900, which is similar to what it was a couple weeks ago but up f rom about the 10,000 to 78966 a month ago and 3000 to 4000 two months ago. Most of the white count, though, is in bands and segs; her lymphocyte count is very low. She does have also monocytes and m etamyelocytes. Hemoglobin is 8.6 (which is down from 11) and platelet count is 199,000. Chemistry panel with BUN and creatinine 35 and 1.6; other chemistries unremarkable except for albumin of 2.8. UA was abnormal. Cultures thus far are not growing anything. Her culture from yesterday from the office had 4 different colony types. About 2 weeks ago, she had an E coli. The E coli was resistan t to ampicillin and Bactrim. She also had Enterococcus faecalis in April that was sensitive to ampi cillin and vancomycin. Ultrasound as per HPI. IMPRESSION: 1. CLL. 2. Hypogammaglobulinemia. 3. Acute urinary tract infection with related right hydronephrosis and obstructed stent. She is going to be seen by Dr. Corona with urology to evaluate the stent and see if it needs to be ex changed. She probably will not clear the infection adequately unless something like that is perform ed. She is currently still on the same antibiotic; cultures are not growing anything specifically, and she is currently afebrile. We will follow up on the cultures. Further disease will be determin ed by Dr. Calle. It does seem like her lymphocyte count is remaining low, so her disease seems li ke it is still under control; although, the last CT scan, I believe, looks like it was at the end of March. We will follow along with you while she is in the hospital. /[id number]/MODL
[2016-05-27] MEDS: ASPIRIN EC 81 MG TAB PO SCH (20:07)
[2016-05-28] MEDS: BENZONATATE 100 MG CAP PO PRN ×3 (04:17→23:05)
[2016-05-28 04:52] LABS: ADD DIFF? YES; ADD MORPH? NO; ATYPICAL LYMPHOCYTE FLAG 0 (0-99); FRAGMENT RBC FLAG 0 (0-99); HEMATOCRIT 26.4 % (38.0-47.0); HEMOGLOBIN 8.4 g/dL (12.6-16.3); LIPEMIA HEMOLYSIS FLAG 80 (0-99); MEAN CELL HEMOGLOBIN 34.3 pg (27.9-34.1); MEAN CELL HEMOGLOBIN CONCENTR. 31.8 g/dL (32.4-36.7); MEAN CELL VOLUME 107.8 fL (81.5-99.8); MEAN PLATELET VOLUME 9.9 fL (8.7-11.7); PLATELET CLUMPS FLAG 10 (0-99); PLATELET COUNT 183 10^3/uL (150-400); RED BLOOD CELL COUNT 2.45 10^6/uL (4.18-5.33); RED CELL DISTRIBUTION WIDTH 15.9 % (11.5-15.2)
[2016-05-28 04:58] LABS: ANION GAP 7 mEq/L (8-16); CARBON DIOXIDE 22 mEq/l (22-31); CHLORIDE 107 mEq/L (97-110); GLOMERULAR FILTRATION RATE 52; GLUCOSE 111 mg/dL (70-100); SODIUM 136 mEq/L (134-144)
[2016-05-28 05:08] LABS: ADD SCAN? NO; LEFT SHIFT FLG 140 (0-99)
[2016-05-28 05:36] LABS: MACROCYTES 1+; PLATELET ESTIMATE ADEQUATE (ADEQ)
[2016-05-28] MEDS ORDERED: IOPAMIDOL (ISOVUE-300) 150 ML BTL IV ONE (07:54)
[2016-05-28] MEDS: PANTOPRAZOLE SODIUM 40 MG TAB PO SCH (09:43)
[2016-05-28] MEDS: predniSONE 5 MG TAB PO SCH (09:43)
[2016-05-28] MEDS: CHOLECALCIFEROL VIT D3 2,000 UNITS TAB/CAP PO SCH (09:43)
[2016-05-28] MEDS: ACYCLOVIR 400 MG TAB PO SCH ×2 (09:44→21:49)
[2016-05-28] MEDS: ALLOPURINOL 300 MG TAB PO SCH (09:45)
[2016-05-28] MEDS: FLUoxetine 20 MG CAP PO SCH (09:45)
[2016-05-28] MEDS: guaiFENesin 600 MG TAB.ER PO SCH ×2 (09:45→21:49)
[2016-05-28] MEDS: BUDESONIDE 0.5 MG/2 ML AMPUL.NEB IH SCH ×2 (10:17→21:54)
--- NOTE | 2016-05-28 12:10 | HOSPPROG ---
Hospitalist Progress Note Assessment/Plan: DIAGNOSES: - RECURRENT URETERAL STENT OBSTRUCTION - SUSPECTED UTI - CLL, ONGOING THERAPY - COPD stable at baseline PLANS: To go to OR today with Dr Corona for revision of stent Will reassess after that, may be stable for DC this evening but has enough issues will need to assess after anesthesia recovery to determine SUBJECTIVE: She has no pain, is hungry and thirsty No fever sxs Not sob OBJECTIVE Vitals reviewed:stable without fever Exam: alert oriented skin warm dry color ok resps not labored lungs clear BSs heart regular abd soft nondistended nontender, bowel sounds present limbs warm, no edema iv site ok Her urine culture from May 26 is showing no specific organism Objective: Vital Signs Temp Pulse Resp BP Pulse Ox 36.6 C 60 18 148/67 H 97 05/28/16 09:15 05/28/16 10:18 05/28/16 10:18 05/28/16 09:15 05/28/16 10:18 Laboratory Results 05/28/16 04:32 05/28/16 04:32 05/27/16 05/28/16 05/29/16 06:59 06:59 06:59 Intake Total 2582 Output Total 1800 Balance 782 ICD10 Worksheet Patient Problems: Problems Problem Status Onset Back pain Acute Confusion Acute UTI (urinary tract infection) Acute Acute ischemic stroke Acute Bronchitis Acute CLL (chronic lymphocytic leukemia) Acute Chronic Disease Mgmt/Transitional Care Acute Cough Acute Cough Acute Diarrhea Acute Fatigue Acute Hydronephrosis Acute Hyperkalemia Acute MRSA (methicillin resistant Staphylococcus aureus) Acute 04/22/15 Multiple drug resistant organism (MDRO) culture positive Acute ~04/02/16 NSTEMI (non-ST elevated myocardial infarction) Acute Palliative care encounter Acute Pneumonia Acute Pneumonia Acute Pneumonia due to infectious organism Acute Pyelonephritis Acute Somnolence Acute Subdural bleeding Acute UTI (urinary tract infection) Acute Urinary obstruction Acute Weakness Acute Weakness Acute
[2016-05-28] MEDS ORDERED: DEXAMETHASONE 4 MG/ML VIAL ONE (13:09)
[2016-05-28] MEDS ORDERED: fentaNYL 100 MCG/2 ML INJ ONE (13:09)
[2016-05-28] MEDS ORDERED: ONDANSETRON 4 MG/2 ML VIAL ONE (13:10)
[2016-05-28] MEDS ORDERED: LIDOCAINE 2% 5 ML SDV ONE (13:15)
[2016-05-28] MEDS ORDERED: PROPOFOL 200 MG/20 ML VIAL ONE (13:15)
[2016-05-28] MEDS ORDERED: PHENYLEPHRINE HCL 100 MCG/ML SYR ONE (13:16)
--- NOTE | 2016-05-28 13:46 | POSTOPPROG ---
Post Op Note Date of Operation: 05/28/16 Surgeon: Bear Corona Anesthesia: LMA Pre-op Diagnosis: right ureteral obstruction Post-op Diagnosis: right ueteral obstruction Indication: right ureteral stent occlusion Procedure: Cystoscopy, right ureteral stent exchange Findings: No obvious obstruction of stent, no significant hydronephrosis Inf/Abcess present in the surg proc area at time of surgery?: No EBL: Minimal Complications: none
--- NOTE | 2016-05-28 14:52 | GOP ---
[f rep st] OPERATIVE REPORT DATE OF OPERATION: 05/28/2016 SURGEON: Bear Corona MD PREOPERATIVE DIAGNOSIS: Right ureteral obstruction. POSTOPERATIVE DIAGNOSIS: Right ureteral obstruction. PROCEDURE PERFORMED: Cystoscopy with removal and replacement of right ureteral stent. FINDINGS: INDICATIONS: This patient is an 85-year-old female who has metastatic cancer with obstruction of th e proximal right ureter. She has undergone periodic stent changes and was admitted with acute right flank pain. Renal ultrasound showed moderate right hydronephrosis consistent with an obstructed st ent. After discussing options, she elected to come in for stent exchange. DESCRIPTION OF PROCEDURE: After informed consent with general LMA anesthesia, the patient was place d in the lithotomy position with her genitalia sterilely prepped and draped. Cystoscopy was carried out, and the indwelling stent was partially withdrawn. A Sensor guidewire was passed through the c atheter into the right renal pelvis. Contrast was injected and showed minimal caliectasis. A 7-Rah nch multilink stent was then placed with no withdrawal string left in place. The patient was intuba mati and transferred to recovery room in stable condition. There were no intraoperative complication s, specimens or blood loss. This into this operative note on sharee Warren. /[id number]/MODL
--- NOTE | 2016-05-28 15:32 | SOAPPROG ---
SOAP Progress Note Assessment/Plan: E&M for CLL * CLL: Under good control with obinutuzumab and chlorambucil; further therapy per Dr. Calle * Hypogammaglobulinemia: Last IVIg 05/18 * Right Hydronephrosis with recurrent UTIs: According to daughter, Dr. Corona recommend prophylactic Bactrim daily. Stent replaced. * Pulmonary infiltrates: thought to be due to CLL; followed by Dr. Martines. Prednisone being tapered and down to 5mg daily. Subjective: Just returned from procedure (stent replacement) and doing well. Less flank pain today and has appetite. Still with cough but about the same. Daughter with her. Objective: Vital Signs Temp Pulse Resp BP Pulse Ox 37.3 C 60 16 134/65 H 93 05/28/16 14:20 05/28/16 10:18 05/28/16 14:46 05/28/16 14:46 05/28/16 14:46 Laboratory Results 05/28/16 04:32 05/28/16 04:32 05/27/16 05/28/16 05/29/16 05:59 05:59 05:59 Intake Total 2582 300 Output Total 1800 Balance 782 300 Physical Exam - Physical Exam General Appearance: no apparent distress Respiratory: lungs clear Cardiac/Chest: regular rate, rhythm Abdomen: other (mildly tender right flank) Skin: other (multiple skin cancers) ICD10 Worksheet Patient Problems: Problems Problem Status Onset Back pain Acute Confusion Acute UTI (urinary tract infection) Acute Acute ischemic stroke Acute Bronchitis Acute CLL (chronic lymphocytic leukemia) Acute Chronic Disease Mgmt/Transitional Care Acute Cough Acute Cough Acute Diarrhea Acute Fatigue Acute Hydronephrosis Acute Hyperkalemia Acute MRSA (methicillin resistant Staphylococcus aureus) Acute 04/22/15 Multiple drug resistant organism (MDRO) culture positive Acute ~04/02/16 NSTEMI (non-ST elevated myocardial infarction) Acute Palliative care encounter Acute Pneumonia Acute Pneumonia Acute Pneumonia due to infectious organism Acute Pyelonephritis Acute Somnolence Acute Subdural bleeding Acute UTI (urinary tract infection) Acute Urinary obstruction Acute Weakness Acute Weakness Acute
[2016-05-28] MEDS: MULTIVITAMINS 1 EACH TAB PO SCH (16:02)
[2016-05-28] MEDS: NS 1,000 ML IV SCH (17:36)
[2016-05-28] MEDS: guaiFENesin/CODEINE PHOS 10 ML UDCUP PO PRN (21:48)
[2016-05-28] MEDS: ASPIRIN EC 81 MG TAB PO SCH (23:06)
[2016-05-29 08:26] VITALS: BP 108/83; RESP 16; TEMP 98.4
[2016-05-29] MEDS: BUDESONIDE 0.5 MG/2 ML AMPUL.NEB IH SCH (08:27)
[2016-05-29 08:39] VITALS: PULSE 68; O2SAT 93
[2016-05-29] MEDS: guaiFENesin 600 MG TAB.ER PO SCH (09:25)
[2016-05-29] MEDS: ACYCLOVIR 400 MG TAB PO SCH (09:25)
[2016-05-29] MEDS: predniSONE 5 MG TAB PO SCH (09:25)
[2016-05-29] MEDS: CHOLECALCIFEROL VIT D3 2,000 UNITS TAB/CAP PO SCH (09:25)
[2016-05-29] MEDS: ALLOPURINOL 300 MG TAB PO SCH (09:25)
[2016-05-29] MEDS: FLUoxetine 20 MG CAP PO SCH (09:25)
[2016-05-29] MEDS: MULTIVITAMINS 1 EACH TAB PO SCH (09:25)
[2016-05-29] MEDS: PANTOPRAZOLE SODIUM 40 MG TAB PO SCH (09:26)
[2016-05-29] MEDS ORDERED: SULFAMETHOX/TMP 800/160 MG 1 TAB PO SCH (12:31)
--- NOTE | 2016-05-29 13:40 | PDDCSUM ---
Discharge Summary Discharge Summary: DISCHARGE DIAGNOSES: - RECURRENT URETERAL STENT OBSTRUCTION - SUSPECTED UTI - CLL, ONGOING THERAPY - COPD stable at baseline CONSULTANTS: Dr. Bear Corona PROCEDURES: Removal of ureteral stent with replacement with a new stent HOSPITAL COURSE SUMMARY: This patient with CLL and chronic bilateral ureteral obstructions comes in with symptoms that she felt were concerning for recurrence of obstruction of her right ureteral stent. She has had the stent replaced 3 times in the recent past. Ultrasound confirmed some hydronephrosis. She was seen by Dr. Corona and taken to the operating room where she had replacement of her stent without complication. There were no fevers and she did not have specific symptoms of infection. Notably the patient had been seen in outpatient clinic 2 days prior to admission with symptoms and was thought to possibly have infection. She was started on some Levaquin at that time however her culture from that visit is at this time growing 5 different organisms and is being red and the laboratory as contaminant terrance. At this time the patient's symptoms have resolved, she is eating well, has no shortness of breath, is ambulating well, is voiding her bladder well. There is no hematuria. She is stable for discharge to home. MEDICATION CHANGES: Her prophylactic Bactrim is increased to daily dosing from 2 times weekly FOLLOW-UP PLAN: With Dr. Ramos in 2 weeks Greater than 35 minutes bedside and care coordination time today
== END 2016-05-29 13:47 | disposition home or self-care (01) | DRG 699 ==
LOC: EDUNIT# → EDBD → F1N 04:19 → OBSVTOIN 07:41
PROVIDERS: ADMIT Internal Medicine; ATTEND Internal Medicine
PROC: 0TP98DZ Removal of Intraluminal Device from Ureter, Via Natural or Artificial Opening Endoscopic (ICD-10-PCS; principal; 2016-05-28 13:00)
PROC: 0T768DZ Dilation of Right Ureter with Intraluminal Device, Via Natural or Artificial Opening Endoscopic (ICD-10-PCS; principal; 2016-05-28 13:00)
DX: T83.192A Other mechanical complication of indwelling ureteral stent, initial encounter (principal); N13.6 Pyonephrosis; C91.10 Chronic lymphocytic leukemia of B-cell type not having achieved remission; D80.1 Nonfamilial hypogammaglobulinemia; J44.9 Chronic obstructive pulmonary disease, unspecified; I12.9 Hypertensive chronic kidney disease with stage 1 through stage 4 chronic kidney disease, or unspecified chronic kidney disease; N18.9 Chronic kidney disease, unspecified; E78.5 Hyperlipidemia, unspecified; Z87.891 Personal history of nicotine dependence; Z85.820 Personal history of malignant melanoma of skin
CPT/HCPCS: 97161-GP; 97166-GO; C1758; C1769; C2625; G8978-GP-CI; G8979-GP-CI; G8980-GP-CI; G8987-GO-CJ; G8988-GO-CI; J1100; J1170; J2370; J2405; J2704; J3010; J7626; Q9967

== ENCOUNTER → 2016-06-14 | Outpatient (CLI) | payer OTHER, MEDICARE | LOC: FIMAGING 16:05 | PROVIDERS: ATTEND Urology | DX: R79.89 Other specified abnormal findings of blood chemistry (principal); R10.9 Unspecified abdominal pain; Z96.0 Presence of urogenital implants; C91.12 Chronic lymphocytic leukemia of B-cell type in relapse | CPT/HCPCS: 82784-90 ==

== ENCOUNTER → 2016-06-15 | Outpatient (CLI) | payer OTHER, MEDICARE | LOC: BMCIMAGING 16:28 | PROVIDERS: ATTEND Urology | DX: R10.9 Unspecified abdominal pain (principal); N13.30 Unspecified hydronephrosis; N28.9 Disorder of kidney and ureter, unspecified ==

== ENCOUNTER 2016-06-18 12:06 | Day surgery (SDC) | payer OTHER, MEDICARE ==
[~2016-06-18 12:06] MED LIST: ceFAZolin 2 GM/DEXTROSE 100 ML IV ONE
[2016-06-18] MEDS ORDERED: IOPAMIDOL (ISOVUE-300) 150 ML BTL IV ONE (12:53)
[2016-06-18] MEDS ORDERED: CEFAZOLIN 2 GM/DEXTROSE/100 ML BAG IV ONE (12:55)
[2016-06-18] MEDS ORDERED: LIDOCAINE 1% 2 ML INJ ONE (12:55)
[2016-06-18] MEDS ORDERED: LIDOCAINE 1% 5 ML SDV ID PRN (13:17)
[2016-06-18] MEDS ORDERED: LR 1,000 ML IV ONE (13:17)
[2016-06-18] MEDS ORDERED: IOPAMIDOL (ISOVUE-M 300) 15 ML VIAL IV ONE (13:36)
[2016-06-18] MEDS ORDERED: fentaNYL 100 MCG/2 ML INJ ONE (13:49)
[2016-06-18] MEDS ORDERED: PROPOFOL 200 MG/20 ML VIAL ONE ×2 (13:56→14:01)
--- NOTE | 2016-06-18 14:44 | GOP ---
[f rep st] OPERATIVE REPORT DATE OF OPERATION: 06/18/2016 SURGEON: Bear Corona MD PREOPERATIVE DIAGNOSIS: Recurrent right ureteral obstruction. POSTOPERATIVE DIAGNOSIS: Recurrent right ureteral obstruction. PROCEDURE PERFORMED: Cystoscopy with removal of right ureteral stent and replacement with 2 right u reteral stents. FINDINGS: INDICATIONS: Patient is an 85-year-old female with right upper ureteral obstruction being managed w ith stent changes. She has been having shorter intervals between the stents becoming obstructed, an d after discussing treatment options, elected to come in for stent replacement. DESCRIPTION OF PROCEDURE: After informed consent, with general LMA anesthesia, the patient was plac ed in the lithotomy position with her genitalia sterilely prepped and draped. Cystoscopy was fred d out. The previously placed stent was partially withdrawn and exchanged over a Sensor guidewire. Two 4.8 multilink ureteral stents were then positioned in the right ureter between the renal pelvis and bladder. Bladder was emptied. The patient was awakened, and transferred to the recovery room in stable condition. There were no intraoperative complications, specimens, or blood loss. /[id number]/MODL
== END 2016-06-18 15:55 | disposition home or self-care (01) ==
LOC: FSGY 12:06
PROVIDERS: ATTEND Urology
DX: N13.1 Hydronephrosis with ureteral stricture, not elsewhere classified (principal); Z66 Do not resuscitate
CPT/HCPCS: 52332; 76001; C1769; C2625; J0690; J2704; J3010; Q9967

== ENCOUNTER 2016-06-18 23:46 | Inpatient (IN) | payer OTHER, MEDICARE ==
--- NOTE | 2016-06-18 23:49 | EDPHY ---
H & P HPI/ROS: HPI CHIEF COMPLAINT: Right-sided flank pain, generalized weakness HISTORY OF PRESENT ILLNESS: This patient very pleasant 85-year-old female significant past medical history for COPD, CLL, urinary tract infection, ureteral stent obstruction and replace multiple times from a ureteral stricture , presents emergency room by EMS ambulance for onset of right-sided back pain flank pain, generalized weakness. However upon arrival to the emergency room she does states she feels much better since being here. Her daughter is at bedside who knows her medical history extensively. It is noted I am very familiar with this patient has a seen her before. She did just have her ureteral stent on the right side removed and replaced today by Dr. Corona. Upon arrival here in emergency room the patient appears well nontoxic no acute distress. She does tell me she feels better. She only tells me she has right- sided flank pain when she moves. No abdominal pain no nausea no vomiting no fever. Past Medical History: CLL, COPD, urinary tract infection, ureteral obstruction ureteral stents Past Surgical History: Ureteral stent exchange, recent ureteral stent placement today Social History: Denies drugs alcohol tobacco products, lives locally, daughter at bedside Family History: Noncontributory ROS REVIEW OF SYSTEMS: A comprehensive 10 point review of systems is otherwise negative aside from elements mentioned in the history of present illness. Exam Constitutional triage nursing summary reviewed, vital signs reviewed, awake/ alert. Eyes normal conjunctivae and sclera, EOMI, PERRLA. HENT normal inspection, atraumatic, dry mucous membranes, no epistaxis, neck supple/ no meningismus, no raccoon eyes. Respiratory clear to auscultation bilaterally, normal breath sounds, no respiratory distress, no wheezing. Cardiovascular rate normal, regular rhythm, no murmur, no edema, distal pulses normal. Gastrointestinal soft, non-tender, no rebound, no guarding, normal bowel sounds, no distension, no pulsatile mass. Genitourinary no CVA tenderness. Musculoskeletal no midline vertebral tenderness, full range of motion, no calf swelling, no tenderness of extremities, no meningismus, good pulses, neurovascularly intact. Skin pink, warm, & dry, no rash, skin atraumatic. Neurologic awake, alert and oriented x 3, AAOx3, moves all 4 extremities equally, motor intact, sensory intact, CN II-XII intact, normal cerebellar, normal vision, normal speech. Psychiatric normal mood/affect. Heme/Lymph/Immune no lymphadenopathy. Differential Diagnosis: Includes but is not limited to in a particular, UTI, dehydration, electrolyte disturbance, ureteral stent obstruction Medical Decision Making: Plan for patient IV establishment, urinalysis, ultrasound of kidneys retroperitoneal, blood work gentle IV hydration. Re- evaluation. Re-evaluation: 0134AM: At this time this patient is resting comfortably here she is stating to me that she would like to go home. I am still pending a urinalysis. She would like to walk to the bathroom with a walker this will be a road test to see if she strong enough to do this. This time she has no complaints. Her ultrasound has been reviewed under stents her patent there is no significant hydronephrosis no evidence of significant obstruction. Blood work has been reviewed and is unremarkable. No evidence of high white count or anemia is chronic electrolytes appropriate kidney function creatinine 1.3. Chest x-ray is also been reviewed does show basilar infiltrate similar to previous x-ray better on the right. After great discussion with the patient and daughter at bedside if the patient ambulated with good strength to the bathroom with a walker and her urine is not significantly infected I feel that she can go home. She has no chest pain or shortness of breath denies nausea or vomiting denies significant flank pain. 0152AM: This patient ambulated well to the bathroom with a walker which she normally uses. She did not get lightheaded did not feel weak. She ambulated well. She went all the way down the [place] to the bathroom gave us a urine sample and then back to her room. Steady gait. 0210: After great discussion with the patient and daughter at bedside patient would like to stay in the hospital due to generalized weakness the daughter would like this as well. I will talk to the hospitalist service for admission for generalized weakness. 0214AM: Urinalysis result shows 3+ leukocyte Estrace indicating UTI. Urine culture sent. 1 g of Rocephin has been ordered. Patient be admitted to Dr. 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); skin diaz from radiation, Chronic lymphocytic leukemia, osteoarthritis, a fib dx 07/2015, - Social History Smoking Status: Former smoker Constitutional: Initial Vital Signs Temperature (C) 36.6 C 06/18/16 23:56 Heart Rate 118 H 06/18/16 23:56 Respiratory Rate 20 06/18/16 23:56 Blood Pressure 181/97 H 06/18/16 23:56 O2 Sat (%) 95 06/18/16 23:56 O2 Delivery Mode Nasal Cannula O2 (L/minute) 4 Allergies/Adverse Reactions: epinephrine Allergy (Severe, Verified 06/17/16 17:13) SEIZURES, SHAKING Home Medications: Medication Instructions Recorded Acetaminophen [Tylenol ES 500 mg 04/02/16 (*)] Acyclovir [Zovirax 400 mg (*)] 04/02/16 Albuterol [Proventil Inhaler HFA 04/02/16 (*)] Allopurinol [Allopurinol 300 MG 04/02/16 (RX)] Aspirin EC [Aspirin EC 81 mg (*)] 04/02/16 Benzonatate [Tessalon Pearles] 04/02/16 Budesonide [Budesonide 0.5MG/2Ml 04/02/16 Neb (*)] Chlorambucil [Leukeran] 04/02/16 Guaifenesin/Codeine Phos [Codeine 04/02/16 10 mg-Guai 300 mg Liq] Herbals/Supplements -Info Only 04/02/16 Ipratropium/Albuterol [Duoneb (*)] 04/02/16 Omeprazole 04/02/16 guaiFENesin [Mucinex 600 MG (*)] 04/02/16 Cholecalciferol Vit D3 [Vitamin D3 05/27/16 2000 units tab (OTC)] FLUoxetine [Prozac 20 MG (*)] 05/27/16 Multivitamins [Multivitamin (*)] 05/27/16 celeCOXIB [Celebrex (*)] 05/27/16 Sulfamethox/Tmp 800/160 mg 06/17/16 [Bactrim DS] Medical Decision Making - Diagnostics Imaging Results: Imaging Impressions Chest X-Ray 06/19/16 00:07 Impression: Bilateral pulmonary consolidation, better on the right and worse on the left compared to April 16, 2016. - Data Points Laboratory Results: Laboratory Results 06/19/16 00:04 06/19/16 00:04 06/19/16 06/19/16 06/19/16 01:53 00:04 00:04 WBC RBC Hgb Hct MCV MCH MCHC RDW Plt Count MPV Neut % (Auto) Lymph % (Auto) [place] % (Auto) Eos % (Auto) Baso % (Auto) Nucleat RBC Rel Count Absolute Neuts (auto) Absolute Lymphs (auto) Absolute Monos (auto) Absolute Eos (auto) Absolute Basos (auto) Absolute Nucleated RBC Immature Gran % Seg Neutrophils % Band Neutrophils % Lymphocytes % Monocytes % Eosinophils % Metamyelocytes % Immature Gran # Absolute Seg Neuts Absolute Band Neuts Absolute Lymphocytes Absolute Monocytes Absolute Eosinophils Absolute Metamyelocyte Platelet Estimate PT 13.5 SEC SEC (12.0-15.0) INR 1.04 (0.83-1.16) APTT 28.6 SEC SEC (23.0-38.0) Sodium 136 mEq/L mEq/L (134-144) Potassium 5.1 mEq/L mEq/L (3.5-5.2) Chloride 104 mEq/L mEq/L (97-110) Carbon Dioxide 19 mEq/l L mEq/l (22-31) Anion Gap 13 mEq/L mEq/L (8-16) BUN 21 mg/dL mg/dL (7-23) Creatinine 1.3 mg/dL H mg/dL (0.6-1.0) Estimated GFR 39 Glucose 101 mg/dL H mg/dL (70-100) Calcium 10.1 mg/dL mg/dL (8.5-10.4) Total Bilirubin 0.6 mg/dL mg/dL (0.1-1.4) Conjugated Bilirubin 0.5 mg/dL mg/dL (0.0-0.5) Unconjugated Bilirubin 0.1 mg/dL mg/dL (0.0-1.1) AST 24 IU/L IU/L (14-46) ALT 25 IU/L IU/L (9-52) Alkaline Phosphatase 79 IU/L IU/L (38-126) Troponin I < 0.012 ng/mL ng/mL (0-0.034) Total Protein 6.1 g/dL L g/dL (6.3-8.2) Albumin 3.6 g/dL g/dL (3.5-5.0) Lipase 102.0 IU/L IU/L (23-300) Urine Color PALE YELLOW Urine Appearance HAZY Urine pH 5.0 (5.0-7.5) Ur Specific [place] 1.005 (1.002-1.030) Urine Protein 2+ H (NEGATIVE) Urine Ketones NEGATIVE (NEGATIVE) Urine Blood 1+ H (NEGATIVE) Urine Nitrate NEGATIVE (NEGATIVE) Urine Bilirubin NEGATIVE (NEGATIVE) Urine Urobilinogen NEGATIVE EU EU (0.2-1.0) Ur Leukocyte Esterase 3+ H (NEGATIVE) Urine RBC 15-25 /hpf H /hpf (0-3) Urine WBC 50-182 /hpf H /hpf (0-3) Ur Epithelial Cells TRACE /lpf /lpf (NONE-1+) Urine Bacteria 1+ /hpf H /hpf (NONE SEEN) Urine Mucus TRACE /lpf /lpf (NONE-1+) Urine Glucose NEGATIVE (NEGATIVE) 06/19/16 00:04 WBC 8.52 10^3/uL 10^3/uL (3.80-9.50) RBC 2.94 10^6/uL L 10^6/uL (4.18-5.33) Hgb 9.9 g/dL L g/dL (12.6-16.3) Hct 31.1 % L % (38.0-47.0) MCV 105.8 fL H fL (81.5-99.8) MCH 33.7 pg pg (27.9-34.1) MCHC 31.8 g/dL L g/dL (32.4-36.7) RDW 16.1 % H % (11.5-15.2) Plt Count 255 10^3/uL 10^3/uL (150-400) MPV 9.4 fL fL (8.7-11.7) Neut % (Auto) Not Reported Lymph % (Auto) Not Reported [place] % (Auto) Not Reported Eos % (Auto) Not Reported Baso % (Auto) Not Reported Nucleat RBC Rel Count 0.0 % % (0.0-0.2) Absolute Neuts (auto) Not Reported Absolute Lymphs (auto) Not Reported Absolute Monos (auto) Not Reported Absolute Eos (auto) Not Reported Absolute Basos (auto) Not Reported Absolute Nucleated RBC 0.00 10^3/uL 10^3/uL (0-0.01) Immature Gran % Not Reported Seg Neutrophils % 57 % % Band Neutrophils % 24 % % Lymphocytes % 5 % % Monocytes % 9 % % Eosinophils % 3 % % Metamyelocytes % 2 % % Immature Gran # Not Reported Absolute Seg Neuts 4.86 10^/uL 10^/uL (1.70-6.50) Absolute Band Neuts 2.04 10^3/uL H 10^3/uL (0.00-0.70) Absolute Lymphocytes 0.43 10^3/uL L 10^3/uL (1.00-3.00) Absolute Monocytes 0.77 10^3/uL 10^3/uL (0.30-0.80) Absolute Eosinophils 0.26 10^3/uL 10^3/uL (0.03-0.40) Absolute Metamyelocyte 0.17 10^3/mL H 10^3/mL (0.00-0.00) Platelet Estimate ADEQUATE (ADEQ) PT INR APTT Sodium Potassium Chloride Carbon Dioxide Anion Gap BUN Creatinine Estimated GFR Glucose Calcium Total Bilirubin Conjugated Bilirubin Unconjugated Bilirubin AST ALT Alkaline Phosphatase Troponin I Total Protein Albumin Lipase Urine Color Urine Appearance Urine pH Ur Specific Reading Urine Protein Urine Ketones Urine Blood Urine Nitrate Urine Bilirubin Urine Urobilinogen Ur Leukocyte Esterase Urine RBC Urine WBC Ur Epithelial Cells Urine Bacteria Urine Mucus Urine Glucose Medications Given: Discontinued Medications Sodium Chloride (Ns) 1,000 mls @ 0 mls/hr IV ONCE ONE PRN Reason: Wide Open Stop: 06/19/16 00:07 Last Admin: 06/19/16 00:09 Dose: 1,000 mls Departure - Departure Disposition: [facility] Inpatient Acute Clinical Impression: Generalized weakness, Cough, Flank pain Condition: Fair Referrals: Patient,NotPresent [Primary Care Provider] - As per Instructions
[2016-06-19] MEDS ORDERED: NS 1,000 ML IV ONE (00:06)
[2016-06-19 00:11] LABS: ADD DIFF? YES; ADD MORPH? NO; ATYPICAL LYMPHOCYTE FLAG 0 (0-99); FRAGMENT RBC FLAG 0 (0-99); HEMATOCRIT 31.1 % (38.0-47.0); HEMOGLOBIN 9.9 g/dL (12.6-16.3); LIPEMIA HEMOLYSIS FLAG 80 (0-99); MEAN CELL HEMOGLOBIN 33.7 pg (27.9-34.1); MEAN CELL HEMOGLOBIN CONCENTR. 31.8 g/dL (32.4-36.7); MEAN CELL VOLUME 105.8 fL (81.5-99.8); MEAN PLATELET VOLUME 9.4 fL (8.7-11.7); PLATELET CLUMPS FLAG 0 (0-99); PLATELET COUNT 255 10^3/uL (150-400); RED BLOOD CELL COUNT 2.94 10^6/uL (4.18-5.33); RED CELL DISTRIBUTION WIDTH 16.1 % (11.5-15.2)
[2016-06-19 00:14] LABS: ADD SCAN? NO; LEFT SHIFT FLG 200 (0-99)
[2016-06-19 00:23] LABS: APTT 28.6 SEC (23.0-38.0); INR 1.04 (0.83-1.16); PROTIME(PATIENT) 13.5 SEC (12.0-15.0)
[2016-06-19 00:44] LABS: ALANINE AMINOTRANSFERASE 25 IU/L (9-52); ALBUMIN 3.6 g/dL (3.5-5.0); ALKALINE PHOSPHATASE 79 IU/L (38-126); ANION GAP 13 mEq/L (8-16); ASPARTATE AMINOTRANSFERASE 24 IU/L (14-46); BILIRUBIN,TOTAL 0.6 mg/dL (0.1-1.4); BILIRUBIN-CONJUGATED 0.5 mg/dL (0.0-0.5); BILIRUBIN-UNCONJUGATED 0.1 mg/dL (0.0-1.1); CALCIUM 10.1 mg/dL (8.5-10.4); CARBON DIOXIDE 19 mEq/l (22-31); CHLORIDE 104 mEq/L (97-110); CREATININE 1.3 mg/dL (0.6-1.0); GLOMERULAR FILTRATION RATE 39; GLUCOSE 101 mg/dL (70-100); POTASSIUM 5.1 mEq/L (3.5-5.2); SODIUM 136 mEq/L (134-144); TOTAL PROTEIN 6.1 g/dL (6.3-8.2)
[2016-06-19 00:56] LABS: TROPONIN I < 0.012 ng/mL (0-0.034)
[2016-06-19 01:08] LABS: PLATELET ESTIMATE ADEQUATE (ADEQ)
[2016-06-19 02:06] LABS: COLOR PALE YELLOW; LEUKOCYTE ESTERASE,URINE 3+ (NEGATIVE); NITRITE,URINE NEGATIVE (NEGATIVE)
[2016-06-19 02:11] LABS: BACTERIA 1+ /hpf (NONE SEEN); MUCUS TRACE /lpf (NONE-1+); RBC,URINE 15-25 /hpf (0-3); WBC,URINE 50-182 /hpf (0-3)
[2016-06-19] MEDS ORDERED: ONDANSETRON DISINTEGRATING 4 MG TAB PO PRN (03:04)
[2016-06-19] MEDS ORDERED: ONDANSETRON 4 MG/2 ML VIAL IVP PRN (03:04)
[2016-06-19] MEDS ORDERED: ACETAMINOPHEN 325 MG TAB PO PRN (03:04)
[2016-06-19] MEDS ORDERED: guaiFENesin/CODEINE PHOS 10 ML UDCUP PO PRN (03:08)
--- NOTE | 2016-06-19 05:43 | PDGENHP ---
History and Physical - Chief Complaint generalized malaise, flank pain - History of Present Illness Patient is an 85-year-old female with history of CLL, complicated by C LL pneumonitis, chronic respiratory failure, atrial fibrillation, hypertension, CKD who presents to the ED with complaint of generalized malaise and fatigue. For the past month, patient has been dealing with in obstructed right ureter, for which she has had multiple stents placed, most recently on the am of 06/18, performed by Dr. Corona. The she reports that following this, over the course of the day, she has been feeling generally fatigued, then also began developing right flank pain. Given the symptoms and recent procedure, her daughter decided to bring her to the ED for further evaluation. She denies any obvious fevers, chills, nausea, vomiting or abdominal pain. She also denies chest pain, palpitations or shortness of breath. Her cough is chronic and persistent, interfering with her ability to sleep, but is largely nonproductive in nature. On arrival to the ED patient was afebrile hemodynamically stable, saturating well on her baseline 4 L NC. Labs revealed her CBC at baseline, creatinine improving from prior labs, but UA was grossly positive for LE and WBCs. Abdominal ultrasound was and showed unchanged left hydroureter She was cultured and initiated on antibiotic coverage for UTI. History Information - Allergies/Home Medication List Allergies/Adverse Reactions: epinephrine Allergy (Severe, Verified 06/17/16 17:13) SEIZURES, SHAKING Home Medications: Acetaminophen [Tylenol ES 500 mg (*)] 04/02/16 [Last Taken 06/18/16 07:30] Acyclovir [Zovirax 400 mg (*)] 04/02/16 [Last Taken 06/18/16 07:30] Albuterol [Proventil Inhaler HFA (*)] 04/02/16 [Last Taken 06/18/16 10:30] Allopurinol [Allopurinol 300 MG (RX)] 04/02/16 [Last Taken 06/18/16 07:30] Aspirin EC [Aspirin EC 81 mg (*)] 04/02/16 [Last Taken 06/17/16] Benzonatate [Tessalon Pearles] 04/02/16 [Last Taken 06/18/16 07:30] Budesonide [Budesonide 0.5MG/2Ml Neb (*)] 04/02/16 [Last Taken 06/18/16 10:30] Chlorambucil [Leukeran] 04/02/16 [Last Taken 06/07/16] Guaifenesin/Codeine Phos [Codeine 10 mg-Guai 300 mg Liq] 04/02/16 [Last Taken 06/18/16 07:30] Herbals/Supplements -Info Only 04/02/16 [Last Taken 06/16/16] Ipratropium/Albuterol [Duoneb (*)] 04/02/16 [Last Taken 06/18/16 10:30] Omeprazole 04/02/16 [Last Taken 06/18/16 07:30] guaiFENesin [Mucinex 600 MG (*)] 04/02/16 [Last Taken 06/18/16 07:30] Cholecalciferol Vit D3 [Vitamin D3 2000 units tab (OTC)] 05/27/16 [Last Taken 06/16/16] FLUoxetine [Prozac 20 MG (*)] 05/27/16 [Last Taken 06/18/16 07:30] Multivitamins [Multivitamin (*)] 05/27/16 [Last Taken 06/16/16] celeCOXIB [Celebrex (*)] 05/27/16 [Last Taken 06/17/16] Sulfamethox/Tmp 800/160 mg [Bactrim DS] 06/17/16 [Last Taken 06/18/16 07:30] I have personally reviewed and updated: family history, medical history, social history, surgical history - Past Medical History Additional medical history: 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 Atrial fibrillation S/P cardioversion. CKD. Hypertension. Chronic respiratory failure. 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 Hypogammaglobulinemia. Chronic hydronephrosis on right S/P stenting. History of subdural hematoma secondary to anticoagulation - Surgical History Reports: no pertinent surgical hx - Family History Positive for: non-pertinent - Social History Smoking Status: Former smoker (x 30 years, quit > 20 years ago) Alcohol Use: Occasionally Drug Use: None Additional social history: Patient lives with her daughter, walks with walker. Review of Systems ROS: 10pt was reviewed & negative except for what was stated in HPI & below Physical Exam Temp Pulse Resp BP Pulse Ox 36.6 C 87 16 150/80 H 93 06/18/16 23:56 06/19/16 04:00 06/19/16 04:00 06/19/16 02:00 06/19/16 04:00 Constitutional: no apparent distress, appears nourished, not in pain Eyes: PERRL, anicteric sclera, EOMI Ears, Nose, Mouth, Throat: moist mucous membranes, hearing normal, ears appear normal, no oral mucosal ulcers Cardiovascular: regular rate and rhythym, no murmur, rub, or gallop, pulses symmetric bilaterally, No JVD, No edema Peripheral Pulses: 2+: dorsalis-pedis (R), dorsalis-pedis (L) Respiratory: no respiratory distress, no rales or rhonchi, clear to auscultation Gastrointestinal: normoactive bowel sounds, soft, non-tender abdomen, no palpable masses Genitourinary: no bladder fullness, no bladder tenderness Skin: warm, normal color, no rashes or abrasions, no fluctuance, no induration, No mottled Musculoskeletal: full muscle strength, no muscle tenderness, normal joint ROM, no joint effusions Neurologic: AAOx3, sensation intact bilaterally, CN II-XII Intact, No weakness, No numbness, No facial droop Psychiatric: interacting appropriately, not anxious, not encephalopathic, thought process linear Lab Data & Imaging Review 06/19/16 00:04 06/19/16 00:04 WBC 8.52 10^3/uL (3.80-9.50) 06/19/16 00:04 RBC 2.94 10^6/uL (4.18-5.33) L 06/19/16 00:04 Hgb 9.9 g/dL (12.6-16.3) L 06/19/16 00:04 Hct 31.1 % (38.0-47.0) L 06/19/16 00:04 MCV 105.8 fL (81.5-99.8) H 06/19/16 00:04 MCH 33.7 pg (27.9-34.1) 06/19/16 00:04 MCHC 31.8 g/dL (32.4-36.7) L 06/19/16 00:04 RDW 16.1 % (11.5-15.2) H 06/19/16 00:04 Plt Count 255 10^3/uL (150-400) 06/19/16 00:04 MPV 9.4 fL (8.7-11.7) 06/19/16 00:04 Neut % (Auto) Not Reported 06/19/16 00:04 Lymph % (Auto) Not Reported 06/19/16 00:04 [place] % (Auto) Not Reported 06/19/16 00:04 Eos % (Auto) Not Reported 06/19/16 00:04 Baso % (Auto) Not Reported 06/19/16 00:04 Nucleat RBC Rel Count 0.0 % (0.0-0.2) 06/19/16 00:04 Absolute Neuts (auto) Not Reported 06/19/16 00:04 Absolute Lymphs (auto) Not Reported 06/19/16 00:04 Absolute Monos (auto) Not Reported 06/19/16 00:04 Absolute Eos (auto) Not Reported 06/19/16 00:04 Absolute Basos (auto) Not Reported 06/19/16 00:04 Absolute Nucleated RBC 0.00 10^3/uL (0-0.01) 06/19/16 00:04 Immature Gran % Not Reported 06/19/16 00:04 Seg Neutrophils % 57 % 06/19/16 00:04 Band Neutrophils % 24 % 06/19/16 00:04 Lymphocytes % 5 % 06/19/16 00:04 Monocytes % 9 % 06/19/16 00:04 Eosinophils % 3 % 06/19/16 00:04 Metamyelocytes % 2 % 06/19/16 00:04 Immature Gran # Not Reported 06/19/16 00:04 Absolute Seg Neuts 4.86 10^/uL (1.70-6.50) 06/19/16 00:04 Absolute Band Neuts 2.04 10^3/uL (0.00-0.70) H 06/19/16 00:04 Absolute Lymphocytes 0.43 10^3/uL (1.00-3.00) L 06/19/16 00:04 Absolute Monocytes 0.77 10^3/uL (0.30-0.80) 06/19/16 00:04 Absolute Eosinophils 0.26 10^3/uL (0.03-0.40) 06/19/16 00:04 Absolute Metamyelocyte 0.17 10^3/mL (0.00-0.00) H 06/19/16 00:04 Platelet Estimate ADEQUATE (ADEQ) 06/19/16 00:04 PT 13.5 SEC (12.0-15.0) 06/19/16 00:04 INR 1.04 (0.83-1.16) 06/19/16 00:04 APTT 28.6 SEC (23.0-38.0) 06/19/16 00:04 Sodium 136 mEq/L (134-144) 06/19/16 00:04 Potassium 5.1 mEq/L (3.5-5.2) 06/19/16 00:04 Chloride 104 mEq/L (97-110) 06/19/16 00:04 Carbon Dioxide 19 mEq/l (22-31) L 06/19/16 00:04 Anion Gap 13 mEq/L (8-16) 06/19/16 00:04 BUN 21 mg/dL (7-23) 06/19/16 00:04 Creatinine 1.3 mg/dL (0.6-1.0) H 06/19/16 00:04 Estimated GFR 39 06/19/16 00:04 Glucose 101 mg/dL (70-100) H 06/19/16 00:04 Calcium 10.1 mg/dL (8.5-10.4) 06/19/16 00:04 Total Bilirubin 0.6 mg/dL (0.1-1.4) 06/19/16 00:04 Conjugated Bilirubin 0.5 mg/dL (0.0-0.5) 06/19/16 00:04 Unconjugated Bilirubin 0.1 mg/dL (0.0-1.1) 06/19/16 00:04 AST 24 IU/L (14-46) 06/19/16 00:04 ALT 25 IU/L (9-52) 06/19/16 00:04 Alkaline Phosphatase 79 IU/L (38-126) 06/19/16 00:04 Troponin I < 0.012 ng/mL (0-0.034) 06/19/16 00:04 Total Protein 6.1 g/dL (6.3-8.2) L 06/19/16 00:04 Albumin 3.6 g/dL (3.5-5.0) 06/19/16 00:04 Lipase 102.0 IU/L (23-300) 06/19/16 00:04 Urine Color PALE YELLOW 06/19/16 01:53 Urine Appearance HAZY 06/19/16 01:53 Urine pH 5.0 (5.0-7.5) 06/19/16 01:53 Ur Specific [place] 1.005 (1.002-1.030) 06/19/16 01:53 Urine Protein 2+ (NEGATIVE) H 06/19/16 01:53 Urine Ketones NEGATIVE (NEGATIVE) 06/19/16 01:53 Urine Blood 1+ (NEGATIVE) H 06/19/16 01:53 Urine Nitrate NEGATIVE (NEGATIVE) 06/19/16 01:53 Urine Bilirubin NEGATIVE (NEGATIVE) 06/19/16 01:53 Urine Urobilinogen NEGATIVE EU (0.2-1.0) 06/19/16 01:53 Ur Leukocyte Esterase 3+ (NEGATIVE) H 06/19/16 01:53 Urine RBC 15-25 /hpf (0-3) H 06/19/16 01:53 Urine WBC 50-182 /hpf (0-3) H 06/19/16 01:53 Ur Epithelial Cells TRACE /lpf (NONE-1+) 06/19/16 01:53 Urine Bacteria 1+ /hpf (NONE SEEN) H 06/19/16 01:53 Urine Mucus TRACE /lpf (NONE-1+) 06/19/16 01:53 Urine Glucose NEGATIVE (NEGATIVE) 06/19/16 01:53 Visualized and Interpreted Chest x-ray results: Yes Chest X-Ray results: other (bilateral consolidations, unchanged from priors) Visualized and Interpreted imaging results: Yes Interpretation: Abd US: unchanged from 06/15 R hydronephrosis/hydroureter Assessment & Plan Assessment: patient is an 85-year-old female with history of CLL, complicated by a pneumonitis with chronic cough, hypertension, atrial fib, recent right ureteral obstruction with stenting who presents to the ED with right pain, generalized weakness and persistent cough. ED evaluation reveals unchanged abdominal ultrasound showing hydroureter as well as positive UTI. Plan: # uti Given recent urologic procedure and positive UA, suspect acute UTI. On presentation she does not meet sirs/sepsis criteria. Previous urine cultures have grown e coli and enterococcus, both sensitive to ertapenema. Will f/u blood and urine cultures, cont antibioitcs and inform Dr. Corona of patient's admission. # chronic cough , pneumonitis Patient has a chronic pneumonitis that results in a chronic, dry cough. Although cxr is abnormal, do not suspect a superimposed pneumonia on admission today, given O2 sats are at baseline, cough is dry. Will continue all her prescribed inhalers and anti-tussives and monitor resp status. # h/o afib HR sounds regular on exam, will f/u EKG . Not on anticoagulation due to previous h/o subdural hematoma. Denies any cardiac symptoms today. # CLL with chronic anemia CBC appears to be at patient's baseline, without significant leukocytosis. Will continue to trend. # CKD Creatinine is actually improving from most recent outpatient labs, possibly the result of new stent placement on 06/18. Will continue to monitor electrolytes and BMP. # dispo: admit to inpatient status for treatment of UTI. # gen: regular diet DVT ppx: lovenox DNR
[2016-06-19 06:24] LABS: ADD DIFF? YES; ADD MORPH? NO; ATYPICAL LYMPHOCYTE FLAG 0 (0-99); FRAGMENT RBC FLAG 0 (0-99); HEMATOCRIT 27.5 % (38.0-47.0); HEMOGLOBIN 8.7 g/dL (12.6-16.3); LIPEMIA HEMOLYSIS FLAG 80 (0-99); MEAN CELL HEMOGLOBIN 33.5 pg (27.9-34.1); MEAN CELL HEMOGLOBIN CONCENTR. 31.6 g/dL (32.4-36.7); MEAN CELL VOLUME 105.8 fL (81.5-99.8); MEAN PLATELET VOLUME 9.3 fL (8.7-11.7); PLATELET CLUMPS FLAG 0 (0-99); PLATELET COUNT 223 10^3/uL (150-400)
[2016-06-19 06:30] LABS: ADD SCAN? NO; LEFT SHIFT FLG 160 (0-99)
[2016-06-19 06:32] LABS: INR 1.06 (0.83-1.16); PROTIME(PATIENT) 13.7 SEC (12.0-15.0)
[2016-06-19 06:39] LABS: ANION GAP 6 mEq/L (8-16); CALCIUM 9.2 mg/dL (8.5-10.4); CARBON DIOXIDE 20 mEq/l (22-31); CHLORIDE 109 mEq/L (97-110); CREATININE 1.1 mg/dL (0.6-1.0); GLOMERULAR FILTRATION RATE 47; GLUCOSE 90 mg/dL (70-100); MAGNESIUM 1.6 mg/dL (1.6-2.3); POTASSIUM 4.6 mEq/L (3.5-5.2); SODIUM 135 mEq/L (134-144)
[2016-06-19 06:49] LABS: TROPONIN I < 0.012 ng/mL (0-0.034)
[2016-06-19 07:06] LABS: HYPERSEGMENTED NEUTROPHILS 1+; HYPOCHROMIA 1+; KERATOCYTES 1+; MACROCYTES 1+; PLATELET ESTIMATE ADEQUATE (ADEQ); POLYCHROMASIA 1+
[2016-06-19] MEDS ORDERED: IPRATROPIUM/ALBUTEROL 3 ML DEYVIAL ONE (08:15)
[2016-06-19] MEDS: IPRATROPIUM/ALBUTEROL 3 ML DEYVIAL IH SCH ×3 (08:16→20:10)
[2016-06-19] MEDS ORDERED: CEFTRIAXONE 1 GM/DEXTROSE/50 ML BAG IV ONE (08:45)
[2016-06-19] MEDS ORDERED: GUAIFENESIN PO PRN (10:06)
[2016-06-19] MEDS ORDERED: [UNRECOGNIZED DRUG - OTHER] PO PRN (10:06)
[2016-06-19] MEDS ORDERED: CODEINE PHOSPHATE PO PRN (10:06)
[2016-06-19] MEDS ORDERED: NON-FORMULARY NEW DRUG (Guaifenesin [Mucinex] 1,200 MG) PO SCH (10:15)
[2016-06-19] MEDS ORDERED: NON-FORMULARY NEW DRUG (Omeprazole [Prilosec 20 Mg] 20 MG) PO SCH (10:15)
[2016-06-19] MEDS: ACYCLOVIR 400 MG TAB PO SCH ×2 (11:22→21:58)
[2016-06-19] MEDS: guaiFENesin 600 MG TAB.ER PO SCH ×2 (11:22→21:58)
[2016-06-19] MEDS: FLUoxetine 20 MG CAP PO SCH (11:22)
[2016-06-19] MEDS: ALLOPURINOL 300 MG TAB PO SCH (11:23)
[2016-06-19] MEDS: PANTOPRAZOLE SODIUM 40 MG TAB PO SCH (11:26)
--- NOTE | 2016-06-19 11:51 | GCON ---
[f rep st] CONSULTATION DATE OF CONSULTATION: 06/19/2016 REASON FOR CONSULTATION: Right hydronephrosis. HPI: The patient is an 85-year-old female with multiple medical problems, but specifically with rig ht upper ureteral obstruction, which has been managed with ureteral stent changes. She presented la st week with recurrent flank pain and was again found to have an obstructed stent. On 06/18/2016, s he underwent ureteral stent change. It initially did well, but by evening again started having righ t flank pain and mental status changes. She came to the Emergency Department, where her white blood count was normal, but renal ultrasound showed persistent hydronephrosis. PAST MEDICAL HISTORY: Positive for CLL, including CLL pneumonitis. PAST SURGICAL HISTORY: Positive for multiple right ureteral stent changes. FAMILY/SOCIAL HISTORY: Currently not pertinent. EXAM: GENERAL: The patient is alert and in no acute distress. Her heart rate is regular. ABDOMEN : Soft, nontender. She has no CVA tenderness. LABORATORY DATA: White count is 6.6, creatinine is 1.1, but ultrasound does show no change in the m oderate hydronephrosis on the right. Stents are visible. IMPRESSION: Recurrent right ureteral obstruction due to right upper ureteral extrinsic compression with persistent hydronephrosis and symptoms despite stent change 1 day earlier. PLAN: I talked with the patient and her daughter, and have recommended nephrostomy tube placement s o that we can maximally drain the kidney, and see if there is a special order stent that can be used down the road to try to keep from occluding. I talked with Dr. Gudino of Interventional Radiology, wh o will be doing this procedure this afternoon. /[id number]/MODL
[2016-06-19] MEDS ORDERED: IPRATROPIUM/ALBUTEROL 3 ML DEYVIAL IH SCH (12:00)
[2016-06-19] MEDS: BENZONATATE 100 MG CAP PO PRN ×2 (12:01→21:58)
[2016-06-19] MEDS: guaiFENesin/CODEINE PHOS 10 ML UDCUP PO PRN ×2 (12:09→21:56)
[2016-06-19] MEDS: BUDESONIDE 0.5 MG/2 ML AMPUL.NEB IH SCH ×2 (12:36→20:09)
[2016-06-19] MEDS ORDERED: fentaNYL 100 MCG/2 ML INJ ONE (15:46)
[2016-06-19] MEDS ORDERED: MIDAZOLAM 2 MG/2 ML VIAL ONE (15:47)
--- NOTE | 2016-06-19 16:01 | HOSPPROG ---
Hospitalist Progress Note Assessment/Plan: PATIENT SEEN WHILE HEADING DOWN TO INTERVENTIONAL RADIOLOGY FOR NEPHROSTOMY TUBE. PATIENT SEEN BY HOSPITALIST EARLY THIS MORNING. WILL CONTINUE ANTIBIOTICS. UROLOGY FOLLOWING Objective: Vital Signs Temp Pulse Resp BP Pulse Ox 37.1 C 98 24 H 132/84 H 98 06/19/16 11:15 06/19/16 11:15 06/19/16 11:15 06/19/16 11:15 06/19/16 11:15 Laboratory Results 06/19/16 06:12 06/19/16 06:12 06/18/16 06/19/16 06/20/16 05:59 05:59 05:59 Intake Total 2100 Balance 2100 PT 13.7 SEC (12.0-15.0) 06/19/16 06:12 INR 1.06 (0.83-1.16) 06/19/16 06:12 ICD10 Worksheet Patient Problems: Problems Problem Status Onset Cough Acute Flank pain Acute Generalized weakness Acute Acute ischemic stroke Acute Back pain Acute Bronchitis Acute CLL (chronic lymphocytic leukemia) Acute Chronic Disease Mgmt/Transitional Care Acute Confusion Acute Cough Acute Cough Acute Diarrhea Acute Fatigue Acute Hydronephrosis Acute Hyperkalemia Acute MRSA (methicillin resistant Staphylococcus aureus) Acute 04/22/15 Multiple drug resistant organism (MDRO) culture positive Acute ~04/02/16 NSTEMI (non-ST elevated myocardial infarction) Acute Palliative care encounter Acute Pneumonia Acute Pneumonia Acute Pneumonia due to infectious organism Acute Pyelonephritis Acute Somnolence Acute Subdural bleeding Acute UTI (urinary tract infection) Acute UTI (urinary tract infection) Acute Urinary obstruction Acute Weakness Acute Weakness Acute
--- NOTE | 2016-06-19 16:11 | POSTOPPROG ---
Post Op Note Date of Operation: 06/19/16 Surgeon: Manasa Gudino Anesthesia: IV Sedation (fentanyl and versed) Pre-op Diagnosis: CLL Post-op Diagnosis: same Indication: RT kidney obstructed Procedure: RT perc neph placement Findings: Stent in prox ureter. Moderate hydronephrosis Inf/Abcess present in the surg proc area at time of surgery?: No Depth: Superfical (Skin SQ) EBL: Minimal Drains: Nephrostomy
[2016-06-19] MEDS ORDERED: IOPAMIDOL (ISOVUE-300) 100 ML BTL IV ONE (16:20)
[2016-06-19] MEDS: ASPIRIN 81 MG CHEWABLE TAB PO SCH (21:56)
[2016-06-19] MEDS: oxyCODONE IR 5 MG TAB PO PRN (23:25)
[2016-06-20] MEDS: ALBUTEROL 3 ML DEYVIAL IH PRN ×3 (00:04→21:56)
[2016-06-20] MEDS: BUDESONIDE 0.5 MG/2 ML AMPUL.NEB IH SCH ×2 (09:03→19:38)
[2016-06-20] MEDS: IPRATROPIUM/ALBUTEROL 3 ML DEYVIAL IH SCH ×2 (09:03→19:39)
[2016-06-20] MEDS: FLUoxetine 20 MG CAP PO SCH (09:53)
[2016-06-20] MEDS: guaiFENesin 600 MG TAB.ER PO SCH ×2 (09:53→21:15)
[2016-06-20] MEDS: SULFAMETHOX/TMP 800/160 MG 1 TAB PO SCH (09:53)
[2016-06-20] MEDS: ACYCLOVIR 400 MG TAB PO SCH ×2 (09:53→21:15)
[2016-06-20] MEDS: ALLOPURINOL 300 MG TAB PO SCH (09:53)
[2016-06-20] MEDS: PANTOPRAZOLE SODIUM 40 MG TAB PO SCH (09:53)
[2016-06-20] MEDS: BENZONATATE 100 MG CAP PO PRN ×2 (09:56→16:28)
[2016-06-20] MEDS: oxyCODONE IR 5 MG TAB PO PRN ×2 (09:56→16:28)
[2016-06-20] MEDS: ENOXAPARIN 40 MG/0.4 ML SYR SC SCH (09:57)
[2016-06-20] MEDS: HYDROmorphONE/DILAUDID 1 MG/ML SYR IVP PRN (10:55)
[2016-06-20] MEDS ORDERED: IOPAMIDOL (ISOVUE-300) 100 ML BTL IV ONE (12:02)
--- NOTE | 2016-06-20 14:33 | HOSPPROG ---
Hospitalist Progress Note Assessment/Plan: * recurrent right ureteral obstruction with infection * Unclear causes significant right upper quadrant pain this morning * nephrostomy tube was manipulated now with some improvement * discussed with Urology who did not think migrated ureteral stent is causing pain * the stent eventually needs to be removed - could be done at Dr. Corona's office on Tuesday * continue IV ceftriaxone * history of CLL * Dr. Calle * CLL pneumonitis * atrial fibrillation * chronic kidney disease * previous intracranial hemorrhage Subjective: complaining of severe right upper quadrant pain this morning Objective: Vital Signs Temp Pulse Resp BP Pulse Ox 36.4 C 80 16 136/75 H 94 06/20/16 12:15 06/20/16 12:15 06/20/16 12:15 06/20/16 12:15 06/20/16 12:15 Microbiology 06/19/16 16:05 Gram Stain - Final Other - Aspirate Laboratory Results 06/19/16 06:12 06/19/16 06:12 06/19/16 06/20/16 06/21/16 05:59 05:59 05:59 Intake Total 2150 Output Total 1260 450 Balance 890 -450 PT 13.7 SEC (12.0-15.0) 06/19/16 06:12 INR 1.06 (0.83-1.16) 06/19/16 06:[address] Gudino/ Dr. Corona - Time Spent With Patient Time Spent with Patient: greater than 35 minutes (coordinating care and discussing plan of care with patient and daughter) Time Spent with Patient: Greater than 35 minutes spent on this patients care, greater than 50% of time spent counseling, educating, and coordinating care regarding the above mentioned plan. ICD10 Worksheet Patient Problems: Problems Problem Status Onset Cough Acute Flank pain Acute Generalized weakness Acute Acute ischemic stroke Acute Back pain Acute Bronchitis Acute CLL (chronic lymphocytic leukemia) Acute Chronic Disease Mgmt/Transitional Care Acute Confusion Acute Cough Acute Cough Acute Diarrhea Acute Fatigue Acute Hydronephrosis Acute Hyperkalemia Acute MRSA (methicillin resistant Staphylococcus aureus) Acute 04/22/15 Multiple drug resistant organism (MDRO) culture positive Acute ~04/02/16 NSTEMI (non-ST elevated myocardial infarction) Acute Palliative care encounter Acute Pneumonia Acute Pneumonia Acute Pneumonia due to infectious organism Acute Pyelonephritis Acute Somnolence Acute Subdural bleeding Acute UTI (urinary tract infection) Acute UTI (urinary tract infection) Acute Urinary obstruction Acute Weakness Acute Weakness Acute
[2016-06-20] MEDS: ASPIRIN 81 MG CHEWABLE TAB PO SCH (21:15)
[2016-06-21] MEDS: guaiFENesin/CODEINE PHOS 10 ML UDCUP PO PRN ×2 (05:34→20:51)
[2016-06-21] MEDS: BENZONATATE 100 MG CAP PO PRN ×3 (05:34→21:04)
[2016-06-21] MEDS: oxyCODONE IR 5 MG TAB PO PRN ×3 (05:41→20:51)
[2016-06-21] MEDS: IPRATROPIUM/ALBUTEROL 3 ML DEYVIAL IH SCH ×2 (08:40→21:47)
[2016-06-21] MEDS: BUDESONIDE 0.5 MG/2 ML AMPUL.NEB IH SCH ×2 (08:40→21:47)
[2016-06-21] MEDS: FLUoxetine 20 MG CAP PO SCH (09:05)
[2016-06-21] MEDS: ALLOPURINOL 300 MG TAB PO SCH (09:05)
[2016-06-21] MEDS: ACYCLOVIR 400 MG TAB PO SCH ×2 (09:06→21:03)
[2016-06-21] MEDS: ENOXAPARIN 40 MG/0.4 ML SYR SC SCH (09:07)
[2016-06-21] MEDS: PANTOPRAZOLE SODIUM 40 MG TAB PO SCH (10:55)
[2016-06-21] MEDS: guaiFENesin 600 MG TAB.ER PO SCH ×2 (10:55→21:04)
--- NOTE | 2016-06-21 14:00 | HOSPPROG ---
Hospitalist Progress Note Assessment/Plan: # R flank pain: s/p nephrostomy placement then change on this admit; also has internal stents that has migrated, may cause her pain - will d/w Dr Corona and remove internal stent # possible UTI - cont rocephin for now, may stop abx tomorrow pending cx results # CLL # CLL pneumonitis/chronic resp failure # a-fib # CKD - baseline # hx intracranial hemorrhage Subjective: complains of ongoing right flank pain Objective: Vital Signs Temp Pulse Resp BP Pulse Ox 37.4 C 88 20 139/82 H 88 L 06/21/16 07:32 06/21/16 07:32 06/21/16 07:32 06/21/16 07:32 06/21/16 07:32 Microbiology 06/19/16 16:05 Gram Stain - Final Other - Aspirate Laboratory Results 06/19/16 06:12 06/19/16 06:12 06/20/16 06/21/16 06/22/16 05:59 05:59 05:59 Intake Total 2150 950 Output Total 1260 1500 Balance 890 -550 PT 13.7 SEC (12.0-15.0) 06/19/16 06:12 INR 1.06 (0.83-1.16) 06/19/16 06:12 chart reviewed imaging and operative notes reviewed - Physical Exam Constitutional: chronically ill appearing Cardiovascular: regular rate and rhythym, no murmur, rub, or gallop Respiratory: no respiratory distress, other (diffuse rales, no wheezes or rhonchi) Gastrointestinal: normoactive bowel sounds, soft, non-tender abdomen ICD10 Worksheet Patient Problems: Problems Problem Status Onset Weakness Acute Cough Acute Hyperkalemia Acute Palliative care encounter Acute Back pain Acute Confusion Acute Generalized weakness Acute Cough Acute Flank pain Acute Multiple drug resistant organism (MDRO) culture positive Acute ~04/02/16 Fatigue Acute MRSA (methicillin resistant Staphylococcus aureus) Acute 04/22/15 Pneumonia Acute Chronic Disease Mgmt/Transitional Care Acute Diarrhea Acute CLL (chronic lymphocytic leukemia) Acute Cough Acute Weakness Acute Bronchitis Acute Acute ischemic stroke Acute Subdural bleeding Acute Hydronephrosis Acute Pneumonia due to infectious organism Acute Urinary obstruction Acute UTI (urinary tract infection) Acute NSTEMI (non-ST elevated myocardial infarction) Acute Somnolence Acute Pneumonia Acute Pyelonephritis Acute UTI (urinary tract infection) Acute
[2016-06-21] MEDS: HYDROmorphONE/DILAUDID 1 MG/ML SYR IVP PRN (14:21)
[2016-06-21] MEDS: ALBUTEROL 3 ML DEYVIAL IH PRN (14:25)
[2016-06-21] MEDS: ACETAMINOPHEN 500 MG TAB PO PRN (18:55)
[2016-06-21] MEDS: ASPIRIN 81 MG CHEWABLE TAB PO SCH (20:51)
[2016-06-22 05:49] LABS: ADD DIFF? YES; ADD MORPH? NO; ADD SCAN? NO; ATYPICAL LYMPHOCYTE FLAG 0 (0-99); FRAGMENT RBC FLAG 0 (0-99); HEMATOCRIT 30.8 % (38.0-47.0); HEMOGLOBIN 9.9 g/dL (12.6-16.3); LEFT SHIFT FLG 90 (0-99); LIPEMIA HEMOLYSIS FLAG 80 (0-99); MEAN CELL HEMOGLOBIN 34.5 pg (27.9-34.1); MEAN CELL HEMOGLOBIN CONCENTR. 32.1 g/dL (32.4-36.7); MEAN CELL VOLUME 107.3 fL (81.5-99.8); MEAN PLATELET VOLUME 9.7 fL (8.7-11.7); PLATELET CLUMPS FLAG 0 (0-99); PLATELET COUNT 243 10^3/uL (150-400); RED BLOOD CELL COUNT 2.87 10^6/uL (4.18-5.33); RED CELL DISTRIBUTION WIDTH 16.2 % (11.5-15.2)
[2016-06-22 06:16] LABS: ANION GAP 8 mEq/L (8-16); CALCIUM 9.2 mg/dL (8.5-10.4); CARBON DIOXIDE 22 mEq/l (22-31); CHLORIDE 105 mEq/L (97-110); GLOMERULAR FILTRATION RATE 52; GLUCOSE 93 mg/dL (70-100); POTASSIUM 4.7 mEq/L (3.5-5.2); SODIUM 135 mEq/L (134-144)
[2016-06-22 06:30] LABS: POLYCHROMASIA 1+
[2016-06-22 06:31] LABS: HYPOCHROMIA 1+; PLATELET ESTIMATE ADEQUATE (ADEQ)
--- NOTE | 2016-06-22 07:33 | SOAPPROG ---
SOAP Progress Note Assessment/Plan: Assessment: Right ureteral obstruction, s/p placement of nephrostomy tube and ureteral stent removal Plan: 06/22/16 07:30 Will assess pain s/p stent removal. Based on the patient's progress, I will consider having IR internalize a larger stent to see if she can continue to tolerate stents. Subjective: Pt c/o right flank pain despite nephrostomy tube. Objective: Vital Signs Temp Pulse Resp BP Pulse Ox 36.8 C 81 18 146/80 H 96 06/22/16 04:00 06/22/16 04:00 06/22/16 04:00 06/22/16 04:00 06/22/16 04:00 Microbiology 06/19/16 16:05 Gram Stain - Final Other - Aspirate Laboratory Results 06/22/16 04:22 06/22/16 04:22 06/21/16 06/22/16 06/23/16 05:59 05:59 05:59 Intake Total 950 950 Output Total 1500 775 Balance -550 175 PT 13.7 SEC (12.0-15.0) 06/19/16 06:12 INR 1.06 (0.83-1.16) 06/19/16 06:12 Physical Exam - Physical Exam General Appearance: moderate distress Respiratory: splinting, pain on movement Abdomen: normal bowel sounds, non-tender, soft ICD10 Worksheet Patient Problems: Problems Problem Status Onset Cough Acute Flank pain Acute Generalized weakness Acute Acute ischemic stroke Acute Back pain Acute Bronchitis Acute CLL (chronic lymphocytic leukemia) Acute Chronic Disease Mgmt/Transitional Care Acute Confusion Acute Cough Acute Cough Acute Diarrhea Acute Fatigue Acute Hydronephrosis Acute Hyperkalemia Acute MRSA (methicillin resistant Staphylococcus aureus) Acute 04/22/15 Multiple drug resistant organism (MDRO) culture positive Acute ~04/02/16 NSTEMI (non-ST elevated myocardial infarction) Acute Palliative care encounter Acute Pneumonia Acute Pneumonia Acute Pneumonia due to infectious organism Acute Pyelonephritis Acute Somnolence Acute Subdural bleeding Acute UTI (urinary tract infection) Acute UTI (urinary tract infection) Acute Urinary obstruction Acute Weakness Acute Weakness Acute
[2016-06-22] MEDS: IPRATROPIUM/ALBUTEROL 3 ML DEYVIAL IH SCH ×2 (08:39→19:54)
[2016-06-22] MEDS: BUDESONIDE 0.5 MG/2 ML AMPUL.NEB IH SCH ×2 (08:39→19:54)
[2016-06-22] MEDS: ALLOPURINOL 300 MG TAB PO SCH (09:04)
[2016-06-22] MEDS: guaiFENesin 600 MG TAB.ER PO SCH ×2 (09:04→21:35)
[2016-06-22] MEDS: ACYCLOVIR 400 MG TAB PO SCH ×2 (09:04→21:35)
[2016-06-22] MEDS: ENOXAPARIN 40 MG/0.4 ML SYR SC SCH (09:05)
[2016-06-22] MEDS: FLUoxetine 20 MG CAP PO SCH (09:05)
[2016-06-22] MEDS: guaiFENesin/CODEINE PHOS 10 ML UDCUP PO PRN (09:05)
[2016-06-22] MEDS: PANTOPRAZOLE SODIUM 40 MG TAB PO SCH (09:05)
[2016-06-22] MEDS: oxyCODONE IR 5 MG TAB PO PRN ×2 (09:16→21:34)
--- NOTE | 2016-06-22 12:32 | HOSPPROG ---
Hospitalist Progress Note Assessment/Plan: # R flank pain: s/p nephrostomy placement then change on this admit; s/p stent removal today - could be related to UTI vs pain from nephrostomy tube vs other (rib?) - check rib films # possible UTI, corynebacterium sp - will d/w ID regarding appropriate abx # CLL # CLL pneumonitis/chronic resp failure # a-fib # CKD - baseline # hx intracranial hemorrhage Subjective: s/p stent removal; c/o ongoing back pain Objective: Vital Signs Temp Pulse Resp BP Pulse Ox 36.7 C 96 18 123/68 H 93 06/22/16 08:00 06/22/16 11:48 06/22/16 11:48 06/22/16 11:48 06/22/16 11:48 Microbiology 06/19/16 16:05 Gram Stain - Final Other - Aspirate Laboratory Results 06/22/16 04:22 06/22/16 04:22 06/21/16 06/22/16 06/23/16 05:59 05:59 05:59 Intake Total 950 950 Output Total 1500 775 Balance -550 175 PT 13.7 SEC (12.0-15.0) 06/19/16 06:12 INR 1.06 (0.83-1.16) 06/19/16 06:12 - Time Spent With Patient Time Spent with Patient: greater than 35 minutes (long discussion with patient and daughter) Time Spent with Patient: Greater than 35 minutes spent on this patients care, greater than 50% of time spent counseling, educating, and coordinating care regarding the above mentioned plan. - Physical Exam Constitutional: uncomfortable Cardiovascular: regular rate and rhythym, no murmur, rub, or gallop Respiratory: no respiratory distress, no rales or rhonchi, clear to auscultation Gastrointestinal: normoactive bowel sounds, soft, non-tender abdomen, no palpable masses ICD10 Worksheet Patient Problems: Problems Problem Status Onset Cough Acute Flank pain Acute Generalized weakness Acute Acute ischemic stroke Acute Back pain Acute Bronchitis Acute CLL (chronic lymphocytic leukemia) Acute Chronic Disease Mgmt/Transitional Care Acute Confusion Acute Cough Acute Cough Acute Diarrhea Acute Fatigue Acute Hydronephrosis Acute Hyperkalemia Acute MRSA (methicillin resistant Staphylococcus aureus) Acute 04/22/15 Multiple drug resistant organism (MDRO) culture positive Acute ~04/02/16 NSTEMI (non-ST elevated myocardial infarction) Acute Palliative care encounter Acute Pneumonia Acute Pneumonia Acute Pneumonia due to infectious organism Acute Pyelonephritis Acute Somnolence Acute Subdural bleeding Acute UTI (urinary tract infection) Acute UTI (urinary tract infection) Acute Urinary obstruction Acute Weakness Acute Weakness Acute
[2016-06-22] MEDS: VANCOMYCIN 750 MG in D5W 150 ML IV SCH (14:52)
[2016-06-22] MEDS: BENZONATATE 100 MG CAP PO PRN (14:52)
[2016-06-22] MEDS: IPRATROPIUM/ALBUTEROL 3 ML DEYVIAL IH PRN (14:56)
[2016-06-22] MEDS: ASPIRIN 81 MG CHEWABLE TAB PO SCH (21:35)
[2016-06-23] MEDS: oxyCODONE IR 5 MG TAB PO PRN ×3 (01:56→21:02)
[2016-06-23] MEDS: guaiFENesin/CODEINE PHOS 10 ML UDCUP PO PRN ×3 (01:57→21:02)
[2016-06-23 05:27] LABS: ADD DIFF? YES; ADD MORPH? NO; ADD SCAN? NO; ATYPICAL LYMPHOCYTE FLAG 0 (0-99); FRAGMENT RBC FLAG 0 (0-99); HEMATOCRIT 27.9 % (38.0-47.0); HEMOGLOBIN 8.7 g/dL (12.6-16.3); LEFT SHIFT FLG 90 (0-99); LIPEMIA HEMOLYSIS FLAG 80 (0-99); MEAN CELL HEMOGLOBIN 33.7 pg (27.9-34.1); MEAN CELL HEMOGLOBIN CONCENTR. 31.2 g/dL (32.4-36.7); MEAN CELL VOLUME 108.1 fL (81.5-99.8); MEAN PLATELET VOLUME 9.7 fL (8.7-11.7); PLATELET CLUMPS FLAG 0 (0-99); PLATELET COUNT 221 10^3/uL (150-400); RED BLOOD CELL COUNT 2.58 10^6/uL (4.18-5.33); RED CELL DISTRIBUTION WIDTH 15.9 % (11.5-15.2)
[2016-06-23 05:45] LABS: ANION GAP 9 mEq/L (8-16); CARBON DIOXIDE 22 mEq/l (22-31); CHLORIDE 105 mEq/L (97-110); GLOMERULAR FILTRATION RATE 52; GLUCOSE 98 mg/dL (70-100); POTASSIUM 4.5 mEq/L (3.5-5.2); SODIUM 136 mEq/L (134-144)
[2016-06-23 06:40] LABS: MICROCYTES 1+; POLYCHROMASIA 1+
[2016-06-23 06:41] LABS: PLATELET ESTIMATE ADEQUATE (ADEQ)
[2016-06-23] MEDS: IPRATROPIUM/ALBUTEROL 3 ML DEYVIAL IH SCH ×2 (09:48→21:20)
[2016-06-23] MEDS: BUDESONIDE 0.5 MG/2 ML AMPUL.NEB IH SCH ×2 (09:48→21:20)
[2016-06-23] MEDS: ACYCLOVIR 400 MG TAB PO SCH ×2 (10:07→21:02)
[2016-06-23] MEDS: PANTOPRAZOLE SODIUM 40 MG TAB PO SCH (10:07)
[2016-06-23] MEDS: guaiFENesin 600 MG TAB.ER PO SCH ×2 (10:07→21:02)
[2016-06-23] MEDS: BENZONATATE 100 MG CAP PO PRN ×2 (10:08→16:32)
[2016-06-23] MEDS: ENOXAPARIN 40 MG/0.4 ML SYR SC SCH (10:08)
[2016-06-23] MEDS: FLUoxetine 20 MG CAP PO SCH (10:08)
[2016-06-23] MEDS: ALLOPURINOL 300 MG TAB PO SCH (10:24)
--- NOTE | 2016-06-23 12:01 | HOSPPROG ---
Hospitalist Progress Note Assessment/Plan: # R flank pain: s/p nephrostomy placement then change on this admit; s/p stent removal today - could be related to UTI vs pain from nephrostomy tube vs other (rib?) - check CT today # possible UTI, corynebacterium sp, yeast non-albicans - appreciate ID consult - currently on vanc # weakness/confusion - possibly better today - yeast may be difficult to eradicate given nephrostomy tube # CLL # CLL pneumonitis/chronic resp failure # a-fib # CKD - baseline # hx intracranial hemorrhage Subjective: ongoing pain worse today; possibly improved mental status Objective: Vital Signs Temp Pulse Resp BP Pulse Ox 36.8 C 89 18 156/77 H 91 L 06/23/16 09:21 06/23/16 09:21 06/23/16 09:21 06/23/16 09:21 06/23/16 09:21 Microbiology 06/19/16 16:05 Gram Stain - Final Other - Aspirate Laboratory Results 06/23/16 04:58 06/23/16 04:58 06/22/16 06/23/16 06/24/16 05:59 05:59 05:59 Intake Total 950 750 250 Output Total 775 700 Balance 175 50 250 PT 13.7 SEC (12.0-15.0) 06/19/16 06:12 INR 1.06 (0.83-1.16) 06/19/16 06:12 - Time Spent With Patient Time Spent with Patient: greater than 35 minutes Time Spent with Patient: Greater than 35 minutes spent on this patients care, greater than 50% of time spent counseling, educating, and coordinating care regarding the above mentioned plan. - Physical Exam Constitutional: uncomfortable Gastrointestinal: other (ongong R flank pain) ICD10 Worksheet Patient Problems: Problems Problem Status Onset Weakness Acute Cough Acute Hyperkalemia Acute Palliative care encounter Acute Back pain Acute Confusion Acute Generalized weakness Acute Cough Acute Flank pain Acute Multiple drug resistant organism (MDRO) culture positive Acute ~04/02/16 Fatigue Acute MRSA (methicillin resistant Staphylococcus aureus) Acute 04/22/15 Pneumonia Acute Chronic Disease Mgmt/Transitional Care Acute Diarrhea Acute CLL (chronic lymphocytic leukemia) Acute Cough Acute Weakness Acute Bronchitis Acute Acute ischemic stroke Acute Subdural bleeding Acute Hydronephrosis Acute Pneumonia due to infectious organism Acute Urinary obstruction Acute UTI (urinary tract infection) Acute NSTEMI (non-ST elevated myocardial infarction) Acute Somnolence Acute Pneumonia Acute Pyelonephritis Acute UTI (urinary tract infection) Acute
[2016-06-23] MEDS: VANCOMYCIN 750 MG in D5W 150 ML IV SCH (15:43)
[2016-06-23] MEDS: ALBUTEROL 3 ML DEYVIAL IH PRN (16:15)
[2016-06-23] MEDS ORDERED: FLUCONAZOLE 100 MG TAB PO ONE (19:30)
--- NOTE | 2016-06-23 19:45 | PCMIDPN ---
Assessment/Plan: Assessment/Plan: * Recurrent right ureteral obstruction status post percutaneous nephrostomy with nephrostomy cultures growing Corynebacterium striatum and urealyticum and Cherelle. Prior urine culture has grown a non albicans Cherelle. Patient with continued right-sided flank pain and has experienced increased frequency of failed ureteral stents. Agree with continued vancomycin targeting corynebacterium. Will begin fluconazole dosed at 400 mg x1, then 200 mg orally daily with estimated creatinine clearance approximately 35. Non albicans species with higher likelihood of azole resistance/dose dependent susceptibility although may be able to achieve adequate levels in urine where this is not limiting. Will ask microbiology lab to have yeast identified with susceptibility testing performed. 06/23/16 19:41 06/23/16 19:44 Subjective: Patient known to Infectious Disease service from prior care. Last seen by our service in April for Enterococcus faecalis UTI in the setting of obstructive uropathy. She has required repeated right ureteral stents for right-sided obstructive uropathy. Recently the stents have been less durable induration of efficacy. She was admitted with recurrent right-sided abdominal and flank pain and ultimately has had nephrostomy placement. Nephrostomy cultures have grown 2 species of Corynebacterium as well as a yeast. Urine culture has shown a non albicans yeast. Allergies: Epinephrine Medications reviewed; receives IVIG replacement via oncology service Objective: Vital Signs Temp Pulse Resp BP Pulse Ox 36.9 C 88 18 126/66 H 93 06/23/16 18:00 06/23/16 18:00 06/23/16 18:00 06/23/16 18:00 06/23/16 18:00 Microbiology 06/19/16 16:05 Gram Stain - Final Other - Aspirate Laboratory Results 06/23/16 04:58 06/23/16 04:58 06/22/16 06/23/16 06/24/16 05:59 05:59 05:59 Intake Total 938 448 5588 Output Total 775 700 402 Balance 175 50 848 Vancomycin with initiation today Bactrim DS Tuesday and Tuesday Acyclovir prophylaxis Urine from nephrostomy with growth of Corynebacterium striatum and Corynebacterium urealyticum and yeast - Physical Exam General Appearance: alert, no apparent distress EENT: No scleral icterus Abdomen: tender (Right upper quadrant), No distended Back: CVA tenderness (Right-sided; clear yellow urine in nephrostomy bag) ICD10 Worksheet Patient Problems: Problems Problem Status Onset Cough Acute Flank pain Acute Generalized weakness Acute Acute ischemic stroke Acute Back pain Acute Bronchitis Acute CLL (chronic lymphocytic leukemia) Acute Chronic Disease Mgmt/Transitional Care Acute Confusion Acute Cough Acute Cough Acute Diarrhea Acute Fatigue Acute Hydronephrosis Acute Hyperkalemia Acute MRSA (methicillin resistant Staphylococcus aureus) Acute 04/22/15 Multiple drug resistant organism (MDRO) culture positive Acute ~04/02/16 NSTEMI (non-ST elevated myocardial infarction) Acute Palliative care encounter Acute Pneumonia Acute Pneumonia Acute Pneumonia due to infectious organism Acute Pyelonephritis Acute Somnolence Acute Subdural bleeding Acute UTI (urinary tract infection) Acute UTI (urinary tract infection) Acute Urinary obstruction Acute Weakness Acute Weakness Acute
[2016-06-23] MEDS: ASPIRIN 81 MG CHEWABLE TAB PO SCH (21:02)
[2016-06-24] MEDS: guaiFENesin/CODEINE PHOS 10 ML UDCUP PO PRN ×3 (05:08→21:56)
[2016-06-24] MEDS: oxyCODONE IR 5 MG TAB PO PRN (05:11)
[2016-06-24] MEDS: IPRATROPIUM/ALBUTEROL 3 ML DEYVIAL IH PRN (05:30)
[2016-06-24 06:21] LABS: ADD DIFF? YES; ADD MORPH? NO; ADD SCAN? NO; ATYPICAL LYMPHOCYTE FLAG 0 (0-99); FRAGMENT RBC FLAG 0 (0-99); HEMATOCRIT 31.4 % (38.0-47.0); HEMOGLOBIN 9.9 g/dL (12.6-16.3); LEFT SHIFT FLG 90 (0-99); LIPEMIA HEMOLYSIS FLAG 80 (0-99); MEAN CELL HEMOGLOBIN 34.4 pg (27.9-34.1); MEAN CELL HEMOGLOBIN CONCENTR. 31.5 g/dL (32.4-36.7); MEAN PLATELET VOLUME 9.6 fL (8.7-11.7); PLATELET CLUMPS FLAG 0 (0-99); PLATELET COUNT 255 10^3/uL (150-400); RED BLOOD CELL COUNT 2.88 10^6/uL (4.18-5.33); RED CELL DISTRIBUTION WIDTH 15.9 % (11.5-15.2)
[2016-06-24 06:24] LABS: ALANINE AMINOTRANSFERASE 27 IU/L (9-52); ALKALINE PHOSPHATASE 72 IU/L (38-126); ANION GAP 9 mEq/L (8-16); ASPARTATE AMINOTRANSFERASE 18 IU/L (14-46); BILIRUBIN,TOTAL 0.4 mg/dL (0.1-1.4); BILIRUBIN-CONJUGATED 0.3 mg/dL (0.0-0.5); BILIRUBIN-UNCONJUGATED 0.1 mg/dL (0.0-1.1); CALCIUM 9.7 mg/dL (8.5-10.4); CARBON DIOXIDE 23 mEq/l (22-31); CHLORIDE 104 mEq/L (97-110); GLOMERULAR FILTRATION RATE 52; GLUCOSE 91 mg/dL (70-100); POTASSIUM 4.9 mEq/L (3.5-5.2); SODIUM 136 mEq/L (134-144); TOTAL PROTEIN 5.5 g/dL (6.3-8.2)
[2016-06-24 07:08] LABS: PLATELET ESTIMATE ADEQUATE (ADEQ); POLYCHROMASIA 1+
[2016-06-24] MEDS: BENZONATATE 100 MG CAP PO PRN ×3 (08:46→21:56)
[2016-06-24] MEDS: BUDESONIDE 0.5 MG/2 ML AMPUL.NEB IH SCH ×2 (09:23→22:11)
[2016-06-24] MEDS: IPRATROPIUM/ALBUTEROL 3 ML DEYVIAL IH SCH ×2 (09:23→22:11)
[2016-06-24] MEDS: FLUoxetine 20 MG CAP PO SCH (09:53)
[2016-06-24] MEDS: FLUCONAZOLE 100 MG TAB PO SCH (09:53)
[2016-06-24] MEDS: ACYCLOVIR 400 MG TAB PO SCH ×2 (09:56→21:56)
[2016-06-24] MEDS: guaiFENesin 600 MG TAB.ER PO SCH ×2 (09:56→21:56)
[2016-06-24] MEDS: ALLOPURINOL 300 MG TAB PO SCH (09:56)
[2016-06-24] MEDS: PANTOPRAZOLE SODIUM 40 MG TAB PO SCH (09:56)
[2016-06-24] MEDS: ENOXAPARIN 40 MG/0.4 ML SYR SC SCH (10:06)
[2016-06-24] MEDS: ACETAMINOPHEN 500 MG TAB PO PRN (12:43)
--- NOTE | 2016-06-24 13:40 | HOSPPROG ---
Hospitalist Progress Note Assessment/Plan: # R flank pain: s/p nephrostomy placement then change on this admit; s/p stent removal today - could be related to UTI vs pain from nephrostomy tube vs other (rib?) - gallbladder noted on CT - doubt this is GB pathology - lidoderm patch # possible UTI, corynebacterium sp, yeast non-albicans - appreciate ID consult - currently on vanc + fluconazole # constipation - miralax today # weakness/confusion # CLL # CLL pneumonitis/chronic resp failure # a-fib # CKD - baseline # hx intracranial hemorrhage Subjective: ongoing pain/weakness/AMS Objective: Vital Signs Temp Pulse Resp BP Pulse Ox 36.9 C 95 18 129/96 H 95 06/24/16 11:31 06/24/16 11:31 06/24/16 11:31 06/24/16 11:31 06/24/16 11:31 Microbiology 06/19/16 16:05 Gram Stain - Final Other - Aspirate Laboratory Results 06/24/16 05:25 06/24/16 05:25 06/23/16 06/24/16 06/25/16 05:59 05:59 05:59 Intake Total 750 1500 Output Total 700 1002 450 Balance 50 498 -450 PT 13.7 SEC (12.0-15.0) 06/19/16 06:12 INR 1.06 (0.83-1.16) 06/19/16 06:12 - Time Spent With Patient Time Spent with Patient: greater than 35 minutes Time Spent with Patient: Greater than 35 minutes spent on this patients care, greater than 50% of time spent counseling, educating, and coordinating care regarding the above mentioned plan. - Physical Exam Constitutional: uncomfortable Gastrointestinal: other (no Costello's sign; TTP R flank; ) ICD10 Worksheet Patient Problems: Problems Problem Status Onset Weakness Acute Cough Acute Hyperkalemia Acute Palliative care encounter Acute Back pain Acute Confusion Acute Generalized weakness Acute Cough Acute Flank pain Acute Multiple drug resistant organism (MDRO) culture positive Acute ~04/02/16 Fatigue Acute MRSA (methicillin resistant Staphylococcus aureus) Acute 04/22/15 Pneumonia Acute Chronic Disease Mgmt/Transitional Care Acute Diarrhea Acute CLL (chronic lymphocytic leukemia) Acute Cough Acute Weakness Acute Bronchitis Acute Acute ischemic stroke Acute Subdural bleeding Acute Hydronephrosis Acute Pneumonia due to infectious organism Acute Urinary obstruction Acute UTI (urinary tract infection) Acute NSTEMI (non-ST elevated myocardial infarction) Acute Somnolence Acute Pneumonia Acute Pyelonephritis Acute UTI (urinary tract infection) Acute
[2016-06-24] MEDS: LIDOCAINE 5% 1 EA PATCH TD SCH (14:12)
[2016-06-24] MEDS: POLYETHYLENE GLYCOL 3350 17 GM PKT PO SCH (14:12)
[2016-06-24] MEDS ORDERED: VANCOMYCIN 750 MG in D5W 150 ML IV SCH ×2 (15:00→15:30)
--- NOTE | 2016-06-24 18:16 | PCMIDPN ---
Assessment/Plan: Assessment: Right ureteral obstruction with nephrostomy tube placed. Urine from the nephrostomy tube with evidence of infection. Corynebacterium, yeast and aerococcus are all in culture. Patient is currently being covered with vancomycin and fluconazole. Awaiting identification sensitivity of the yeast isolate. Plan: 1. Continue IV vancomycin and fluconazole. 2. Follow clinical course. 3. Follow up identification sensitivity panel. Subjective: Patient is sitting up in her hospital chair. She is awake and alert. She appears confused. Denies any new concerns. Her nurse was concerned about the appearance of some redness around her nephrostomy site on the right side. No fevers. Objective: Vancomycin # 2 Fluconazole # 1 Vital Signs Temp Pulse Resp BP Pulse Ox 36.6 C 72 18 130/81 H 97 06/24/16 15:46 06/24/16 15:46 06/24/16 15:46 06/24/16 15:46 06/24/16 15:46 Microbiology 06/19/16 16:05 Gram Stain - Final Other - Aspirate Laboratory Results 06/24/16 05:25 06/24/16 05:25 06/23/16 06/24/16 06/25/16 05:59 05:59 05:59 Intake Total 750 1500 Output Total 700 1002 450 Balance 50 498 -450 - Physical Exam General Appearance: WD/WN, alert, no apparent distress, thin, non-toxic Respiratory: lungs clear, normal breath sounds, No respiratory distress Cardiac/Chest: regular rate, rhythm, No tachycardia Back: No normal inspection (Nephrostomy tube right side. Mild erythema which looks patchy surrounding the area. Most consistent with contact dermatitis.) Skin: normal color, warm/dry, No rash Neuro/Psych: alert, normal mood/affect ICD10 Worksheet Patient Problems: Problems Problem Status Onset Cough Acute Flank pain Acute Generalized weakness Acute Acute ischemic stroke Acute Back pain Acute Bronchitis Acute CLL (chronic lymphocytic leukemia) Acute Chronic Disease Mgmt/Transitional Care Acute Confusion Acute Cough Acute Cough Acute Diarrhea Acute Fatigue Acute Hydronephrosis Acute Hyperkalemia Acute MRSA (methicillin resistant Staphylococcus aureus) Acute 04/22/15 Multiple drug resistant organism (MDRO) culture positive Acute ~04/02/16 NSTEMI (non-ST elevated myocardial infarction) Acute Palliative care encounter Acute Pneumonia Acute Pneumonia Acute Pneumonia due to infectious organism Acute Pyelonephritis Acute Somnolence Acute Subdural bleeding Acute UTI (urinary tract infection) Acute UTI (urinary tract infection) Acute Urinary obstruction Acute Weakness Acute Weakness Acute
[2016-06-24] MEDS: ASPIRIN 81 MG CHEWABLE TAB PO SCH (21:56)
[2016-06-24] MEDS: ACETAMINOPHEN 500 MG TAB PO SCH (21:57)
[2016-06-24] MEDS: PATCH REMOVAL 1 EA PATCH TD SCH (21:58)
[2016-06-25] MEDS: IPRATROPIUM/ALBUTEROL 3 ML DEYVIAL IH SCH ×2 (08:33→21:04)
[2016-06-25] MEDS: BUDESONIDE 0.5 MG/2 ML AMPUL.NEB IH SCH ×2 (08:33→21:03)
[2016-06-25] MEDS: ENOXAPARIN 40 MG/0.4 ML SYR SC SCH (09:08)
[2016-06-25] MEDS: FLUoxetine 20 MG CAP PO SCH (09:09)
[2016-06-25] MEDS: ACETAMINOPHEN 500 MG TAB PO SCH ×3 (09:09→21:43)
[2016-06-25] MEDS: ACYCLOVIR 400 MG TAB PO SCH ×2 (09:09→21:44)
[2016-06-25] MEDS: guaiFENesin 600 MG TAB.ER PO SCH ×2 (09:09→21:43)
[2016-06-25] MEDS: FLUCONAZOLE 100 MG TAB PO SCH (09:09)
[2016-06-25] MEDS: PANTOPRAZOLE SODIUM 40 MG TAB PO SCH (09:09)
[2016-06-25] MEDS: POLYETHYLENE GLYCOL 3350 17 GM PKT PO SCH (09:10)
[2016-06-25] MEDS: LIDOCAINE 5% 1 EA PATCH TD SCH (09:10)
[2016-06-25] MEDS: ALLOPURINOL 300 MG TAB PO SCH (09:10)
[2016-06-25] MEDS: guaiFENesin/CODEINE PHOS 10 ML UDCUP PO PRN (09:18)
[2016-06-25] MEDS: BENZONATATE 100 MG CAP PO PRN (09:18)
[2016-06-25] MEDS ORDERED: VANCOMYCIN 1,000 MG in D5W 150 ML IV SCH (13:24)
[2016-06-25] MEDS ORDERED: LIDOCAINE 5% 1 EA PATCH TD PRN (13:43)
--- NOTE | 2016-06-25 13:46 | PCMIDPN ---
Assessment/Plan: # Recurrent right ureteral obstruction (primary problem ureteral stenosis) status post percutaneous nephrostomy. Nephrostomy cultures growing Corynebacterium striatum and urealyticum and non albicans Cherelle. s/p multiple failed stents. R flank pain better today! Bandemia improving. Delirium , by report, is improving --continued vancomycin targeting corynebacterium. Vanco T a bit low, increased dose carefully to 1gm IV daily today --Fluconazole dosed at 400 mg x1, then 200 mg orally daily with estimated creatinine clearance approximately 35. Chance c. glabrata which typically has dose-dependent R to fluconazole, but hopeful with high fluconazole in kidney will overcome barrier. Risk of amphotericin not warranted at this point. Echinocandins do not have good renal penetration meds fluconazole 200mg PO daily #3 vancomycin IV #4 ceftriaxone 06/19- Subjective: R flank pain better no diarrhea no rash, itching Objective: Vital Signs Temp Pulse Resp BP Pulse Ox 37.2 C 78 18 112/57 L 94 06/25/16 11:59 06/25/16 11:59 06/25/16 11:59 06/25/16 11:59 06/25/16 11:59 Microbiology 06/19/16 16:05 Gram Stain - Final Other - Aspirate Laboratory Results 06/24/16 05:25 06/24/16 05:25 06/24/16 06/25/16 06/26/16 05:59 05:59 05:59 Intake Total 1500 950 Output Total 1002 700 Balance 498 250 - Physical Exam General Appearance: alert EENT: dry mucous membranes, No scleral icterus, No thrush Respiratory: coarse breath sounds Neck: supple Cardiac/Chest: regular rate, rhythm Extremities: No pedal edema Abdomen: non-tender, soft Back: other (R nephrotomy with clear yellow urine) Skin: pallor Neuro/Psych: alert, other (year: 2017, Month: June, "it been clear all week") - Time Spent With Patient Time Spent with Patient: greater than 25 minutes (coordination of care with Dr. Hollis) Time Spent with Patient: Greater than 25 minutes spent on this patients care, greater than 50% of time spent counseling, educating, and coordinating care regarding the above mentioned plan. ICD10 Worksheet Patient Problems: Problems Problem Status Onset Cough Acute Flank pain Acute Generalized weakness Acute Acute ischemic stroke Acute Back pain Acute Bronchitis Acute CLL (chronic lymphocytic leukemia) Acute Chronic Disease Mgmt/Transitional Care Acute Confusion Acute Cough Acute Cough Acute Diarrhea Acute Fatigue Acute Hydronephrosis Acute Hyperkalemia Acute MRSA (methicillin resistant Staphylococcus aureus) Acute 04/22/15 Multiple drug resistant organism (MDRO) culture positive Acute ~04/02/16 NSTEMI (non-ST elevated myocardial infarction) Acute Palliative care encounter Acute Pneumonia Acute Pneumonia Acute Pneumonia due to infectious organism Acute Pyelonephritis Acute Somnolence Acute Subdural bleeding Acute UTI (urinary tract infection) Acute UTI (urinary tract infection) Acute Urinary obstruction Acute Weakness Acute Weakness Acute
--- NOTE | 2016-06-25 13:53 | HOSPPROG ---
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 She has a complicated recent urologic history including right-sided hydronephrosis suspected due to a stricture. She has had multiple stents placed. Her last stent had to be removed by Dr. Corona due to occlusion suspected by yeast. Most recently, she had to smaller stents placed, which migrated into the user causing hydronephrosis. Percutaneous nephrostomy was placed. Stents were removed two days later. She had ongoing, severe right flank pain, which is better today. I think what improved her pain, was appropriate antibiotic /antifungal treatment with enough time. Currently awaiting Cherelle sensitivities with empiric fluconazole. Will discontinue lidocaine patch today # R flank pain: s/p nephrostomy placement then change on this admit; s/p stent removal - could be related to UTI vs pain from nephrostomy tube vs other (rib?) - gallbladder noted on CT - doubt this is GB pathology # possible UTI, corynebacterium sp, yeast non-albicans - appreciate ID consult - currently on vanc + fluconazole - follow up yeast sensitivities # constipation - miralax today # weakness/confusion # CLL # CLL pneumonitis/chronic resp failure # a-fib # CKD - baseline # hx intracranial hemorrhage Subjective: back pain better today Objective: Vital Signs Temp Pulse Resp BP Pulse Ox 37.2 C 78 18 112/57 L 94 06/25/16 11:59 06/25/16 11:59 06/25/16 11:59 06/25/16 11:59 06/25/16 11:59 Microbiology 06/19/16 16:05 Gram Stain - Final Other - [facility] Laboratory Results 06/24/16 05:25 06/24/16 05:25 06/24/16 06/25/16 06/26/16 05:59 05:59 05:59 Intake Total 1500 950 Output Total 1002 700 Balance 498 250 PT 13.7 SEC (12.0-15.0) 06/19/16 06:12 INR 1.06 (0.83-1.16) 06/19/16 06:12 - Time Spent With Patient Time Spent with Patient: greater than 35 minutes Time Spent with Patient: Greater than 35 minutes spent on this patients care, greater than 50% of time spent counseling, educating, and coordinating care regarding the above mentioned plan. - Physical Exam Constitutional: no apparent distress, appears nourished Gastrointestinal: other (R flank with nephrostomy tube, not TTP) ICD10 Worksheet Patient Problems: Problems Problem Status Onset Weakness Acute Cough Acute Hyperkalemia Acute Palliative care encounter Acute Back pain Acute Confusion Acute Generalized weakness Acute Cough Acute Flank pain Acute Multiple drug resistant organism (MDRO) culture positive Acute ~04/02/16 Fatigue Acute MRSA (methicillin resistant Staphylococcus aureus) Acute 04/22/15 Pneumonia Acute Chronic Disease Mgmt/Transitional Care Acute Diarrhea Acute CLL (chronic lymphocytic leukemia) Acute Cough Acute Weakness Acute Bronchitis Acute Acute ischemic stroke Acute Subdural bleeding Acute Hydronephrosis Acute Pneumonia due to infectious organism Acute Urinary obstruction Acute UTI (urinary tract infection) Acute NSTEMI (non-ST elevated myocardial infarction) Acute Somnolence Acute Pneumonia Acute Pyelonephritis Acute UTI (urinary tract infection) Acute
[2016-06-25] MEDS: ALBUTEROL 3 ML DEYVIAL IH PRN (15:39)
[2016-06-25] MEDS: VANCOMYCIN HCL/NORMAL SALINE 250 ML IV SCH (16:11)
[2016-06-25] MEDS: ASPIRIN 81 MG CHEWABLE TAB PO SCH (21:44)
[2016-06-25] MEDS: PATCH REMOVAL 1 EA PATCH TD SCH (22:18)
[2016-06-26] MEDS: BENZONATATE 100 MG CAP PO PRN ×3 (05:08→21:17)
[2016-06-26 05:33] LABS: ADD DIFF? YES; ADD MORPH? NO; ATYPICAL LYMPHOCYTE FLAG 0 (0-99); FRAGMENT RBC FLAG 0 (0-99); HEMATOCRIT 27.3 % (38.0-47.0); HEMOGLOBIN 8.6 g/dL (12.6-16.3); LIPEMIA HEMOLYSIS FLAG 80 (0-99); MEAN CELL HEMOGLOBIN 33.6 pg (27.9-34.1); MEAN CELL HEMOGLOBIN CONCENTR. 31.5 g/dL (32.4-36.7); MEAN CELL VOLUME 106.6 fL (81.5-99.8); MEAN PLATELET VOLUME 9.6 fL (8.7-11.7); PLATELET CLUMPS FLAG 0 (0-99); PLATELET COUNT 235 10^3/uL (150-400); RED BLOOD CELL COUNT 2.56 10^6/uL (4.18-5.33); RED CELL DISTRIBUTION WIDTH 15.9 % (11.5-15.2)
[2016-06-26 05:37] LABS: ADD SCAN? NO; LEFT SHIFT FLG 100 (0-99)
[2016-06-26 05:53] LABS: ANION GAP 6 mEq/L (8-16); CALCIUM 9.6 mg/dL (8.5-10.4); CARBON DIOXIDE 21 mEq/l (22-31); CHLORIDE 107 mEq/L (97-110); CREATININE 1.3 mg/dL (0.6-1.0); GLOMERULAR FILTRATION RATE 39; GLUCOSE 90 mg/dL (70-100); POTASSIUM 4.9 mEq/L (3.5-5.2); SODIUM 134 mEq/L (134-144)
[2016-06-26 06:03] LABS: MACROCYTES 1+; POLYCHROMASIA 1+
[2016-06-26 06:04] LABS: PLATELET ESTIMATE ADEQUATE (ADEQ)
[2016-06-26] MEDS: BUDESONIDE 0.5 MG/2 ML AMPUL.NEB IH SCH (09:18)
[2016-06-26] MEDS: IPRATROPIUM/ALBUTEROL 3 ML DEYVIAL IH SCH (09:18)
[2016-06-26] MEDS: FLUoxetine 20 MG CAP PO SCH (09:53)
[2016-06-26] MEDS: ACYCLOVIR 400 MG TAB PO SCH ×2 (09:53→21:18)
[2016-06-26] MEDS: ACETAMINOPHEN 500 MG TAB PO SCH ×3 (09:53→21:17)
[2016-06-26] MEDS: ALLOPURINOL 300 MG TAB PO SCH (09:53)
[2016-06-26] MEDS: PANTOPRAZOLE SODIUM 40 MG TAB PO SCH (09:53)
[2016-06-26] MEDS: guaiFENesin 600 MG TAB.ER PO SCH ×2 (09:53→21:17)
[2016-06-26] MEDS: SULFAMETHOX/TMP 800/160 MG 1 TAB PO SCH (09:53)
[2016-06-26] MEDS: FLUCONAZOLE 100 MG TAB PO SCH (09:53)
[2016-06-26] MEDS: POLYETHYLENE GLYCOL 3350 17 GM PKT PO SCH (09:54)
[2016-06-26] MEDS: guaiFENesin/CODEINE PHOS 10 ML UDCUP PO PRN ×2 (09:57→21:18)
[2016-06-26] MEDS: ENOXAPARIN 40 MG/0.4 ML SYR SC SCH (10:07)
--- NOTE | 2016-06-26 15:56 | PCMIDPN ---
Assessment/Plan: Assessment/Plan: 1.Recurrent right ureteral obstruction: status post percutaneous nephrostomy. -Nephrostomy cultures: Corynebacterium striatum and urealyticum and non albicans Cherelle, aerococcus. -Currently on Vanco, and fluconazole. - awaiting ID on yeast -lost IV access. will place picc line -creatinine slightly up. recheck in Am. -recent vanco trough on 06/24/16 at 7.3. dosed increased yesterday from 750mg to 1g. -long discussion with daughter and patient regarding plan of care. -care coordinated with RICKY. Jared vanco 1g daily- 06/25/16 Subjective: afebrile. feels better overall. denies back pain. denies diarrhea, abd pain or sob. on 4L o2 via nc which is near her baseline. Objective: Vital Signs Temp Pulse Resp BP Pulse Ox 36.4 C 88 18 141/64 H 97 06/26/16 12:00 06/26/16 12:00 06/26/16 12:00 06/26/16 12:00 06/26/16 12:00 Microbiology 06/19/16 16:05 Gram Stain - Final Other - [facility] Laboratory Results 06/26/16 05:00 06/26/16 05:00 06/25/16 06/26/16 06/27/16 05:59 05:59 05:59 Intake Total 950 400 Output Total 700 300 150 Balance 250 100 -150 - Physical Exam General Appearance: alert, no apparent distress Respiratory: lungs clear Cardiac/Chest: regular rate, rhythm Extremities: No swelling Abdomen: normal bowel sounds, non-tender, soft, No distended Skin: No erythema - Time Spent With Patient Time Spent with Patient: greater than 35 minutes Time Spent with Patient: Greater than 35 minutes spent on this patients care, greater than 50% of time spent counseling, educating, and coordinating care regarding the above mentioned plan. ICD10 Worksheet Patient Problems: Problems Problem Status Onset Cough Acute Flank pain Acute Generalized weakness Acute Acute ischemic stroke Acute Back pain Acute Bronchitis Acute CLL (chronic lymphocytic leukemia) Acute Chronic Disease Mgmt/Transitional Care Acute Confusion Acute Cough Acute Cough Acute Diarrhea Acute Fatigue Acute Hydronephrosis Acute Hyperkalemia Acute MRSA (methicillin resistant Staphylococcus aureus) Acute 04/22/15 Multiple drug resistant organism (MDRO) culture positive Acute ~04/02/16 NSTEMI (non-ST elevated myocardial infarction) Acute Palliative care encounter Acute Pneumonia Acute Pneumonia Acute Pneumonia due to infectious organism Acute Pyelonephritis Acute Somnolence Acute Subdural bleeding Acute UTI (urinary tract infection) Acute UTI (urinary tract infection) Acute Urinary obstruction Acute Weakness Acute Weakness Acute
[2016-06-26] MEDS: VANCOMYCIN HCL/NORMAL SALINE 250 ML IV SCH (17:51)
--- NOTE | 2016-06-26 19:44 | HOSPPROG ---
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 ASSESSMENT/PLAN: Right flank pain, s/p nephrostomy replacement and stent removal UTI - Corynebacterium, yeast non Albicans CLL with pneumonitis/chronic respiratory failure on O2 Atrial fibrillation CKD, unknown stage History of intracranial hemorrhage Constipation Generalized weakness/debility/deconditioning -continue with IV antimicrobials-managed by infectious disease specialist -final sensitivity/species identification pending for yeast. -continue with PT/OT -Encouraged patient to use ISU -daily SVN -p.r.n. bowel meds -discuss with Radiology about PICC line placement-recommend to withdraw it slightly to caval atrial junction. VTE prophylaxis: Lovenox Code Status: DNR Status: Inpatient Disposition: Oncology unit-Med surge This patient is new to me. Reviewed patient's chart/records for this visit. Personally discussed case with RN and infectious Disease specialist. ____ SUBJECTIVE: Today the patient complains of generalized weakness and fatigue. She wishes she had more energy. She continues to have right-sided discomfort. OBJECTIVE: Physical Exam: General: The patient is an elderly female who is alert and in no acute distress. HEENT: normocephalic, extraocular movements intact, conjunctivae clear. Mucous membranes moist. Neck: trachea midline, no visible masses. CV: +S1/S2, RRR, no MRG. Resp: unlabored, CTAB no RRW. Abd: soft and nondistended. Bowel sounds present. Musculoskeletal: Reduced muscle tone/bulk. + right ankle tenderness. Neuro: cranial nerves II XII grossly intact. Intact gross motor and sensory function. Psych: Appropriate mood and appropriate affect. Skin: Mild pallor. No petechiae. Heme/lymph: Mild peripheral edema at bilateral lower legs. Labs/Imaging/Other Tests: Personally reviewed/interpreted. Chest x-ray following PICC insertion-personally interpreted. Appears tip is in right atrium. Objective: Vital Signs Temp Pulse Resp BP Pulse Ox 36.6 C 92 17 139/64 H 99 06/26/16 19:35 06/26/16 19:35 06/26/16 19:35 06/26/16 19:35 06/26/16 19:35 Microbiology 06/19/16 16:05 Gram Stain - Final Other - [facility] Laboratory Results 06/26/16 05:00 06/26/16 05:00 06/25/16 06/26/16 06/27/16 05:59 05:59 05:59 Intake Total 950 400 750 Output Total 700 300 300 Balance 250 100 450 PT 13.7 SEC (12.0-15.0) 06/19/16 06:12 INR 1.06 (0.83-1.16) 06/19/16 06:12 ICD10 Worksheet Patient Problems: Problems Problem Status Onset Cough Acute Flank pain Acute Generalized weakness Acute Acute ischemic stroke Acute Back pain Acute Bronchitis Acute CLL (chronic lymphocytic leukemia) Acute Chronic Disease Mgmt/Transitional Care Acute Confusion Acute Cough Acute Cough Acute Diarrhea Acute Fatigue Acute Hydronephrosis Acute Hyperkalemia Acute MRSA (methicillin resistant Staphylococcus aureus) Acute 04/22/15 Multiple drug resistant organism (MDRO) culture positive Acute ~04/02/16 NSTEMI (non-ST elevated myocardial infarction) Acute Palliative care encounter Acute Pneumonia Acute Pneumonia Acute Pneumonia due to infectious organism Acute Pyelonephritis Acute Somnolence Acute Subdural bleeding Acute UTI (urinary tract infection) Acute UTI (urinary tract infection) Acute Urinary obstruction Acute Weakness Acute Weakness Acute
[2016-06-26] MEDS: ASPIRIN 81 MG CHEWABLE TAB PO SCH (21:17)
[2016-06-26] MEDS: PATCH REMOVAL 1 EA PATCH TD SCH (21:29)
[2016-06-27] MEDS: BUDESONIDE 0.5 MG/2 ML AMPUL.NEB IH SCH ×3 (01:02→20:25)
[2016-06-27] MEDS: IPRATROPIUM/ALBUTEROL 3 ML DEYVIAL IH SCH ×3 (01:02→20:25)
[2016-06-27] MEDS: BENZONATATE 100 MG CAP PO PRN ×3 (03:32→20:45)
[2016-06-27] MEDS: guaiFENesin/CODEINE PHOS 10 ML UDCUP PO PRN ×4 (03:32→20:44)
[2016-06-27] MEDS: ALTEPLASE 2 MG VIAL IVP PRN (06:16)
[2016-06-27 06:30] LABS: ANION GAP 5 mEq/L (8-16); CALCIUM 9.7 mg/dL (8.5-10.4); CARBON DIOXIDE 23 mEq/l (22-31); CHLORIDE 107 mEq/L (97-110); CREATININE 1.3 mg/dL (0.6-1.0); GLOMERULAR FILTRATION RATE 39; GLUCOSE 91 mg/dL (70-100); POTASSIUM 4.7 mEq/L (3.5-5.2); SODIUM 135 mEq/L (134-144)
[2016-06-27] MEDS: guaiFENesin 600 MG TAB.ER PO SCH ×2 (08:42→20:45)
[2016-06-27] MEDS: ACETAMINOPHEN 500 MG TAB PO SCH ×3 (10:09→20:45)
[2016-06-27] MEDS: PANTOPRAZOLE SODIUM 40 MG TAB PO SCH (10:09)
[2016-06-27] MEDS: FLUCONAZOLE 100 MG TAB PO SCH (10:09)
[2016-06-27] MEDS: ACYCLOVIR 400 MG TAB PO SCH ×2 (10:09→20:45)
[2016-06-27] MEDS: ALLOPURINOL 300 MG TAB PO SCH (10:10)
[2016-06-27] MEDS: POLYETHYLENE GLYCOL 3350 17 GM PKT PO SCH (10:10)
[2016-06-27] MEDS: ENOXAPARIN 40 MG/0.4 ML SYR SC SCH (10:10)
[2016-06-27] MEDS: FLUoxetine 20 MG CAP PO SCH (10:10)
[2016-06-27] MEDS: SULFAMETHOX/TMP 800/160 MG 1 TAB PO SCH (10:10)
--- NOTE | 2016-06-27 10:30 | PCMIDPN ---
Assessment/Plan: Assessment/Plan: 1.Recurrent right ureteral obstruction: status post percutaneous nephrostomy. -Nephrostomy cultures: Corynebacterium striatum and urealyticum and non albicans Cherelle, aerococcus. -Currently on Vanco, and fluconazole. - awaiting ID on yeast. Sent out on to [place]. -creatinine stable at 1.3 x 2 days (but overall increaesed). query if effects from bactrim vs vanco vs other. -recent vanco trough on 06/24/16 at 7.3. dosed increased 06/25/16 from 750mg to 1g. i checked a Trough today and it is at 16. - Decrease dose to 750mg daily. - not hydrating much. Will coordinate with hospitalist team as she may need IVF. -Discussed with patient regarding plan of care. Meds vanco 1g daily- 06/25/16----changed to 750mg daily on 06/27/16 Fluconazole 200mg daily bactrim acyclovir Subjective: Afebrile. Sitting up at edge of bed. On 4L o2 via nc. Coughign with some phlegm. Denies abd pain or diarrhea. No increase in back pain/flank pain. Objective: Vital Signs Temp Pulse Resp BP Pulse Ox 36.5 C 78 14 137/70 H 95 06/27/16 07:56 06/27/16 09:02 06/27/16 09:02 06/27/16 07:56 06/27/16 09:02 Microbiology 06/19/16 16:05 Gram Stain - Final Other - [facility] Laboratory Results 06/26/16 05:00 06/27/16 06:05 06/26/16 06/27/16 06/28/16 05:59 05:59 05:59 Intake Total 400 1050 Output Total 300 301 350 Balance 100 749 -350 - Physical Exam General Appearance: alert, no apparent distress Respiratory: coarse breath sounds (espeically right base compared to left) Cardiac/Chest: regular rate, rhythm Extremities: No swelling Abdomen: normal bowel sounds, non-tender, soft, No distended Back: other (right nephrostomy tube noted with clear yellow urine) Skin: No rash ICD10 Worksheet Patient Problems: Problems Problem Status Onset Cough Acute Flank pain Acute Generalized weakness Acute Acute ischemic stroke Acute Back pain Acute Bronchitis Acute CLL (chronic lymphocytic leukemia) Acute Chronic Disease Mgmt/Transitional Care Acute Confusion Acute Cough Acute Cough Acute Diarrhea Acute Fatigue Acute Hydronephrosis Acute Hyperkalemia Acute MRSA (methicillin resistant Staphylococcus aureus) Acute 04/22/15 Multiple drug resistant organism (MDRO) culture positive Acute ~04/02/16 NSTEMI (non-ST elevated myocardial infarction) Acute Palliative care encounter Acute Pneumonia Acute Pneumonia Acute Pneumonia due to infectious organism Acute Pyelonephritis Acute Somnolence Acute Subdural bleeding Acute UTI (urinary tract infection) Acute UTI (urinary tract infection) Acute Urinary obstruction Acute Weakness Acute Weakness Acute
[2016-06-27] MEDS: ENOXAPARIN 30 MG/0.3 ML SYR SC SCH (10:50)
--- NOTE | 2016-06-27 15:28 | HOSPPROG ---
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 ASSESSMENT/PLAN: Right flank pain, s/p nephrostomy replacement and stent removal UTI - Corynebacterium, yeast non Albicans CLL with pneumonitis/chronic respiratory failure on O2 Atrial fibrillation CKD, unknown stage History of intracranial hemorrhage Constipation Generalized weakness/debility/deconditioning -continue with IV antimicrobials - fluconazole (started 06/23), vanco (started 06/22) - managed by infectious disease specialist -final sensitivity/species identification pending for yeast. Was sent on 06/25. -Urologist planning to place stents when infection resolves. Will need to be coordinated w/ input from ID. -continue with PT/OT -Encouraged patient to use ISU -daily SVN -p.r.n. bowel meds -discussed with Radiologist Dr. Lara -who said PICC line has good positioning. VTE prophylaxis: Lovenox Code Status: DNR Status: Inpatient Disposition: Oncology unit-Med surge. Awaiting eventual ureteral stent placement, after UTI has resolved. Personally discussed case with RN and infectious Disease specialist. Personally discussed case with patient's daughter. ____ SUBJECTIVE: Today the patient complains of generalized weakness and fatigue. She was unable to walk much with PT. OBJECTIVE: Physical Exam: General: The patient is an elderly female who is alert and in no acute distress. HEENT: normocephalic, extraocular movements intact, conjunctivae clear. Mucous membranes moist. Neck: trachea midline, no visible masses. Resp: unlabored effort. Harsh cough. Abd: soft and nondistended. Musculoskeletal: Reduced muscle tone/bulk. Neuro: cranial nerves II XII grossly intact. Intact gross motor and sensory function. Psych: Appropriate mood and appropriate affect. Skin: Mild pallor. Heme/lymph: No edema. Objective: Vital Signs Temp Pulse Resp BP Pulse Ox 36.6 C 91 18 130/69 H 96 06/27/16 12:14 06/27/16 12:14 06/27/16 12:14 06/27/16 12:14 06/27/16 12:14 Microbiology 06/19/16 16:05 Gram Stain - Final Other - [facility] Laboratory Results 06/26/16 05:00 06/27/16 06:05 06/26/16 06/27/16 06/28/16 05:59 05:59 05:59 Intake Total 400 1050 Output Total 300 301 475 Balance 100 749 -475 PT 13.7 SEC (12.0-15.0) 06/19/16 06:12 INR 1.06 (0.83-1.16) 06/19/16 06:12 ICD10 Worksheet Patient Problems: Problems Problem Status Onset Cough Acute Flank pain Acute Generalized weakness Acute Acute ischemic stroke Acute Back pain Acute Bronchitis Acute CLL (chronic lymphocytic leukemia) Acute Chronic Disease Mgmt/Transitional Care Acute Confusion Acute Cough Acute Cough Acute Diarrhea Acute Fatigue Acute Hydronephrosis Acute Hyperkalemia Acute MRSA (methicillin resistant Staphylococcus aureus) Acute 04/22/15 Multiple drug resistant organism (MDRO) culture positive Acute ~04/02/16 NSTEMI (non-ST elevated myocardial infarction) Acute Palliative care encounter Acute Pneumonia Acute Pneumonia Acute Pneumonia due to infectious organism Acute Pyelonephritis Acute Somnolence Acute Subdural bleeding Acute UTI (urinary tract infection) Acute UTI (urinary tract infection) Acute Urinary obstruction Acute Weakness Acute Weakness Acute
[2016-06-27] MEDS ORDERED: VANCOMYCIN 750 MG in D5W 150 ML IV SCH (16:30)
[2016-06-27] MEDS: ALBUTEROL 3 ML DEYVIAL IH PRN (16:31)
[2016-06-27] MEDS: VANCOMYCIN HCL/NORMAL SALINE 250 ML IV SCH (16:42)
[2016-06-27] MEDS ORDERED: NS 1,000 ML IV SCH (17:00)
[2016-06-27] MEDS: VANCOMYCIN 750 MG in D5W 150 ML IV SCH (17:18)
[2016-06-27] MEDS: oxyCODONE IR 5 MG TAB PO PRN (20:44)
[2016-06-27] MEDS: ASPIRIN 81 MG CHEWABLE TAB PO SCH (20:45)
[2016-06-27] MEDS: PATCH REMOVAL 1 EA PATCH TD SCH (21:02)
[2016-06-28] MEDS: guaiFENesin/CODEINE PHOS 10 ML UDCUP PO PRN (05:08)
[2016-06-28 06:06] LABS: ADD DIFF? YES; ADD MORPH? NO; ATYPICAL LYMPHOCYTE FLAG 0 (0-99); FRAGMENT RBC FLAG 0 (0-99); HEMATOCRIT 32.2 % (38.0-47.0); HEMOGLOBIN 9.8 g/dL (12.6-16.3); LIPEMIA HEMOLYSIS FLAG 80 (0-99); MEAN CELL HEMOGLOBIN 33.2 pg (27.9-34.1); MEAN CELL HEMOGLOBIN CONCENTR. 30.4 g/dL (32.4-36.7); MEAN CELL VOLUME 109.2 fL (81.5-99.8); PLATELET CLUMPS FLAG 0 (0-99); PLATELET COUNT 250 10^3/uL (150-400); RED BLOOD CELL COUNT 2.95 10^6/uL (4.18-5.33); RED CELL DISTRIBUTION WIDTH 15.9 % (11.5-15.2)
[2016-06-28 06:16] LABS: ADD SCAN? NO; LEFT SHIFT FLG 160 (0-99)
[2016-06-28] MEDS: ALBUTEROL 3 ML DEYVIAL IH PRN ×3 (06:21→15:27)
[2016-06-28 06:24] LABS: ANION GAP 10 mEq/L (8-16); CARBON DIOXIDE 21 mEq/l (22-31); CHLORIDE 106 mEq/L (97-110); CREATININE 1.4 mg/dL (0.6-1.0); GLOMERULAR FILTRATION RATE 35; GLUCOSE 79 mg/dL (70-100); POTASSIUM 5.1 mEq/L (3.5-5.2); SODIUM 137 mEq/L (134-144)
[2016-06-28 06:34] LABS: MACROCYTES 1+; PLATELET ESTIMATE ADEQUATE (ADEQ); POLYCHROMASIA 1+
[2016-06-28] MEDS: IPRATROPIUM/ALBUTEROL 3 ML DEYVIAL IH SCH ×2 (08:23→22:00)
[2016-06-28] MEDS: BUDESONIDE 0.5 MG/2 ML AMPUL.NEB IH SCH (08:23)
[2016-06-28] MEDS: BENZONATATE 100 MG CAP PO PRN (09:54)
[2016-06-28] MEDS: guaiFENesin 600 MG TAB.ER PO SCH ×2 (09:54→21:13)
[2016-06-28] MEDS: ALLOPURINOL 300 MG TAB PO SCH (11:00)
[2016-06-28] MEDS: FLUCONAZOLE 100 MG TAB PO SCH (11:00)
[2016-06-28] MEDS: ACETAMINOPHEN 500 MG TAB PO SCH ×3 (11:01→21:13)
[2016-06-28] MEDS: ENOXAPARIN 30 MG/0.3 ML SYR SC SCH (11:02)
[2016-06-28] MEDS: ACYCLOVIR 400 MG TAB PO SCH ×2 (11:02→21:13)
[2016-06-28] MEDS: PANTOPRAZOLE SODIUM 40 MG TAB PO SCH (11:02)
[2016-06-28] MEDS: POLYETHYLENE GLYCOL 3350 17 GM PKT PO SCH ×2 (11:04→11:05)
[2016-06-28] MEDS: FLUoxetine 20 MG CAP PO SCH (11:15)
--- NOTE | 2016-06-28 14:07 | HOSPPROG ---
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 The patient and her daughter report that she is more weak today that she has been in the last 2-3 days without specific other complaints. She denies having worsening shortness of breath, denies chest pain there is no nausea or vomiting , and no diarrhea. -Right flank pain, s/p nephrostomy replacement and stent removal. Nephrostomy tube is functioning well. -UTI - Corynebacterium, yeast non Albicans. Afebrile but now showing signs of rising creatinine and possible acute kidney injury. She is afebrile and without pain in the CVA region. 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 Today she seems more short of breath and her cough seems more severe although her oxygenation is at baseline. Plan to get a chest x-ray and assess further. The leukocytosis may be secondary to her CLL only. plan: Chest x-ray -Atrial fibrillation: Stable -CKD, unknown stage. this may be both acute and chronic. Her admission creatinine was 1.0 and today is 1.3. It is possible this is a drug effect of vancomycin in combination with Celebrex, which is in an SA ID medication. She is taking allopurinol, acyclovir, and fluoxetine which all can cause renal failure although it is extremely rare. If it is a drug effect it would be vancomycin and or the Celebrex. Plan: Stop the Celebrex and re-evaluate trough level of vancomycin. We will also watch her creatinine. Historically over the past 2 years she has been as low as 1.0 and his high as 1.7. -History of intracranial hemorrhage -Constipation: On bowel protocol -Generalized weakness/debility/deconditioning -continue with IV antimicrobials - fluconazole (started 06/23), vanco (started 06/22) - managed by infectious disease specialist -final sensitivity/species identification pending for yeast. Was sent on 06/25. -Urologist planning to place stents when infection resolves. Will need to be coordinated w/ input from ID. -continue with PT/OT -Encouraged patient to use ISU -daily SVN -p.r.n. bowel meds VTE prophylaxis: Lovenox Code Status: DNR Status: Inpatient Disposition: Oncology unit-Med surge. Awaiting eventual ureteral stent placement, after UTI has resolved. Subjective: reports she is weaker today. Cough is no worse and her shortness of breath is at baseline. No abdominal pain nausea or vomiting Objective: Vital Signs Temp Pulse Resp BP Pulse Ox 36.6 C 91 18 114/54 L 94 06/28/16 12:15 06/28/16 12:15 06/28/16 12:15 06/28/16 12:15 06/28/16 12:15 Microbiology 06/19/16 16:05 Gram Stain - Final Other - [facility] Laboratory Results 06/28/16 05:50 06/28/16 05:50 06/27/16 06/28/16 06/29/16 05:59 05:59 05:59 Intake Total 1050 750 Output Total 301 735 Balance 749 15 PT 13.7 SEC (12.0-15.0) 06/19/16 06:12 INR 1.06 (0.83-1.16) 06/19/16 06:12 Laboratory Tests 06/19/16 06/22/16 06/26/16 06:12 04:22 05:00 WBC 6.63 Hgb 8.7 L Creatinine 1.0 1.3 H 06/27/16 06/28/16 06/28/16 06:05 05:50 05:50 WBC 12.49 H Hgb 9.8 L Creatinine 1.3 H 1.4 H Microbiology 06/19/16 16:05 Other - [facility] Gram Stain - Final 06/19/16 16:05 Other - [facility] Anaerobic Culture - Preliminary Corynebacterium Urealyticum Corynebacterium Striatum Yeast, Not Cherelle Albicans Aerococcus Urinae 06/19/16 01:53 Urine,Clean Catch Urine Culture - Preliminary Yeast, Not Cherelle Albicans Three [place] Types - Time Spent With Patient Time Spent with Patient: greater than 35 minutes Time Spent with Patient: Greater than 35 minutes spent on this patients care, greater than 50% of time spent counseling, educating, and coordinating care regarding the above mentioned plan. - Pending Discharge Pending Discharge Within 24 Hours: No Pending Discharge Within 48 Hours: No - Physical Exam Constitutional: chronically ill appearing, cachectic Eyes: PERRL, anicteric sclera Ears, Nose, Mouth, Throat: moist mucous membranes, hearing normal Cardiovascular: irregularly irregular Respiratory: reduced air movement, inspiratory crackles, bronchial breath sounds , rhonchi Gastrointestinal: normoactive bowel sounds, soft, non-tender abdomen, no palpable masses Skin: other ( pale appearance though the skin is warm) Musculoskeletal: generalized weakness Neurologic: AAOx3, CN II-XII Intact Psychiatric: interacting appropriately ICD10 Worksheet Patient Problems: Problems Problem Status Onset Weakness Acute Cough Acute Hyperkalemia Acute Palliative care encounter Acute Back pain Acute Confusion Acute Generalized weakness Acute Cough Acute Flank pain Acute Multiple drug resistant organism (MDRO) culture positive Acute ~04/02/16 Fatigue Acute MRSA (methicillin resistant Staphylococcus aureus) Acute 04/22/15 Pneumonia Acute Chronic Disease Mgmt/Transitional Care Acute Diarrhea Acute CLL (chronic lymphocytic leukemia) Acute Cough Acute Weakness Acute Bronchitis Acute Acute ischemic stroke Acute Subdural bleeding Acute Hydronephrosis Acute Pneumonia due to infectious organism Acute Urinary obstruction Acute UTI (urinary tract infection) Acute NSTEMI (non-ST elevated myocardial infarction) Acute Somnolence Acute Pneumonia Acute Pyelonephritis Acute UTI (urinary tract infection) Acute
[2016-06-28] MEDS ORDERED: NS W/ 20 KCl/L 1,000 ML IV SCH (14:15)
[2016-06-28] MEDS: VANCOMYCIN 750 MG in D5W 150 ML IV SCH ×2 (16:59→17:02)
--- NOTE | 2016-06-28 17:32 | PCMIDPN ---
Assessment/Plan: Assessment/Plan: * Recurrent right ureteral obstruction status post percutaneous nephrostomy with nephrostomy cultures growing Corynebacterium striatum and urealyticum and Cherelle. Worsening right flank pain over last 2 days. Will repeat ultrasound to ensure no recurrent obstructive findings. Continue vancomycin and fluconazole pending yeast identification and susceptibility. * Renal insufficiency: Creatinine at 1.4. Will repeat vancomycin level prior to dosing today to ensure not accumulating. Ultrasound as outlined above. 06/28/16 17:29 Subjective: Patient complains of increasing right flank pain and weakness. Objective: Vital Signs Temp Pulse Resp BP Pulse Ox 37.0 C 88 20 130/71 H 98 06/28/16 15:51 06/28/16 15:51 06/28/16 15:51 06/28/16 15:51 06/28/16 15:51 Microbiology 06/19/16 16:05 Gram Stain - Final Other - [facility] Laboratory Results 06/28/16 05:50 06/28/16 05:50 06/27/16 06/28/16 06/29/16 05:59 05:59 05:59 Intake Total 1050 750 Output Total 301 735 250 Balance 749 15 -250 Vancomycin # 7 Fluconazole # 6 Laboratory Tests 06/27/16 14:56 Vancomycin Trough 16.0 - Physical Exam General Appearance: alert, no apparent distress, non-toxic EENT: No scleral icterus Cardiac/Chest: regular rate, rhythm Abdomen: tender (Mild right upper quadrant discomfort), No distended Back: other ( mild right-sided CVA tenderness) ICD10 Worksheet Patient Problems: Problems Problem Status Onset Cough Acute Flank pain Acute Generalized weakness Acute Acute ischemic stroke Acute Back pain Acute Bronchitis Acute CLL (chronic lymphocytic leukemia) Acute Chronic Disease Mgmt/Transitional Care Acute Confusion Acute Cough Acute Cough Acute Diarrhea Acute Fatigue Acute Hydronephrosis Acute Hyperkalemia Acute MRSA (methicillin resistant Staphylococcus aureus) Acute 04/22/15 Multiple drug resistant organism (MDRO) culture positive Acute ~04/02/16 NSTEMI (non-ST elevated myocardial infarction) Acute Palliative care encounter Acute Pneumonia Acute Pneumonia Acute Pneumonia due to infectious organism Acute Pyelonephritis Acute Somnolence Acute Subdural bleeding Acute UTI (urinary tract infection) Acute UTI (urinary tract infection) Acute Urinary obstruction Acute Weakness Acute Weakness Acute
[2016-06-28] MEDS: ASPIRIN 81 MG CHEWABLE TAB PO SCH (21:13)
[2016-06-29] MEDS: BUDESONIDE 0.5 MG/2 ML AMPUL.NEB IH SCH ×3 (00:57→20:55)
[2016-06-29] MEDS: PATCH REMOVAL 1 EA PATCH TD SCH ×2 (00:57→19:24)
[2016-06-29] MEDS: guaiFENesin/CODEINE PHOS 10 ML UDCUP PO PRN ×3 (03:14→21:22)
[2016-06-29] MEDS: BENZONATATE 100 MG CAP PO PRN ×2 (04:00→09:15)
[2016-06-29 04:06] LABS: ADD DIFF? YES; ADD MORPH? NO; ATYPICAL LYMPHOCYTE FLAG 0 (0-99); FRAGMENT RBC FLAG 0 (0-99); LIPEMIA HEMOLYSIS FLAG 80 (0-99); MEAN CELL HEMOGLOBIN 33.6 pg (27.9-34.1); MEAN CELL VOLUME 108.2 fL (81.5-99.8); MEAN PLATELET VOLUME 10.3 fL (8.7-11.7); PLATELET CLUMPS FLAG 10 (0-99); PLATELET COUNT 239 10^3/uL (150-400); RED BLOOD CELL COUNT 2.68 10^6/uL (4.18-5.33); RED CELL DISTRIBUTION WIDTH 16.1 % (11.5-15.2)
[2016-06-29 04:07] LABS: ADD SCAN? NO; LEFT SHIFT FLG 300 (0-99)
[2016-06-29 04:30] LABS: ANION GAP 8 mEq/L (8-16); CALCIUM 9.7 mg/dL (8.5-10.4); CARBON DIOXIDE 21 mEq/l (22-31); CHLORIDE 109 mEq/L (97-110); CREATININE 1.4 mg/dL (0.6-1.0); GLOMERULAR FILTRATION RATE 35; GLUCOSE 67 mg/dL (70-100); POTASSIUM 6.1 mEq/L (3.5-5.2); SODIUM 138 mEq/L (134-144)
[2016-06-29 04:57] LABS: MACROCYTES 1+; PLATELET ESTIMATE ADEQUATE (ADEQ); TOXIC VACUOLIZATION PRESENT
--- NOTE | 2016-06-29 07:53 | HOSPPROG ---
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 The patient and her daughter report that she is more weak today that she has been in the last 2-3 days without specific other complaints. She denies having worsening shortness of breath, denies chest pain there is no nausea or vomiting , and no diarrhea. -Right flank pain, s/p nephrostomy replacement and stent removal. Nephrostomy tube is functioning well. Ultrasound yesterday showed no signs of obstruction. -UTI - Corynebacterium, yeast non Albicans. Afebrile but now showing signs of rising creatinine and possible acute kidney injury. She is afebrile and without pain in the CVA region. East has been speciation it and it is Azole sensitive and will continue Diflucan. 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 Today she seems more short of breath and her cough seems more severe although her oxygenation is at baseline. Chest x-ray showed consolidation of the right lower lobe. I reviewed the CT scans over the past year. She has been developing a right lower lobe consolidation persistently since August of 2015. Bronchoscopy was performed in November 2015. Since November her chemotherapeutic regiment which changed and her lymphocytes have declined. Despite that finding now her white count is rising with a bandemia. This would represent a probability of a pneumonia on top of the probable lymphocytic infiltrate in the right lower lobe. Discuss the matter with ID and will start cefepime for Hap coverage. Plan: Oncology and pulmonology consultation; CT scans without contrast of the chest abdomen and pelvis. -new problem hyperkalemia. A repeat the BMP and of the potassium is still elevated will give D50 plus insulin. She is already receiving four times daily nebulization treatments with albuterol. -Atrial fibrillation: Stable -CKD, unknown stage. this may be both acute and chronic. Her admission creatinine was 1.0 and today is 1.3. It is possible this is a drug effect of vancomycin in combination with Celebrex, which is in an ID medication. She is taking allopurinol, acyclovir, and fluoxetine which all can cause renal failure although it is extremely rare. If it is a drug effect it would be vancomycin and or the Celebrex. Plan: Stop the Celebrex and re-evaluate trough level of vancomycin. We will also watch her creatinine. Historically over the past 2 years she has been as low as 1.0 and his high as 1.7. Vancomycin level is declining and is acceptable to ID. -History of intracranial hemorrhage -Constipation: On bowel protocol -Generalized weakness/debility/deconditioning -continue with IV antimicrobials - fluconazole (started 06/23), vanco (started 06/22) - managed by infectious disease specialist -start cefepime for Hap coverage -final sensitivity/species identification pending for yeast. Was sent on 06/25. -Urologist planning to place stents when infection resolves. Id is thinking approximately 2 weeks of antibiotic coverage before stent placement. -continue with PT/OT -Encouraged patient to use ISU -daily SVN -p.r.n. bowel meds VTE prophylaxis: Lovenox Code Status: DNR Status: Inpatient Disposition: Oncology unit-[facility] surge. Awaiting eventual ureteral stent placement, after UTI has resolved. Discuss the matter with the daughter and with ID in the presence of the patient. Time approximately 45 minutes Subjective: Patient complaining of right-sided chest pain possibly pleuritic she has a cough which is nonproductive. No nausea vomiting or abdominal pain. She also complains of right to left-sided back pain in the CVA region. Objective: Vital Signs Temp Pulse Resp BP Pulse Ox 36.8 C 87 16 137/62 H 90 L 06/29/16 03:43 06/29/16 03:43 06/29/16 03:43 06/29/16 03:43 06/29/16 03:43 Microbiology 06/19/16 16:05 Gram Stain - Final Other - Aspirate Laboratory Results 06/29/16 03:45 06/29/16 03:45 06/28/16 06/29/16 06/30/16 05:59 05:59 05:59 Intake Total 750 1250 Output Total 735 500 Balance 15 750 PT 13.7 SEC (12.0-15.0) 06/19/16 06:12 INR 1.06 (0.83-1.16) 06/19/16 06:12 Laboratory Tests 06/22/16 06/28/16 06/29/16 04:22 05:50 03:45 WBC 7.33 12.49 H 18.45 H Hgb 9.9 L 9.0 L Potassium BUN Creatinine 06/29/16 03:45 WBC Hgb Potassium 6.1 H BUN 30 H Creatinine 1.4 H Renal function still unchanged despite fluids, hyperkalemia noted, WBC rising with bandemia - Time Spent With Patient Time Spent with Patient: greater than 35 minutes Time Spent with Patient: Greater than 35 minutes spent on this patients care, greater than 50% of time spent counseling, educating, and coordinating care regarding the above mentioned plan. - Pending Discharge Pending Discharge Within 24 Hours: No Pending Discharge Within 48 Hours: No - Physical Exam Constitutional: chronically ill appearing, cachectic Eyes: PERRL, anicteric sclera Ears, Nose, Mouth, Throat: dry mucous membranes Cardiovascular: regular rate and rhythym, no murmur, rub, or gallop Respiratory: reduced air movement, inspiratory crackles, bronchial breath sounds , aegophony, rhonchi Gastrointestinal: normoactive bowel sounds, soft, non-tender abdomen, other ( CVA is reported to be tender but there is no signs of trauma.) Genitourinary: no bladder fullness Skin: warm Musculoskeletal: generalized weakness Neurologic: AAOx3, CN II-XII Intact Psychiatric: interacting appropriately, other (Appears uncomfortable and in pain.) ICD10 Worksheet Patient Problems: Problems Problem Status Onset Cough Acute Flank pain Acute Generalized weakness Acute Acute ischemic stroke Acute Back pain Acute Bronchitis Acute CLL (chronic lymphocytic leukemia) Acute Chronic Disease Mgmt/Transitional Care Acute Confusion Acute Cough Acute Cough Acute Diarrhea Acute Fatigue Acute Hydronephrosis Acute Hyperkalemia Acute MRSA (methicillin resistant Staphylococcus aureus) Acute 04/22/15 Multiple drug resistant organism (MDRO) culture positive Acute ~04/02/16 NSTEMI (non-ST elevated myocardial infarction) Acute Palliative care encounter Acute Pneumonia Acute Pneumonia Acute Pneumonia due to infectious organism Acute Pyelonephritis Acute Somnolence Acute Subdural bleeding Acute UTI (urinary tract infection) Acute UTI (urinary tract infection) Acute Urinary obstruction Acute Weakness Acute Weakness Acute
[2016-06-29] MEDS ORDERED: SODIUM POLY SULF 15 GM/60 ML BOTTLE PO ONE (07:59)
[2016-06-29] MEDS: IPRATROPIUM/ALBUTEROL 3 ML DEYVIAL IH SCH ×2 (08:37→20:55)
[2016-06-29] MEDS: PANTOPRAZOLE SODIUM 40 MG TAB PO SCH (09:15)
[2016-06-29] MEDS: FLUoxetine 20 MG CAP PO SCH (09:15)
[2016-06-29] MEDS: guaiFENesin 600 MG TAB.ER PO SCH ×2 (09:15→21:22)
[2016-06-29] MEDS: ALLOPURINOL 300 MG TAB PO SCH (09:16)
[2016-06-29] MEDS: ACETAMINOPHEN 500 MG TAB PO SCH ×3 (09:16→21:22)
[2016-06-29] MEDS: ACYCLOVIR 400 MG TAB PO SCH ×2 (09:16→21:22)
[2016-06-29] MEDS: FLUCONAZOLE 100 MG TAB PO SCH (09:16)
[2016-06-29] MEDS: POLYETHYLENE GLYCOL 3350 17 GM PKT PO SCH (09:17)
[2016-06-29] MEDS: ENOXAPARIN 30 MG/0.3 ML SYR SC SCH (09:17)
[2016-06-29] MEDS: oxyCODONE IR 5 MG TAB PO PRN ×2 (12:21→21:22)
--- NOTE | 2016-06-29 13:34 | WOCRNPDOC ---
WOCRN Advanced Assessment Note - Skin Integrity Problem, Advanced Assess Right Flank Nephrostomy Site Dressing Type: Gauze, Tegaderm Film Site Measurement - Head-to-Toe Length X Width X Depth (cm): 0.6x1.3x0.1 Skin Integrity Problem Comment: Small partial thickness skin tear at under tegaderm that was used to secure nephrostomy tubing. Stat lock's that wound care has are only able to be used on 12-22 vietnamese, and patient has an 8. Advised placing sterile drain sponge under nephrostomy tube before securing dressing. Always use skin prep before placing dressing as well. Patient has multiple areas of skin cancer throughout body. Has Remedy cream from home that works well for topical relief. Please reconsult prn.
[2016-06-29] MEDS: ALBUTEROL 3 ML DEYVIAL IH PRN (14:46)
--- NOTE | 2016-06-29 17:13 | PCMIDPN ---
Assessment/Plan: Assessment/Plan: * Recurrent right ureteral obstruction status post percutaneous nephrostomy with nephrostomy cultures growing Corynebacterium striatum and urealyticum and Cherelle lusitaniae which is fluconazole susceptible. Persistent right flank pain which is worse today. Ultrasound with out evidence of recurrent hydronephrosis or perinephric fluid. Will proceed with noncontrast CT scan of abdomen and pelvis to further evaluate. * Renal insufficiency: Creatinine stable at 1.4. Will adjust vancomycin to 500 mg IV Q 24 hours as suspect 750 mg IV Q 24 hours will begin to accumulate further * Leukocytosis: Progressive increase in white blood cell count with bandemia. No excessive lymphocytes noted as would be expected with CLL. Reviewed with Dr. Torres and agree with further evaluation for pneumonia including CT scan of chest in the setting of persistent cough. Will begin add empiric cefepime after obtaining blood cultures. Time spent, 30 minutes, of which greater than half was spent in education/ counseling/coordination of care related to problems outlined above in the assessment and plan. 06/28/16 17:29 06/29/16 17:15 06/29/16 17:17 Subjective: Patient complains of worsening right flank pain which now is also present on the left. Continues to have significant cough which is unrelieved by antitussives. Notes diarrhea today after having constipation yesterday. Objective: Vital Signs Temp Pulse Resp BP Pulse Ox 36.4 C 99 18 124/61 H 94 06/29/16 16:00 06/29/16 16:00 06/29/16 16:00 06/29/16 16:00 06/29/16 16:00 Microbiology 06/19/16 16:05 Gram Stain - Final Other - Aspirate Laboratory Results 06/29/16 03:45 06/29/16 03:45 06/28/16 06/29/16 06/30/16 05:59 05:59 05:59 Intake Total 750 1250 Output Total 735 500 Balance 15 750 Vancomycin #8 Fluconazole #7 Ultrasound without evidence of hydronephrosis or perinephric fluid collection - Physical Exam General Appearance: alert, other (Episodic paroxysm of cough and right flank pain) EENT: No scleral icterus ICD10 Worksheet Patient Problems: Problems Problem Status Onset Cough Acute Flank pain Acute Generalized weakness Acute Acute ischemic stroke Acute Back pain Acute Bronchitis Acute CLL (chronic lymphocytic leukemia) Acute Chronic Disease Mgmt/Transitional Care Acute Confusion Acute Cough Acute Cough Acute Diarrhea Acute Fatigue Acute Hydronephrosis Acute Hyperkalemia Acute MRSA (methicillin resistant Staphylococcus aureus) Acute 04/22/15 Multiple drug resistant organism (MDRO) culture positive Acute ~04/02/16 NSTEMI (non-ST elevated myocardial infarction) Acute Palliative care encounter Acute Pneumonia Acute Pneumonia Acute Pneumonia due to infectious organism Acute Pyelonephritis Acute Somnolence Acute Subdural bleeding Acute UTI (urinary tract infection) Acute UTI (urinary tract infection) Acute Urinary obstruction Acute Weakness Acute Weakness Acute
[2016-06-29] MEDS: VANCOMYCIN 500 MG in D5W 100 ML IV SCH (17:23)
[2016-06-29 17:36] LABS: ANION GAP 9 mEq/L (8-16); CALCIUM 9.1 mg/dL (8.5-10.4); CARBON DIOXIDE 19 mEq/l (22-31); CHLORIDE 107 mEq/L (97-110); CREATININE 1.4 mg/dL (0.6-1.0); GLOMERULAR FILTRATION RATE 35; GLUCOSE 103 mg/dL (70-100); SODIUM 135 mEq/L (134-144)
[2016-06-29] MEDS: ASPIRIN 81 MG CHEWABLE TAB PO SCH (21:22)
[2016-06-29] MEDS: CEFEPIME HCL 1 GM in D5W 50 ML IV SCH (21:22)
[2016-06-30] MEDS: BENZONATATE 100 MG CAP PO PRN ×2 (05:04→10:06)
[2016-06-30 05:30] LABS: ADD DIFF? YES; ADD MORPH? NO; ATYPICAL LYMPHOCYTE FLAG 0 (0-99); FRAGMENT RBC FLAG 0 (0-99); HEMATOCRIT 26.7 % (38.0-47.0); HEMOGLOBIN 8.3 g/dL (12.6-16.3); LIPEMIA HEMOLYSIS FLAG 80 (0-99); MEAN CELL HEMOGLOBIN 33.5 pg (27.9-34.1); MEAN CELL HEMOGLOBIN CONCENTR. 31.1 g/dL (32.4-36.7); MEAN CELL VOLUME 107.7 fL (81.5-99.8); MEAN PLATELET VOLUME 10.1 fL (8.7-11.7); PLATELET CLUMPS FLAG 30 (0-99); PLATELET COUNT 206 10^3/uL (150-400); RED BLOOD CELL COUNT 2.48 10^6/uL (4.18-5.33); RED CELL DISTRIBUTION WIDTH 16.1 % (11.5-15.2)
[2016-06-30 05:42] LABS: ALANINE AMINOTRANSFERASE 32 IU/L (9-52); ALBUMIN 2.3 g/dL (3.5-5.0); ALKALINE PHOSPHATASE 101 IU/L (38-126); ANION GAP 8 mEq/L (8-16); ASPARTATE AMINOTRANSFERASE 21 IU/L (14-46); BILIRUBIN,TOTAL 0.3 mg/dL (0.1-1.4); BILIRUBIN-CONJUGATED 0.3 mg/dL (0.0-0.5); CALCIUM 9.3 mg/dL (8.5-10.4); CARBON DIOXIDE 19 mEq/l (22-31); CHLORIDE 110 mEq/L (97-110); CREATININE 1.5 mg/dL (0.6-1.0); GLOMERULAR FILTRATION RATE 33; GLUCOSE 72 mg/dL (70-100); POTASSIUM 4.9 mEq/L (3.5-5.2); SODIUM 137 mEq/L (134-144); TOTAL PROTEIN 4.5 g/dL (6.3-8.2)
[2016-06-30 06:08] LABS: ADD SCAN? NO; LEFT SHIFT FLG 300 (0-99)
[2016-06-30 07:33] LABS: MACROCYTES 1+; PLATELET ESTIMATE ADEQUATE (ADEQ); POLYCHROMASIA 1+
[2016-06-30] MEDS: guaiFENesin/CODEINE PHOS 10 ML UDCUP PO PRN ×3 (08:31→18:27)
[2016-06-30] MEDS: ENOXAPARIN 30 MG/0.3 ML SYR SC SCH (08:34)
[2016-06-30] MEDS: CEFEPIME HCL 1 GM in D5W 50 ML IV SCH ×2 (08:40→21:45)
[2016-06-30] MEDS: ACYCLOVIR 400 MG TAB PO SCH ×2 (08:42→21:43)
[2016-06-30] MEDS: ACETAMINOPHEN 500 MG TAB PO SCH ×3 (08:42→21:43)
[2016-06-30] MEDS: guaiFENesin 600 MG TAB.ER PO SCH ×2 (08:43→21:43)
[2016-06-30] MEDS: FLUCONAZOLE 100 MG TAB PO SCH (08:43)
[2016-06-30] MEDS: ALLOPURINOL 300 MG TAB PO SCH (08:43)
[2016-06-30] MEDS: PANTOPRAZOLE SODIUM 40 MG TAB PO SCH (08:43)
[2016-06-30] MEDS: FLUoxetine 20 MG CAP PO SCH (08:43)
[2016-06-30] MEDS: BUDESONIDE 0.5 MG/2 ML AMPUL.NEB IH SCH ×2 (09:26→21:15)
[2016-06-30] MEDS: IPRATROPIUM/ALBUTEROL 3 ML DEYVIAL IH SCH ×2 (09:26→21:15)
--- NOTE | 2016-06-30 13:06 | GCON ---
[ rep ] CONSULTATION INPATIENT ONCOLOGY CONSULTATION DATE OF CONSULTATION: 06/30/2016 REFERRING PHYSICIAN: Brian Torres Jr., MD Outpatient oncologist is Dr. Allen Calle. REASON FOR CONSULTATION: Pneumonia in a patient with chronic lymphocytic leukemia. HISTORY OF PRESENT ILLNESS: This patient is an 86-year-old woman with a history of chronic lymphocytic leukemia. She has received a number of treatments in the past years. She received fludarabine, Cytoxan and Rituxan in 2011. Her disease recurred in June 2015, and she was treated with ibrutinib, but this was stopped due to atrial fibrillation. She then received obinutuzumab from the end of November until May 25, 2016. This actually resulted in a complete response and therapy was stopped after 6 months, as planned. She has had numerous problems with right ureteral obstruction due to extrinsic compression. She has had multiple stents placed. She was finally admitted again for the same problem on June 19, 2016. Dr. Corona, her urologist, recommended placement of a percutaneous nephrostomy tube, which was done. Since then, she has remained ill in the hospital. A CT scan of the chest today shows progressive bilateral lower lobe pneumonia. She has had a chronic cough for over a year, but it has gotten worse recently. She is currently receiving Bactrim prophylaxis, vancomycin, fluconazole and cefepime. PAST MEDICAL HISTORY: 1. Chronic lymphocytic leukemia, as described above. 2. Right ureteral obstruction, as described above. 3. Atrial fibrillation. CURRENT MEDICATIONS: Include acyclovir, cefepime, fluconazole, vancomycin, Bactrim twice weekly, Protonix, oxycodone, Lidoderm patch, Prozac, allopurinol and nebulizers. ALLERGIES: She has no known drug allergies. FAMILY HISTORY: Noncontributory. SOCIAL HISTORY: She lives with her daughter. She does not smoke cigarettes or drink alcohol. REVIEW OF SYSTEMS: Aside from pertinent positives in the HPI, a 14-point review of systems was negative. PHYSICAL EXAMINATION: VITAL SIGNS: Temperature is 37.1, blood pressure 122/57 , heart rate 76, oxygen saturation 95% on 4 L. GENERAL: She is an elderly woman in no acute distress, coughing frequently. LUNGS: Notable for crackles bilaterally at the bases. CARDIAC: Regular rate and rhythm. No murmurs, gallops, or rubs. ABDOMEN: Normoactive bowel sounds, nontender. EXTREMITIES: Without edema. 2+ pulses. NEUROLOGIC: She is alert and oriented x3. LABORATORY DATA: White count 15.58, 63% neutrophils, 24% bands, 4% lymphocytes , hemoglobin 8.3, platelets of 206. Sodium 137, potassium 4.9, chloride 110, bicarb 19, BUN 32, creatinine 1.5. Liver function tests are normal. IMPRESSION: This is an 86-year-old woman with a longstanding history of chronic lymphocytic leukemia status post multiple immunosuppressive therapies. She now appears to have bilateral pneumonia. She does not appear to be responding to empiric antibiotics. RECOMMENDATIONS: Her chronic lymphocytic leukemia appears to be in remission and no therapy for that is indicated. She is highly immunosuppressed and needs evaluation for opportunistic infections, including fungal forms and Pneumocystis. She is going to be seen by a associate professor of biostatistics this afternoon for consideration of bronchoscopy, which I agree with. Infectious Disease is also following closely. At this time, there are no recommendations for additional antineoplastic therapy and she should proceed with a comprehensive Infectious Disease workup, as you are doing. I will continue to follow the patient with you while she is in the hospital. /[id number]/MODL MTDD
--- NOTE | 2016-06-30 13:35 | PCMIDPN ---
Assessment/Plan: Assessment: Right ureteral obstruction with nephrostomy tube placed. Urine from the nephrostomy tube with evidence of infection. Corynebacterium, yeast and aerococcus are all in culture. Patient is currently being covered with vancomycin and p.o. fluconazole. New slowly worsening multifocal lung infection. Covered with cefepime empirically. No respiratory specimens as of yet. Plan: 1. Continue IV vancomycin and p.o. fluconazole. 2. Follow clinical course. 3. Follow respiratory status. Subjective: Patient is resting in her hospital bed. States that she feels poorly. Notable cough. Objective: Vancomycin # 9 Fluconazole # 8 Cefepime # 2 Vital Signs Temp Pulse Resp BP Pulse Ox 36.8 C 88 16 114/63 96 06/30/16 12:00 06/30/16 12:00 06/30/16 12:00 06/30/16 12:00 06/30/16 12:00 Microbiology 06/19/16 16:05 Gram Stain - Final Other - Aspirate Anaerobic Culture - Final Corynebacterium Urealyticum Corynebacterium Striatum Cherelle Lusitaniae Aerococcus Urinae Laboratory Results 06/30/16 05:15 06/30/16 05:15 06/29/16 06/30/16 07/01/16 05:59 05:59 05:59 Intake Total 1250 1690 Output Total 500 100 Balance 750 1590 - Physical Exam General Appearance: WD/WN, alert, no apparent distress, toxic (Mildly toxic in respiratory standpoint) Respiratory: crackles, No lungs clear, No normal breath sounds, No wheezing Cardiac/Chest: regular rate, rhythm, No tachycardia Skin: normal color, warm/dry, No rash ICD10 Worksheet Patient Problems: Problems Problem Status Onset Cough Acute Flank pain Acute Generalized weakness Acute Acute ischemic stroke Acute Back pain Acute Bronchitis Acute CLL (chronic lymphocytic leukemia) Acute Chronic Disease Mgmt/Transitional Care Acute Confusion Acute Cough Acute Cough Acute Diarrhea Acute Fatigue Acute Hydronephrosis Acute Hyperkalemia Acute MRSA (methicillin resistant Staphylococcus aureus) Acute 04/22/15 Multiple drug resistant organism (MDRO) culture positive Acute ~04/02/16 NSTEMI (non-ST elevated myocardial infarction) Acute Palliative care encounter Acute Pneumonia Acute Pneumonia Acute Pneumonia due to infectious organism Acute Pyelonephritis Acute Somnolence Acute Subdural bleeding Acute UTI (urinary tract infection) Acute UTI (urinary tract infection) Acute Urinary obstruction Acute Weakness Acute Weakness Acute
[2016-06-30] MEDS: CEPACOL LOZENGE PO PRN ×2 (13:43→16:40)
--- NOTE | 2016-06-30 15:04 | HOSPPROG ---
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 Patient continues have worsening cough and hoarseness. -Right flank pain, s/p nephrostomy replacement and stent removal. Nephrostomy tube is functioning well. Ultrasound yesterday showed no signs of obstruction. -UTI - Corynebacterium, yeast non Albicans. Afebrile but now showing signs of rising creatinine and possible acute kidney injury. She is afebrile and without pain in the CVA region. East has been speciation it and it is Azole sensitive and will continue Diflucan. 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 Today she seems more short of breath and her cough seems more severe although her oxygenation is at baseline. Chest x-ray showed consolidation of the right lower lobe. I reviewed the CT scans over the past year. She has been developing a right lower lobe consolidation persistently since August of 2015. Bronchoscopy was performed in November 2015. Since November her chemotherapeutic regiment which changed and her lymphocytes have declined. Despite that finding now her white count is rising with a bandemia. This would represent a probability of a pneumonia on top of the probable lymphocytic infiltrate in the right lower lobe. Discuss the matter with ID and will start cefepime for Hap coverage. CT scans of the chest abdomen and pelvis were reviewed by myself on the and with Radiology Plan: Oncology and pulmonology consultation; possible bronchoscopy for mucous plugging. The plan and case have been discussed with Dr. Corby campbell for pulmonary and intensive Care Medicine. -new problem hyperkalemia. Resolved -Atrial fibrillation: Stable -CKD, unknown stage. this may be both acute and chronic. Her admission creatinine was 1.0 and today is 1.5. the rise today is possibly secondary to contrast dye given during the CT scans. The vancomycin dose is being watched and the Celebrex was stopped. -History of intracranial hemorrhage -Constipation: On bowel protocol -Generalized weakness/debility/deconditioning -continue with IV antimicrobials - fluconazole (started 06/23), vanco (started 06/22) - managed by infectious disease specialist - Possible bronchoscopy for mucous plugging. -start cefepime for Hap coverage -final sensitivity/species identification pending for yeast. Was sent on 06/25. -Urologist planning to place stents when infection resolves. Id is thinking approximately 2 weeks of antibiotic coverage before stent placement. -continue with PT/OT -Encouraged patient to use ISU -daily SVN -p.r.n. bowel meds VTE prophylaxis: Lovenox Code Status: DNR Status: Inpatient Disposition: Oncology unit-[facility] surge. Awaiting eventual ureteral stent placement, after UTI has resolved. Discuss the matter with the daughter and with ID in the presence of the patient. Time approximately 45 minutes Subjective: Coughing and appears in some distress when talking. She appears weak. Complaint of right-sided chest pain when taking a deep breath no anterior chest pain abdominal pain nausea or vomiting. Objective: Vital Signs Temp Pulse Resp BP Pulse Ox 36.8 C 88 16 114/63 96 06/30/16 12:00 06/30/16 12:00 06/30/16 12:00 06/30/16 12:00 06/30/16 12:00 Microbiology 06/19/16 16:05 Gram Stain - Final Other - Aspirate Anaerobic Culture - Final Corynebacterium Urealyticum Corynebacterium Striatum Cherelle Lusitaniae Aerococcus Urinae Laboratory Results 06/30/16 05:15 06/30/16 05:15 06/29/16 06/30/16 07/01/16 05:59 05:59 05:59 Intake Total 1250 1690 Output Total 500 100 Balance 750 1590 PT 13.7 SEC (12.0-15.0) 06/19/16 06:12 INR 1.06 (0.83-1.16) 06/19/16 06:12 - Time Spent With Patient Time Spent with Patient: greater than 35 minutes Time Spent with Patient: Greater than 35 minutes spent on this patients care, greater than 50% of time spent counseling, educating, and coordinating care regarding the above mentioned plan. - Pending Discharge Pending Discharge Within 24 Hours: No Pending Discharge Within 48 Hours: No - Physical Exam Constitutional: chronically ill appearing, other ( Minor respiratory distress) Eyes: PERRL Ears, Nose, Mouth, Throat: hearing normal, dry mucous membranes, other ( patient is hoarse and when talking develops significant coughing) Cardiovascular: regular rate and rhythym, no murmur, rub, or gallop Respiratory: reduced air movement, inspiratory crackles, bronchial breath sounds , aegophony, dullness to percussion, rhonchi Gastrointestinal: normoactive bowel sounds, soft, non-tender abdomen, other ( right nephrostomy tube in place and functioning well) Genitourinary: no bladder fullness Skin: other ( pale appearance overall without a rash skin in general is dry) Musculoskeletal: generalized weakness Neurologic: AAOx3, CN II-XII Intact ICD10 Worksheet Patient Problems: Problems Problem Status Onset Weakness Acute Cough Acute Hyperkalemia Acute Palliative care encounter Acute Back pain Acute Confusion Acute Generalized weakness Acute Cough Acute Flank pain Acute Multiple drug resistant organism (MDRO) culture positive Acute ~04/02/16 Fatigue Acute MRSA (methicillin resistant Staphylococcus aureus) Acute 04/22/15 Pneumonia Acute Chronic Disease Mgmt/Transitional Care Acute Diarrhea Acute CLL (chronic lymphocytic leukemia) Acute Cough Acute Weakness Acute Bronchitis Acute Acute ischemic stroke Acute Subdural bleeding Acute Hydronephrosis Acute Pneumonia due to infectious organism Acute Urinary obstruction Acute UTI (urinary tract infection) Acute NSTEMI (non-ST elevated myocardial infarction) Acute Somnolence Acute Pneumonia Acute Pyelonephritis Acute UTI (urinary tract infection) Acute
[2016-06-30] MEDS ORDERED: CEPACOL LOZENGE PO PRN (15:28)
[2016-06-30] MEDS: POLYETHYLENE GLYCOL 3350 17 GM PKT PO SCH (16:40)
[2016-06-30] MEDS: VANCOMYCIN 500 MG in D5W 100 ML IV SCH (16:40)
[2016-06-30] MEDS: ASPIRIN 81 MG CHEWABLE TAB PO SCH (21:43)
[2016-06-30] MEDS: PATCH REMOVAL 1 EA PATCH TD SCH (22:59)
[2016-07-01 06:01] LABS: ADD DIFF? YES; ADD MORPH? NO; ATYPICAL LYMPHOCYTE FLAG 0 (0-99); FRAGMENT RBC FLAG 10 (0-99); HEMATOCRIT 25.6 % (38.0-47.0); HEMOGLOBIN 7.8 g/dL (12.6-16.3); LIPEMIA HEMOLYSIS FLAG 80 (0-99); MEAN CELL HEMOGLOBIN 33.5 pg (27.9-34.1); MEAN CELL HEMOGLOBIN CONCENTR. 30.5 g/dL (32.4-36.7); MEAN CELL VOLUME 109.9 fL (81.5-99.8); MEAN PLATELET VOLUME 10.5 fL (8.7-11.7); PLATELET CLUMPS FLAG 20 (0-99); PLATELET COUNT 201 10^3/uL (150-400); RED BLOOD CELL COUNT 2.33 10^6/uL (4.18-5.33); RED CELL DISTRIBUTION WIDTH 16.3 % (11.5-15.2)
[2016-07-01 06:05] LABS: ADD SCAN? NO; LEFT SHIFT FLG 220 (0-99)
[2016-07-01 06:12] LABS: ANION GAP 7 mEq/L (8-16); CALCIUM 8.9 mg/dL (8.5-10.4); CARBON DIOXIDE 20 mEq/l (22-31); CHLORIDE 110 mEq/L (97-110); CREATININE 1.6 mg/dL (0.6-1.0); GLOMERULAR FILTRATION RATE 30; GLUCOSE 66 mg/dL (70-100); SODIUM 137 mEq/L (134-144)
[2016-07-01 07:20] LABS: ACANTHOCYTES 1+; ECHINOCYTES 1+; ELLIPTOCYTES 1+; KERATOCYTES 1+; MACROCYTES 1+; PLATELET ESTIMATE ADEQUATE (ADEQ); POLYCHROMASIA 2+; SCHISTOCYTES 1+
[2016-07-01] MEDS: IPRATROPIUM/ALBUTEROL 3 ML DEYVIAL IH SCH ×2 (08:11→20:10)
[2016-07-01] MEDS: BUDESONIDE 0.5 MG/2 ML AMPUL.NEB IH SCH ×2 (08:11→20:10)
[2016-07-01] MEDS: ALLOPURINOL 300 MG TAB PO SCH (08:49)
[2016-07-01] MEDS: CEFEPIME HCL 1 GM in D5W 50 ML IV SCH (08:49)
[2016-07-01] MEDS: guaiFENesin 600 MG TAB.ER PO SCH ×2 (08:49→21:32)
[2016-07-01] MEDS: ACYCLOVIR 400 MG TAB PO SCH ×2 (08:49→21:31)
[2016-07-01] MEDS: POLYETHYLENE GLYCOL 3350 17 GM PKT PO SCH (08:49)
[2016-07-01] MEDS: FLUCONAZOLE 100 MG TAB PO SCH (08:49)
[2016-07-01] MEDS: PANTOPRAZOLE SODIUM 40 MG TAB PO SCH (08:51)
[2016-07-01] MEDS: FLUoxetine 20 MG CAP PO SCH (08:51)
[2016-07-01] MEDS: ACETAMINOPHEN 500 MG TAB PO SCH ×3 (08:51→21:31)
[2016-07-01] MEDS: ENOXAPARIN 30 MG/0.3 ML SYR SC SCH (08:53)
[2016-07-01] MEDS: CEPACOL LOZENGE PO PRN ×2 (09:21→14:51)
[2016-07-01] MEDS: guaiFENesin/CODEINE PHOS 10 ML UDCUP PO PRN ×2 (09:21→14:51)
[2016-07-01] MEDS: BENZONATATE 100 MG CAP PO PRN (14:51)
--- NOTE | 2016-07-01 16:10 | HOSPPROG ---
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 Patient continues have worsening cough and hoarseness. 07/01: Patient continues with significant cough and now has lost her voice. She is unable to produce mucus but has a significant heavy cough. Abdomen planned to do bronchoscopy today but unfortunately the patient ate. The bronchoscopy has been put off until 07/02 -Right flank pain, s/p nephrostomy replacement and stent removal. Nephrostomy tube is functioning well. Ultrasound yesterday showed no signs of obstruction. -UTI - Corynebacterium, yeast non Albicans. Afebrile but now showing signs of rising creatinine and possible acute kidney injury. She is afebrile and without pain in the CVA region. [place] has been speciation it and it is Azole sensitive and will continue Diflucan. 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 Today she seems more short of breath and her cough seems more severe although her oxygenation is at baseline. Chest x-ray showed consolidation of the right lower lobe. I reviewed the CT scans over the past year. She has been developing a right lower lobe consolidation persistently since August of 2015. Bronchoscopy was performed in November 2015. Since November her chemotherapeutic regiment which changed and her lymphocytes have declined. Despite that finding now her white count is rising with a bandemia. This would represent a probability of a pneumonia on top of the probable lymphocytic infiltrate in the right lower lobe. Discuss the matter with ID and will start cefepime for Hap coverage. CT scans of the chest abdomen and pelvis were reviewed by myself on the and with Radiology 07/01: Respiratory distress continues with a heavy cough and now the patient has lost her voice. This was discussed with Dr. Corby Mayen for pulmonology and bronchoscopy is planned for tomorrow. Discussed also with ID. There is possibility that this represents a spreading of fungal infection due to the medications she has received from Oncology for her CLL. Plan: Oncology and pulmonology consultation; possible bronchoscopy for mucous plugging. The plan and case have been discussed with Dr. Corby campbell for pulmonary and intensive Care Medicine. -new problem hyperkalemia. Once again her potassium is rising and will watch this it is not a critical levels. I would suggest using D50 and insulin as she is already on bronchodilators. -Atrial fibrillation: Stable -CKD, unknown stage. this may be both acute and chronic. Her admission creatinine was 1.0 and today is rising. the rise today is possibly secondary to contrast dye given during the CT scans. The vancomycin dose is being watched and the Celebrex was stopped. -History of intracranial hemorrhage -Constipation: On bowel protocol -Generalized weakness/debility/deconditioning -continue with IV antimicrobials - fluconazole (started 06/23), vanco (started 06/22) - managed by infectious disease specialist - Possible bronchoscopy for mucous plugging on 07/01 -start cefepime for Hap coverage -final sensitivity/species identification pending for yeast. Was sent on 06/25. -Urologist planning to place stents when infection resolves. Id is thinking approximately 2 weeks of antibiotic coverage before stent placement. -continue with PT/OT -Encouraged patient to use ISU -daily SVN -p.r.n. bowel meds VTE prophylaxis: Lovenox Code Status: DNR Status: Inpatient Disposition: Oncology unit-Med surge. Awaiting eventual ureteral stent placement, after UTI has resolved. Discuss the matter with the daughter and with ID in the presence of the patient. Time approximately 45 minutes Subjective: Patient appears in moderate respiratory distress. She continues to appear weak. Continues to complain of right-sided chest pain. She is now hoarse. Objective: Vital Signs Temp Pulse Resp BP Pulse Ox 36.8 C 81 18 125/61 H 94 07/01/16 11:50 07/01/16 11:50 07/01/16 11:50 07/01/16 11:50 07/01/16 11:50 Microbiology 06/19/16 16:05 Gram Stain - Final Other - Aspirate Anaerobic Culture - Final Corynebacterium Urealyticum Corynebacterium Striatum Cherelle Lusitaniae Aerococcus Urinae Laboratory Results 07/01/16 05:45 07/01/16 05:45 06/30/16 07/01/16 07/02/16 05:59 05:59 05:59 Intake Total 1690 1325 Output Total 100 115 Balance 1590 1210 PT 13.7 SEC (12.0-15.0) 06/19/16 06:12 INR 1.06 (0.83-1.16) 06/19/16 06:12 - Time Spent With Patient Time Spent with Patient: greater than 35 minutes Time Spent with Patient: Greater than 35 minutes spent on this patients care, greater than 50% of time spent counseling, educating, and coordinating care regarding the above mentioned plan. - Pending Discharge Pending Discharge Within 24 Hours: No Pending Discharge Within 48 Hours: No - Physical Exam Constitutional: chronically ill appearing, cachectic, other (Mild respiratory distress) Eyes: PERRL, anicteric sclera Ears, Nose, Mouth, Throat: moist mucous membranes, hearing normal Cardiovascular: irregularly irregular Respiratory: reduced air movement, inspiratory crackles, bronchial breath sounds , aegophony, rhonchi Gastrointestinal: normoactive bowel sounds, soft, non-tender abdomen, no palpable masses Genitourinary: no bladder fullness Skin: warm Musculoskeletal: generalized weakness Neurologic: AAOx3, CN II-XII Intact ICD10 Worksheet Patient Problems: Problems Problem Status Onset Weakness Acute Cough Acute Hyperkalemia Acute Palliative care encounter Acute Back pain Acute Confusion Acute Generalized weakness Acute Cough Acute Flank pain Acute Multiple drug resistant organism (MDRO) culture positive Acute ~04/02/16 Fatigue Acute MRSA (methicillin resistant Staphylococcus aureus) Acute 04/22/15 Pneumonia Acute Chronic Disease Mgmt/Transitional Care Acute Diarrhea Acute CLL (chronic lymphocytic leukemia) Acute Cough Acute Weakness Acute Bronchitis Acute Acute ischemic stroke Acute Subdural bleeding Acute Hydronephrosis Acute Pneumonia due to infectious organism Acute Urinary obstruction Acute UTI (urinary tract infection) Acute NSTEMI (non-ST elevated myocardial infarction) Acute Somnolence Acute Pneumonia Acute Pyelonephritis Acute UTI (urinary tract infection) Acute
--- NOTE | 2016-07-01 16:37 | PCMIDPN ---
Assessment/Plan: Assessment/Plan: * Recurrent right ureteral obstruction status post percutaneous nephrostomy with nephrostomy cultures growing Corynebacterium striatum and urealyticum and Cherelle lusitaniae which is fluconazole susceptible. CT shows no perinephric stranding or evidence of perinephric abscess. Continue vancomycin and fluconazole with repeat vancomycin level today given continued increase in creatinine. * Renal insufficiency: Creatinine increased to 1.4. Vancomycin monitoring as outlined above. * Leukocytosis: May be related to progressive pneumonia. See below discussion. * Multifocal pneumonia: At risk for opportunistic process sees based on immunosuppression from CLL and chemotherapy. Has been on Bactrim prophylaxis making Pneumocystis less likely. Invasive fungal infection also of consideration. Progressive CLL also possible given prior bronchoscopy findings although lymphocyte proportion has been well controlled with chemotherapy. Agree with plans for bronchoscopy to further define. Will also begin serologic evaluation for invasive fungal disease. 07/01/16 16:35 Objective: Vital Signs Temp Pulse Resp BP Pulse Ox 36.8 C 81 18 125/61 H 94 07/01/16 11:50 07/01/16 11:50 07/01/16 11:50 07/01/16 11:50 07/01/16 11:50 Microbiology 06/19/16 16:05 Gram Stain - Final Other - Aspirate Anaerobic Culture - Final Corynebacterium Urealyticum Corynebacterium Striatum Cherelle Lusitaniae Aerococcus Urinae Laboratory Results 07/01/16 05:45 07/01/16 05:45 06/30/16 07/01/16 07/02/16 05:59 05:59 05:59 Intake Total 1690 1325 Output Total 100 115 Balance 1590 1210 Vancomycin # 10 Fluconazole # 9 Cefepime # 2 CT scan chest/abdomen/pelvis with worsening pneumonia which is primarily right- sided although there is consolidation present at the left base as well; no perinephric stranding present; images reviewed and interpreted by me with Radiology today Blood cultures x2 no growth - Physical Exam General Appearance: alert, apparent distress (Increased respiratory effort with frequent paroxysm is a cough, uncomfortable appearance) EENT: No thrush Respiratory: coarse breath sounds Cardiac/Chest: regular rate, rhythm ICD10 Worksheet Patient Problems: Problems Problem Status Onset Cough Acute Flank pain Acute Generalized weakness Acute Acute ischemic stroke Acute Back pain Acute Bronchitis Acute CLL (chronic lymphocytic leukemia) Acute Chronic Disease [facility]/Transitional Care Acute Confusion Acute Cough Acute Cough Acute Diarrhea Acute Fatigue Acute Hydronephrosis Acute Hyperkalemia Acute MRSA (methicillin resistant Staphylococcus aureus) Acute 04/22/15 Multiple drug resistant organism (MDRO) culture positive Acute ~04/02/16 NSTEMI (non-ST elevated myocardial infarction) Acute Palliative care encounter Acute Pneumonia Acute Pneumonia Acute Pneumonia due to infectious organism Acute Pyelonephritis Acute Somnolence Acute Subdural bleeding Acute UTI (urinary tract infection) Acute UTI (urinary tract infection) Acute Urinary obstruction Acute Weakness Acute Weakness Acute
[2016-07-01] MEDS: IPRATROPIUM/ALBUTEROL 3 ML DEYVIAL IH PRN (18:41)
--- NOTE | 2016-07-01 18:55 | GCON ---
[f rep st] CONSULTATION PULMONARY CONSULT. HISTORY OF PRESENT ILLNESS: The patient is an 86-year-old female, with a history of CLL who has bee n getting active chemotherapy which has been successful in reducing her white blood cell counts. Ho wever, over the past several months she has been dealing with recurrent problems of hydronephrosis a nd ureteral obstruction, and eventually had a percutaneous nephrostomy tube placed. She was admitte d on 06/19/2016 with fatigue and obstruction of her previous stents as described above, and has been followed with antibiotics, Urology and Infectious Disease. She is on a baseline oxygen requirement of 4 L per minute from an underlying COPD, but because of a persistent white count a workup was und ertaken. A chest CT revealed dense consolidation. She has had consolidation in the right lower lob e in the past, which was thought to be atelectasis. She is also known to have CLL involvement in he r lungs from her initial diagnosis, which I believe came by transbronchial lung biopsy for a cough. In any case, she has had some difficulty talking and she does not have much of an appetite, but has had ongoing issues of cough. As I said her white count has been rising. REVIEW OF SYSTEMS: Otherwise negative. PAST MEDICAL HISTORY: 1. CLL with lung involvement. 2. Remote hypercalcemia. 3. Hypogammaglobulinemia. 4. Chronic aspiration. 5. Atrial fibrillation. 6. Chronic kidney disease. 7. Hypertension. 8. Hypoxemia. 9. COPD. 10. Squamous cell carcinoma of the skin. 11. Chronic hydronephrosis. 12. Remote subdural hematoma. 13. Gastroesophageal reflux disease. SOCIAL HISTORY: She is a remote smoker, but no alcohol at this time or IV drug use. FAMILY HISTORY: Noncontributory. CURRENT MEDICATIONS: Include acyclovir, DuoNeb, allopurinol, aspirin, Tessalon, budesonide nebulize rs, cefepime, Lovenox, Diflucan, Prozac, Mucinex, Robitussin, Zofran, oxycodone, Protonix, Cepacol, Bactrim, and vancomycin. PHYSICAL EXAMINATION: VITAL SIGNS: She was afebrile, heart rate was 92, blood pressure 132/67, oxy gen saturation 90% to 94% on 4 L nasal cannula. GENERAL: She was awake and alert, she really did n ot participate much in the conversation, which was dominated by her daughter. In any case, she was not using accessory muscles for breathing, she spoke only briefly. HEENT: Her pupils were equally round and reactive to light, nonicteric and noninjected. Mucous membranes were moist without erythe ma or exudate. NECK: Supple without adenopathy or jugular venous distention. RESPIRATORY: Breath sounds were coarse bilaterally, but without wheezing. HEART: Regular rate and rhythm without murm urs, rubs, or gallops. ABDOMEN: Soft, nontender, nondistended without hepatosplenomegaly. EXTREMI TIES: No clubbing, cyanosis, or edema. SKIN: Warm and dry, with a variety of pigmented changes th roughout. NEUROLOGIC: Grossly nonfocal. LABORATORY DATA: CT scan is as described above. Her white count today is 15.8, hematocrit is 25, p latelets of 201. Basic metabolic panel was remarkable for a sodium of 137, potassium 5.0, bicarb 20 , BUN 32, creatinine 1.6. ASSESSMENT AND PLAN: An abnormal CT scan with hypoxemia. The dense consolidation on here I think i s more likely to be infectious in origin. I totally agree with the bronchoscopy. I am not only wor ried about hospital-acquired organisms, which is being treated with cefepime, but also organisms suc h as Aspergillus or Nocardia, or other opportunistic infections. I had a discussion with this about bronchoscopy in great detail, I was unable to perform that procedure today because she had been eat ing, but she will be strictly n.p.o. overnight and she is scheduled for the bronchoscopy tomorrow mo rning. /[id number]/MODL
[2016-07-01] MEDS: VANCOMYCIN 500 MG in D5W 100 ML IV SCH (20:14)
[2016-07-01] MEDS: ASPIRIN 81 MG CHEWABLE TAB PO SCH (21:32)
[2016-07-01] MEDS: PATCH REMOVAL 1 EA PATCH TD SCH (23:09)
[2016-07-02] MEDS: IPRATROPIUM/ALBUTEROL 3 ML DEYVIAL IH PRN (05:30)
[2016-07-02] MEDS ORDERED: fentaNYL 100 MCG/2 ML INJ ONE (06:30)
[2016-07-02] MEDS ORDERED: MIDAZOLAM 2 MG/2 ML VIAL ONE (06:30)
[2016-07-02] MEDS ORDERED: ALBUTEROL 3 ML DEYVIAL ONE (06:30)
[2016-07-02] MEDS ORDERED: LIDOCAINE 1% 30 ML SDV ONE (06:30)
[2016-07-02] MEDS ORDERED: LIDOCAINE 2% JELLY 5 ML TUBE ONE (06:37)
[2016-07-02 06:38] LABS: ADD DIFF? YES; ADD MORPH? NO; ADD SCAN? YES; ATYPICAL LYMPHOCYTE FLAG 0 (0-99); FRAGMENT RBC FLAG 0 (0-99); HEMATOCRIT 30.3 % (38.0-47.0); HEMOGLOBIN 9.9 g/dL (12.6-16.3); LIPEMIA HEMOLYSIS FLAG 80 (0-99); MEAN CELL HEMOGLOBIN 33.4 pg (27.9-34.1); MEAN CELL HEMOGLOBIN CONCENTR. 32.7 g/dL (32.4-36.7); MEAN CELL VOLUME 102.4 fL (81.5-99.8); MEAN PLATELET VOLUME 10.4 fL (8.7-11.7); PLATELET CLUMPS FLAG 0 (0-99); PLATELET COUNT 213 10^3/uL (150-400); RED BLOOD CELL COUNT 2.96 10^6/uL (4.18-5.33); RED CELL DISTRIBUTION WIDTH 18.6 % (11.5-15.2)
[2016-07-02 06:43] LABS: LEFT SHIFT FLG 210 (0-99)
[2016-07-02 06:57] LABS: ALANINE AMINOTRANSFERASE 25 IU/L (9-52); ALBUMIN 2.5 g/dL (3.5-5.0); ALKALINE PHOSPHATASE 127 IU/L (38-126); ANION GAP 10 mEq/L (8-16); ASPARTATE AMINOTRANSFERASE 18 IU/L (14-46); BILIRUBIN,TOTAL 0.9 mg/dL (0.1-1.4); CALCIUM 9.3 mg/dL (8.5-10.4); CARBON DIOXIDE 18 mEq/l (22-31); CHLORIDE 110 mEq/L (97-110); CREATININE 1.5 mg/dL (0.6-1.0); GLOMERULAR FILTRATION RATE 33; GLUCOSE 71 mg/dL (70-100); POTASSIUM 4.8 mEq/L (3.5-5.2); SODIUM 138 mEq/L (134-144); TOTAL PROTEIN 4.6 g/dL (6.3-8.2)
[2016-07-02 07:07] LABS: SCAN NEGATIVE
[2016-07-02 07:19] LABS: PLATELET ESTIMATE ADEQUATE (ADEQ)
[2016-07-02 07:20] LABS: MACROCYTES 1+
[2016-07-02 07:23] LABS: ELLIPTOCYTES 1+; POLYCHROMASIA 1+
[2016-07-02] MEDS: BUDESONIDE 0.5 MG/2 ML AMPUL.NEB IH SCH ×2 (09:57→21:06)
[2016-07-02] MEDS: IPRATROPIUM/ALBUTEROL 3 ML DEYVIAL IH SCH ×2 (09:57→21:06)
[2016-07-02] MEDS: ACETAMINOPHEN 500 MG TAB PO SCH ×3 (10:05→21:40)
--- NOTE | 2016-07-02 10:13 | PCMIDPN ---
Assessment/Plan: 1. Recurrent right ureteral obstruction status post percutaneous nephrostomy: Cultures have grown Corynebacterium and Cherelle lusitaniae sensitive to fluconazole. Continue vancomycin and fluconazole, but repeat vancomycin trough today (which would be the 4th dose of 500 mg daily). Creatinine stable. 2. Pneumonia in immunocompromised host: As outlined by Dr. Fernandez, Pneumocystis seems less likely in the setting of Bactrim prophylaxis. She is status post bronchoscopy today, multiple tests pending. Of note, will also order respiratory pathogen PCR, which is a nasopharyngeal swab and has not been validated on a bronchoscopy specimen. The patient's daughter reports she had an upper respiratory infection last week, but was doing her best not to give it to her mother. This will look for viruses as well as pertussis given her profound cough. Continue cefepime. Subjective: Just returned from bronchoscopy. Somnolent from Versed. Objective: Vancomycin 500 mg IV daily day 11. Fluconazole 200 mg daily day 10. Cefepime 1 g IV daily day 3. Bactrim DS daily 95% on 4 L, afebrile Vital Signs Temp Pulse Resp BP Pulse Ox 36.6 C 78 24 H 126/61 H 95 07/02/16 08:00 07/02/16 09:58 07/02/16 09:58 07/02/16 08:44 07/02/16 09:58 Laboratory Results 07/02/16 06:00 07/02/16 06:00 07/01/16 07/02/16 07/03/16 05:59 05:59 05:59 Intake Total 1325 1600 100 Output Total 115 300 0 Balance 1210 1300 100 Blood cultures x2 on the are negative, serum cryptococcal antigen, Aspergillus antigen and bronchoscopy specimens are pending. - Physical Exam General Appearance: other (Somnolent, but opens eyes to voice.) EENT: other (Dry mucous membrane secondary to mouth breathing), No thrush Respiratory: lungs clear (Lungs are fairly clear anterolaterally with no wheeze or rhonchi.) Cardiac/Chest: regular rate, rhythm Abdomen: non-tender, soft Skin: other (No new rash) ICD10 Worksheet Patient Problems: Problems Problem Status Onset Cough Acute Flank pain Acute Generalized weakness Acute Acute ischemic stroke Acute Back pain Acute Bronchitis Acute CLL (chronic lymphocytic leukemia) Acute Chronic Disease Mgmt/Transitional Care Acute Confusion Acute Cough Acute Cough Acute Diarrhea Acute Fatigue Acute Hydronephrosis Acute Hyperkalemia Acute MRSA (methicillin resistant Staphylococcus aureus) Acute 04/22/15 Multiple drug resistant organism (MDRO) culture positive Acute ~04/02/16 NSTEMI (non-ST elevated myocardial infarction) Acute Palliative care encounter Acute Pneumonia Acute Pneumonia Acute Pneumonia due to infectious organism Acute Pyelonephritis Acute Somnolence Acute Subdural bleeding Acute UTI (urinary tract infection) Acute UTI (urinary tract infection) Acute Urinary obstruction Acute Weakness Acute Weakness Acute
[2016-07-02] MEDS: ALLOPURINOL 300 MG TAB PO SCH (10:14)
[2016-07-02] MEDS: FLUoxetine 20 MG CAP PO SCH (10:14)
[2016-07-02] MEDS: POLYETHYLENE GLYCOL 3350 17 GM PKT PO SCH (10:15)
[2016-07-02] MEDS: guaiFENesin 600 MG TAB.ER PO SCH ×2 (10:15→21:39)
[2016-07-02] MEDS: PANTOPRAZOLE SODIUM 40 MG TAB PO SCH (10:15)
[2016-07-02] MEDS: CEFEPIME HCL 1 GM in D5W 50 ML IV SCH (10:18)
--- NOTE | 2016-07-02 10:22 | WOCRNPDOC ---
WOCRN Advanced Assessment Note - Skin Integrity Problem, Advanced Assess Left Buttock Dressing Type: Allevyn Life Dressing Description: Intact Exudate Amount: None Exudate Characteristic(s): None Integumentary Issue Intervention: Visualized Under Dressing Nathalie Wound Tissue: Blanching, Intact Nathalie Wound Swelling: None Wound Bed Color: Purple, Red Site Odor: None Site Measurement - Head-to-Toe Length X Width X Depth (cm): 0.9cmx0.6cmx0.1cm Skin Integrity Problem Comment: Small, discrete wound w/ ecchymotic margins noted on L buttock. Appearance is consistent w/ friction injury, w/ friable margins and shallow, partial-thickness wound. Periwound skin is intact and blanching. Because it is located over the fleshy part of the buttock, this is not likely related to injury from pressure. Protective dressing in place, as well as orders to off-load. Wound RN will round on patient again next Tuesday.
--- NOTE | 2016-07-02 11:02 | SOAPPROG ---
SOAP Progress Note Assessment/Plan: Assessment: 1. CLL, in CR after recent Gazyva 2. Immunocompromise due to underlying disease and immunosuppresive Rx 3. R ureteral obstruction 4. Pneumonia Plan: - appreciate ID and pulmonary recs - will await bronch results - if patient's condition deteriorates, will need to reevaluate goals of care in light of her age and underlying comorbidities 07/02/16 11:01 Subjective: tired today. cough unchanged. Objective: exam: chronically ill, elderly mildly tachypneic exam otherwise unchanged Vital Signs Temp Pulse Resp BP Pulse Ox 36.6 C 78 24 H 126/61 H 95 07/02/16 08:00 07/02/16 09:58 07/02/16 09:58 07/02/16 08:44 07/02/16 09:58 Laboratory Results 07/02/16 06:00 07/02/16 06:00 07/01/16 07/02/16 07/03/16 05:59 05:59 05:59 Intake Total 1325 1600 100 Output Total 115 300 0 Balance 1210 1300 100 PT 13.7 SEC (12.0-15.0) 06/19/16 06:12 INR 1.06 (0.83-1.16) 06/19/16 06:12 ICD10 Worksheet Patient Problems: Problems Problem Status Onset Cough Acute Flank pain Acute Generalized weakness Acute Acute ischemic stroke Acute Back pain Acute Bronchitis Acute CLL (chronic lymphocytic leukemia) Acute Chronic Disease Mgmt/Transitional Care Acute Confusion Acute Cough Acute Cough Acute Diarrhea Acute Fatigue Acute Hydronephrosis Acute Hyperkalemia Acute MRSA (methicillin resistant Staphylococcus aureus) Acute 04/22/15 Multiple drug resistant organism (MDRO) culture positive Acute ~04/02/16 NSTEMI (non-ST elevated myocardial infarction) Acute Palliative care encounter Acute Pneumonia Acute Pneumonia Acute Pneumonia due to infectious organism Acute Pyelonephritis Acute Somnolence Acute Subdural bleeding Acute UTI (urinary tract infection) Acute UTI (urinary tract infection) Acute Urinary obstruction Acute Weakness Acute Weakness Acute
[2016-07-02] MEDS: FLUCONAZOLE/NaCl 100 ML IV SCH (11:56)
[2016-07-02] MEDS: FLUCONAZOLE 100 MG TAB PO SCH (12:02)
[2016-07-02] MEDS ORDERED: NS 1,000 ML IV SCH (14:45)
[2016-07-02] MEDS: HYDROmorphONE/DILAUDID 1 MG/ML SYR IVP PRN ×2 (14:46→21:35)
--- NOTE | 2016-07-02 16:59 | HOSPPROG ---
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 Patient continues have worsening cough and hoarseness. See interim summary dictation dated 07/02. 07/01: Patient continues with significant cough and now has lost her voice. She is unable to produce mucus but has a significant heavy cough. Abdomen planned to do bronchoscopy today but unfortunately the patient ate. The bronchoscopy has been put off until 07/02 -Right flank pain, s/p nephrostomy replacement and stent removal. Nephrostomy tube is functioning well. Ultrasound yesterday showed no signs of obstruction. -UTI - Corynebacterium, yeast non Albicans. Afebrile but now showing signs of rising creatinine and possible acute kidney injury. She is afebrile and without pain in the CVA region. [place] has been speciation it and it is Azole sensitive and will continue Diflucan. 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 Today she seems more short of breath and her cough seems more severe although her oxygenation is at baseline. Chest x-ray showed consolidation of the right lower lobe. I reviewed the CT scans over the past year. She has been developing a right lower lobe consolidation persistently since August of 2015. Bronchoscopy was performed in November 2015. Since November her chemotherapeutic regiment which changed and her lymphocytes have declined. Despite that finding now her white count is rising with a bandemia. This would represent a probability of a pneumonia on top of the probable lymphocytic infiltrate in the right lower lobe. Discuss the matter with ID and will start cefepime for Hap coverage. CT scans of the chest abdomen and pelvis were reviewed by myself on the and with Radiology 07/01: Respiratory distress continues with a heavy cough and now the patient has lost her voice. This was discussed with Dr. Corby Mayen for pulmonology and bronchoscopy is planned for tomorrow. Discussed also with ID. There is possibility that this represents a spreading of fungal infection due to the medications she has received from Oncology for her CLL. Plan: Oncology and pulmonology consultation; possible bronchoscopy for mucous plugging. The plan and case have been discussed with Dr. Corby campbell for pulmonary and intensive Care Medicine. -new problem hyperkalemia. Once again her potassium is rising and will watch this it is not a critical levels. I would suggest using D50 and insulin as she is already on bronchodilators. -Atrial fibrillation: In normal sinus rhythm and stable. Full anticoagulation has not been performed due to her debilitated state and the risk of falling. -CKD, unknown stage. this may be both acute and chronic. Her admission creatinine was 1.0 and today is rising. the rise today is possibly secondary to contrast dye given during the CT scans. The vancomycin dose is being watched and the Celebrex was stopped. -History of intracranial hemorrhage -Constipation: On bowel protocol -Generalized weakness/debility/deconditioning -continue with IV antimicrobials - fluconazole (started 06/23), vanco (started 06/22) - managed by infectious disease specialist - bronch bronchoscopy 07/02 - cefepime for Hap coverage -final sensitivity/species identification pending for yeast. Was sent on 06/25. -stent placement per uric urology will be coordinated between ID and Urology. -continue with PT/OT -daily SVN -p.r.n. bowel meds VTE prophylaxis: Lovenox Code Status: DNR Status: Disposition is unclear. -case discuss with Dr. Mayen infectious disease and with Urology. Time: 50 minutes. Subjective: In mild respiratory distress and hoarse reports right-sided chest pain Objective: Vital Signs Temp Pulse Resp BP Pulse Ox 37.6 C 88 22 H 140/76 H 96 07/02/16 15:52 07/02/16 15:52 07/02/16 15:52 07/02/16 15:52 07/02/16 15:52 Microbiology 07/02/16 07:30 Gram Stain - Final Lung Right Upper Lobe - Bronchial Washings 07/02/16 08:00 Gram Stain - Final Lung Right Upper Lobe - Other 07/02/16 08:02 Gram Stain - Final Lung Right Upper Lobe - Bronchial Washings 07/02/16 08:03 Gram Stain - Final Lung Right Upper Lobe - Bronchial Washings Laboratory Results 07/02/16 06:00 07/02/16 06:00 07/01/16 07/02/16 07/03/16 05:59 05:59 05:59 Intake Total 1325 1600 100 Output Total 115 300 0 Balance 1210 1300 100 PT 13.7 SEC (12.0-15.0) 06/19/16 06:12 INR 1.06 (0.83-1.16) 06/19/16 06:12 - Time Spent With Patient Time Spent with Patient: greater than 35 minutes Time Spent with Patient: Greater than 35 minutes spent on this patients care, greater than 50% of time spent counseling, educating, and coordinating care regarding the above mentioned plan. - Pending Discharge Pending Discharge Within 24 Hours: No Pending Discharge Within 48 Hours: No - Physical Exam Constitutional: chronically ill appearing, other (Mild respiratory distress) Eyes: PERRL Ears, Nose, Mouth, Throat: dry mucous membranes, other (Hoarse and unable to be understand many of her words) Cardiovascular: regular rate and rhythym, no murmur, rub, or gallop Respiratory: reduced air movement, inspiratory crackles, bronchial breath sounds , aegophony, dullness to percussion, rhonchi Gastrointestinal: normoactive bowel sounds, soft, non-tender abdomen Genitourinary: no bladder fullness Musculoskeletal: generalized weakness Neurologic: AAOx3 Psychiatric: other (Very weak) ICD10 Worksheet Patient Problems: Problems Problem Status Onset Weakness Acute Cough Acute Hyperkalemia Acute Palliative care encounter Acute Back pain Acute Confusion Acute Generalized weakness Acute Cough Acute Flank pain Acute Multiple drug resistant organism (MDRO) culture positive Acute ~04/02/16 Fatigue Acute MRSA (methicillin resistant Staphylococcus aureus) Acute 04/22/15 Pneumonia Acute Chronic Disease Mgmt/Transitional Care Acute Diarrhea Acute CLL (chronic lymphocytic leukemia) Acute Cough Acute Weakness Acute Bronchitis Acute Acute ischemic stroke Acute Subdural bleeding Acute Hydronephrosis Acute Pneumonia due to infectious organism Acute Urinary obstruction Acute UTI (urinary tract infection) Acute NSTEMI (non-ST elevated myocardial infarction) Acute Somnolence Acute Pneumonia Acute Pyelonephritis Acute UTI (urinary tract infection) Acute
[2016-07-02] MEDS: ACYCLOVIR 400 MG TAB PO SCH ×2 (17:22→21:40)
[2016-07-02] MEDS: NS 1,000 ML IV SCH (17:34)
--- NOTE | 2016-07-02 18:23 | GPN ---
[f rep st] PROCEDURE NOTE DATE OF PROCEDURE: 07/02/2016 PROCEDURE: Bronchoalveolar lavage. INDICATION: Recurrent pneumonia and abnormal CT scan. CONSENT: Informed consent was obtained from the patient with her daughter as well. The risks and b enefits of both the procedure and conscious sedation were explained in detail and everybody agreed. SEDATION: Conscious sedation was achieved using a total of 2.5 mg of Versed and 100 mcg of fentanyl . Patient tolerated these quite well without complication. DESCRIPTION OF PROCEDURE: After installation of topical lidocaine in the oropharynx and vocal cords , the bronchoscope was advanced into the oropharynx via the mouth. There were thick secretions seen throughout the oral cavity. The vocal cords themselves were erythematous though there were no poly ps or other abnormalities and they appeared to move normally. In the main trachea, there was also s ignificant amount of white, moderately thick secretions down to the main ronnie which was sharp. Attention was drawn to the right lower lobe where there was considerable amount of secretions there as well as the right upper lobe where increasing infiltrate and consolidation were seen on chest CT scan. A bronchoalveolar lavage was performed in the posterior right upper lobe using 3 aliquots of 40 cc of saline. There was approximately 40-50 cc of return. This included mucous plugs as well as copious amounts of secretions but no bleeding. Patient tolerated this well. Additional copious se cretions were suctioned from the right lower lobe segments as well as the left upper lobe and left l ower lobe subsegments. Overall, the patient tolerated the procedure well. There was minor bleeding from the left side after suctioning but no intervention was required. Overall, the patient tolerat ed the procedure well, and there were no obvious complications. /[id number]/MODL
[2016-07-02] MEDS: VANCOMYCIN 500 MG in D5W 100 ML IV SCH (18:32)
[2016-07-02] MEDS: ASPIRIN 81 MG CHEWABLE TAB PO SCH (21:40)
[2016-07-02] MEDS: PATCH REMOVAL 1 EA PATCH TD SCH (22:18)
--- NOTE | 2016-07-02 23:24 | GPROG ---
[f rep st] PROGRESS NOTE INTERIM SUMMARY DATE OF SERVICE: 07/02/2016 ACUTE DIAGNOSES: 1. Acute urinary tract infection with right ureter obstruction and persistent infection with corynebacterium and Cherelle lusitaniae. Organisms are sensitive to fluconazole and vancomycin. 2. Acute on chronic pneumonitis with new consolidation of the right upper lobe , increasing consolidation of the right middle lobe, and bilateral lower lobe consolidation. 3. Right flank pain secondary to a right nephrostomy tube and possibly right pleuritic chest pain due to the acute pneumonitis. 4. Chronic lymphocytic leukemia under treatment for many years and probably responsive to the current chemotherapy since 12/04/15. 5. Acute kidney injury secondary to possibly vancomycin and contrast dye. No improvement currently noted. 6. Do not resuscitate code status. 7. Severe protein-calorie malnutrition. CHRONIC DIAGNOSES: 1. Chronic respiratory failure on 2-3 L nasal prong oxygen. 2. Atrial fibrillation. 3. Hypertension. 4. Chronic kidney disease. CONSULTATIONS DURING THIS HOSPITALIZATION: Urology with Dr. Corona, Infectious Disease, Pulmonary and Intensive Care Medicine, oncology. PROCEDURES: Date 06/19/16: A nephrostomy tube was placed by IR. 06/20: The nephrostomy tube was changed. 06/23: Abdominal pelvis CT showing no evidence of urinary tract calculus. Percutaneous nephrostomy tube in good position. 06/26: PICC line inserted in the right upper extremity. 07/02: A bronchoscopy was performed with bronchoalveolar lavage. HOSPITAL COURSE: This is an 86-year-old female, who has had a long history of CLL and has undergone active chemotherapy. The chemotherapy has been successful since 12/04/15 in reducing her white count. For the past several months, she developed recurrent problems of hydronephrosis and ureteral obstruction and had a percutaneous nephrostomy tube placed in the right ureter. Stents have been placed previously but apparently became infected. During this hospitalization, she has grown and is being treated for a corynebacterium and Cherelle lusitaniae. The cherelle is sensitive to fluconazole, and the corynebacterium is sensitive to vancomycin. She may have developed renal failure secondary to the initial doses of the vancomycin. Her creatinine gonzalo from an admission level of 1.0 and is currently 1.5 but has not improved with management of her vancomycin level. In addition, she received contrast dye for the CT of her chest and abdomen. An acute pneumonitis has been presumed in light of the increasing consolidation of the bilateral lower lobes and new consolidation of the right upper lobe and worsening consolidation of the right middle lobe. She has very significant mucus production. Bronchoscopy was performed with bronchoalveolar lavage in hopes of discovering a new and unfounded organism. Dr. Mayen indicated the consolidation did not appear to be of leukemic character. He reported only heavy mucus production. It remains unclear why she is increasingly consolidating her lung. It is possible she has chronically aspirating. Her acute respiratory failure is moderately increased today post bronchoscopy. She is requiring now 4-5 L of oxygen. PLAN: At this time is to continue her Diflucan and vancomycin and treatment of her known infectious disease. We are waiting results of the bronchoalveolar lavage. In addition, the nephrostomy tube is planned to remain in place until we have cleared the infection successfully. At that time, the tube can be replaced with a ureter stent. The timing of this has not been established but can be worked out between Infectious Disease and Urology. I have spoken with the daughter on numerous occasions. It is apparent that the patient is quite weak and may be in an untreatable state. As to why she is having increasing consolidation remains unclear. The findings of the bronchoscopy and the ultimate findings of the results of the bronchoalveolar lavage will help guide her future care. Severe protein-calorie malnutrition: The patient has not eaten in an adequate fashion for several days and perhaps weeks. She is taking nutrition, but it is probably inadequate. Calorie counts have been ordered. The patient in the past as specifically requested that she not have a feeding tube placed, and thus I have not pursued NG nutrition. PHYSICAL EXAMINATION: LUNGS: Today on physical exam is patient is in mild respiratory distress. Her lungs show egophony, rhonchi heavily bilaterally. She is hoarse due to persistent coughing. HEART: Is in a regular rate and rhythm and sinus rhythm on the monitor. ABDOMEN: Nontender. Benign. She is experiencing right-sided chest and flank pain probably secondary to her acute pneumonitis. EXTREMITIES: Show no edema or cyanosis. MEDICATIONS: Noted in the EMR. /[id number]/MODL MTDD
[2016-07-03] MEDS: NS 1,000 ML IV SCH (02:20)
[2016-07-03] MEDS: HYDROmorphONE/DILAUDID 1 MG/ML SYR IVP PRN ×3 (05:27→11:47)
[2016-07-03] MEDS: ALTEPLASE 2 MG VIAL IVP PRN (05:40)
[2016-07-03] MEDS: oxyCODONE IR 5 MG TAB PO PRN (05:52)
[2016-07-03 06:35] LABS: ADD DIFF? YES; ADD MORPH? NO; ATYPICAL LYMPHOCYTE FLAG 0 (0-99); FRAGMENT RBC FLAG 10 (0-99); HEMATOCRIT 28.1 % (38.0-47.0); LIPEMIA HEMOLYSIS FLAG 80 (0-99); MEAN CELL HEMOGLOBIN 33.3 pg (27.9-34.1); MEAN CELL VOLUME 104.1 fL (81.5-99.8); PLATELET COUNT 121 10^3/uL (150-400); RED CELL DISTRIBUTION WIDTH 18.3 % (11.5-15.2)
[2016-07-03 07:07] LABS: ALANINE AMINOTRANSFERASE 31 IU/L (9-52); ALBUMIN 2.1 g/dL (3.5-5.0); ALKALINE PHOSPHATASE 112 IU/L (38-126); ANION GAP 6 mEq/L (8-16); ASPARTATE AMINOTRANSFERASE 20 IU/L (14-46); BILIRUBIN,TOTAL 0.5 mg/dL (0.1-1.4); CALCIUM 8.6 mg/dL (8.5-10.4); CARBON DIOXIDE 19 mEq/l (22-31); CHLORIDE 112 mEq/L (97-110); CREATININE 1.1 mg/dL (0.6-1.0); GLOMERULAR FILTRATION RATE 47; GLUCOSE 69 mg/dL (70-100); POTASSIUM 4.7 mEq/L (3.5-5.2); SODIUM 137 mEq/L (134-144); TOTAL PROTEIN 4.4 g/dL (6.3-8.2)
[2016-07-03 07:17] LABS: ADD SCAN? NO; LEFT SHIFT FLG 180 (0-99); PLATELET CLUMPS FLAG 300 (0-99)
[2016-07-03 07:22] LABS: MACROCYTES 2+; PLATELET ESTIMATE DECREASED (ADEQ)
--- NOTE | 2016-07-03 08:32 | PCMIDPN ---
Assessment/Plan: Assessment: Right ureteral obstruction with nephrostomy tube placed. Urine from the nephrostomy tube with evidence of infection. Corynebacterium, yeast and aerococcus are all in culture. Patient is currently being covered with vancomycin and p.o. fluconazole. Worsening multifocal lung infection. Bronch yesterday showed mucous plugging which was relieved with the procedure. This morning the patient is resting comfortably. Her lung exam is clear. She is satting in the upper 90s with 4 L O2 per nasal cannula. Still quite groggy from the anaya procedural sedatives as well as pain medicines overnight. Acute renal failure-creatinine improved to 1.1 today. Vanc trough stable. Plan: 1. Continue IV vancomycin, cefepime and p.o. fluconazole. 2. Follow clinical course. 3. Follow respiratory status. 07/03/16 08:28 07/03/16 08:32 Subjective: Patient is resting comfortably in her hospital bed. Breathing regularly. Quite groggy. Had significant sedatives as well as pain control over the last 24 hours. Vital signs are looking very good and stable. Objective: Vancomycin # 12 Cefepime # 4 Fluconazole # 11 Vital Signs Temp Pulse Resp BP Pulse Ox 37.3 C 79 18 153/83 H 93 07/03/16 04:00 07/03/16 04:00 07/03/16 04:00 07/03/16 04:00 07/03/16 04:00 Microbiology 07/02/16 08:02 Mycobacterial Smear (JEVON) - Final Lung Right Upper Lobe - Bronchial Washings 07/02/16 07:30 Gram Stain - Final Lung Right Upper Lobe - Bronchial Washings 07/02/16 08:00 Gram Stain - Final Lung Right Upper Lobe - Other 07/02/16 08:02 Gram Stain - Final Lung Right Upper Lobe - Bronchial Washings 07/02/16 08:03 Gram Stain - Final Lung Right Upper Lobe - Bronchial Washings Laboratory Results 07/03/16 06:22 07/03/16 06:22 07/02/16 07/03/16 07/04/16 05:59 05:59 05:59 Intake Total 1600 2600 Output Total 300 300 Balance 1300 2300 - Physical Exam General Appearance: WD/WN, no apparent distress, non-toxic, other (Resting comfortably) Respiratory: lungs clear, normal breath sounds, No respiratory distress Cardiac/Chest: regular rate, rhythm, No tachycardia Extremities: non-tender, normal inspection Skin: normal color, warm/dry, No rash ICD10 Worksheet Patient Problems: Problems Problem Status Onset Cough Acute Flank pain Acute Generalized weakness Acute Acute ischemic stroke Acute Back pain Acute Bronchitis Acute CLL (chronic lymphocytic leukemia) Acute Chronic Disease Mgmt/Transitional Care Acute Confusion Acute Cough Acute Cough Acute Diarrhea Acute Fatigue Acute Hydronephrosis Acute Hyperkalemia Acute MRSA (methicillin resistant Staphylococcus aureus) Acute 04/22/15 Multiple drug resistant organism (MDRO) culture positive Acute ~04/02/16 NSTEMI (non-ST elevated myocardial infarction) Acute Palliative care encounter Acute Pneumonia Acute Pneumonia Acute Pneumonia due to infectious organism Acute Pyelonephritis Acute Somnolence Acute Subdural bleeding Acute UTI (urinary tract infection) Acute UTI (urinary tract infection) Acute Urinary obstruction Acute Weakness Acute Weakness Acute
[2016-07-03] MEDS: CEFEPIME HCL 1 GM in D5W 50 ML IV SCH ×2 (08:44→20:48)
--- NOTE | 2016-07-03 09:36 | SOAPPROG ---
SOAP Progress Note Assessment/Plan: Assessment: 1.) Pneumonia, S/P bronch on 07/02. Appears to have non-productive cough and resp. toilet likely to assist resolution. 2.) Medical/physical frailty 3.) CLL in remission following recent therapy, without acute need of diagnostic or therapeutic intervention. 4.) Recent AR insufficiency- improving 5.) Multifactorial anemia 6.) R ureteral obstruction, S/P Nephrostomy tube decompression Antibiotic management with Vanco/Cefipime/fluconazole po noted. Pt apparently received narcotic admin. over past 18 hours which might explain her sedation seen at the bedside this AM. Plan: 1.) See above discussion. 2.) No blood product intervention needed. 3.) Will check Ig levels 4.) Our service will follow intermittently. 07/03/16 09:36 Subjective: Pt seems slightly obtunded and responds softly to questions asked. She appears in slight resp. distress with paroxysms of cough, which is not productive of sputum. Objective: This is a frail appearing, elderly WF who appears chronically ill. She is sitting at a 45 degree angle and is lying to the left side. She appears quite weak HEENT- anicteric, no facial assymetry, no oral lesions Neck- no palp. LN enlargement Chest- shallow respirations, with minimal breath sounds at bases CVS- RSR, no extra HS ABD- soft, NT, no mass or HSM EXT- warm, well perfused. Labs as noted here. Cr 1.1 Hgb 9.0 Vital Signs Temp Pulse Resp BP Pulse Ox 37.3 C 79 18 153/83 H 93 07/03/16 04:00 07/03/16 04:00 07/03/16 04:00 07/03/16 04:00 07/03/16 04:00 Microbiology 07/03/16 07:10 Respiratory Panel (PCR) - Final Nasal, Sinus - Aspirate Human Rhinovirus/Enterovirus 07/02/16 08:02 Mycobacterial Smear (JEVON) - Final Lung Right Upper Lobe - Bronchial Washings 07/02/16 07:30 Gram Stain - Final Lung Right Upper Lobe - Bronchial Washings 07/02/16 08:00 Gram Stain - Final Lung Right Upper Lobe - Other 07/02/16 08:02 Gram Stain - Final Lung Right Upper Lobe - Bronchial Washings 07/02/16 08:03 Gram Stain - Final Lung Right Upper Lobe - Bronchial Washings Laboratory Results 07/03/16 06:22 07/03/16 06:22 07/02/16 07/03/16 07/04/16 05:59 05:59 05:59 Intake Total 1600 2600 Output Total 300 300 Balance 1300 2300 PT 13.7 SEC (12.0-15.0) 06/19/16 06:12 INR 1.06 (0.83-1.16) 06/19/16 06:12 ICD10 Worksheet Patient Problems: Problems Problem Status Onset Cough Acute Flank pain Acute Generalized weakness Acute Acute ischemic stroke Acute Back pain Acute Bronchitis Acute CLL (chronic lymphocytic leukemia) Acute Chronic Disease Mgmt/Transitional Care Acute Confusion Acute Cough Acute Cough Acute Diarrhea Acute Fatigue Acute Hydronephrosis Acute Hyperkalemia Acute MRSA (methicillin resistant Staphylococcus aureus) Acute 04/22/15 Multiple drug resistant organism (MDRO) culture positive Acute ~04/02/16 NSTEMI (non-ST elevated myocardial infarction) Acute Palliative care encounter Acute Pneumonia Acute Pneumonia Acute Pneumonia due to infectious organism Acute Pyelonephritis Acute Somnolence Acute Subdural bleeding Acute UTI (urinary tract infection) Acute UTI (urinary tract infection) Acute Urinary obstruction Acute Weakness Acute Weakness Acute
[2016-07-03] MEDS: FLUCONAZOLE/NaCl 100 ML IV SCH (09:37)
[2016-07-03] MEDS: ACETAMINOPHEN 500 MG TAB PO SCH ×3 (09:37→20:49)
[2016-07-03] MEDS: BENZONATATE 100 MG CAP PO PRN ×2 (09:38→17:31)
[2016-07-03] MEDS: FLUoxetine 20 MG CAP PO SCH (09:50)
[2016-07-03] MEDS: ALLOPURINOL 300 MG TAB PO SCH (09:50)
[2016-07-03] MEDS: IPRATROPIUM/ALBUTEROL 3 ML DEYVIAL IH SCH ×2 (10:32→22:36)
[2016-07-03] MEDS: BUDESONIDE 0.5 MG/2 ML AMPUL.NEB IH SCH ×2 (10:32→22:36)
--- NOTE | 2016-07-03 15:17 | PDINTPN ---
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 Underwent bronch 07/02/16 with copious secretions. I suspect chronic aspiration. * PNA, possibly from aspirations- currently growing GNR from bronch washings and rhinovirus from nasal swabs. Cefepime started before bronch and WBC trending down. Await sensitivities. * Aspiration- discussed briefly with daughter and not interested in speech therapy. She may be leaning toward hospice. * Hypoxemia- near baseline * Altered MS- today likely from prolonged effects of conscious sedation yesterday (2.5 mg Versed and 100 mcg Fentanyl) in elderly woman. No focal neuro deficits. Continued observation Objective: Vital Signs Temp Pulse Resp BP Pulse Ox 36.8 C 84 20 143/93 H 91 L 07/03/16 08:00 07/03/16 10:33 07/03/16 10:33 07/03/16 08:00 07/03/16 10:33 Microbiology 07/02/16 07:30 Gram Stain - Final Lung Right Upper Lobe - Bronchial Washings 07/02/16 08:00 Gram Stain - Final Lung Right Upper Lobe - Other 07/02/16 08:02 Gram Stain - Final Lung Right Upper Lobe - Bronchial Washings 07/02/16 08:03 Gram Stain - Final Lung Right Upper Lobe - Bronchial Washings 07/03/16 07:10 Respiratory Panel (PCR) - Final Nasal, Sinus - Aspirate Human Rhinovirus/Enterovirus 07/02/16 08:02 Mycobacterial Smear (JEVON) - Final Lung Right Upper Lobe - Bronchial Washings Laboratory Results 07/03/16 06:22 07/03/16 06:22 07/02/16 07/03/16 07/04/16 05:59 05:59 05:59 Intake Total 1600 2600 Output Total 300 300 Balance 1300 2300 PT 13.7 SEC (12.0-15.0) 06/19/16 06:12 INR 1.06 (0.83-1.16) 06/19/16 06:12 Physical Exam - Physical Exam General Appearance: alert, no apparent distress, other (frail and ill-appearing) EENT: PERRL/EOMI Neck: supple Respiratory: decreased breath sounds, rhonchi (bilaterally), No respiratory distress Cardiac/Chest: regular rate, rhythm, No edema Abdomen: non-tender, soft, No distended Skin: warm/dry, rash (diffuse patchy erythema. 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 Patient Problems: Problems Problem Status Onset Cough Acute Flank pain Acute Generalized weakness Acute Acute ischemic stroke Acute Back pain Acute Bronchitis Acute CLL (chronic lymphocytic leukemia) Acute Chronic Disease Mgmt/Transitional Care Acute Confusion Acute Cough Acute Cough Acute Diarrhea Acute Fatigue Acute Hydronephrosis Acute Hyperkalemia Acute MRSA (methicillin resistant Staphylococcus aureus) Acute 04/22/15 Multiple drug resistant organism (MDRO) culture positive Acute ~04/02/16 NSTEMI (non-ST elevated myocardial infarction) Acute Palliative care encounter Acute Pneumonia Acute Pneumonia Acute Pneumonia due to infectious organism Acute Pyelonephritis Acute Somnolence Acute Subdural bleeding Acute UTI (urinary tract infection) Acute UTI (urinary tract infection) Acute Urinary obstruction Acute Weakness Acute Weakness Acute
--- NOTE | 2016-07-03 15:53 | HOSPPROG ---
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 Patient continues have worsening cough and hoarseness. See interim summary dictation dated 07/02. 07/01: Patient continues with significant cough and now has lost her voice. She is unable to produce mucus but has a significant heavy cough. Abdomen planned to do bronchoscopy today but unfortunately the patient ate. The bronchoscopy has been put off until 07/02 -Right flank pain, s/p nephrostomy replacement and stent removal. Nephrostomy tube is functioning well. Ultrasound yesterday showed no signs of obstruction. -UTI - Corynebacterium, yeast non Albicans. Afebrile but now showing signs of rising creatinine and possible acute kidney injury. She is afebrile and without pain in the CVA region. [place] has been speciation it and it is Azole sensitive and will continue Diflucan. 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 Today she seems more short of breath and her cough seems more severe although her oxygenation is at baseline. Chest x-ray showed consolidation of the right lower lobe. I reviewed the CT scans over the past year. She has been developing a right lower lobe consolidation persistently since August of 2015. Bronchoscopy was performed in November 2015. Since November her chemotherapeutic regiment which changed and her lymphocytes have declined. Despite that finding now her white count is rising with a bandemia. This would represent a probability of a pneumonia on top of the probable lymphocytic infiltrate in the right lower lobe. Discuss the matter with ID and will start cefepime for Hap coverage. CT scans of the chest abdomen and pelvis were reviewed by myself on the and with Radiology 07/01: Respiratory distress continues with a heavy cough and now the patient has lost her voice. This was discussed with Dr. Corby Mayen for pulmonology and bronchoscopy is planned for tomorrow. Discussed also with ID. There is possibility that this represents a spreading of fungal infection due to the medications she has received from Oncology for her CLL. Plan: Oncology and pulmonology consultation; possible bronchoscopy for mucous plugging. The plan and case have been discussed with Dr. Corby campbell for pulmonary and intensive Care Medicine. -new problem hyperkalemia. Once again her potassium is rising and will watch this it is not a critical levels. I would suggest using D50 and insulin as she is already on bronchodilators. -Atrial fibrillation: In normal sinus rhythm and stable. Full anticoagulation has not been performed due to her debilitated state and the risk of falling. -CKD, unknown stage. this may be both acute and chronic. Her admission creatinine was 1.0 and today is rising. the rise today is possibly secondary to contrast dye given during the CT scans. The vancomycin dose is being watched and the Celebrex was stopped. -History of intracranial hemorrhage -Constipation: On bowel protocol -Generalized weakness/debility/deconditioning -continue with IV antimicrobials - fluconazole (started 06/23), vanco (started 06/22) - managed by infectious disease specialist - bronch bronchoscopy 07/02 - cefepime for Hap coverage -final sensitivity/species identification pending for yeast. Was sent on 06/25. -stent placement per [facility] u[facility] will be coordinated between ID and Urology. -continue with PT/OT -daily SVN -p.r.n. bowel meds VTE prophylaxis: Lovenox Code Status: DNR Subjective: case d/w dr shaw Objective: Vital Signs Temp Pulse Resp BP Pulse Ox 36.8 C 84 20 143/93 H 91 L 07/03/16 08:00 07/03/16 10:33 07/03/16 10:33 07/03/16 08:00 07/03/16 10:33 Microbiology 07/02/16 07:30 Gram Stain - Final Lung Right Upper Lobe - Bronchial Washings 07/02/16 08:00 Gram Stain - Final Lung Right Upper Lobe - Other 07/02/16 08:02 Gram Stain - Final Lung Right Upper Lobe - Bronchial Washings 07/02/16 08:03 Gram Stain - Final Lung Right Upper Lobe - Bronchial Washings 07/03/16 07:10 Respiratory Panel (PCR) - Final Nasal, Sinus - Aspirate Human Rhinovirus/Enterovirus 07/02/16 08:02 Mycobacterial Smear (JEVON) - Final Lung Right Upper Lobe - Bronchial Washings Laboratory Results 07/03/16 06:22 07/03/16 06:22 07/02/16 07/03/16 07/04/16 05:59 05:59 05:59 Intake Total 1600 2600 Output Total 300 300 Balance 1300 2300 PT 13.7 SEC (12.0-15.0) 06/19/16 06:12 INR 1.06 (0.83-1.16) 06/19/16 06:12 - Physical Exam Constitutional: chronically ill appearing, No no apparent distress Eyes: PERRL, anicteric sclera Ears, Nose, Mouth, Throat: moist mucous membranes, hearing normal Cardiovascular: regular rate and rhythym, no murmur, rub, or gallop Respiratory: other (wet cough, rhoncorous anterolat. declined further exam) Gastrointestinal: normoactive bowel sounds, soft, non-tender abdomen Genitourinary: no bladder fullness, No chi in urethra Skin: warm, normal color Musculoskeletal: No full muscle strength Neurologic: No AAOx3 ICD10 Worksheet Patient Problems: Problems Problem Status Onset Cough Acute Flank pain Acute Generalized weakness Acute Acute ischemic stroke Acute Back pain Acute Bronchitis Acute CLL (chronic lymphocytic leukemia) Acute Chronic Disease Mgmt/Transitional Care Acute Confusion Acute Cough Acute Cough Acute Diarrhea Acute Fatigue Acute Hydronephrosis Acute Hyperkalemia Acute MRSA (methicillin resistant Staphylococcus aureus) Acute 04/22/15 Multiple drug resistant organism (MDRO) culture positive Acute ~04/02/16 NSTEMI (non-ST elevated myocardial infarction) Acute Palliative care encounter Acute Pneumonia Acute Pneumonia Acute Pneumonia due to infectious organism Acute Pyelonephritis Acute Somnolence Acute Subdural bleeding Acute UTI (urinary tract infection) Acute UTI (urinary tract infection) Acute Urinary obstruction Acute Weakness Acute Weakness Acute
[2016-07-03] MEDS: SULFAMETHOX/TMP 800/160 MG 1 TAB PO SCH (16:23)
[2016-07-03] MEDS: ACYCLOVIR 400 MG TAB PO SCH ×3 (17:21→20:48)
[2016-07-03] MEDS: PANTOPRAZOLE SODIUM 40 MG TAB PO SCH (17:22)
[2016-07-03] MEDS: POLYETHYLENE GLYCOL 3350 17 GM PKT PO SCH (17:22)
[2016-07-03] MEDS: guaiFENesin 600 MG TAB.ER PO SCH ×2 (17:22→20:50)
[2016-07-03] MEDS: ENOXAPARIN 30 MG/0.3 ML SYR SC SCH (17:24)
[2016-07-03] MEDS: VANCOMYCIN 500 MG in D5W 100 ML IV SCH (17:32)
[2016-07-03] MEDS: ASPIRIN 81 MG CHEWABLE TAB PO SCH (20:48)
[2016-07-03] MEDS: PATCH REMOVAL 1 EA PATCH TD SCH (22:07)
[2016-07-03] MEDS: guaiFENesin/CODEINE PHOS 10 ML UDCUP PO PRN (23:48)
[2016-07-04] MEDS: NS 1,000 ML IV SCH (01:13)
[2016-07-04 07:49] LABS: ADD DIFF? YES; ADD MORPH? NO; ATYPICAL LYMPHOCYTE FLAG 0 (0-99); FRAGMENT RBC FLAG 30 (0-99); HEMOGLOBIN 9.2 g/dL (12.6-16.3); LIPEMIA HEMOLYSIS FLAG 80 (0-99); MEAN CELL HEMOGLOBIN 33.3 pg (27.9-34.1); MEAN CELL HEMOGLOBIN CONCENTR. 31.7 g/dL (32.4-36.7); MEAN CELL VOLUME 105.1 fL (81.5-99.8); MEAN PLATELET VOLUME 10.5 fL (8.7-11.7); PLATELET CLUMPS FLAG 10 (0-99); PLATELET COUNT 226 10^3/uL (150-400); RED BLOOD CELL COUNT 2.76 10^6/uL (4.18-5.33); RED CELL DISTRIBUTION WIDTH 18.1 % (11.5-15.2)
[2016-07-04 07:54] LABS: ADD SCAN? NO; LEFT SHIFT FLG 140 (0-99)
[2016-07-04] MEDS: ACETAMINOPHEN 500 MG TAB PO SCH ×2 (08:12→15:36)
[2016-07-04] MEDS: ALLOPURINOL 300 MG TAB PO SCH (08:13)
[2016-07-04] MEDS: ACYCLOVIR 400 MG TAB PO SCH ×2 (08:13→20:56)
[2016-07-04] MEDS: ENOXAPARIN 40 MG/0.4 ML SYR SC SCH (08:13)
[2016-07-04] MEDS: guaiFENesin 600 MG TAB.ER PO SCH ×2 (08:13→20:50)
[2016-07-04] MEDS: CEFEPIME HCL 1 GM in D5W 50 ML IV SCH ×2 (08:13→20:32)
[2016-07-04] MEDS: BENZONATATE 100 MG CAP PO PRN ×2 (08:13→18:00)
[2016-07-04] MEDS: FLUoxetine 20 MG CAP PO SCH (08:13)
[2016-07-04 08:14] LABS: ALANINE AMINOTRANSFERASE 30 IU/L (9-52); ALBUMIN 2.1 g/dL (3.5-5.0); ALKALINE PHOSPHATASE 111 IU/L (38-126); ANION GAP 5 mEq/L (8-16); ASPARTATE AMINOTRANSFERASE 22 IU/L (14-46); BILIRUBIN,TOTAL 0.4 mg/dL (0.1-1.4); CALCIUM 8.5 mg/dL (8.5-10.4); CARBON DIOXIDE 19 mEq/l (22-31); CHLORIDE 114 mEq/L (97-110); GLOMERULAR FILTRATION RATE 52; GLUCOSE 65 mg/dL (70-100); POTASSIUM 4.7 mEq/L (3.5-5.2); SODIUM 138 mEq/L (134-144)
[2016-07-04] MEDS: oxyCODONE IR 5 MG TAB PO PRN ×2 (08:14→20:43)
[2016-07-04] MEDS: POLYETHYLENE GLYCOL 3350 17 GM PKT PO SCH (08:15)
[2016-07-04] MEDS: SULFAMETHOX/TMP 800/160 MG 1 TAB PO SCH (08:15)
[2016-07-04] MEDS: BUDESONIDE 0.5 MG/2 ML AMPUL.NEB IH SCH ×2 (09:07→19:58)
[2016-07-04] MEDS: IPRATROPIUM/ALBUTEROL 3 ML DEYVIAL IH SCH ×2 (09:08→19:58)
[2016-07-04] MEDS: FLUCONAZOLE/NaCl 100 ML IV SCH (09:31)
[2016-07-04] MEDS: PANTOPRAZOLE SODIUM 40 MG TAB PO SCH (09:31)
--- NOTE | 2016-07-04 10:03 | PCMIDPN ---
Assessment/Plan: Assessment: Right ureteral obstruction with nephrostomy tube placed. Urine from the nephrostomy tube with evidence of infection. Corynebacterium, yeast and aerococcus are all in culture. Patient is currently being covered with vancomycin and p.o. fluconazole. Worsening multifocal lung infection. Bronch samples are growing Pseudomonas aeruginosa. Putatively covered by cefepime. Given her marginal clinical improvement over the last 2-3 days I suspect that this strain will be found to be cefepime sensitive. Formal sensitivities are pending. Nasal wash from yesterday is showing PCR signature of enterovirus / rhinovirus. This could also be explorative of both upper and lower respiratory tract disease in a patient with no significant lymphocyte arm of her immune system. Plan: 1. Continue IV vancomycin, cefepime and p.o. fluconazole. 2. Follow clinical course. 3. Follow respiratory status. 4. Follow up on sensitivity panel of Pseudomonas. Subjective: Patient is quite weak. She is resting in her hospital bed. Eating minimal amounts of food. Daughter is at bedside. She has not had fevers or chills. Remains with a cough that is somewhat productive of sputum. Objective: Cefepime # 5 Vancomycin # 13 Fluconazole # 12 Vital Signs Temp Pulse Resp BP Pulse Ox 36.8 C 101 H 20 156/80 H 94 07/04/16 08:30 07/04/16 08:30 07/04/16 08:30 07/04/16 08:30 07/04/16 08:30 Microbiology 07/02/16 07:30 Gram Stain - Final Lung Right Upper Lobe - Bronchial Washings 07/02/16 08:00 Gram Stain - Final Lung Right Upper Lobe - Other 07/02/16 08:02 Gram Stain - Final Lung Right Upper Lobe - Bronchial Washings 07/02/16 08:03 Gram Stain - Final Lung Right Upper Lobe - Bronchial Washings 07/03/16 07:10 Respiratory Panel (PCR) - Final Nasal, Sinus - Aspirate Human Rhinovirus/Enterovirus Laboratory Results 07/04/16 05:15 07/04/16 05:15 07/03/16 07/04/16 07/05/16 05:59 05:59 05:59 Intake Total 2600 600 Output Total 300 190 100 Balance 2300 410 -100 - Physical Exam General Appearance: WD/WN, alert, no apparent distress, thin, non-toxic, other ( weakened appearing) Respiratory: crackles, No lungs clear, No normal breath sounds, No wheezing Cardiac/Chest: regular rate, rhythm, No tachycardia Skin: normal color, warm/dry, No rash Neuro/Psych: alert, normal mood/affect, oriented x 3 ICD10 Worksheet Patient Problems: Problems Problem Status Onset Cough Acute Flank pain Acute Generalized weakness Acute Acute ischemic stroke Acute Back pain Acute Bronchitis Acute CLL (chronic lymphocytic leukemia) Acute Chronic Disease Mgmt/Transitional Care Acute Confusion Acute Cough Acute Cough Acute Diarrhea Acute Fatigue Acute Hydronephrosis Acute Hyperkalemia Acute MRSA (methicillin resistant Staphylococcus aureus) Acute 04/22/15 Multiple drug resistant organism (MDRO) culture positive Acute ~04/02/16 NSTEMI (non-ST elevated myocardial infarction) Acute Palliative care encounter Acute Pneumonia Acute Pneumonia Acute Pneumonia due to infectious organism Acute Pyelonephritis Acute Somnolence Acute Subdural bleeding Acute UTI (urinary tract infection) Acute UTI (urinary tract infection) Acute Urinary obstruction Acute Weakness Acute Weakness Acute
[2016-07-04 10:36] LABS: ELLIPTOCYTES 2+; HYPERSEGMENTED NEUTROPHILS 1+; MACROCYTES 2+; PLATELET ESTIMATE ADEQUATE (ADEQ)
[2016-07-04 10:38] LABS: TOXIC GRANULATION PRESENT
--- NOTE | 2016-07-04 10:39 | SOAPPROG ---
SOAP Progress Note Assessment/Plan: Assessment: 1.) Pneumonia, S/P bronch on 07/02. Appears to have non-productive cough and resp. toilet likely to assist resolution. 2.) Medical/physical frailty 3.) CLL in remission following recent therapy, without acute need of diagnostic or therapeutic intervention. 4.) Recent AR insufficiency- improving 5.) Multifactorial anemia 6.) R ureteral obstruction, S/P Nephrostomy tube decompression Antibiotic management with Vanco/Cefipime/fluconazole po noted. Pt. still appears profoundly weak/debilitated, with concerning prognosis for meaningful recovery. Plan: 1.) See above discussion. 2.) No blood product intervention needed. 3.) Will check Ig levels 4.) Our service will follow intermittently. 5.) May need SNF vs. Rehab transfer following this acute hospitalization. 07/04/16 10:39 Subjective: Pt appears a little more alert and in less respiratory distress. Objective: As noted here, afebrile. Running borderline sinus Tachy Debilitated elderly WF lying on her left side at a 45 degree angle. She appears profoundly weak. HEENT- anicteric, pale , no oral thrush Neck- supple, without lymphadenopathy Chest- diminished basilar breath sounds, with upper airway coarse rhonchi CVS- RSR, no extra HS ABD- soft, NT, BS+, no HSM EXT- +OA, scattered ecchymoses Labs as noted here: Hgb 9.2 Resp. Cx growing out Pseudomonas species. Urine Cx noted Vital Signs Temp Pulse Resp BP Pulse Ox 36.8 C 101 H 20 156/80 H 94 07/04/16 08:30 07/04/16 08:30 07/04/16 08:30 07/04/16 08:30 07/04/16 08:30 Microbiology 07/02/16 07:30 Gram Stain - Final Lung Right Upper Lobe - Bronchial Washings 07/02/16 08:00 Gram Stain - Final Lung Right Upper Lobe - Other 07/02/16 08:02 Gram Stain - Final Lung Right Upper Lobe - Bronchial Washings 07/02/16 08:03 Gram Stain - Final Lung Right Upper Lobe - Bronchial Washings 07/03/16 07:10 Respiratory Panel (PCR) - Final Nasal, Sinus - Aspirate Human Rhinovirus/Enterovirus Laboratory Results 07/04/16 05:15 07/04/16 05:15 07/03/16 07/04/16 07/05/16 05:59 05:59 05:59 Intake Total 2600 600 Output Total 300 190 100 Balance 2300 410 -100 PT 13.7 SEC (12.0-15.0) 06/19/16 06:12 INR 1.06 (0.83-1.16) 06/19/16 06:12 ICD10 Worksheet Patient Problems: Problems Problem Status Onset Cough Acute Flank pain Acute Generalized weakness Acute Acute ischemic stroke Acute Back pain Acute Bronchitis Acute CLL (chronic lymphocytic leukemia) Acute Chronic Disease Mgmt/Transitional Care Acute Confusion Acute Cough Acute Cough Acute Diarrhea Acute Fatigue Acute Hydronephrosis Acute Hyperkalemia Acute MRSA (methicillin resistant Staphylococcus aureus) Acute 04/22/15 Multiple drug resistant organism (MDRO) culture positive Acute ~04/02/16 NSTEMI (non-ST elevated myocardial infarction) Acute Palliative care encounter Acute Pneumonia Acute Pneumonia Acute Pneumonia due to infectious organism Acute Pyelonephritis Acute Somnolence Acute Subdural bleeding Acute UTI (urinary tract infection) Acute UTI (urinary tract infection) Acute Urinary obstruction Acute Weakness Acute Weakness Acute
[2016-07-04] MEDS: HYDROmorphONE/DILAUDID 1 MG/ML SYR IVP PRN ×3 (12:21→20:27)
--- NOTE | 2016-07-04 14:29 | HOSPPROG ---
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 Patient continues have worsening cough and hoarseness. See interim summary dictation dated 07/02. 07/01: Patient continues with significant cough and now has lost her voice. She is unable to produce mucus but has a significant heavy cough. Abdomen planned to do bronchoscopy today but unfortunately the patient ate. The bronchoscopy has been put off until 07/02 -Right flank pain, s/p nephrostomy replacement and stent removal. Nephrostomy tube is functioning well. Ultrasound yesterday showed no signs of obstruction. -UTI - Corynebacterium, yeast non Albicans. 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 T bronch w heavy secretions and culture w pseudomonas continue cefepime await sensitivities weakness precludes cough -Atrial fibrillation: In normal sinus rhythm and stable. Full anticoagulation has not been performed due to her debilitated state and the risk of falling. -CKD, unknown stage. cr back to baseline -History of intracranial hemorrhage -Constipation: On bowel protocol -Generalized weakness/debility/deconditioning getting worse w -continue with IV antimicrobials - fluconazole (started 06/23), vanco (started 06/22) - managed by infectious disease specialist - bronch bronchoscopy 07/02 - cefepime for Hap coverage DNR Subjective: case d/w dr shaw Objective: Vital Signs Temp Pulse Resp BP Pulse Ox 36.3 C 84 20 154/74 H 95 07/04/16 12:05 07/04/16 12:05 07/04/16 08:30 07/04/16 12:05 07/04/16 12:05 Microbiology 07/02/16 08:03 Gram Stain - Final Lung Right Upper Lobe - Bronchial Washings Bronchial Washings Culture - Final Pseudomonas Aeruginosa 07/02/16 08:02 Gram Stain - Final Lung Right Upper Lobe - Bronchial Washings Bronchial Washings Culture - Final Pseudomonas Aeruginosa 07/02/16 08:00 Gram Stain - Final Lung Right Upper Lobe - Other Bronchial Washings Culture - Final Pseudomonas Aeruginosa 07/02/16 07:30 Gram Stain - Final Lung Right Upper Lobe - Bronchial Washings 07/03/16 07:10 Respiratory Panel (PCR) - Final Nasal, Sinus - Aspirate Human Rhinovirus/Enterovirus Laboratory Results 07/04/16 05:15 07/04/16 05:15 07/03/16 07/04/16 07/05/16 05:59 05:59 05:59 Intake Total 2600 600 Output Total 300 190 100 Balance 2300 410 -100 PT 13.7 SEC (12.0-15.0) 06/19/16 06:12 INR 1.06 (0.83-1.16) 06/19/16 06:12 - Physical Exam Constitutional: other (confused, looks weak) Eyes: PERRL, anicteric sclera Ears, Nose, Mouth, Throat: moist mucous membranes, hearing normal Cardiovascular: regular rate and rhythym, no murmur, rub, or gallop Respiratory: other (rhoncorous anterolat. no wheeze) Gastrointestinal: normoactive bowel sounds, soft, non-tender abdomen Genitourinary: No chi in urethra Skin: warm, normal color Musculoskeletal: full muscle strength, no muscle tenderness Neurologic: AAOx3 ICD10 Worksheet Patient Problems: Problems Problem Status Onset Cough Acute Flank pain Acute Generalized weakness Acute Acute ischemic stroke Acute Back pain Acute Bronchitis Acute CLL (chronic lymphocytic leukemia) Acute Chronic Disease Mgmt/Transitional Care Acute Confusion Acute Cough Acute Cough Acute Diarrhea Acute Fatigue Acute Hydronephrosis Acute Hyperkalemia Acute MRSA (methicillin resistant Staphylococcus aureus) Acute 04/22/15 Multiple drug resistant organism (MDRO) culture positive Acute ~04/02/16 NSTEMI (non-ST elevated myocardial infarction) Acute Palliative care encounter Acute Pneumonia Acute Pneumonia Acute Pneumonia due to infectious organism Acute Pyelonephritis Acute Somnolence Acute Subdural bleeding Acute UTI (urinary tract infection) Acute UTI (urinary tract infection) Acute Urinary obstruction Acute Weakness Acute Weakness Acute
--- NOTE | 2016-07-04 14:49 | PDINTPN ---
[employer] Teacher Progress Note Assessment/Plan: Assessment/plan: 86 F with known CLL and previous pulmonary involvement s/p several courses of chemotherapy admitted with recurrent urteral obstruction and infection requiring nephrostomy tubes developed worsening chronic cough and consolidation on chest CT. Underwent bronch 07/02/16 with copious secretions. I suspect chronic aspiration. * HCAP- bronch culture growing Pseudomonas sensitive to cefepime with improvement per patient. Continue abx and pulmonary toilet. * Aspiration- discussed briefly with daughter and not interested in speech therapy. She may be leaning toward hospice. * Hypoxemia- near baseline * Altered MS- back to baseline * We'll sign off; please call prn 07/04/16 14:47 Objective: Vital Signs Temp Pulse Resp BP Pulse Ox 36.3 C 84 20 154/74 H 95 07/04/16 12:05 07/04/16 12:05 07/04/16 08:30 07/04/16 12:05 07/04/16 12:05 Microbiology 07/02/16 08:03 Gram Stain - Final Lung Right Upper Lobe - Bronchial Washings Bronchial Washings Culture - Final Pseudomonas Aeruginosa 07/02/16 08:02 Gram Stain - Final Lung Right Upper Lobe - Bronchial Washings Bronchial Washings Culture - Final Pseudomonas Aeruginosa 07/02/16 08:00 Gram Stain - Final Lung Right Upper Lobe - Other Bronchial Washings Culture - Final Pseudomonas Aeruginosa 07/02/16 07:30 Gram Stain - Final Lung Right Upper Lobe - Bronchial Washings 07/03/16 07:10 Respiratory Panel (PCR) - Final Nasal, Sinus - Aspirate Human Rhinovirus/Enterovirus Laboratory Results 07/04/16 05:15 07/04/16 05:15 07/03/16 07/04/16 07/05/16 05:59 05:59 05:59 Intake Total 2600 600 Output Total 300 190 100 Balance 2300 410 -100 PT 13.7 SEC (12.0-15.0) 06/19/16 06:12 INR 1.06 (0.83-1.16) 06/19/16 06:12 Physical Exam - Physical Exam General Appearance: alert, other (frail and ill appearing) EENT: PERRL/EOMI Neck: supple Respiratory: decreased breath sounds, rales, No stridor, No wheezing, No retractions Cardiac/Chest: regular rate, rhythm, No edema Abdomen: normal bowel sounds, non-tender, soft, No distended Skin: normal color, warm/dry, rash Lymphatic: no adenopathy Extremities: No pedal edema Neuro/Psych: alert, normal mood/affect, No abnormal boat washer II-XII ICD10 Worksheet Patient Problems: Problems Problem Status Onset Cough Acute Flank pain Acute Generalized weakness Acute Acute ischemic stroke Acute Back pain Acute Bronchitis Acute CLL (chronic lymphocytic leukemia) Acute Chronic Disease Mgmt/Transitional Care Acute Confusion Acute Cough Acute Cough Acute Diarrhea Acute Fatigue Acute Hydronephrosis Acute Hyperkalemia Acute MRSA (methicillin resistant Staphylococcus aureus) Acute 04/22/15 Multiple drug resistant organism (MDRO) culture positive Acute ~04/02/16 NSTEMI (non-ST elevated myocardial infarction) Acute Palliative care encounter Acute Pneumonia Acute Pneumonia Acute Pneumonia due to infectious organism Acute Pyelonephritis Acute Somnolence Acute Subdural bleeding Acute UTI (urinary tract infection) Acute UTI (urinary tract infection) Acute Urinary obstruction Acute Weakness Acute Weakness Acute
[2016-07-04] MEDS: VANCOMYCIN 500 MG in D5W 100 ML IV SCH (15:35)
[2016-07-04] MEDS: guaiFENesin/CODEINE PHOS 10 ML UDCUP PO PRN (20:35)
[2016-07-04] MEDS: ASPIRIN 81 MG CHEWABLE TAB PO SCH (20:45)
[2016-07-04] MEDS: PATCH REMOVAL 1 EA PATCH TD SCH (20:56)
[2016-07-05] MEDS: ACETAMINOPHEN 500 MG TAB PO SCH ×4 (00:07→23:01)
[2016-07-05] MEDS: HYDROmorphONE/DILAUDID 1 MG/ML SYR IVP PRN ×4 (03:47→23:00)
[2016-07-05 04:14] LABS: ADD DIFF? YES; ADD MORPH? NO; ADD SCAN? NO; ATYPICAL LYMPHOCYTE FLAG 0 (0-99); FRAGMENT RBC FLAG 10 (0-99); HEMATOCRIT 30.5 % (38.0-47.0); HEMOGLOBIN 9.4 g/dL (12.6-16.3); LEFT SHIFT FLG 70 (0-99); LIPEMIA HEMOLYSIS FLAG 80 (0-99); MEAN CELL HEMOGLOBIN 32.5 pg (27.9-34.1); MEAN CELL HEMOGLOBIN CONCENTR. 30.8 g/dL (32.4-36.7); MEAN CELL VOLUME 105.5 fL (81.5-99.8); MEAN PLATELET VOLUME 10.9 fL (8.7-11.7); PLATELET CLUMPS FLAG 10 (0-99); PLATELET COUNT 204 10^3/uL (150-400); RED BLOOD CELL COUNT 2.89 10^6/uL (4.18-5.33); RED CELL DISTRIBUTION WIDTH 17.8 % (11.5-15.2)
[2016-07-05 04:38] LABS: ALANINE AMINOTRANSFERASE 25 IU/L (9-52); ALBUMIN 2.3 g/dL (3.5-5.0); ALKALINE PHOSPHATASE 120 IU/L (38-126); ANION GAP 5 mEq/L (8-16); ASPARTATE AMINOTRANSFERASE 24 IU/L (14-46); BILIRUBIN,TOTAL 0.4 mg/dL (0.1-1.4); CALCIUM 8.6 mg/dL (8.5-10.4); CARBON DIOXIDE 19 mEq/l (22-31); CHLORIDE 112 mEq/L (97-110); GLOMERULAR FILTRATION RATE 52; GLUCOSE 76 mg/dL (70-100); SODIUM 136 mEq/L (134-144); TOTAL PROTEIN 4.3 g/dL (6.3-8.2)
[2016-07-05 05:06] LABS: ELLIPTOCYTES 1+; HYPOCHROMIA 1+; MICROCYTES 2+; PLATELET ESTIMATE ADEQUATE (ADEQ)
[2016-07-05] MEDS: BUDESONIDE 0.5 MG/2 ML AMPUL.NEB IH SCH ×2 (08:34→22:18)
[2016-07-05] MEDS: IPRATROPIUM/ALBUTEROL 3 ML DEYVIAL IH SCH ×2 (08:34→22:18)
[2016-07-05] MEDS: ACYCLOVIR 400 MG TAB PO SCH ×2 (09:37→21:22)
[2016-07-05] MEDS: guaiFENesin 600 MG TAB.ER PO SCH ×2 (09:37→23:22)
[2016-07-05] MEDS: PANTOPRAZOLE SODIUM 40 MG TAB PO SCH (09:38)
[2016-07-05] MEDS: FLUoxetine 20 MG CAP PO SCH (09:40)
[2016-07-05] MEDS: ALLOPURINOL 300 MG TAB PO SCH (09:40)
[2016-07-05] MEDS: POLYETHYLENE GLYCOL 3350 17 GM PKT PO SCH (09:42)
[2016-07-05] MEDS: ENOXAPARIN 40 MG/0.4 ML SYR SC SCH (09:42)
[2016-07-05] MEDS: cefTAZidime PENTAHYDRATE 1 GM in NS 50 ML IV SCH ×2 (09:57→19:00)
[2016-07-05] MEDS: FLUCONAZOLE/NaCl 100 ML IV SCH (09:59)
[2016-07-05] MEDS: BENZONATATE 100 MG CAP PO PRN (10:23)
--- NOTE | 2016-07-05 11:34 | PCMIDPN ---
Assessment/Plan: 1. Recurrent right ureteral obstruction status post percutaneous nephrostomy: Cultures have grown Corynebacterium and Cherelle lusitaniae sensitive to fluconazole. Continue vancomycin and fluconazole. Repeat vancomycin trough today. Creatinine stable. 2. Pseudomonal pneumonia in immunocompromised host: Antibiotics have been changed appropriately. Continue ceftazidime at present dose. Pulmonary toilet seems to be her major problem. 3. Rhinovirus/ enterovirus upper/lower respiratory tract infection: Continue droplet precautions. 4. Disposition: Talked to the daughter about the change in antibiotics, and the fact that we should wait a few days to see if these improve her situation prior to embarking on a different conversation (Hospice). She agreed for now. Overall prognosis seems poor, however in light of her multiple serious medical issues. 07/05/16 11:37 Subjective: Patient seems a little better today. Still having a cough. Patient unable to expectorate. No diarrhea. Her voice is slowly returning. Explained to the daughter the rationale behind antibiotic change. Objective: Ceftazidime 1 g IV q.12 hours day 1. (Antibiotics day 6) Fluconazole 200 mg p.o. daily day 13 Vancomycin 500 mg IV daily day 14 Bactrim DS daily Afebrile 92% on 6 L Vital Signs Temp Pulse Resp BP Pulse Ox 36.3 C 94 22 H 144/82 H 92 07/05/16 09:32 07/05/16 09:32 07/05/16 09:32 07/05/16 09:32 07/05/16 09:32 Microbiology 07/02/16 07:30 Gram Stain - Final Lung Right Upper Lobe - Bronchial Washings Bronchial Washings Culture - Final Pseudomonas Aeruginosa 06/29/16 19:00 Blood Culture - Final Blood 06/29/16 19:15 Blood Culture - Final Blood 07/02/16 08:03 Gram Stain - Final Lung Right Upper Lobe - Bronchial Washings Bronchial Washings Culture - Final Pseudomonas Aeruginosa 07/02/16 08:02 Gram Stain - Final Lung Right Upper Lobe - Bronchial Washings Bronchial Washings Culture - Final Pseudomonas Aeruginosa 07/02/16 08:00 Gram Stain - Final Lung Right Upper Lobe - Other Bronchial Washings Culture - Final Pseudomonas Aeruginosa Laboratory Results 07/05/16 03:50 07/05/16 03:50 07/04/16 07/05/16 07/06/16 05:59 05:59 05:59 Intake Total 600 1842 Output Total 190 450 Balance 410 1392 bronch wash with Pseudomonas resistant to cefepime - Physical Exam General Appearance: alert, other ( patient was able to phonate) EENT: pharynx normal Respiratory: crackles Cardiac/Chest: regular rate, rhythm Extremities: pedal edema, other ( PICC line right upper extremity looks fine) Abdomen: non-tender, soft Skin: other ( no new rash) ICD10 Worksheet Patient Problems: Problems Problem Status Onset Cough Acute Flank pain Acute Generalized weakness Acute Acute ischemic stroke Acute Back pain Acute Bronchitis Acute CLL (chronic lymphocytic leukemia) Acute Chronic Disease Mgmt/Transitional Care Acute Confusion Acute Cough Acute Cough Acute Diarrhea Acute Fatigue Acute Hydronephrosis Acute Hyperkalemia Acute MRSA (methicillin resistant Staphylococcus aureus) Acute 04/22/15 Multiple drug resistant organism (MDRO) culture positive Acute ~04/02/16 NSTEMI (non-ST elevated myocardial infarction) Acute Palliative care encounter Acute Pneumonia Acute Pneumonia Acute Pneumonia due to infectious organism Acute Pyelonephritis Acute Somnolence Acute Subdural bleeding Acute UTI (urinary tract infection) Acute UTI (urinary tract infection) Acute Urinary obstruction Acute Weakness Acute Weakness Acute
[2016-07-05] MEDS: ALBUTEROL 3 ML DEYVIAL IH PRN ×2 (12:54→15:58)
[2016-07-05] MEDS ORDERED: ACETAMINOPHEN 325 MG TAB PO ONE ×2 (13:58→17:30)
--- NOTE | 2016-07-05 13:58 | HOSPPROG ---
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 Patient continues have worsening cough and hoarseness. See interim summary dictation dated 07/02. 07/01: Patient continues with significant cough and now has lost her voice. She is unable to produce mucus but has a significant heavy cough. Abdomen planned to do bronchoscopy today but unfortunately the patient ate. The bronchoscopy has been put off until 07/02 -Right flank pain, s/p nephrostomy replacement and stent removal. Nephrostomy tube is functioning well. -UTI - Corynebacterium, yeast non Albicans. 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 Full anticoagulation has not been performed due to her debilitated state and the risk of falling. -CKD, unknown stage. cr back to baseline encephalopathy: 2/2 critical illness on pain meds, but no other culprit meds -History of intracranial hemorrhage -Constipation: On bowel protocol -Generalized weakness/debility/deconditioning getting worse w -continue with IV antimicrobials - fluconazole (started 06/23), vanco (started 06/22) - managed by infectious disease specialist plan of care: daughter involved at this point she wishes to continue antimicrobial therapy for the time being (07/05) daughter acknowledges hospice may soon be appropriate DNR Subjective: case d/w chase stroud and magali. perhaps more alert today Objective: Vital Signs Temp Pulse Resp BP Pulse Ox 36.3 C 83 16 144/82 H 92 07/05/16 09:32 07/05/16 12:55 07/05/16 12:55 07/05/16 09:32 07/05/16 12:55 Microbiology 07/02/16 07:30 Gram Stain - Final Lung Right Upper Lobe - Bronchial Washings Bronchial Washings Culture - Final Pseudomonas Aeruginosa 06/29/16 19:00 Blood Culture - Final Blood 06/29/16 19:15 Blood Culture - Final Blood 07/02/16 08:03 Gram Stain - Final Lung Right Upper Lobe - Bronchial Washings Bronchial Washings Culture - Final Pseudomonas Aeruginosa 07/02/16 08:02 Gram Stain - Final Lung Right Upper Lobe - Bronchial Washings Bronchial Washings Culture - Final Pseudomonas Aeruginosa 07/02/16 08:00 Gram Stain - Final Lung Right Upper Lobe - Other Bronchial Washings Culture - Final Pseudomonas Aeruginosa Laboratory Results 07/05/16 03:50 07/05/16 03:50 07/04/16 07/05/16 07/06/16 05:59 05:59 05:59 Intake Total 600 1842 Output Total 190 450 Balance 410 1392 PT 13.7 SEC (12.0-15.0) 06/19/16 06:12 INR 1.06 (0.83-1.16) 06/19/16 06:12 - Physical Exam Constitutional: no apparent distress Eyes: PERRL, anicteric sclera Ears, Nose, Mouth, Throat: moist mucous membranes, hearing normal Cardiovascular: regular rate and rhythym, no murmur, rub, or gallop, No tachycardia Respiratory: no respiratory distress, no rales or rhonchi, rhonchi (rhoncorous anterolat. good air movemnent. no wheeze), other Gastrointestinal: normoactive bowel sounds, soft, non-tender abdomen Genitourinary: other (R nephrostomy tube), No chi in urethra Skin: warm Musculoskeletal: full muscle strength, no muscle tenderness Neurologic: AAOx3 Psychiatric: interacting appropriately ICD10 Worksheet Patient Problems: Problems Problem Status Onset Cough Acute Flank pain Acute Generalized weakness Acute Acute ischemic stroke Acute Back pain Acute Bronchitis Acute CLL (chronic lymphocytic leukemia) Acute Chronic Disease Mgmt/Transitional Care Acute Confusion Acute Cough Acute Cough Acute Diarrhea Acute Fatigue Acute Hydronephrosis Acute Hyperkalemia Acute MRSA (methicillin resistant Staphylococcus aureus) Acute 04/22/15 Multiple drug resistant organism (MDRO) culture positive Acute ~04/02/16 NSTEMI (non-ST elevated myocardial infarction) Acute Palliative care encounter Acute Pneumonia Acute Pneumonia Acute Pneumonia due to infectious organism Acute Pyelonephritis Acute Somnolence Acute Subdural bleeding Acute UTI (urinary tract infection) Acute UTI (urinary tract infection) Acute Urinary obstruction Acute Weakness Acute Weakness Acute
[2016-07-05] MEDS ORDERED: IMMUNE GLOBULIN 20 GM/200 ML VIAL IV SCH (14:00)
--- NOTE | 2016-07-05 14:01 | SOAPPROG ---
SOAP Progress Note Assessment/Plan: Assessment: 1.) Pneumonia, S/P bronch on 07/02. Appears to have non-productive cough and resp. toilet likely to assist resolution. 2.) Medical/physical frailty 3.) CLL in remission following recent therapy, without acute need of diagnostic or therapeutic intervention. 4.) Recent AR insufficiency- improving 5.) Multifactorial anemia 6.) R ureteral obstruction, S/P Nephrostomy tube decompression 7.) Hypogammaglobulinemia Antibiotic management with Vanco/Cefipime/fluconazole po noted. Pt. still appears profoundly weak/debilitated, with concerning prognosis for meaningful recovery. Plan: IVIG today, continue to evaluate goals of therapy 07/05/16 13:59 Objective: Vital Signs Temp Pulse Resp BP Pulse Ox 97.4 F 83 16 144/82 H 92 07/05/16 09:32 07/05/16 12:55 07/05/16 12:55 07/05/16 09:32 07/05/16 12:55 Microbiology 07/02/16 07:30 Gram Stain - Final Lung Right Upper Lobe - Bronchial Washings Bronchial Washings Culture - Final Pseudomonas Aeruginosa 06/29/16 19:00 Blood Culture - Final Blood 06/29/16 19:15 Blood Culture - Final Blood 07/02/16 08:03 Gram Stain - Final Lung Right Upper Lobe - Bronchial Washings Bronchial Washings Culture - Final Pseudomonas Aeruginosa 07/02/16 08:02 Gram Stain - Final Lung Right Upper Lobe - Bronchial Washings Bronchial Washings Culture - Final Pseudomonas Aeruginosa 07/02/16 08:00 Gram Stain - Final Lung Right Upper Lobe - Other Bronchial Washings Culture - Final Pseudomonas Aeruginosa Laboratory Results 07/05/16 03:50 07/05/16 03:50 07/04/16 07/05/16 07/06/16 05:59 05:59 05:59 Intake Total 600 1842 Output Total 190 450 Balance 410 1392 PT 13.7 SEC (12.0-15.0) 06/19/16 06:12 INR 1.06 (0.83-1.16) 06/19/16 06:12 Physical Exam - Physical Exam General Appearance: moderate distress EENT: other (not speaking) ICD10 Worksheet Patient Problems: Problems Problem Status Onset Cough Acute Flank pain Acute Generalized weakness Acute Acute ischemic stroke Acute Back pain Acute Bronchitis Acute CLL (chronic lymphocytic leukemia) Acute Chronic Disease Mgmt/Transitional Care Acute Confusion Acute Cough Acute Cough Acute Diarrhea Acute Fatigue Acute Hydronephrosis Acute Hyperkalemia Acute MRSA (methicillin resistant Staphylococcus aureus) Acute 04/22/15 Multiple drug resistant organism (MDRO) culture positive Acute ~04/02/16 NSTEMI (non-ST elevated myocardial infarction) Acute Palliative care encounter Acute Pneumonia Acute Pneumonia Acute Pneumonia due to infectious organism Acute Pyelonephritis Acute Somnolence Acute Subdural bleeding Acute UTI (urinary tract infection) Acute UTI (urinary tract infection) Acute Urinary obstruction Acute Weakness Acute Weakness Acute
[2016-07-05] MEDS ORDERED: IMMUNE GLOBULIN 5 GM/50 ML VIAL IV ONE (17:15)
[2016-07-05] MEDS: VANCOMYCIN 500 MG in D5W 100 ML IV SCH (17:19)
[2016-07-05] MEDS ORDERED: IMMUNE GLOBULIN 20 GM/200 ML VIAL IV ONE (17:30)
[2016-07-05] MEDS: ASPIRIN 81 MG CHEWABLE TAB PO SCH (21:22)
[2016-07-05] MEDS: PATCH REMOVAL 1 EA PATCH TD SCH (21:23)
[2016-07-05] MEDS: guaiFENesin/CODEINE PHOS 10 ML UDCUP PO PRN (23:01)
[2016-07-06] MEDS: ALBUTEROL 3 ML DEYVIAL IH PRN (02:48)
[2016-07-06] MEDS ORDERED: ACETAMINOPHEN 325 MG SUPP PR PRN (02:51)
[2016-07-06] MEDS: HYDROmorphONE/DILAUDID 1 MG/ML SYR IVP PRN ×3 (03:23→16:35)
[2016-07-06] MEDS ORDERED: GLYCOPYRROLATE 0.2 MG/1 ML VIAL IVP PRN (03:59)
[2016-07-06] MEDS ORDERED: morphINE 10 MG/0.5 ML UDSYR PO PRN (04:00)
--- NOTE | 2016-07-06 04:11 | HOSPPROG ---
Hospitalist Progress Note Assessment/Plan: Called to bedside by RN due to HTN, SOB and fever during IVIG infusion. IVIG stopped. Pt c/o SOB PE: Gen: in distress, chronically-ill appearing, pale HEENT: dry MM CV: tachy, regular. +1 LE edema Lungs: poor effort, no wheezes Psych: alert, but not answering most questions A&P: 1. IVIG transfusion reaction: treat supportively with APAP for fever. Not hypotensive. HR improving. Stat CXR, nebs 2. Goals: I spoke with daughter on phone to inform her of clinical status. She knows that she is dying. I recommended comfort measures only and she agrees. -Symptom management: glycopyrrolate for secretions, Roxanol for breathlessness, Dilaudid for flank pain. Yi's goal is inpatient hospice and will have SW pursue in morning. -stop all other meds that are not contributing to comfort -stop vitals Critical care time spent: 40 min in which 20 min bedside evaluating pt, obtaining, reviewing CXR, progress notes. Remaining 20 min on phone counseling daughter on comfort measures and medications Objective: Vital Signs Temp Pulse Resp BP Pulse Ox 37.0 C 146 H 30 H 152/78 H 90 L 07/05/16 23:20 07/06/16 02:49 07/06/16 02:49 07/05/16 23:20 07/06/16 02:49 Microbiology 07/02/16 07:30 Gram Stain - Final Lung Right Upper Lobe - Bronchial Washings Bronchial Washings Culture - Final Pseudomonas Aeruginosa 06/29/16 19:00 Blood Culture - Final Blood 06/29/16 19:15 Blood Culture - Final Blood Laboratory Results 07/05/16 03:50 07/05/16 03:50 07/04/16 07/05/16 07/06/16 05:59 05:59 05:59 Intake Total 600 1842 1050 Output Total 190 450 350 Balance 410 1392 700 PT 13.7 SEC (12.0-15.0) 06/19/16 06:12 INR 1.06 (0.83-1.16) 06/19/16 06:12 ICD10 Worksheet Patient Problems: Problems Problem Status Onset Cough Acute Flank pain Acute Generalized weakness Acute Acute ischemic stroke Acute Back pain Acute Bronchitis Acute CLL (chronic lymphocytic leukemia) Acute Chronic Disease Mgmt/Transitional Care Acute Confusion Acute Cough Acute Cough Acute Diarrhea Acute Fatigue Acute Hydronephrosis Acute Hyperkalemia Acute MRSA (methicillin resistant Staphylococcus aureus) Acute 04/22/15 Multiple drug resistant organism (MDRO) culture positive Acute ~04/02/16 NSTEMI (non-ST elevated myocardial infarction) Acute Palliative care encounter Acute Pneumonia Acute Pneumonia Acute Pneumonia due to infectious organism Acute Pyelonephritis Acute Somnolence Acute Subdural bleeding Acute UTI (urinary tract infection) Acute UTI (urinary tract infection) Acute Urinary obstruction Acute Weakness Acute Weakness Acute
[2016-07-06 04:48] VITALS: TEMP 101.5
[2016-07-06] MEDS: IPRATROPIUM/ALBUTEROL 3 ML DEYVIAL IH SCH (08:28)
[2016-07-06] MEDS: BUDESONIDE 0.5 MG/2 ML AMPUL.NEB IH SCH (08:28)
[2016-07-06] MEDS: FLUoxetine 20 MG CAP PO SCH (11:04)
[2016-07-06] MEDS: guaiFENesin 600 MG TAB.ER PO SCH (11:04)
[2016-07-06] MEDS: ACETAMINOPHEN 500 MG TAB PO SCH ×2 (11:04→16:33)
--- NOTE | 2016-07-06 11:22 | SOAPPROG ---
SOAP Progress Note Assessment/Plan: Assessment: 1.) Pneumonia, pseudomonas 2.) Medical/physical frailty 3.) CLL in remission following recent therapy, without acute need of diagnostic or therapeutic intervention. 4.) Recent AR insufficiency- improving 5.) Multifactorial anemia 6.) R ureteral obstruction, S/P Nephrostomy tube decompression 7.) Hypogammaglobulinemia reacted to ivig last night, now off antibiotics, looking at hospice/comfort care Plan: To meet with hospice today 07/05/16 13:59 07/06/16 11:20 Subjective: Non verbal Objective: Vital Signs Temp Pulse Resp BP Pulse Ox 101.5 F H 104 H 24 H 162/71 H 96 07/06/16 02:35 07/06/16 08:28 07/06/16 08:28 07/06/16 02:35 07/06/16 08:28 Microbiology 07/02/16 07:30 Gram Stain - Final Lung Right Upper Lobe - Bronchial Washings Bronchial Washings Culture - Final Pseudomonas Aeruginosa 06/29/16 19:00 Blood Culture - Final Blood 06/29/16 19:15 Blood Culture - Final Blood Laboratory Results 07/05/16 03:50 07/05/16 03:50 07/05/16 07/06/16 07/07/16 05:59 05:59 05:59 Intake Total 1842 1050 100 Output Total 450 350 Balance 1392 700 100 PT 13.7 SEC (12.0-15.0) 06/19/16 06:12 INR 1.06 (0.83-1.16) 06/19/16 06:12 ICD10 Worksheet Patient Problems: Problems Problem Status Onset Cough Acute Flank pain Acute Generalized weakness Acute Acute ischemic stroke Acute Back pain Acute Bronchitis Acute CLL (chronic lymphocytic leukemia) Acute Chronic Disease Mgmt/Transitional Care Acute Confusion Acute Cough Acute Cough Acute Diarrhea Acute Fatigue Acute Hydronephrosis Acute Hyperkalemia Acute MRSA (methicillin resistant Staphylococcus aureus) Acute 04/22/15 Multiple drug resistant organism (MDRO) culture positive Acute ~04/02/16 NSTEMI (non-ST elevated myocardial infarction) Acute Palliative care encounter Acute Pneumonia Acute Pneumonia Acute Pneumonia due to infectious organism Acute Pyelonephritis Acute Somnolence Acute Subdural bleeding Acute UTI (urinary tract infection) Acute UTI (urinary tract infection) Acute Urinary obstruction Acute Weakness Acute Weakness Acute
[2016-07-06 11:45] VITALS: BP 103/70
--- NOTE | 2016-07-06 12:45 | HOSPPROG ---
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 Patient continues have worsening cough and hoarseness. significant decline overnight, attributed to IVIg. unclear if IVIg causative comfort care pursuing inpatient hospice 35' on care including 20' face to face Subjective: had febrile raction, presumably to IVIg, overnight. transitioned to comfort care Objective: Vital Signs Temp Pulse Resp BP Pulse Ox 38.6 C H 102 H 22 H 103/70 95 07/06/16 02:35 07/06/16 11:44 07/06/16 11:44 07/06/16 11:44 07/06/16 11:44 Microbiology 07/02/16 08:02 Mycobacterial Smear (JEVON) - Final Lung Right Upper Lobe - Bronchial Washings 07/02/16 07:30 Gram Stain - Final Lung Right Upper Lobe - Bronchial Washings Bronchial Washings Culture - Final Pseudomonas Aeruginosa 06/29/16 19:00 Blood Culture - Final Blood 06/29/16 19:15 Blood Culture - Final Blood Laboratory Results 07/05/16 03:50 07/05/16 03:50 07/05/16 07/06/16 07/07/16 05:59 05:59 05:59 Intake Total 1842 1050 100 Output Total 450 350 Balance 1392 700 100 PT 13.7 SEC (12.0-15.0) 06/19/16 06:12 INR 1.06 (0.83-1.16) 06/19/16 06:12 - Physical Exam Constitutional: No no apparent distress, No appears nourished Eyes: PERRL, anicteric sclera, other (mm dry) Ears, Nose, Mouth, Throat: No moist mucous membranes Cardiovascular: regular rate and rhythym, no murmur, rub, or gallop Respiratory: no respiratory distress, no rales or rhonchi Gastrointestinal: normoactive bowel sounds, soft, non-tender abdomen Genitourinary: No chi in urethra Skin: warm, normal color Musculoskeletal: full muscle strength, no muscle tenderness Neurologic: AAOx3, sensation intact bilaterally Psychiatric: interacting appropriately, not anxious Lymph, Heme, Immunologic: no cervical LAD ICD10 Worksheet Patient Problems: Problems Problem Status Onset Cough Acute Flank pain Acute Generalized weakness Acute Acute ischemic stroke Acute Back pain Acute Bronchitis Acute CLL (chronic lymphocytic leukemia) Acute Chronic Disease Mgmt/Transitional Care Acute Confusion Acute Cough Acute Cough Acute Diarrhea Acute Fatigue Acute Hydronephrosis Acute Hyperkalemia Acute MRSA (methicillin resistant Staphylococcus aureus) Acute 04/22/15 Multiple drug resistant organism (MDRO) culture positive Acute ~04/02/16 NSTEMI (non-ST elevated myocardial infarction) Acute Palliative care encounter Acute Pneumonia Acute Pneumonia Acute Pneumonia due to infectious organism Acute Pyelonephritis Acute Somnolence Acute Subdural bleeding Acute UTI (urinary tract infection) Acute UTI (urinary tract infection) Acute Urinary obstruction Acute Weakness Acute Weakness Acute
--- NOTE | 2016-07-06 13:08 | PCMIDPN ---
Assessment/Plan: 1. Pseudomonal pneumonia in immunocompromised host with multiple medical problems: Had over 20 minutes conversation with the patient's daughter today, validating her decision to make the patient comfort measures only. Antibiotics have been discontinued. Please feel free to call Infectious Disease should any questions arise and thank you for allowing us to care for this patient. 2. Isolation: The patient will remain in droplet isolation only. History of MRSA over 1 year ago, and a fairly resistant Enterobacter cloacae in March of this year. The patient is dying, and is frightened by the yellow gowns. I do not feel that the resistant gram-negative marybel warrants contact isolation at this point in time. I left a message with infection control. This organism has not been isolated from her urine during this visit. 07/06/16 13:08 Subjective: Events of last night reviewed. Patient spiked a fever and had a reaction to the IVIG. She will be evaluated by hospice later today; antibiotics have been stopped. Patient's daughter reports that she has not eaten in over a week. Objective: Vital Signs Temp Pulse Resp BP Pulse Ox 38.6 C H 102 H 22 H 103/70 95 07/06/16 02:35 07/06/16 11:44 07/06/16 11:44 07/06/16 11:44 07/06/16 11:44 Microbiology 07/02/16 08:02 Mycobacterial Smear (JEVON) - Final Lung Right Upper Lobe - Bronchial Washings 07/02/16 07:30 Gram Stain - Final Lung Right Upper Lobe - Bronchial Washings Bronchial Washings Culture - Final Pseudomonas Aeruginosa 06/29/16 19:00 Blood Culture - Final Blood 06/29/16 19:15 Blood Culture - Final Blood Laboratory Results 07/05/16 03:50 07/05/16 03:50 07/05/16 07/06/16 07/07/16 05:59 05:59 05:59 Intake Total 1842 1050 100 Output Total 450 350 Balance 1392 700 100 ICD10 Worksheet Patient Problems: Problems Problem Status Onset Cough Acute Flank pain Acute Generalized weakness Acute Acute ischemic stroke Acute Back pain Acute Bronchitis Acute CLL (chronic lymphocytic leukemia) Acute Chronic Disease Mgmt/Transitional Care Acute Confusion Acute Cough Acute Cough Acute Diarrhea Acute Fatigue Acute Hydronephrosis Acute Hyperkalemia Acute MRSA (methicillin resistant Staphylococcus aureus) Acute 04/22/15 Multiple drug resistant organism (MDRO) culture positive Acute ~04/02/16 NSTEMI (non-ST elevated myocardial infarction) Acute Palliative care encounter Acute Pneumonia Acute Pneumonia Acute Pneumonia due to infectious organism Acute Pyelonephritis Acute Somnolence Acute Subdural bleeding Acute UTI (urinary tract infection) Acute UTI (urinary tract infection) Acute Urinary obstruction Acute Weakness Acute Weakness Acute
[2016-07-06] MEDS: IPRATROPIUM/ALBUTEROL 3 ML DEYVIAL IH PRN (16:02)
[2016-07-06 16:08] VITALS: PULSE 98; RESP 24; O2SAT 94
--- NOTE | 2016-07-06 16:16 | GDS ---
[f rep st] DISCHARGE SUMMARY DISCHARGE DIAGNOSES: 1. Pseudomonal pneumonia. 2. Chronic lymphocytic leukemia pneumonitis. 3. Chronic respiratory failure. 4. Atrial fibrillation. 5. Hypertension. 6. Chronic kidney disease. 7. Ureteral obstruction, status post percutaneous nephrostomy tube. 8. Cachexia. 9. Adult failure to thrive. PROCEDURES: Nephrostomy tube and bronchoscopy. CONSULTATIONS: 1. Hematology/Oncology. 2. Infectious Disease. 3. Urology. 4. Critical care. Please see admission history and physical by Courtney Houston. The patient presented with malaise and weakness. Noted to have acute kidney injury, underwent nephr ostomy tube placement. Treated for pseudomonal pneumonia with persistent oxygen requirements. The patient had been declining despite aggressive care with antibiotics, bronchoscopy, and the [facility] had been considering hospice care. On the evening of the , she received some IVIG, somethin g she had received many times prior, and developed subsequent tachycardia and confusion. The [facility] was informed of this and at this point, decided for hospice care. She was seen by inpatient hosp ice and she was transferred there today. The patient is do not resuscitate. /[id number]/MODL
--- NOTE | 2016-07-06 16:16 | PDIAF ---
- Diagnosis Diagnosis: pseudomonal pneumonia Code Status: Do Not Resuscitate - Medication Management Discharge Medications: Medications to Continue on Transfer Acetaminophen [Tylenol ES 500 mg (*)] 1,000 mg PO BID PRN 06/19/16 [Last Taken 06/18/16 21:00] Benzonatate [Tessalon Pearles] 100 mg PO TID PRN 06/19/16 [Last Taken 06/18/16 21:00] Albuterol [Proventil Neb] 3 ml IH Q2HRS PRN #0 deyvial 07/06/16 [Last Taken Unknown] Glycopyrrolate 0.2 mg IVP BID PRN #0 ml 07/06/16 [Last Taken Unknown] Discharge Medications: Refer to the Discharge Home Medication list for PRN reason. - Orders Services needed: Home Care, Registered Nurse, Certified Receiver [facility] Face to Face: I certify that this patient was under my care and that I had the required [id number] encounter meeting the encounter requirements on the discharge day. My findings support the fact that the patient is homebound as defined in CMS Chapter 7 Medicare Benefits Manual 30.1.1, The condition of the patient is such that there exists a normal inability to leave home and consequently, leaving home would require a considerable and taxing effort. - Follow Up Care Current Providers and Referrals: Patient,NotPresent [Primary Care Provider] - As per Instructions
[2016-07-07 11:53] LABS: VIRAL CULTURE RESULT See Comments
[2016-07-07 21:43] LABS: HISTOPLASMA AG VALUE 0.81 ng/mL
== END 2016-07-06 17:20 | disposition hospice, home (50) | DRG 987 ==
LOC: EDUNIT# → F3E 06-19 10:59 → F1N 06-19 15:43
PROVIDERS: ADMIT Internal Medicine; ATTEND Internal Medicine
PROC: 0T9030Z Drainage of Right Kidney with Drainage Device, Percutaneous Approach (ICD-10-PCS; principal; 2016-06-19 06:30)
PROC: 0T25X0Z Change Drainage Device in Kidney, External Approach (ICD-10-PCS; 2016-06-20)
PROC: 02HV33Z Insertion of Infusion Device into Superior Vena Cava, Percutaneous Approach (ICD-10-PCS; 2016-06-26)
PROC: 30233N1 Transfusion of Nonautologous Red Blood Cells into Peripheral Vein, Percutaneous Approach (ICD-10-PCS; 2016-07-01)
PROC: 0B9M8ZX Drainage of Bilateral Lungs, Via Natural or Artificial Opening Endoscopic, Diagnostic (ICD-10-PCS; 2016-07-02)
DX: N13.6 Pyonephrosis (principal); N39.0 Urinary tract infection, site not specified; J15.1 Pneumonia due to Pseudomonas; J96.20 Acute and chronic respiratory failure, unspecified whether with hypoxia or hypercapnia; B96.20 Unspecified Escherichia coli [E. coli] as the cause of diseases classified elsewhere; N17.9 Acute kidney failure, unspecified; G93.40 Encephalopathy, unspecified; E43 Unspecified severe protein-calorie malnutrition; I12.9 Hypertensive chronic kidney disease with stage 1 through stage 4 chronic kidney disease, or unspecified chronic kidney disease; N18.9 Chronic kidney disease, unspecified; E87.5 Hyperkalemia; R62.7 Adult failure to thrive; I48.91 Unspecified atrial fibrillation; D80.1 Nonfamilial hypogammaglobulinemia; C91.10 Chronic lymphocytic leukemia of B-cell type not having achieved remission; D53.9 Nutritional anemia, unspecified; Z86.14 Personal history of Methicillin resistant Staphylococcus aureus infection; Z87.891 Personal history of nicotine dependence; Z86.73 Personal history of transient ischemic attack (TIA), and cerebral infarction without residual deficits; Z66 Do not resuscitate
CPT/HCPCS: 82784-90; 87186-90; 87252-90; 87385-90; 87449-90; 96365; 97116-GP; 97162-GP; 97530-GP; C1729; C1751; C1769; C2625; G8978-GP-CJ; G8978-GP-CK; G8978-GP-CL; G8979-GP-CI; G8979-GP-CK; J0171; J0690; J0692; J0696; J0713; J1170; J1450; J1459; J1644; J1650; J2250; J2704; J2997; J3010; J3370; J7626; P9016; Q9967